=== PATIENT | male | born 1935 | race Caucasian/White ===

== ENCOUNTER 2016-05-14 20:39 | Emergency (ER) | payer MEDICARE, OTHER ==
[~2016-05-14] VITALS: Ht 165.1 cm; Wt 90.0 kg
[~2016-05-14 20:39] MED LIST: ACET325T33 PO; ALBU18HF INH; ASPI-664 PO; BUDE6HFA INHALATION; BUSP10TA2 PO; CLOP75TA27 PO; DILT-8 PO; DULO30CA47 PO; EZET10TA3 PO; ISOS30TA5 PO; METO50TA16 PO; NIT4 SL; PRED20 PO; ROSU40TA PO
[2016-05-14 20:43] VITALS: Ht 165.1 cm; Wt 90.0 kg
== END 2016-05-14 23:00 | disposition left against medical advice (07) ==
LOC: E/R 20:39
DX: Z53.21 Procedure and treatment not carried out due to patient leaving prior to being seen by health care provider (principal)

== ENCOUNTER 2016-05-21 10:50 | Inpatient (IN) | payer MEDICARE, OTHER ==
[2016-05-21] VITALS (8 sets, daily range): BP systolic 131–157; BP diastolic 67–75; PULSE 68–77; RESP 19–20; TEMP 97.8; Ht 165.1 cm; Wt 84.9 kg
[~2016-05-21] VITALS: Ht 165.1 cm; Wt 84.9 kg
[2016-05-21] MEDS ORDERED: ASPIRIN 325 MG TAB PO STA (10:54)
[2016-05-21] MEDS ORDERED: NITROGLYCERIN (SL) 0.4 MG TAB SL PRN ×3 (11:00→14:30)
[2016-05-21] MEDS ORDERED: IPRATROPIUM (NEB) 0.5 MG/2.5 ML AMP INH STA (11:09)
[2016-05-21] MEDS ORDERED: ALBUTEROL 0.5% (NEB) 2.5 MG/0.5 ML AMP INH STA (11:09)
[2016-05-21] MEDS ORDERED: SEVE800T7 PO (11:15)
[2016-05-21] MEDS ORDERED: ATOR80TA75 PO (11:15)
[2016-05-21] MEDS ORDERED: CALC667C PO (11:16)
[2016-05-21 11:23] LABS: BASOPHILS % 0.2 % (0.0-2.0); HEMATOCRIT 34.2 % (42.0-52.0); HEMOGLOBIN 11.6 g/dl (14.0-18.0); LYMPHOCYTES # 0.8 10^3/ul (0.8-2.9); LYMPHOCYTES % 8.1 % (15.0-51.0); MEAN CORPUSCULAR HEMOGLOBIN 30.8 pg (29.0-33.0); MEAN CORPUSCULAR HGB CONC 33.9 g/dl (32.0-37.0); MEAN CORPUSCULAR VOLUME 90.8 fl (82.0-101.0); MEAN PLATELET VOLUME 9.6 fl (7.4-10.4); MONOCYTE # 0.4 10^3/ul (0.3-0.9); MONOCYTES % 4.5 % (0.0-11.0); NEUTROPHIL # 8.6 10^3/ul (1.6-7.5); NEUTROPHILS % 87.2 % (39.0-77.0); PLATELET COUNT 124 10^3/UL (140-440); RED BLOOD COUNT 3.77 10^6/ul (4.70-6.10); RED CELL DISTRIBUTION WIDTH 13.9 % (11.5-14.5); UNCORRECTED WBC 9.8 10^3/ul (4.8-10.8); WHITE BLOOD COUNT 9.8 10^3/ul (4.8-10.8)
[2016-05-21 11:28] LABS: ALBUMIN 4.1 g/dl (3.3-4.9); POTASSIUM 4.4 mmol/L (3.5-5.1)
--- NOTE | 2016-05-21 11:28 | RADRPT ---
PROCEDURE: XR Chest. CLINICAL INDICATION: Chest pain TECHNIQUE: Single frontal chest x-ray. COMPARISON: 10/26/2015 FINDINGS: The lungs are remarkable for mild patchy atelectasis within the lung bases bilaterally. No focal pn eumonia is seen. The cardiomediastinal silhouette is unremarkable. The osseous structures are unre markable. Right-sided central line is seen with the tip in the cavoatrial junction, in good locatio n. IMPRESSION: 1. Mild bibasilar subsegmental atelectasis. 2. Right central line in good position without pneumothorax. 3. Otherwise, stable and unremarkable chest x-ray. RPTAT: HMJB .Uriel Wetzel MD, MD Date Time Electronically viewed and signed by .Uriel Wetzel MD, on 05/21/2016 11:27 .B/
[2016-05-21 11:30] LABS: BILIRUBIN,INDIRECT 0.1 mg/dl (0-1.1); BILIRUBIN,TOTAL 0.1 mg/dl (0.2-1.3); CREATININE 7.22 mg/dl (0.61-1.24)
[2016-05-21] MEDS ORDERED: FUROSEMIDE 40 MG INJ IV ONE (11:30)
[2016-05-21 11:31] LABS: ALBUMIN/GLOBULIN RATIO 1.17; CALCIUM 8.4 mg/dl (8.4-10.2); TOTAL PROTEIN 7.6 g/dl (6.1-8.1)
[2016-05-21 11:41] LABS: CONDITION 1
[2016-05-21 11:56] LABS: CK-MB 3.36 ng/ml (0.0-2.4)
[2016-05-21 11:58] LABS: TROPONIN-I 0.235 ng/ml (0.00-0.12)
[2016-05-21 12:18] LABS: INR 1.11; PROTIME 14.3 Sec (12.2-14.2); PT RATIO 1.1
[2016-05-21 12:19] LABS: PARTIAL THROMBOPLASTIN TIME 28.1 Sec (25.0-35.0)
--- NOTE | 2016-05-21 13:18 | ERA ---
ER Documentation Chief Complaint Date/Time DATE: 05/21/16 TIME: 13:05 Chief Complaint BIB RA FOR EVAL OF CP THIS AM. PT ON HD. HPI This is a 80-year-old male with a known history of end-stage renal disease on hemodialysis every Saturday and Saturday. The patient over the past 12 hours has been experiencing intermittent chest pressure which does not radiate to the neck or back or jaw. The pain will last for 20 minutes and then spontaneously resolved. Just prior to arrival the patient stated the pain worsened and his chest was 10 out of 10 in intensity. EMS was called and they administered 160 mg of aspirin and nitroglycerin which completely resolved the patient's chest pain. He denied any associated symptoms of nausea vomiting or diaphoresis. The patient has a known history of a chronic occlusion in his LAD and is scheduled for an outpatient catheterization to be performed tomorrow by Dr. Fung. The patient denies any abdominal pain. He also denies any hemoptysis hematemesis or melanotic stools. His radio engineer is Dr. Ramirez. ROS All systems reviewed and are negative except as per history of present illness. Medications Home Meds Active Scripts Isosorbide Mononitrate* (Isosorbide Mononitrate*) 30 Mg Tab.er.24h, 30 MG PO DAILY for 30 Days, #100 Prov:MARLON RAMIREZ MD 04/28/16 Diltiazem Hcl (Cardozem Cd) 240 Mg Capsr, 240 MG PO DAILY, #30 CAP Prov:FRANCISCO CONWAY MD 10/30/15 Nitroglycerin* (Nitrostat*) 0.4 Mg Tab.subl, 1 TAB SL Q5M Y for CHEST PAIN, #30 Prov:FRANCISCO CONWAY MD 10/30/15 Reported Medications Calcium Acetate* (Calcium Acetate*) 667 Mg Capsule, 667 MG PO WITH MEALS, #30 CAP 05/21/16 Sevelamer Carbonate* (Renvela*) 800 Mg Tablet, 0.8 GM PO WITH MEALS, TAB 05/21/16 Atorvastatin* (Atorvastatin*) 80 Mg Tablet, 80 MG PO QHS, #30 TAB 05/21/16 Clopidogrel Bisulfate (Clopidogrel) 75 Mg Tablet, 75 MG PO DAILY, #30 TAB 04/28/16 Aspirin (Low Dose Aspirin) 81 Mg Tablet., 81 MG PO DAILY, #30 TAB 10/24/15 Budesonide-Formoterol Fumarate* (Symbicort*) 160-4.5 Hfa.aer.ad, 2 PUFF INHALATION BID, #1 EACH 10/24/15 Metoprolol Succinate* (Toprol XL*) 50 Mg Tab.er.24h, 50 MG PO DAILY, #30 TAB 10/24/15 Discontinued Reported Medications Duloxetine Hcl* (Duloxetine Hcl*) 30 Mg Capsule.dr, 30 MG PO DAILY, #30 CAP 10/24/15 Buspirone Hcl* (Buspirone Hcl*) 10 Mg Tab, 10 MG PO DAILY, TAB 10/24/15 Ezetimibe* (Zetia*) 10 Mg Tablet, 10 MG PO HS, TAB 10/24/15 Rosuvastatin Calcium* (Crestor*) 40 Mg Tablet, 40 MG PO HS 12/09/13 Discontinued Scripts Acetaminophen* (Tylenol*) 325 Mg Tablet, 650 MG PO Q4H Y for NON-CARDIAC PAIN LEVEL 1-3 for 60 Days, #100 TAB Prov:MARLON RAMIREZ MD 04/28/16 Albuterol Sulfate* (Ventolin HFA*) 18 Gm Hfa.aer.ad, 2 PUFF INH Q6H Y for WHEEZING AND SOB, #1 AER Prov:MARLON RAMIREZ MD 04/28/16 Aspirin* (Aspirin* EC) 81 Mg Tablet., 81 MG PO DAILY for 90 Days, #100 Prov:MARLON RAMIREZ MD 04/28/16 Prednisone (Prednisone) 20 Mg Tab, 20 MG PO BID, #10 TAB Prov:FRANCISCO CONWAY MD 10/30/15 Allergies Allergies: Coded Allergies: No Known Allergy (Unverified , 05/21/16) PMhx/Soc History of Surgery: Yes (PCI with stents x 3) Anesthesia Reaction: No Hx Neurological Disorder: No Hx Respiratory Disorders: No Hx Cardiac Disorders: Yes (HTN, Hyperlipidemia, CAD) Hx Psychiatric Problems: No Hx Miscellaneous Medical Probl: No Hx Alcohol Use: No Hx Substance Use: No Hx Tobacco Use: No (quit 6 months ago) Smoking Status: Former smoker Physical Exam Vitals Vital Signs Date Time Temp Pulse Resp B/P Pulse Ox O2 Delivery O2 Flow Rate FiO2 05/21/16 12:28 73 20 98 21 05/21/16 11:05 Nasal Cannula 2 05/21/16 10:58 98.1 82 18 201/84 96 Physical Exam Constitutional:Well-developed. Well-nourished. HEENT:Normocephalic. Atraumatic.Pupils were equal round reactive to light. Moist mucous membranes.No tonsillar exudates. Neck: No nuchal rigidity. No lymphadenopathy. No posterior cervical spine tenderness or step-offs. Respiratory: Not using accessory muscles of respiration.Lungs were clear to auscultation bilaterally. Rhonchi bilaterally. No rales. No wheezing. Cardiovascular: Regular rate regular rhythm.No murmurs. No rubs were appreciated.S1, S2 normal. Distal pulses are palpable 2+ bilaterally. GI: Abdomen was soft. Nontender. Non Distended. No pulsatile abdominal masses or bruits. No rebound. No guarding. Bowel sounds were present and normal. Muscle skeletal: Full range of motion of both the upper and lower extremities bilaterally.Normal muscle tone.No assymetrical calf tenderness or swelling. Skin: No petechia, no purpura. No lesions on the palms or the soles of the feet. No maculopapular rash. Right subclavian tunneled catheter in place which was clean dry and intact NEURO: Patient was alert, awake, orientated x3.No facial droop. Gait observed and normal with no ataxia.Speech had regular rate and rhythm. No focal neurological deficits. Result Diagram: 05/21/16 1105 05/21/16 1105 Results 24 hrs Laboratory Tests Test 05/21/16 11:05 05/21/16 11:50 Alanine Aminotransferase (ALT/SGPT) 40IU/L Albumin 4.1g/dl Albumin/Globulin Ratio 1.17 Alkaline Phosphatase 127IU/L Anion Gap 25 Aspartate Amino Transf (AST/SGOT) 22IU/L B-Type Natriuretic Peptide 1590PG/ML Basophils # 0.010^3/ul Basophils % 0.2% Blood Urea Nitrogen 65mg/dl Calcium Level 8.4mg/dl Carbon Dioxide Level 21mmol/L Chloride Level 96mmol/L Creatine Kinase 42IU/L Creatine Kinase Index 8.0 Creatinine 7.22mg/dl Creatinine Kinase MB (Mass) 3.36ng/ml Direct Bilirubin 0.00mg/dl Eosinophils # 0.010^3/ul Eosinophils % 0.0% Globulin 3.50g/dl Glucose Level 322mg/dl Hematocrit 34.2% Hemoglobin 11.6g/dl Indirect Bilirubin 0.1mg/dl Lymphocytes # 0.810^3/ul Lymphocytes % 8.1% Mean Corpuscular Hemoglobin 30.8pg Mean Corpuscular Hemoglobin Concent 33.9g/dl Mean Corpuscular Volume 90.8fl Mean Platelet Volume 9.6fl Monocytes # 0.410^3/ul Monocytes % 4.5% Neutrophils # 8.610^3/ul Neutrophils % 87.2% Nucleated Red Blood Cells # 0.010^3/ul Nucleated Red Blood Cells % 0.0/100WBC Platelet Count 50817^3/UL Potassium Level 4.4mmol/L Red Blood Count 3.7710^6/ul Red Cell Distribution Width 13.9% Sodium Level 138mmol/L Total Bilirubin 0.1mg/dl Total Protein 7.6g/dl Troponin I 0.235ng/ml White Blood Count 9.810^3/ul Activated Partial Thromboplast Time 28.1Sec INR International Normalized Ratio 1.11 Prothrombin Time 14.3Sec Prothrombin Time Ratio 1.1 Current Medications Medications (Trade) Dose Ordered Sig/Sierra Route PRN Reason Start Time Stop Time Status Last Admin Dose Admin Aspirin (Aspirin) 325 mg ONCE STAT PO 05/21/16 10:54 05/21/16 10:56 DC 05/21/16 11:57 Nitroglycerin (Nitroglycerin (Sl Tab) 0.4 Mg) 1 tab Q5M UP TO 3 DOSES PRN SL CHEST PAIN 05/21/16 11:00 Albuterol (Proventil 0.5% (Neb)) 5 mg ONCE STAT INH 05/21/16 11:09 05/21/16 11:11 DC 05/21/16 12:27 Ipratropium [place] (Atrovent 0.02% (Neb)) 0.5 mg ONCE STAT INH 05/21/16 11:09 05/21/16 11:11 DC 05/21/16 12:27 Furosemide (Lasix) 40 mg ONCE ONCE IV 05/21/16 11:30 05/21/16 11:31 DC 05/21/16 11:59 Procedures/MDM The patient presented to the emergency department with chest pain. My clinical evaluation and workup was to distinguish minor causes of chest pain from acute life threatening conditions such as myocardial infarction, pulmonary embolism, aortic dissection, esophageal rupture, cardiac tamponade. The patient was placed on a outside rigger and continuous pulse oximetry. IV access established by nursing staff. The patient was given 162 mg of aspirin and further nitroglycerin and was chest pain-free at this time. I spoke with his security operations specialist Dr. mcnally.who indicated the patient did not require heparin at this time given that he was chest pain-free. He also requested that the patient undergo hemodialysis prior to his cardiac catheterization. I spoke with Dr. Sauer who will follow up on arranging the patient's dialysis. The patient's bicarb and potassium were within normal limits. 12 Lead EKG tracing ordered and reviewed by myself showed: Normal sinus rhythm of 86 bpm and no arrhythmia. WV interval normal. QRS duration normal. No ST segment elevation No ST segment depression. No changes consistent with acute ischemia. The patient's troponin was elevated and he was treated for a non-STEMI. The patient will be admitted to the hospitalist as requested by Dr. Sauer in serious condition with anticipated stay of greater than 2 midnights. This patient also presented to the emergency department with severely elevated blood pressure. My differential diagnosis included but was not limited to conditions that could end-organ damage such as acute coronary syndrome, acute pulmonary edema, aortic dissection, subarachnoid hemorrhage, intracerebral hemorrhage, cerebral infarction, withdrawal syndromes from beta blockers, or states of catecholamine excess such as pheochromocytoma or drug intoxication. The patient had uncontrolled hypertensive with end-organ damage to suggest hypertensive emergency. The treatment goal was immediate reduction of the mean arterial blood pressure. This was done in a controlled, graded manor, using improvement of the patient's condition as a guide. The patient's blood pressure reduction did not exceed more then a 20-25 percent reduction within the first 30 to 60 minutes. The patient was put on a outside rigger, continuous pulse oximetry, and IV access was established by nursing staff. The antihypertensive agent used was labetalol and nitroglycerin. The patient also received nebulizer treatments of albuterol and Atrovent had significant improvement of his dyspnea. Chest radiograph showed no evidence of pulmonary vascular congestion and the patient's tunneled catheter was in good position with no pneumothorax. Critical Care: Time: 40 minutes Treatments/Evaluations: Close monitoring and treatment of unstable vital signs, cardiorespiratory, and neurologic status, while maintaining tight balance of fluid, respiratory, and cardiac interventions. Departure Diagnosis: Primary Impression: Non-STEMI (non-ST elevated myocardial infarction) Additional Impressions: Acute on chronic kidney failure Hypertensive emergency Condition: Serious EVON ORTIZ May 21, 2016 13:17
[2016-05-21] MEDS ORDERED: ONDANSETRON 4 MG INJ IV PRN ×2 (13:30→14:30)
[2016-05-21] MEDS ORDERED: ACETAMINOPHEN 325 MG TAB PO PRN ×2 (13:30→14:30)
[2016-05-21] MEDS ORDERED: NACL 0.9% 3 ML SYG IV SCH (14:30)
[2016-05-21] MEDS ORDERED: morphine 2 MG INJ IV PRN (14:30)
[2016-05-21] MEDS ORDERED: LORAZEPAM 0.5 MG TAB PO PRN (14:30)
[2016-05-21] MEDS ORDERED: DOCUSATE SODIUM 100 MG CAP PO PRN (14:30)
[2016-05-21] MEDS ORDERED: ALBUTEROL/IPRATROPIUM (NEB) 3 ML AMP HHN PRN (15:30)
[2016-05-21 15:48] LABS: CK-MB 7.21 ng/ml (0.0-2.4); TROPONIN-I 1.69 ng/ml (0.00-0.12)
--- NOTE | 2016-05-21 16:42 | CONS ---
DATE OF ADMISSION: 05/21/2016 DATE OF CONSULTATION: 05/21/2016 TYPE OF CONSULTATION: Cardiology. REFERRING PHYSICIAN: Dr. Burt. REASON FOR CONSULTATION: Chest pain. CHIEF COMPLAINT: Chest pain. HISTORY OF PRESENT ILLNESS: Thank you for this referral. History obtained from the patient, loli rankin with his son and discussion with Dr. Bernard. This is a pleasant 80-year-old [place] gentleman with multiple complicated medical history with known coronary artery disease [facility] [place] [facility] [place]. The patient apparently has had URI symptoms with some fever over the past week. He was in fact scheduled to undergo elective PCI of his LAD including CT of his LAD last week . However, he called and canceled the procedure because of his fever and was not breathing well. Zulma hernandez was scheduled to have the procedure tomorrow; however, came in this morning because of worsen ing chest pain. The patient apparently has had some chest pain yesterday, which has resolved, but t his morning he is complaining of severe anterior chest/epigastric chest pain and discomfort. He cou ld not explain the exacerbating factor. It was severe, lasted about a half an hour and resolved whi le in the emergency room. Currently, the patient is completely chest pain-free. The patient also h as been wheezing, coughing and had shortness of breath. No recent fever. His cough and shortness o f actually improved now. PAST MEDICAL HISTORY: History of coronary artery disease, status post myocardial infarction. Histo ry of multiple PCIs, history of renal failure on dialysis now, history of hypertension, diabetes, dy slipidemia, congestive heart failure and COPD. SOCIAL HISTORY: Has recently quit smoking. FAMILY HISTORY: No reported early coronary artery disease. ALLERGIES: NO REPORTED ALLERGIES. MEDICATIONS: He does not remember, but per review of the old chart that I could obtain from my office, he is sup posed to be takin. Aspirin. 2. Lipitor. 3. Plavix. 4. Cardizem. 5. Pepcid. 6. Isordil. 7. Metoprolol. REVIEW OF SYSTEMS: As above mentioned, denied all except for above-mentioned. PHYSICAL EXAMINATION: VITAL SIGNS: Temperature 97.8, heart rate of 93, blood pressure 127/80, respiration rate of 18, sat urating 100%. HEENT: Normocephalic, atraumatic. Pupils are equal. Appears in mild respiratory distress. CARDIOVASCULAR: Regular rate and rhythm, systolic murmur. PULMONARY: With mild diffuse wheezes. GASTROINTESTINAL: Soft, nontender. EXTREMITIES: Trivial edema. NEUROLOGIC: Awake and alert. PSYCHIATRIC: Appears to be calm and pleasant. LABORATORY DATA: WBC of cough 9.8, hemoglobin 11.6, platelet 124. Sodium 138, potassium 4.4, BUN o f 65, creatinine of 7.2, glucose of 322. Troponin of 0.23 with total CK of 42, MB fraction of 3.3. ProBNP of 1590. DIAGNOSTIC DATA: Chest x-ray shows mild basilar subsegmental atelectasis, right central line in goo d position without pneumothorax. EKG showed normal sinus rhythm, nonspecific ST abnormalities. Rev iew of the old chart showed that patient had Lexiscan stress test done on 02/20/2016, which showed e jection fraction of 56% and 67% with minimal reversible ischemia in the LAD area. PAST SURGICAL HISTORY: Patient has had a cardiac catheterization done in 10/25/2015 and had a PCI o f the left circumflex artery using a 2.5 x 26 mm Resolute drug-eluting stent. He had a PCI of the r ight coronary artery using a 3 x 38 mm Resolute drug-eluting stent and a PCI of the distal right cor onary artery using a 2.5 x 12 mm drug-eluting stent in 10/28/2015. On 04/27/2016, he had an angiogr aphy done which showed the left circumflex artery had 80% new lesions prior to the previous stent. This stent area was successfully stented using a 2.75 x 14 mm Resolute drug-eluting stent. LAD had a dual ostial with proximal LAD 80% stenosis, mid LAD 100% occlusion with left collaterals. Postero lateral artery also had 70% ostial lesion. ASSESSMENT AND PLAN: 1. Mnk-TB-fykweiisb myocardial infarction. 2. Chronic obstructive pulmonary disease exacerbation. 3. Coronary artery disease, history of myocardial infarction. 4. History of multiple percutaneous coronary interventions. 5. Diabetes, poorly controlled. 6. Hypertension. 7. Renal failure on dialysis. 8. History of congestive heart failure, chronic, secondary to diastolic dysfunction, stable. 9. Abnormal troponin secondary to above. 10. Ex-smoker. 11. Dyslipidemia on statin. RECOMMENDATIONS: I will decrease the patient's beta mirna because of his actual wheezing. Discus sed with Dr. Bernard who will evaluate the patient and optimize his pulmonary status. Hemodialysis to be done today. The patient will be scheduled for diagnostic angiography, possible PCI tomorrow o nce he is dialyzed and his pulmonary status has improved. Aspirin and Plavix will be continued. We will continue to monitor along with you. Thank you for this referral. Dictated By: ADENIKE SANTIAGO/FIORELLA Conf#: [id number] DID#: [id number]
--- NOTE | 2016-05-21 16:56 | CONS ---
Date/Time of Note Date/Time of Note DATE: 05/21/16 TIME: 16:44 Assessment/Plan Assessment/Plan Additional Assessment/Plan 80 yo Male with 1) Chest Pain, NSTEMI, Hx of CAD, Chronic Occlusion of LAD, Hx of PCI and stent 2) ESRD on HD TTS, Last HD Saturday 3) Hx of HTN, Controlled 4) Anemia, Chronic, ESRD 5) Mineral Bone Disease, CKD 6) Dyslipidemia Pt will be evaluated by Cardiology for Chest pain, Possible plan for angiogram tomorrow Will order HD today, UF as tolerated Also plan for HD after contrast study tomorrow BP is well controlled, Chest Pain has resolved Cont outpt Med rx, Cont Phos binder with Meals MAYELA with HD TTS Schedule. Thank you for the opportunity to participate in the care of Mr Keita Please do not hesitate to contact me if you have any questions or concerns. Consultation Date/Type/Reason Admit Date/Time Date of Consultation: May 21, 2016 Type of Consultation: Nephrology Consultatoin Reason for Consultation ESRD Referring Provider: FRANCISCO CONWAY MD Hx of Present Illness 80-year-old male with a known history of end-stage renal disease on hemodialysis every Saturday and Saturday, last HD was on Saturday without any complications. Pt presented with intermittent chest pressure which does not radiate to the neck or back or jaw and has resolved at this time. Pt has prior hx of CAD and PCI currentl on antiplatelet agents. His Cardiology is Dr Fung.The patient has a known history of a chronic occlusion in his LAD and is scheduled for an outpatient catheterization. He denied any associated symptoms of nausea vomiting or diaphoresis. Nephrology consulted for management of ESRD. Constitutional: No requiring O2 Past Medical History Medical History: coronary artery disease, high cholesterol, hypertension, renal disease Past Surgical History Past Surgical Hx: other (S/p PCI) Family History Significant Family History: no pertinent family hx Social History Alcohol Use: none Smoking Status: Former smoker Drug Use: none Exam/Review of Systems Vital Signs Vitals Vital Signs Date Time Temp Pulse Resp B/P Pulse Ox O2 Delivery O2 Flow Rate FiO2 05/21/16 15:02 97.8 93 18 127/88 100 Room Air 05/21/16 12:28 21 05/21/16 11:05 2 Exam Constitutional: alert, No distress Eyes: EOMI, PERRL, nl conjunctiva ENMT: mucosa pink and moist Neck: No jvd Respiratory: crackles/rales, No diminished breath sounds, No labored breathing Cardiovascular: regular rate and rhythm, No edema Gastrointestinal: non-tender, soft, No rebound or guarding Musculoskeletal: nl extremities to inspection Extremities: No edema Neurological: PARIMUTUEL TICKET CASHIER II-XII intact, nl mental status, nl speech, nl strength Skin: No diaphoresis, No rash or lesions Results Result Diagram: 05/21/16 1105 05/21/16 1105 Results 24 hrs Laboratory Tests Test 05/21/16 11:05 05/21/16 11:50 05/21/16 14:59 Alanine Aminotransferase (ALT/SGPT) 40 Albumin 4.1 Albumin/Globulin Ratio 1.17 Alkaline Phosphatase 127 H Anion Gap 25 H Aspartate Amino Transf (AST/SGOT) 22 B-Type Natriuretic Peptide 1590 H Basophils # 0.0 Basophils % 0.2 Blood Urea Nitrogen 65 H Calcium Level 8.4 Carbon Dioxide Level 21 Chloride Level 96 L Creatine Kinase 42 73 Creatine Kinase Index 8.0 9.9 Creatinine 7.22 H Creatinine Kinase MB (Mass) 3.36 H 7.21 H Direct Bilirubin 0.00 Eosinophils # 0.0 Eosinophils % 0.0 Globulin 3.50 H Glucose Level 322 H Hematocrit 34.2 L Hemoglobin 11.6 L Indirect Bilirubin 0.1 Lymphocytes # 0.8 Lymphocytes % 8.1 L Mean Corpuscular Hemoglobin 30.8 Mean Corpuscular Hemoglobin Concent 33.9 Mean Corpuscular Volume 90.8 Mean Platelet Volume 9.6 Monocytes # 0.4 Monocytes % 4.5 Neutrophils # 8.6 H Neutrophils % 87.2 H Nucleated Red Blood Cells # 0.0 Nucleated Red Blood Cells % 0.0 Platelet Count 124 #L Potassium Level 4.4 Red Blood Count 3.77 L Red Cell Distribution Width 13.9 Sodium Level 138 Total Bilirubin 0.1 L Total Protein 7.6 Troponin I 0.235 *H 1.690 *H White Blood Count 9.8 # Activated Partial Thromboplast Time 28.1 INR International Normalized Ratio 1.11 Prothrombin Time 14.3 H Prothrombin Time Ratio 1.1 Medications Medications Current Medications Aspirin (Halfprin) 81 mg DAILY PO ; Start 05/22/16 at 09:00 Atorvastatin Calcium (Lipitor) 80 mg QHS PO ; Start 05/21/16 at 21:00 Clopidogrel Bisulfate (plaVIX) 75 mg DAILY PO ; Start 05/22/16 at 09:00 Isosorbide Mononitrate (Imdur) 30 mg DAILY PO ; Start 05/22/16 at 09:00 Salmeterol Xinafoate/ Fluticasone (Advair 250/50 Diskus) 1 inh BID INH ; Start 05/21/16 at 21:00 Diltiazem HCl (Cardizem Cd) 240 mg DAILY PO ; Start 05/22/16 at 09:00 Lorazepam (Ativan) 0.5 mg Q8H PRN PO ANXIETY; Start 05/21/16 at 14:30 Ondansetron HCl (Zofran Inj) 4 mg Q6H PRN IV NAUSEA AND/OR VOMITING; Start at 14:30 Acetaminophen (Tylenol Tab) 650 mg Q6H PRN PO PAIN LEVEL 1-3 OR FEVER; Start at 14:30 Morphine Sulfate (morphine) 1 mg Q4H PRN IV PAIN LEVEL 7-10; Start 05/21/16 at 14:30 Docusate Sodium (Colace) 100 mg Q12H PRN PO CONSTIPATION; Start 05/21/16 at 14: 30 Pantoprazole (Protonix Tab) 40 mg DAILY@06 PO ; Start 05/22/16 at 06:00 Heparin Sodium (Porcine) (Heparin (5000 Units/0.5 ml)) 5,000 unit Q12 SC ; Start 05/21/16 at 21:00 Methylprednisolone Sodium Succinate (Solu-Medrol) 40 mg Q8 IV ; Start 05/21/16 at 22:00 Insulin Human NPH (Humulin N) 5 unit Q8H SC ; Start 05/21/16 at 16:00 Metoprolol Succinate (Toprol Xl) 25 mg DAILY PO ; Start 05/22/16 at 09:00 Procedures Procedures PROCEDURE: XR Chest. CLINICAL INDICATION: Chest pain TECHNIQUE: Single frontal chest x-ray. COMPARISON: 10/26/2015 FINDINGS: The lungs are remarkable for mild patchy atelectasis within the lung bases bilaterally. No focal pneumonia is seen. The cardiomediastinal silhouette is unremarkable. The osseous structures are unremarkable. Right-sided central line is seen with the tip in the cavoatrial junction, in good location. IMPRESSION: 1. Mild bibasilar subsegmental atelectasis. 2. Right central line in good position without pneumothorax. 3. Otherwise, stable and unremarkable chest x-ray. RPTAT: HMJB .Uriel Wetzel MD, Date Time Electronically viewed and signed by .Uriel Wetzel MD, MD on 05/21/2016 11:27 ZEHRA MILLARD MD May 21, 2016 16:55
[2016-05-21] MEDS: NPH, HUMAN INSULIN ISOPHANE 3ML VIAL SC SCH (19:00)
[2016-05-21] MEDS: SEVELAMER CARBONATE 0.8 GM PKT PO SCH (19:30)
[2016-05-21] MEDS: CALCIUM ACETATE 667 MG CAP PO SCH (19:30)
--- NOTE | 2016-05-21 20:34 | HP ---
DATE OF ADMISSION: 05/21/2016 CONSULTANTS: 1. Dr. Mitch Hazel 2. Dr. Emmanuel Pizano CHIEF COMPLAINT: Chest pain. HISTORY OF PRESENT ILLNESS: This is a pleasant 80-year-old gentleman known to me from a prior hospi talization with past medical history of myocardial infarction, end-stage renal disease on hemodialys is Saturday, , and Saturdays; diabetes mellitus type 2, diabetic nephropathy, hypertension, d yslipidemia, coronary artery disease, COPD, history of smoking in remission, who presents to [facility] saying having 1 day of chest discomfort. The chest discomfort is explained as left-sided chest pain radiating to his the patient shoulder, not accompanied with diaphoresis, shor tness of breath. The patient states that he has been compliant with his medication and was schedule d for left heart catheterization this upcoming week, although this chest discomfort started this mor allison; therefore, he presented to [facility] emergency room. Upon evaluation, the patient's EKG demonstrated normal sinus rhythm with ventricular rate of 86 with no arrhythmia, NV interval no rmal, QRS duration normal, no ST segment elevation or depression, no sign of ischemia. The patient' s troponin was found to be mildly elevated at 0.235. Creatinine 7.22, BUN of 65. He was treated aspirin, DuoNeb, Lasix, nitroglycerin. At this time, the patient denies having any discomfort. He is accompanied by his son and his [id number] at the bedside. He denies any fever, chills, w eight gain, weight loss, anorexia. No shortness of breath, no nausea, vomiting, diarrhea, no abdomi nal pain. No dysuria, hematuria, urgency, and incontinence. No neck pain, no restricted range of m otion. No recent travel history. No sick contact. No lower extremity edema. No difficulty with a mbulation. He does complain of having right shoulder pain, which has been chronic, and this has com e on since lack of movement since he has gotten his dialysis catheter. PAST MEDICAL AND SURGICAL HISTORY: As above per HPI. MEDICATIONS: 1. Aspirin 81 mg. 2. Lipitor 80 mg. 3. Symbicort b.i.d. 4. Calcium acetate 667 mg. 5. Plavix 75 mg. 6. Cardizem 240 mg. 7. Isosorbide [id number] mg. 8. Toprol-XL 50 mg. 9. Nitroglycerin 0.4 mg. 10. Renvela 800 mg. ALLERGIES: NO KNOWN DRUG ALLERGIES. FAMILY HISTORY: Positive for hypertension and coronary artery disease, dyslipidemia. SOCIAL HISTORY: Chronic smoker for 40 years, although he quit about 2 months ago. History of occas ional alcohol use, but in remission. No illicit drugs. Lives at home with his family. REVIEW OF SYSTEMS: As above per HPI, otherwise 12 review of systems has been found to be negative. PHYSICAL EXAMINATION: VITAL SIGNS: Temperature 97.8, pulse 93, respiration 18, blood pressure 127/88, oxygen 100% in room air. GENERAL APPEARANCE: The patient is lying in bed comfortably without any distress. He is awake, alexia rt, oriented. He is able to answer my questions properly. EYES AND EARS, NOSE, THROAT: Conjunctivae and lids are normal. Pupils are normal. Extraocular mov ements normal. Hearing grossly normal. Lips, teeth, and gums are normal. Oral mucosa is moist. NECK: Supple. Trachea is midline. No lymphadenopathy. RESPIRATORY: Effort is normal. Clear to auscultation bilaterally. CARDIOVASCULAR: Normal S1, S2. Regular rhythm and rate. No murmur, no bruits, no edema. Peripher al pulses, radial pulses palpable. Cap refill is normal. CHEST: Normal expansion of thorax during inspiration. GASTROINTESTINAL: Abdomen is soft, nontender, not distended. Bowel sounds present. No guarding, r ebound. GENITOURINARY: Deferred. MUSCULOSKELETAL: Upper and lower extremities within normal limits. Full range of motion. Strength 5/5 in both upper and lower extremities. NEUROLOGIC: Cranial nerves II through XII are grossly intact. PSYCHIATRIC: Normal judgment and insight. He is awake, alert, oriented. LABORATORY WORK AND IMAGING: Sodium 138, potassium ____, chloride 96, bicarbonate 21, BUN 65, creat inine 7.22, glucose of 322, calcium 8.4, total bilirubin 1. Troponin 0.235. BNP 1590. WBC 9.8, he moglobin 11.3, hematocrit 34.2, platelets 124. PT 14.3, INR 1.11. ASSESSMENT AND PLAN: 1. Non-ST myocardial infarction. Cardiology has been consulted. The patient has been scheduled fo r left heart catheterization tomorrow status post dialysis. Continue aspirin, statin, Plavix, beta- mirna. 2. End-stage renal disease on hemodialysis. Nephrology has been consulted. 3. Dyslipidemia. Continue statin. Place the patient on low fat diet. 4. Essential hypertension, well controlled on metoprolol, isosorbide nitrate, and diltiazem. 5. 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 Continue archie athing treatment and bronchodilator. Place the patient on oxygen p.r.n. 6. For deep venous thrombosis prophylaxis, on heparin. 7. For gastrointestinal prophylaxis, on proton pump inhibitor. 8. We will continue to monitor patient closely. Further recommendations, management, and treatment as per clinical course. Total amount of time that was spent for evaluation of patient and admission workup 55 minutes. Dictated By: FRANCISCO SYED/FIORELLA Conf#: [id number] DID#: [id number]
[2016-05-21] MEDS: SALMETEROL/FLUTICASONE 250/50 INHA INH SCH (21:00)
[2016-05-21] MEDS: HEPARIN 5,000 UNIT/0.5 ML SYG SC SCH (21:00)
[2016-05-21] MEDS: ATORVASTATIN 80 MG TAB PO SCH (21:00)
[2016-05-21 21:26] LABS: CK-MB 8.79 ng/ml (0.0-2.4); TROPONIN-I 4.7 ng/ml (0.00-0.12)
[2016-05-21] MEDS: METHYLPREDNISOLONE 40 MG INJ IV SCH (22:00)
--- NOTE | 2016-05-21 22:32 | CONS ---
DATE OF ADMISSION: 05/21/2016 DATE OF CONSULTATION: REASON FOR CONSULTATION: Shortness of breath. Thank you, Dr. Conway, for this consultation. HISTORY OF PRESENT ILLNESS: This is a pleasant 80-year-old gentleman who presents with a several-da y history of increasing shortness of breath, wheezing, cough, congestion who has history of end-stag e renal failure on hemodialysis, and was scheduled for cardiac catheterization tomorrow for workup o f coronary ischemia, experiencing intermittent chest tightness for the past 12 hours, but no radiati on to the neck or jaw. No nausea, no vomiting, no cough or sputum production, no hemoptysis or onesimo temesis. As stated, the patient has a history of coronary artery disease with left anterior descend ing occlusion, scheduled for cardiac catheterization for tomorrow by Dr. Pizano. PAST MEDICAL HISTORY: As above. MEDICATIONS: Per chart. ALLERGIES: NONE. SOCIAL HISTORY: Ex-smoker. No alcohol, no history of drug use. FAMILY HISTORY: Noncontributory. SYSTEMS REVIEW: A 12-point review of systems was negative other than that mentioned above. PHYSICAL EXAMINATION: GENERAL: Elderly gentleman who appears comfortable at rest, no acute distress. VITAL SIGNS: Currently afebrile, pulse is 93, blood pressure 127/88, O2 saturation 98% on room air. NECK: Supple. No JVD or lymphadenopathy. CARDIAC: S1, S2. No added sounds or murmurs. CHEST: Diminished air entry bilaterally. ABDOMEN: Soft, nontender. No guarding or rebound. EXTREMITIES: No cyanosis, clubbing, edema. NEUROLOGIC: Grossly intact. No focal deficits. LABORATORY DATA: White count 9.8, hemoglobin 11.6, platelets of 124. BUN 65, creatinine 7.22. EKG shows no acute ischemic changes. Troponin was elevated at 1.69. Chest x-ray was reviewed, shows n o significant infiltrates or effusions. IMPRESSION AND PLAN: 1. Tracheobronchitis with bronchospasm. 2. Underlying coronary artery disease. Now with evidence of possible non-ST elevation myocardial i nfarction. 3. History of end-stage renal failure on hemodialysis. Clinically, no evidence of volume overload. 4. History of hypertension. The patient will require: 1. Chest pain protocol including nitroglycerin, beta-mirna, aspirin. 2. Bronchodilators. 3. Steroid taper for bronchospasm. 4. Hemodialysis, as tolerated. Dictated By: BAILEY ALEXANDER MD SV/FIORELLA Conf#: [id number] DID#: [id number] CC: FRANCISCO CONWAY MD;*EndCC*
[2016-05-22] VITALS (31 sets, daily range): BP systolic 121–176; BP diastolic 65–90; PULSE 70–89; RESP 16–24
[2016-05-22 03:08] LABS: CK-MB 8.02 ng/ml (0.0-2.4); TROPONIN-I 4.45 ng/ml (0.00-0.12)
[2016-05-22] MEDS: PANTOPRAZOLE (EC) 40 MG TAB PO SCH (05:59)
[2016-05-22] MEDS: METHYLPREDNISOLONE 40 MG INJ IV SCH ×3 (06:00→20:51)
[2016-05-22] MEDS: NPH, HUMAN INSULIN ISOPHANE 3ML VIAL SC SCH ×3 (06:03→16:28)
[2016-05-22] MEDS: ISOSORBIDE MONONITRATE(SR)30 MG TAB PO SCH (08:21)
[2016-05-22] MEDS: DILTIAZEM (CD) 240 MG CAP PO SCH (08:21)
[2016-05-22] MEDS: SALMETEROL/FLUTICASONE 250/50 INHA INH SCH ×2 (08:22→21:00)
[2016-05-22] MEDS: SEVELAMER CARBONATE 0.8 GM PKT PO SCH ×3 (08:22→17:42)
[2016-05-22] MEDS: ASPIRIN (EC) 81 MG TAB PO SCH (08:22)
[2016-05-22] MEDS: CLOPIDOGREL 75 MG TAB PO SCH (08:22)
[2016-05-22] MEDS: CALCIUM ACETATE 667 MG CAP PO SCH ×3 (08:22→17:42)
[2016-05-22] MEDS: HEPARIN 5,000 UNIT/0.5 ML SYG SC SCH (08:26)
[2016-05-22] MEDS ORDERED: METOPROLOL (XL) 25 MG TAB PO SCH (09:00)
[2016-05-22] MEDS ORDERED: METOPROLOL (XL) 50 MG TAB PO SCH (09:00)
[2016-05-22 10:05] LABS: ALBUMIN 4.4 g/dl (3.3-4.9); POTASSIUM 4.8 mmol/L (3.5-5.1)
[2016-05-22 10:07] LABS: INR 1.11; PROTIME 14.3 Sec (12.2-14.2); PT RATIO 1.1
[2016-05-22 10:08] LABS: ALBUMIN/GLOBULIN RATIO 1.1; BILIRUBIN,INDIRECT 0.4 mg/dl (0-1.1); BILIRUBIN,TOTAL 0.4 mg/dl (0.2-1.3); CREATININE 6.19 mg/dl (0.61-1.24); TOTAL PROTEIN 8.4 g/dl (6.1-8.1)
[2016-05-22 10:09] LABS: CALCIUM 8.8 mg/dl (8.4-10.2)
[2016-05-22] MEDS ORDERED: MIDAZOLAM 1 MG/ML 2 ML INJ ONE (10:13)
[2016-05-22] MEDS ORDERED: FENTAnyl 50 MCG/ML VIAL ONE ×2 (10:13→11:54)
[2016-05-22] MEDS ORDERED: IODIXANOL LOCM 100 ML BTL ONE ×3 (10:13→12:28)
[2016-05-22] MEDS ORDERED: LIDOCAINE 1% (MDV) 20 ML INJ ONE (10:13)
[2016-05-22 10:19] LABS: CK-MB 5.94 ng/ml (0.0-2.4)
[2016-05-22] MEDS ORDERED: VERAPAMIL 5 MG INJ ONE (10:20)
[2016-05-22] MEDS ORDERED: NITROGLYCERIN (IC) 100 MCG/ML INJ ONE (10:20)
[2016-05-22 10:24] LABS: CONDITION 1; EOSINOPHILS # 0.1 10^3/ul (0.0-0.5); EOSINOPHILS % 0.6 % (0.0-7.0); HEMATOCRIT 36.2 % (42.0-52.0); HEMOGLOBIN 12.4 g/dl (14.0-18.0); LYMPHOCYTES # 1.2 10^3/ul (0.8-2.9); LYMPHOCYTES % 10.6 % (15.0-51.0); MEAN CORPUSCULAR HEMOGLOBIN 31.1 pg (29.0-33.0); MEAN CORPUSCULAR HGB CONC 34.1 g/dl (32.0-37.0); MEAN CORPUSCULAR VOLUME 91.1 fl (82.0-101.0); MEAN PLATELET VOLUME 9.5 fl (7.4-10.4); MONOCYTE # 0.2 10^3/ul (0.3-0.9); NEUTROPHIL # 9.8 10^3/ul (1.6-7.5); NEUTROPHILS % 86.8 % (39.0-77.0); PLATELET COUNT 140 10^3/UL (140-440); RED BLOOD COUNT 3.98 10^6/ul (4.70-6.10); RED CELL DISTRIBUTION WIDTH 13.5 % (11.5-14.5); UNCORRECTED WBC 11.3 10^3/ul (4.8-10.8); WHITE BLOOD COUNT 11.3 10^3/ul (4.8-10.8)
[2016-05-22 10:26] LABS: TROPONIN-I 2.9 ng/ml (0.00-0.12)
[2016-05-22 10:29] LABS: MAGNESIUM 1.8 mg/dl (1.7-2.5)
[2016-05-22 10:30] LABS: CHOL/HDL RATIO 4.5 RATIO
[2016-05-22] MEDS ORDERED: BIVALIRUDIN 250MG /NS 50 ML 50 ML IVPB ONE (11:14)
--- NOTE | 2016-05-22 12:20 | CONS ---
Date/Time of Note Date/Time of Note DATE: 05/22/16 TIME: 12:18 Assessment/Plan Assessment/Plan Additional Assessment/Plan 80 yo Male with 1) Chest Pain, NSTEMI, Hx of CAD, Chronic Occlusion of LAD, Hx of PCI and stent 2) ESRD on HD TTS, Last HD Saturday 3) Hx of HTN, Controlled 4) Anemia, Chronic, ESRD 5) Mineral Bone Disease, CKD 6) Dyslipidemia BP is well controlled, Chest Pain has resolved Cont outpt Med rx, Cont Phos binder with Meals MAYELA with HD TTS Schedule. HD ordered for today also post Cath. Thank you for the opportunity to participate in the care of Mr Keita Please do not hesitate to contact me if you have any questions or concerns. Consultation Date/Type/Reason Admit Date/Time May 21, 2016 at 13:05 Initial Consult Date 05/21/16 Type of Consultation: Nephrology Reason for Consultation ESRD Referring Provider: FRANCISCO CONWAY MD Exam/Review of Systems Vital Signs Vitals Vital Signs Date Time Temp Pulse Resp B/P Pulse Ox O2 Delivery O2 Flow Rate FiO2 05/22/16 08:02 73 05/22/16 07:10 98.2 20 137/66 95 05/21/16 20:36 Room Air 05/21/16 12:28 21 05/21/16 11:05 2 Intake and Output 05/21/16 05/21/16 05/22/16 15:00 23:00 07:00 Intake Total 1000 ml Output Total 2500 ml Balance -1500 ml Exam Constitutional: No distress ENMT: mucosa pink and moist Respiratory: crackles/rales Cardiovascular: edema Gastrointestinal: soft Neurological: No lethargic Skin: No diaphoresis Results Result Diagram: 05/22/16 0920 05/22/16 0920 Results 24 hrs Laboratory Tests Test 05/21/16 14:59 05/21/16 18:59 05/21/16 20:18 05/22/16 02:05 Creatine Kinase 73 77 63 Creatine Kinase Index 9.9 11.4 12.7 Creatinine Kinase MB (Mass) 7.21 H 8.79 H 8.02 H Troponin I 1.690 *H 4.700 *H 4.450 *H Bedside Glucose 157 Test 05/22/16 06:05 05/22/16 09:20 Bedside Glucose 115 Alanine Aminotransferase (ALT/SGPT) 44 Albumin 4.4 Albumin/Globulin Ratio 1.10 Alkaline Phosphatase 145 H Anion Gap 24 H Aspartate Amino Transf (AST/SGOT) 32 Basophils # 0.0 Basophils % 0.0 Blood Urea Nitrogen 53 H Calcium Level 8.8 Carbon Dioxide Level 27 Chloride Level 94 L Cholesterol Level 168 Cholesterol/HDL Ratio 4.5 Creatine Kinase 65 Creatine Kinase Index 9.1 Creatinine 6.19 H Creatinine Kinase MB (Mass) 5.94 H Direct Bilirubin 0.00 Eosinophils # 0.1 Eosinophils % 0.6 Globulin 4.00 H Glucose Level 185 # HDL Cholesterol 37 Hematocrit 36.2 L Hemoglobin 12.4 L Hemoglobin A1c 5.3 INR International Normalized Ratio 1.11 Indirect Bilirubin 0.4 LDL Cholesterol, Calculated 103 Lymphocytes # 1.2 Lymphocytes % 10.6 L Magnesium Level 1.8 Mean Corpuscular Hemoglobin 31.1 Mean Corpuscular Hemoglobin Concent 34.1 Mean Corpuscular Volume 91.1 Mean Platelet Volume 9.5 Monocytes # 0.2 L Monocytes % 2.0 Neutrophils # 9.8 H Neutrophils % 86.8 H Nucleated Red Blood Cells # 0.0 Nucleated Red Blood Cells % 0.0 Platelet Count 140 Potassium Level 4.8 Prothrombin Time 14.3 H Prothrombin Time Ratio 1.1 Red Blood Count 3.98 L Red Cell Distribution Width 13.5 Sodium Level 140 Total Bilirubin 0.4 Total Protein 8.4 H Triglycerides Level 142 Troponin I 2.900 *H White Blood Count 11.3 H Medications Medications Current Medications Aspirin (Halfprin) 81 mg DAILY PO Last administered on 05/22/16 08:22; Admin Dose 81 MG; Start 05/22/16 at 09:00 Atorvastatin Calcium (Lipitor) 80 mg QHS PO ; Start 05/21/16 at 21:00 Clopidogrel Bisulfate (plaVIX) 75 mg DAILY PO Last administered on 05/22/16 08 :22; Admin Dose 75 MG; Start 05/22/16 at 09:00 Isosorbide Mononitrate (Imdur) 30 mg DAILY PO Last administered on 05/22/16 08 :21; Admin Dose 30 MG; Start 05/22/16 at 09:00 Salmeterol Xinafoate/ Fluticasone (Advair 250/50 Diskus) 1 inh BID INH Last administered on 05/22/16 08:22; Admin Dose 1 INH; Start 05/21/16 at 21:00 Diltiazem HCl (Cardizem Cd) 240 mg DAILY PO Last administered on 05/22/16 08: 21; Admin Dose 240 MG; Start 05/22/16 at 09:00 Lorazepam (Ativan) 0.5 mg Q8H PRN PO ANXIETY; Start 05/21/16 at 14:30 Ondansetron HCl (Zofran Inj) 4 mg Q6H PRN IV NAUSEA AND/OR VOMITING; Start at 14:30 Acetaminophen (Tylenol Tab) 650 mg Q6H PRN PO PAIN LEVEL 1-3 OR FEVER; Start at 14:30 Morphine Sulfate (morphine) 1 mg Q4H PRN IV PAIN LEVEL 7-10; Start 05/21/16 at 14:30 Docusate Sodium (Colace) 100 mg Q12H PRN PO CONSTIPATION; Start 05/21/16 at 14: 30 Pantoprazole (Protonix Tab) 40 mg DAILY@06 PO Last administered on 05/22/16 05 :59; Admin Dose 40 MG; Start 05/22/16 at 06:00 Heparin Sodium (Porcine) (Heparin (5000 Units/0.5 ml)) 5,000 unit Q12 SC Last administered on 05/22/16 08:26; Admin Dose 5,000 UNIT; Start 05/21/16 at 21:00 Methylprednisolone Sodium Succinate (Solu-Medrol) 40 mg Q8 IV Last administered on 05/22/16 06:00; Admin Dose 40 MG; Start 05/21/16 at 22:00 Insulin Human NPH (Humulin N) 5 unit Q8H SC ; Start 05/21/16 at 16:00 Metoprolol Succinate (Toprol Xl) 25 mg DAILY PO Last administered on 05/22/16 08:21; Admin Dose 25 MG; Start 05/22/16 at 09:00 ZEHRA MILLARD MD May 22, 2016 12:19
[2016-05-22] MEDS ORDERED: IOHEXOL 350MG/ML 50 ML BTL ONE (12:28)
[2016-05-22] MEDS ORDERED: SOD CHLORIDE 0.9% 1,000 ML IV SCH (12:57)
--- NOTE | 2016-05-22 13:36 | PN ---
Date/Time of Note Date/Time of Note DATE: 05/22/16 TIME: 13:30 Assessment/Plan VTE Prophylaxis VTE Prophylaxis Intervention: heparin Assessment/Plan Chief Complaint/Hosp Course ASSESSMENT AND PLAN: 1. Non-ST myocardial infarction. Cardiology has been consulted. Status post left heart catheterization and stent of LAD. Continue aspirin, statin, Plavix, beta-mirna. 2. End-stage renal disease on hemodialysis. Nephrology has been consulted. Continue hemodialysis as per nephrology recommendations 3. Dyslipidemia. Continue statin. Continue low fat diet. 4. Essential hypertension, well controlled on metoprolol, isosorbide nitrate, and diltiazem. 5. 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 Continue breathing treatment and bronchodilator. Place the patient on oxygen p.r.n. 6. For deep venous thrombosis prophylaxis, on heparin. 7. For gastrointestinal prophylaxis, on proton pump inhibitor. We will continue to monitor patient closely. Further recommendations, management, and treatment as per clinical course. Problems: Subjective 24 Hr Interval Summary Free Text/Dictation Status post left heart cath and PCI of LAD Denies of any chest pain although does complain of having mild shortness of breath Exam/Review of Systems Vital Signs Vitals Vital Signs Date Time Temp Pulse Resp B/P Pulse Ox O2 Delivery O2 Flow Rate FiO2 05/22/16 08:02 73 05/22/16 07:10 98.2 20 137/66 95 05/21/16 20:36 Room Air 05/21/16 12:28 21 05/21/16 11:05 2 Intake and Output 05/21/16 05/21/16 05/22/16 15:00 23:00 07:00 Intake Total 1000 ml Output Total 2500 ml Balance -1500 ml Exam General: The patient is well-developed, Not in acute distress. HEENT: Atraumatic, normocephalic. The pupils are equal and round . Neck: Supple with full range of motion. Chest: Normal expansion of the thorax during inspiration Lungs: Clear to auscultation bilaterally Heart: Normal S1-S2, Regular rhythm and rate. Abdomen: Soft , nontender, nondistended , bowel sounds are present. Right inguinal area at the site of left heart cath is dry and clean no evidence of hematoma Extremities: Normal to inspection, no edema no cyanosis Neurologic: Normal mental status,The patient is awake, alert and oriented . Results Result Diagram: 05/22/1620 05/22/16 0920 Results 24 hrs Laboratory Tests Test 05/21/16 14:59 05/21/16 18:59 05/21/16 20:18 05/22/16 02:05 Creatine Kinase 73 77 63 Creatine Kinase Index 9.9 11.4 12.7 Creatinine Kinase MB (Mass) 7.21 H 8.79 H 8.02 H Troponin I 1.690 *H 4.700 *H 4.450 *H Bedside Glucose 157 Test 05/22/16 06:05 05/22/16 09:20 Bedside Glucose 115 Alanine Aminotransferase (ALT/SGPT) 44 Albumin 4.4 Albumin/Globulin Ratio 1.10 Alkaline Phosphatase 145 H Anion Gap 24 H Aspartate Amino Transf (AST/SGOT) 32 Basophils # 0.0 Basophils % 0.0 Blood Urea Nitrogen 53 H Calcium Level 8.8 Carbon Dioxide Level 27 Chloride Level 94 L Cholesterol Level 168 Cholesterol/HDL Ratio 4.5 Creatine Kinase 65 Creatine Kinase Index 9.1 Creatinine 6.19 H Creatinine Kinase MB (Mass) 5.94 H Direct Bilirubin 0.00 Eosinophils # 0.1 Eosinophils % 0.6 Globulin 4.00 H Glucose Level 185 # HDL Cholesterol 37 Hematocrit 36.2 L Hemoglobin 12.4 L Hemoglobin A1c 5.3 INR International Normalized Ratio 1.11 Indirect Bilirubin 0.4 LDL Cholesterol, Calculated 103 Lymphocytes # 1.2 Lymphocytes % 10.6 L Magnesium Level 1.8 Mean Corpuscular Hemoglobin 31.1 Mean Corpuscular Hemoglobin Concent 34.1 Mean Corpuscular Volume 91.1 Mean Platelet Volume 9.5 Monocytes # 0.2 L Monocytes % 2.0 Neutrophils # 9.8 H Neutrophils % 86.8 H Nucleated Red Blood Cells # 0.0 Nucleated Red Blood Cells % 0.0 Platelet Count 140 Potassium Level 4.8 Prothrombin Time 14.3 H Prothrombin Time Ratio 1.1 Red Blood Count 3.98 L Red Cell Distribution Width 13.5 Sodium Level 140 Total Bilirubin 0.4 Total Protein 8.4 H Triglycerides Level 142 Troponin I 2.900 *H White Blood Count 11.3 H Medications Medications Current Medications Aspirin (Halfprin) 81 mg DAILY PO Last administered on 05/22/16t 08:22; Admin Dose 81 MG; Start 05/22/16 at 09:00 Atorvastatin Calcium (Lipitor) 80 mg QHS PO ; Start 05/21/16 at 21:00 Clopidogrel Bisulfate (plaVIX) 75 mg DAILY PO Last administered on 05/22/16 08 :22; Admin Dose 75 MG; Start 05/22/16 at 09:00 Isosorbide Mononitrate (Imdur) 30 mg DAILY PO Last administered on 05/22/16 08 :21; Admin Dose 30 MG; Start 05/22/16 at 09:00 Salmeterol Xinafoate/ Fluticasone (Advair 250/50 Diskus) 1 inh BID INH Last administered on 05/22/16 08:22; Admin Dose 1 INH; Start 05/21/16 at 21:00 Diltiazem HCl (Cardizem Cd) 240 mg DAILY PO Last administered on 05/22/16 08: 21; Admin Dose 240 MG; Start 05/22/16 at 09:00 Lorazepam (Ativan) 0.5 mg Q8H PRN PO ANXIETY; Start 05/21/16 at 14:30 Ondansetron HCl (Zofran Inj) 4 mg Q6H PRN IV NAUSEA AND/OR VOMITING; Start at 14:30 Acetaminophen (Tylenol Tab) 650 mg Q6H PRN PO PAIN LEVEL 1-3 OR FEVER; Start at 14:30 Morphine Sulfate (morphine) 1 mg Q4H PRN IV PAIN LEVEL 7-10; Start 05/21/16 at 14:30 Docusate Sodium (Colace) 100 mg Q12H PRN PO CONSTIPATION; Start 05/21/16 at 14: 30 Pantoprazole (Protonix Tab) 40 mg DAILY@06 PO Last administered on 05/22/16 05 :59; Admin Dose 40 MG; Start 05/22/16 at 06:00 Methylprednisolone Sodium Succinate (Solu-Medrol) 40 mg Q8 IV Last administered on 05/22/16 06:00; Admin Dose 40 MG; Start 05/21/16 at 22:00 Insulin Human NPH (Humulin N) 5 unit Q8H SC ; Start 05/21/16 at 16:00 Metoprolol Succinate 25 mg 25 mg DAILY PO Last administered on 05/22/16 08:21 ; Admin Dose 25 MG; Start 05/22/16 at 09:00 Sodium Chloride (NS) 1,000 ml @ 50 mls/hr Q20H IV ; Start 05/22/16 at 12:57; Stop 05/22/16 at 18:56 FRANCISCO CONWAY MD May 22, 2016 13:36
--- NOTE | 2016-05-22 14:06 | SP ---
DATE OF PROCEDURE: 05/22/2016 PROCEDURE PERFORMED: 1. Selective left coronary angiography. 2. Complicated, but successful PCI of the left anterior descending artery and the first diagonal. 3. Angioplasty of the mid LAD. 4. Unsuccessful GALLERY OR MUSEUM CURATOR of the POLYSOM TECH of the mid LAD. 5. Right femoral angiogram. 5. Closure using a Perclose device. DISABILITY EXAMINER: Adenike Pizano MD INDICATIONS: A 80-year-old gentleman with history of known LAD POLYSOM TECH presented with non-ST elevation myocardial infarction. FINDINGS: 1. Left main is very short in dual ostium with no significant stenosis. 2. Left anterior descending LAD proximally is large at about 95% to 99% stenosis. Then at the mid LAD, he has this chronic total occlusion with vzpr-of-vysb collaterals. It gives it a very large di agonal. Diagonal itself also had up to 90% stenosis. After successful PTCA and stenting of this le chucho, there was no significant residual stenosis proximally and diagonal. LAD after the stent was a lso angioplastied and no significant residual stenosis left. Mid LAD after dilated POLYSOM TECH could not be crossed. 3. Left circumflex artery shows the previous stents are widely patent. 4. Right coronary angiography was not performed. See my previous procedure done a few weeks ago wh ich showed patent stent. DESCRIPTION OF PROCEDURE: Written informed consent was obtained. The risks and benefits were discu ssed with the patient and multiple family members in detail. This included infection, vascular comp lication, bleeding complication, WI, stroke, arrhythmia, , renal failure, etc., discussed with the patient. The patient was brought to the r and d lab technician and placed in supine position. Right and left groin were prepped and draped in sterile fashion. Right groin area was anesthetized with 1% lidoca ine. Modified Seldinger technique, a 5-Chilean sheath placed in the right femoral artery. Right fem oral angiogram was performed. JL4 catheter 5-Chilean was advanced and engaged the left main coronary artery. Angiogram of ____ was obtained which showed patent previous stent. Then, I changed the sh eath and preclosed the groin with a Perclose device. I put in a long 8-Chilean sheath was placed and engaged into the aorta. Then, an XB3 8-Frenchwas advanced in left main coronary artery and angiogr am was obtained. We decided to perform PCI of LAD and see if we can cross the POLYSOM TECH as well. I used multiple wires wit h and without ____ support to try to cross the mid LAD lesion. Different wires including a Fielder XT, Geology Faculty Member 200, BMW wire all tried. However, due to heavy calcification and severe angulation, multi ple attempts at multiple angulations, it could not cross. We decided to perform PCI of the proximal LAD and diagonal. Changed over the ____ to a long BMW wire, placed back across the mid LAD into th e second diagonal. Another BMW wire used across the ____ of the large proximal diagonal. A 2.5 bal loon was used in both wires individually and LAD into the diagonal and LAD proximal and mid area was predilated. Then, I used a long 3 x 30 mm Resolute drug-eluting stent which was placed across the LAD lesion proximally into the first diagonal and deployed it at 14 atmospheres. Angiogram was obta ined. The mid LAD appeared to be jailed by the stent. Another wire was used to cross into the lesi on in the mid LAD and the septum. A 2.5 x 12 balloon was placed across the jailed area, dilated. F inally, a kissing balloon was done at the LAD diagonal area using a 2.5 in the LAD and a larger 3.0 in the large diagonal. Simultaneous kissing balloon was performed. Final angiogram was obtained wh ich showed ROXANNE 3 flow, no evidence of dissection, no significant residual stenosis. Catheter and G lidewire were removed. Right femoral angiogram had already been obtained. Sheath was removed and a Perclose was successfully deployed. The patient tolerated the procedure without complication. The patient to recovery in stable condition. IMMEDIATE COMPLICATIONS: None. CONCLUSION: Successful PTCA and stenting of the LAD and diagonal from 95% to 99% stenosis, no signi ficant residual stenosis. TOTAL CONTRAST USED: 220 mL. Of note, right coronary artery cholangiogram was previously performed and was not repeated this time . CONCLUSION: Successful PTCA stenting of the proximal LAD and diagonal. RECOMMENDATIONS: Aggressive medical therapy. Dictated By: ADENIKE SANTIAGO/FIORELLA Conf#: [id number] DID#: [id number]
--- NOTE | 2016-05-22 14:27 | RADRPT ---
Vent Rate: 76 bpm RR Interval: 0 msec [place] Interval: 132 msec QRS Duration: 94 msec QT Interval: 390 msec QTC Interval: 438 msec P-R-T [place]: 74 - 64 - 74 degrees Normal sinus rhythm Normal ECG Electronically Signed By: Neil Yates [id number]
--- NOTE | 2016-05-22 14:34 | PN ---
DATE: 05/22/2016 CARDIOLOGY FOLLOWUP PROGRESS NOTE SUBJECTIVE: Discussed with the staff and the patient's son. Discussed with Dr. Conway. The pat ient underwent successful PCI of the proximal LAD and into the diagonal. No chest pain or pressure now. Denies any groin pain at this point. No palpitations. Shortness of breath has improved. MEDICATIONS: Reviewed as per medication reconciliation, was personally reviewed. PHYSICAL EXAMINATION: VITAL SIGNS: Temperature 98.2, heart rate of 73, blood pressure of 137/66, respiratory rate of 20, saturating 95%. HEENT: Normocephalic, atraumatic. Pupils are equal. Obese gentleman. No acute distress. CARDIOVASCULAR: Regular rate and rhythm, systolic murmur. PULMONARY: With mild rhonchi, diffuse. GASTROINTESTINAL: Obese, soft, nontender. VASCULAR: Right femoral status post Perclose closure of the right femoral artery sheath. No bleedi ng, no . EXTREMITIES: Trivial edema. NEUROLOGIC: Awake, responds appropriately. PSYCHIATRIC: Appears to be calm and pleasant. LABORATORY: Sodium 140, potassium 4.8, BUN of 53, creatinine 6.19, glucose 185. Troponin peaked at 4.45 and down to 2.9 this morning. CK peak was 77. ASSESSMENT AND PLAN: 1. [id number] myocardial infarction. 2. Coronary artery disease, status post multiple percutaneous coronary interventions including the left anterior descending and diagonal today. 3. Chronic obstructive pulmonary disease, history of exacerbation. 4. History of myocardial infarction in the past. 5. Diabetes. 6. Hypertension. 7. Renal failure, on dialysis. 8. History of congestive heart failure, chronic, diastolic dysfunction. 9. Ex-smoker. 10. Dyslipidemia. RECOMMENDATIONS: We will continue with the current cardiac care. Dialysis as per renal. Aspirin a nd Plavix will be continued as well. Beta mirna was decreased. Pulmonary care as per Dr. Bernard . Pulmonary input is appreciated. Dictated By: ADENIKE MAYERS MD AV/NTS Conf#: [id number] DID#: [id number] CC: FRANCISCO CONWAY MD;*End*
--- NOTE | 2016-05-22 14:48 | PN ---
DATE: 05/22/2016 REASON FOR FOLLOWUP: Shortness of breath. SUBJECTIVE: The patient remains stable this morning, less shortness of breath compared to yesterday . PHYSICAL EXAMINATION: VITAL SIGNS: Temperature 98, pulse 74, blood pressure 148/73, O2 saturation 98% on 2 L nasal cannul a. NECK: Supple. No JVD or lymphadenopathy. CARDIAC: S1, S2, no added sounds or murmurs. CHEST: Diminished air entry bilaterally. ABDOMEN: Soft, nontender. No guarding or rebound. EXTREMITIES: No cyanosis, clubbing, edema. NEUROLOGIC: Grossly intact. No focal deficits. LABORATORY DATA: White count 11.3, hemoglobin 12.4, platelets within normal limits. BUN 53, creati nine 6.19. Troponin elevated at 2.9. IMPRESSION AND PLAN: 1. Acute tracheobronchitis. 2. Pulmonary edema with probable volume overload. 3. Coronary ischemia with underlying coronary artery disease. PLAN: 1. Cardiac catheterization per Dr. Pizano. 2. Continue bronchodilators. 3. Steroid taper. 4. Supplemental O2. 5. DVT and GI prophylaxis. Dictated By: BAILEY JAVED/FIORELLA Conf#: [id number] DID#: [id number]
[2016-05-22] MEDS: ATORVASTATIN 80 MG TAB PO SCH (20:51)
[2016-05-23] VITALS (37 sets, daily range): BP systolic 92–176; BP diastolic 48–89; PULSE 67–96; RESP 15–22
[2016-05-23] MEDS ORDERED: GLUCAGON 1 MG INJ IM PRN (03:00)
[2016-05-23] MEDS ORDERED: GLUCOSE GEL 15 GRAM TUBE PO PRN ×2 (03:00)
[2016-05-23] MEDS ORDERED: hydrALAzine 20 MG INJ IV PRN (03:00)
[2016-05-23] MEDS ORDERED: DEXTROSE 50% 50 ML SYRINGE IV PRN ×2 (03:00)
[2016-05-23] MEDS ORDERED: GLUCOSE GEL 15 GRAM TUBE BUCCAL PRN (03:00)
[2016-05-23] MEDS: INSULIN ASPART [NOVOLOG] 3 ML PEN SC SCH ×6 (03:59→21:10)
[2016-05-23] MEDS: METHYLPREDNISOLONE 40 MG INJ IV SCH ×2 (05:51→21:10)
[2016-05-23] MEDS: PANTOPRAZOLE (EC) 40 MG TAB PO SCH (05:51)
[2016-05-23 06:39] LABS: BASOPHILS % 0.1 % (0.0-2.0); HEMATOCRIT 34.9 % (42.0-52.0); HEMOGLOBIN 12.1 g/dl (14.0-18.0); LYMPHOCYTES # 0.8 10^3/ul (0.8-2.9); MEAN CORPUSCULAR HEMOGLOBIN 31.5 pg (29.0-33.0); MEAN CORPUSCULAR HGB CONC 34.6 g/dl (32.0-37.0); MEAN CORPUSCULAR VOLUME 91.1 fl (82.0-101.0); MEAN PLATELET VOLUME 9.5 fl (7.4-10.4); MONOCYTE # 0.2 10^3/ul (0.3-0.9); MONOCYTES % 1.6 % (0.0-11.0); NEUTROPHILS % 93.3 % (39.0-77.0); PLATELET COUNT 144 10^3/UL (140-440); RED BLOOD COUNT 3.83 10^6/ul (4.70-6.10); RED CELL DISTRIBUTION WIDTH 13.8 % (11.5-14.5)
[2016-05-23 06:48] LABS: CONDITION 1; LH ANALYZER COMMENTS 1
[2016-05-23 07:00] LABS: ALBUMIN 4.3 g/dl (3.3-4.9)
[2016-05-23 07:02] LABS: BILIRUBIN,INDIRECT 0.4 mg/dl (0-1.1); BILIRUBIN,TOTAL 0.4 mg/dl (0.2-1.3); CREATININE 5.58 mg/dl (0.61-1.24)
[2016-05-23 07:03] LABS: ALBUMIN/GLOBULIN RATIO 1.13; TOTAL PROTEIN 8.1 g/dl (6.1-8.1)
[2016-05-23 07:29] LABS: CK-MB 6.12 ng/ml (0.0-2.4)
[2016-05-23 07:46] LABS: TROPONIN-I 2.67 ng/ml (0.00-0.12)
[2016-05-23] MEDS: NPH, HUMAN INSULIN ISOPHANE 3ML VIAL SC SCH ×3 (08:29→21:08)
[2016-05-23] MEDS: SEVELAMER CARBONATE 0.8 GM PKT PO SCH ×3 (08:30→17:17)
[2016-05-23] MEDS: SALMETEROL/FLUTICASONE 250/50 INHA INH SCH ×2 (08:30→21:11)
[2016-05-23] MEDS: CALCIUM ACETATE 667 MG CAP PO SCH ×3 (08:30→17:13)
[2016-05-23] MEDS: ASPIRIN (EC) 81 MG TAB PO SCH (08:35)
[2016-05-23] MEDS: METOPROLOL (XL) 50 MG TAB PO SCH (08:36)
[2016-05-23] MEDS: DILTIAZEM (CD) 240 MG CAP PO SCH (08:37)
[2016-05-23] MEDS: CLOPIDOGREL 75 MG TAB PO SCH (08:37)
[2016-05-23] MEDS: ISOSORBIDE MONONITRATE(SR)30 MG TAB PO SCH (08:38)
--- NOTE | 2016-05-23 10:07 | PN ---
Date/Time of Note Date/Time of Note DATE: 05/23/16 TIME: 10:05 Assessment/Plan VTE Prophylaxis VTE Prophylaxis Intervention: heparin Lines/Catheters IV [facility]atheter Type [facility]from [facility]): Permacath Urinary Cath still in place: No Assessment/Plan Chief Complaint/Hosp Course ASSESSMENT AND PLAN: 1. Non-ST myocardial infarction. Cardiology has been consulted. Status post left heart catheterization and stent of LAD. Continue aspirin, statin, Plavix, beta-mirna. 2. End-stage renal disease on hemodialysis. Nephrology has been consulted. Continue hemodialysis as per nephrology recommendations 3. Dyslipidemia. Continue statin. Continue low fat diet. 4. Essential hypertension, well controlled on metoprolol, isosorbide nitrate, and diltiazem. 5. 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 Continue breathing treatment and bronchodilator. Place the patient on oxygen p.r.n. 6. For deep venous thrombosis prophylaxis, on heparin. 7. For gastrointestinal prophylaxis, on proton pump inhibitor. We will continue to monitor patient closely. Further recommendations, management, and treatment as per clinical course. Transfer to telemetry floor today plan to discharge home tomorrow status post hemodialysis Problems: Subjective 24 Hr Interval Summary Free Text/Dictation Patient denies any chest pain or shortness of breath No nausea vomiting diarrhea Tolerating oral intake Ambulating without any difficulty Exam/Review of Systems Vital Signs Vitals Vital Signs Date Time Temp Pulse Resp B/P Pulse Ox O2 Delivery O2 Flow Rate FiO2 05/23/16 08:30 74 18 165/75 93 Room Air 05/23/16 08:00 98.0 05/23/16 02:30 2.0 05/21/16 12:28 21 Intake and Output 05/22/16 05/22/16 05/23/16 15:00 23:00 07:00 Intake Total 150 ml 290 ml 500 ml Output Total 150 ml 4500 ml Balance 150 ml 140 ml -4000 ml Exam General: The patient is well-developed, Not in acute distress. HEENT: Atraumatic, normocephalic. The pupils are equal and round . Neck: Supple with full range of motion. Chest: Normal expansion of the thorax during inspiration Lungs: Clear to auscultation bilaterally Heart: Normal S1-S2, Regular rhythm and rate. Abdomen: Soft , nontender, nondistended , bowel sounds are present. Extremities: Normal to inspection, no edema no cyanosis, no evidence of hematoma at left heart cath/ right inguinal site Neurologic: Normal mental status,The patient is awake, alert and oriented . Results Result Diagram: 05/23/16 0600 05/23/16 0600 Results 24 hrs Laboratory Tests Test 05/22/16 15:57 05/23/16 02:37 05/23/16 03:57 05/23/16 06:00 Bedside Glucose 198 225 H 250 H Alanine Aminotransferase (ALT/SGPT) 39 Albumin 4.3 Albumin/Globulin Ratio 1.13 Alkaline Phosphatase 135 H Anion Gap 26 H Aspartate Amino Transf (AST/SGOT) 35 Basophils # 0.0 Basophils % 0.1 Blood Urea Nitrogen 51 H Calcium Level 9.0 Carbon Dioxide Level 23 Chloride Level 93 L Creatine Kinase 49 Creatine Kinase Index 12.5 Creatinine 5.58 H Creatinine Kinase MB (Mass) 6.12 H Direct Bilirubin 0.00 Eosinophils # 0.0 Eosinophils % 0.0 Globulin 3.80 H Glucose Level 218 Hematocrit 34.9 L Hemoglobin 12.1 L Indirect Bilirubin 0.4 Lymphocytes # 0.8 Lymphocytes % 5.0 L Magnesium Level 1.9 Mean Corpuscular Hemoglobin 31.5 Mean Corpuscular Hemoglobin Concent 34.6 Mean Corpuscular Volume 91.1 Mean Platelet Volume 9.5 Monocytes # 0.2 L Monocytes % 1.6 Neutrophils # 14.0 H Neutrophils % 93.3 H Nucleated Red Blood Cells # 0.0 Nucleated Red Blood Cells % 0.0 Platelet Count 144 Potassium Level 5.0 Red Blood Count 3.83 L Red Cell Distribution Width 13.8 Sodium Level 137 Total Bilirubin 0.4 Total Protein 8.1 Troponin I 2.670 *H White Blood Count 15.0 #H Test 05/23/16 08:19 Bedside Glucose 266 H Medications Medications Current Medications Aspirin (Halfprin) 81 mg DAILY PO Last administered on 05/23/16 08:35; Admin Dose 81 MG; Start 05/22/16 at 09:00 Atorvastatin Calcium (Lipitor) 80 mg QHS PO Last administered on 05/22/16 20: 51; Admin Dose 80 MG; Start 05/21/16 at 21:00 Clopidogrel Bisulfate (plaVIX) 75 mg DAILY PO Last administered on 05/23/16 08 :37; Admin Dose 75 MG; Start 05/22/16 at 09:00 Isosorbide Mononitrate (Imdur) 30 mg DAILY PO Last administered on 05/23/16 08 :38; Admin Dose 30 MG; Start 05/22/16 at 09:00 Salmeterol Xinafoate/ Fluticasone (Advair 250/50 Diskus) 1 inh BID INH Last administered on 05/23/16 08:30; Admin Dose 1 INH; Start 05/21/16 at 21:00 Diltiazem HCl (Cardizem Cd) 240 mg DAILY PO Last administered on 05/23/16 08: 37; Admin Dose 240 MG; Start 05/22/16 at 09:00 Lorazepam (Ativan) 0.5 mg Q8H PRN PO ANXIETY; Start 05/21/16 at 14:30 Ondansetron HCl (Zofran Inj) 4 mg Q6H PRN IV NAUSEA AND/OR VOMITING; Start at 14:30 Acetaminophen (Tylenol Tab) 650 mg Q6H PRN PO PAIN LEVEL 1-3 OR FEVER; Start at 14:30 Morphine Sulfate (morphine) 1 mg Q4H PRN IV PAIN LEVEL 7-10; Start 05/21/16 at 14:30 Docusate Sodium (Colace) 100 mg Q12H PRN PO CONSTIPATION; Start 05/21/16 at 14: 30 Pantoprazole (Protonix Tab) 40 mg DAILY@06 PO Last administered on 05/23/16 05 :51; Admin Dose 40 MG; Start 05/22/16 at 06:00 Methylprednisolone Sodium Succinate (Solu-Medrol) 40 mg Q8 IV Last administered on 05/23/16 05:51; Admin Dose 40 MG; Start 05/21/16 at 22:00 Diagnostic Test (Pha) (Accucheck) 1 ea 02 XX ; Start 05/24/16 at 02:00 Hydralazine HCl (Apresoline) 10 mg Q4H PRN IV SBP Greater 160; Start 05/23/16 at 03:00 Miscellaneous Information 1 ea NOTE XX ; Start 05/23/16 at 03:00 Glucose (Glutose) 15 gm Q15M PRN PO DECREASED GLUCOSE; Start 05/23/16 at 03:00 Glucose (Glutose) 22.5 gm Q15M PRN PO DECREASED GLUCOSE; Start 05/23/16 at 03: 00 Dextrose (D50w Syringe) 25 ml Q15M PRN IV DECREASED GLUCOSE; Start 05/23/16 at 03:00 Dextrose (D50w Syringe) 50 ml Q15M PRN IV DECREASED GLUCOSE; Start 05/23/16 at 03:00 Glucagon (Glucagen) 1 mg Q15M PRN IM DECREASED GLUCOSE; Start 05/23/16 at 03:00 Glucose (Glutose) 15 gm Q15M PRN BUCCAL DECREASED GLUCOSE; Start 05/23/16 at 03 :00 Metoprolol Succinate (Toprol Xl) 50 mg DAILY PO Last administered on 05/23/16t 08:36; Admin Dose 50 MG; Start 05/23/16 at 09:00 Insulin Human NPH (Humulin N) 5 unit Q8 SC ; Start 05/23/16 at 14:00 FRANCISCO CONWAY MD May 23, 2016 10:07
--- NOTE | 2016-05-23 10:12 | CONS ---
Date/Time of Note Date/Time of Note DATE: 05/23/16 TIME: 10:11 Consult Date/Type/Reason Admit Date/Time May 21, 2016 at 13:05 Initial Consult Date 05/21/16 Type of Consultation: pulmonary Ordering Provider: FRANCISCO CONWAY MD Subjective Patient status post cardiac catheterization Remains hemodynamically stable Objective Vital Signs Date Time Temp Pulse Resp B/P Pulse Ox O2 Delivery O2 Flow Rate FiO2 05/23/16 08:30 74 18 165/75 93 Room Air 05/23/16 08:00 98.0 05/23/16 02:30 2.0 05/21/16 12:28 21 Intake and Output 05/22/16 05/22/16 05/23/16 15:00 23:00 07:00 Intake Total 150 ml 290 ml 500 ml Output Total 150 ml 4500 ml Balance 150 ml 140 ml -4000 ml PHYSICAL EXAMINATION: GENERAL: Elderly gentleman who appears comfortable at rest, no acute distress. VITAL SIGNS: As above NECK: Supple. No JVD or lymphadenopathy. CARDIAC: S1, S2. No added sounds or murmurs. CHEST: Diminished air entry bilaterally. ABDOMEN: Soft, nontender. No guarding or rebound. EXTREMITIES: No cyanosis, clubbing, edema. NEUROLOGIC: Grossly intact. No focal deficits. Results/Medications Result Diagram: 05/23/16 0600 05/23/16 0600 Results 24 hrs Laboratory Tests Test 05/22/16 15:57 05/23/16 02:37 05/23/16 03:57 05/23/16 06:00 Bedside Glucose 198 225 H 250 H Alanine Aminotransferase (ALT/SGPT) 39 Albumin 4.3 Albumin/Globulin Ratio 1.13 Alkaline Phosphatase 135 H Anion Gap 26 H Aspartate Amino Transf (AST/SGOT) 35 Basophils # 0.0 Basophils % 0.1 Blood Urea Nitrogen 51 H Calcium Level 9.0 Carbon Dioxide Level 23 Chloride Level 93 L Creatine Kinase 49 Creatine Kinase Index 12.5 Creatinine 5.58 H Creatinine Kinase MB (Mass) 6.12 H Direct Bilirubin 0.00 Eosinophils # 0.0 Eosinophils % 0.0 Globulin 3.80 H Glucose Level 218 Hematocrit 34.9 L Hemoglobin 12.1 L Indirect Bilirubin 0.4 Lymphocytes # 0.8 Lymphocytes % 5.0 L Magnesium Level 1.9 Mean Corpuscular Hemoglobin 31.5 Mean Corpuscular Hemoglobin Concent 34.6 Mean Corpuscular Volume 91.1 Mean Platelet Volume 9.5 Monocytes # 0.2 L Monocytes % 1.6 Neutrophils # 14.0 H Neutrophils % 93.3 H Nucleated Red Blood Cells # 0.0 Nucleated Red Blood Cells % 0.0 Platelet Count 144 Potassium Level 5.0 Red Blood Count 3.83 L Red Cell Distribution Width 13.8 Sodium Level 137 Total Bilirubin 0.4 Total Protein 8.1 Troponin I 2.670 *H White Blood Count 15.0 #H Test 05/23/16 08:19 Bedside Glucose 266 H Medications Current Medications Aspirin (Halfprin) 81 mg DAILY PO Last administered on 05/23/16 08:35; Admin Dose 81 MG; Start 05/22/16 at 09:00 Atorvastatin Calcium (Lipitor) 80 mg QHS PO Last administered on 05/22/16 20: 51; Admin Dose 80 MG; Start 05/21/16 at 21:00 Clopidogrel Bisulfate (plaVIX) 75 mg DAILY PO Last administered on 05/23/16 08 :37; Admin Dose 75 MG; Start 05/22/16 at 09:00 Isosorbide Mononitrate (Imdur) 30 mg DAILY PO Last administered on 05/23/16 08 :38; Admin Dose 30 MG; Start 05/22/16 at 09:00 Salmeterol Xinafoate/ Fluticasone (Advair 250/50 Diskus) 1 inh BID INH Last administered on 05/23/16 08:30; Admin Dose 1 INH; Start 05/21/16 at 21:00 Diltiazem HCl (Cardizem Cd) 240 mg DAILY PO Last administered on 05/23/16 08: 37; Admin Dose 240 MG; Start 05/22/16 at 09:00 Lorazepam (Ativan) 0.5 mg Q8H PRN PO ANXIETY; Start 05/21/16 at 14:30 Ondansetron HCl (Zofran Inj) 4 mg Q6H PRN IV NAUSEA AND/OR VOMITING; Start at 14:30 Acetaminophen (Tylenol Tab) 650 mg Q6H PRN PO PAIN LEVEL 1-3 OR FEVER; Start at 14:30 Morphine Sulfate (morphine) 1 mg Q4H PRN IV PAIN LEVEL 7-10; Start 05/21/16 at 14:30 Docusate Sodium (Colace) 100 mg Q12H PRN PO CONSTIPATION; Start 05/21/16 at 14: 30 Pantoprazole (Protonix Tab) 40 mg DAILY@06 PO Last administered on 05/23/16 05 :51; Admin Dose 40 MG; Start 05/22/16 at 06:00 Methylprednisolone Sodium Succinate (Solu-Medrol) 40 mg Q8 IV Last administered on 05/23/16 05:51; Admin Dose 40 MG; Start 05/21/16 at 22:00 Diagnostic Test (Pha) (Accucheck) 1 ea 02 XX ; Start 05/24/16 at 02:00 Hydralazine HCl (Apresoline) 10 mg Q4H PRN IV SBP Greater 160; Start 05/23/16 at 03:00 Miscellaneous Information 1 ea NOTE XX ; Start 05/23/16 at 03:00 Glucose (Glutose) 15 gm Q15M PRN PO DECREASED GLUCOSE; Start 05/23/16 at 03:00 Glucose (Glutose) 22.5 gm Q15M PRN PO DECREASED GLUCOSE; Start 05/23/16 at 03: 00 Dextrose (D50w Syringe) 25 ml Q15M PRN IV DECREASED GLUCOSE; Start 05/23/16 at 03:00 Dextrose (D50w Syringe) 50 ml Q15M PRN IV DECREASED GLUCOSE; Start 05/23/16 at 03:00 Glucagon (Glucagen) 1 mg Q15M PRN IM DECREASED GLUCOSE; Start 05/23/16 at 03:00 Glucose (Glutose) 15 gm Q15M PRN BUCCAL DECREASED GLUCOSE; Start 05/23/16 at 03 :00 Metoprolol Succinate (Toprol Xl) 50 mg DAILY PO Last administered on 05/23/16 08:36; Admin Dose 50 MG; Start 05/23/16 at 09:00 Insulin Human NPH (Humulin N) 5 unit Q8 SC ; Start 05/23/16 at 14:00 Assessment/Plan Chief Complaint/Hosp Course IMPRESSION AND PLAN: 1. Tracheobronchitis with bronchospasm. 2. Underlying coronary artery disease. Now with evidence of possible non-ST elevation myocardial infarction. 3. History of end-stage renal failure on hemodialysis. Clinically, no evidence of volume overload. 4. History of hypertension. 5. Leukocytosis likely secondary to steroids The patient will require: 1. Chest pain protocol including nitroglycerin, beta-mirna, aspirin. Status post cardiac catheterization, PCI of LAD 2. Bronchodilators. 3. Steroid taper for bronchospasm. 4. Hemodialysis, as tolerated. Discharge planning okay from pulmonary standpoint Problems: BAILEY ALEXANDER MD, [facility] May 23, 2016 10:12
--- NOTE | 2016-05-23 13:42 | CONS ---
Date/Time of Note Date/Time of Note DATE: 05/23/16 TIME: 13:40 Assessment/Plan Assessment/Plan Additional Assessment/Plan 80 yo Male with 1) Chest Pain, NSTEMI, Hx of CAD, Chronic Occlusion of LAD, Hx of PCI and stent LAD S/p Cardiac Cath 2) ESRD on HD TTS 3) Hx of HTN, Controlled 4) Anemia, Chronic, ESRD 5) Mineral Bone Disease, CKD 6) Dyslipidemia S/p HD yesterday, No acute indication for HD today Resume TTS schedule, Next HD Renal Diet Thank you for the opportunity to participate in the care of Mr Keita Please do not hesitate to contact me if you have any questions or concerns. Consultation Date/Type/Reason Admit Date/Time May 21, 2016 at 13:05 Initial Consult Date 05/21/16 Type of Consultation: Nephrology Referring Provider: FRANCISCO CONWAY MD 24 HR Interval Summary Free Text/Dictation S/p Cath, S/p HD yesterday. NO active chest pain. Subjective hx not possible: pt critical status Constitutional: No requiring O2 Exam/Review of Systems Vital Signs Vitals Vital Signs Date Time Temp Pulse Resp B/P Pulse Ox O2 Delivery O2 Flow Rate FiO2 05/23/16 12:00 74 05/23/16 08:30 18 165/75 93 Room Air 05/23/16 08:00 98.0 05/23/16 02:30 2.0 05/21/16 12:28 21 Intake and Output 05/22/16 05/22/16 05/23/16 15:00 23:00 07:00 Intake Total 150 ml 290 ml 500 ml Output Total 150 ml 4500 ml Balance 150 ml 140 ml -4000 ml Exam Constitutional: alert, oriented, No distress ENMT: mucosa pink and moist Neck: No jvd Respiratory: clear to auscultation Cardiovascular: regular rate and rhythm, No edema Gastrointestinal: non-tender, soft Extremities: other (RT Chest PC, LUE AVF), No edema Neurological: CARE REP II-XII intact, nl mental status, nl speech, nl strength, No lethargic Skin: nl turgor, No diaphoresis Results Result Diagram: 05/23/16 0600 05/23/16 0600 Results 24 hrs Laboratory Tests Test 05/22/16 15:57 05/23/16 02:37 05/23/16 03:57 05/23/16 06:00 Bedside Glucose 198 225 H 250 H Alanine Aminotransferase (ALT/SGPT) 39 Albumin 4.3 Albumin/Globulin Ratio 1.13 Alkaline Phosphatase 135 H Anion Gap 26 H Aspartate Amino Transf (AST/SGOT) 35 Basophils # 0.0 Basophils % 0.1 Blood Urea Nitrogen 51 H Calcium Level 9.0 Carbon Dioxide Level 23 Chloride Level 93 L Creatine Kinase 49 Creatine Kinase Index 12.5 Creatinine 5.58 H Creatinine Kinase MB (Mass) 6.12 H Direct Bilirubin 0.00 Eosinophils # 0.0 Eosinophils % 0.0 Globulin 3.80 H Glucose Level 218 Hematocrit 34.9 L Hemoglobin 12.1 L Indirect Bilirubin 0.4 Lymphocytes # 0.8 Lymphocytes % 5.0 L Magnesium Level 1.9 Mean Corpuscular Hemoglobin 31.5 Mean Corpuscular Hemoglobin Concent 34.6 Mean Corpuscular Volume 91.1 Mean Platelet Volume 9.5 Monocytes # 0.2 L Monocytes % 1.6 Neutrophils # 14.0 H Neutrophils % 93.3 H Nucleated Red Blood Cells # 0.0 Nucleated Red Blood Cells % 0.0 Platelet Count 144 Potassium Level 5.0 Red Blood Count 3.83 L Red Cell Distribution Width 13.8 Sodium Level 137 Total Bilirubin 0.4 Total Protein 8.1 Troponin I 2.670 *H White Blood Count 15.0 #H Test 05/23/16 08:19 05/23/16 11:38 Bedside Glucose 266 H 277 H Medications Medications Current Medications Aspirin (Halfprin) 81 mg DAILY PO Last administered on 05/23/16 08:35; Admin Dose 81 MG; Start 05/22/16 at 09:00 Atorvastatin Calcium (Lipitor) 80 mg QHS PO Last administered on 05/22/16 20: 51; Admin Dose 80 MG; Start 05/21/16 at 21:00 Clopidogrel Bisulfate (plaVIX) 75 mg DAILY PO Last administered on 05/23/16 08 :37; Admin Dose 75 MG; Start 05/22/16 at 09:00 Isosorbide Mononitrate (Imdur) 30 mg DAILY PO Last administered on 05/23/16 08 :38; Admin Dose 30 MG; Start 05/22/16 at 09:00 Salmeterol Xinafoate/ Fluticasone (Advair 250/50 Diskus) 1 inh BID INH Last administered on 05/23/16 08:30; Admin Dose 1 INH; Start 05/21/16 at 21:00 Diltiazem HCl (Cardizem Cd) 240 mg DAILY PO Last administered on 05/23/16 08: 37; Admin Dose 240 MG; Start 05/22/16 at 09:00 Lorazepam (Ativan) 0.5 mg Q8H PRN PO ANXIETY; Start 05/21/16 at 14:30 Ondansetron HCl (Zofran Inj) 4 mg Q6H PRN IV NAUSEA AND/OR VOMITING; Start at 14:30 Acetaminophen (Tylenol Tab) 650 mg Q6H PRN PO PAIN LEVEL 1-3 OR FEVER; Start at 14:30 Morphine Sulfate (morphine) 1 mg Q4H PRN IV PAIN LEVEL 7-10; Start 05/21/16 at 14:30 Docusate Sodium (Colace) 100 mg Q12H PRN PO CONSTIPATION; Start 05/21/16 at 14: 30 Pantoprazole (Protonix Tab) 40 mg DAILY@06 PO Last administered on 05/23/16 05 :51; Admin Dose 40 MG; Start 05/22/16 at 06:00 Diagnostic Test (Pha) (Accucheck) 1 ea 02 XX ; Start 05/24/16 at 02:00 Hydralazine HCl (Apresoline) 10 mg Q4H PRN IV SBP Greater 160; Start 05/23/16 at 03:00 Miscellaneous Information 1 ea NOTE XX ; Start 05/23/16 at 03:00 Glucose (Glutose) 15 gm Q15M PRN PO DECREASED GLUCOSE; Start 05/23/16 at 03:00 Glucose (Glutose) 22.5 gm Q15M PRN PO DECREASED GLUCOSE; Start 05/23/16 at 03: 00 Dextrose (D50w Syringe) 25 ml Q15M PRN IV DECREASED GLUCOSE; Start 05/23/16 at 03:00 Dextrose (D50w Syringe) 50 ml Q15M PRN IV DECREASED GLUCOSE; Start 05/23/16 at 03:00 Glucagon (Glucagen) 1 mg Q15M PRN IM DECREASED GLUCOSE; Start 05/23/16 at 03:00 Glucose (Glutose) 15 gm Q15M PRN BUCCAL DECREASED GLUCOSE; Start 05/23/16 at 03 :00 Metoprolol Succinate (Toprol Xl) 50 mg DAILY PO Last administered on 05/23/16t 08:36; Admin Dose 50 MG; Start 05/23/16 at 09:00 Methylprednisolone Sodium Succinate (Solu-Medrol) 40 mg Q12 IV ; Start 05/23/16 at 21:00 Insulin Human NPH (Humulin N) 10 unit Q12 SC ; Start 05/23/16 at 21:00 ZEHRA MILLARD MD May 23, 2016 13:42
[2016-05-23] MEDS ORDERED: NPH, HUMAN INSULIN ISOPHANE 3ML VIAL SC SCH (14:00)
--- NOTE | 2016-05-23 14:02 | PN ---
DATE: 05/23/2016 CARDIOLOGY FOLLOWUP PROGRESS NOTE SUBJECTIVE: Discussed with the staff in the ICU. which remains in sinus rhythm. Had dialysi s last night. Denies any chest pain or pressure to me. Breathing has improved. Denies any groin p ain to me. Discussed with the staff. MEDICATIONS: Reviewed as per medication reconciliation, personally reviewed. PHYSICAL EXAMINATION: VITAL SIGNS: Temperature 98.3, heart rate 67, blood pressure 120/50, respiration rate of 16, satura ting 95%. HEENT: Normocephalic, atraumatic. Pupils are equal. CARDIOVASCULAR: Regular rate and rhythm, systolic murmur. PULMONARY: With no wheezes now, no rhonchi. GASTROINTESTINAL: Obese, soft, nontender. EXTREMITIES: With trivial lower extremity edema. VASCULAR: Right femoral with no bleeding, no hematoma, nontender to palpation. PSYCHIATRIC: Calm, pleasant. NEUROLOGIC: Awake, alert x3, nonfocal. HEMATOLOGIC: No acute bleeding sign. LABORATORY: WBC of 15, hemoglobin of 12.1, platelets of 144. Sodium 137, potassium 5, BUN of 51, c reatinine 1.58, glucose of 218. ASSESSMENT AND PLAN: 1. [id number] myocardial infarction. 2. Coronary artery disease, status post multiple percutaneous coronary interventions. 3. Renal failure on dialysis. 4. Chronic obstructive pulmonary disease exacerbation. 5. Hypertension. 6. Diabetes. 7. Dyslipidemia. RECOMMENDATIONS: Breathing has significantly improved. Successful PCI done. Will increase the met oprolol back to his regular dose of 50. He is no longer wheezing. The patient can be transferred t o telemetry. Discharge planning once okay from the pulmonary standpoint. Dictated By: ADENIKE SANTIAGO/FIORELLA Conf#: [id number] DID#: [id number]
[2016-05-23] MEDS: ATORVASTATIN 80 MG TAB PO SCH (21:10)
[2016-05-24] VITALS (13 sets, daily range): BP systolic 122–188; BP diastolic 64–82; PULSE 69–82; RESP 16–18
[2016-05-24] MEDS ORDERED: ACCUCHECK XX SCH ×2 (02:00)
[2016-05-24] MEDS: PANTOPRAZOLE (EC) 40 MG TAB PO SCH (06:25)
[2016-05-24] MEDS: INSULIN ASPART [NOVOLOG] 3 ML PEN SC SCH (08:00)
--- NOTE | 2016-05-24 08:07 | PN ---
DATE: 05/24/2016 CARDIOLOGY FOLLOWUP SUBJECTIVE: Discussed with the staff. Rhythm strip was reviewed. The patient with no chest pain o r pressure. Denies shortness of breath to me. He is breathing better. No groin pain. No palpitat ion. Rhythm strip was reviewed. Remains in sinus rhythm. MEDICATIONS: Reviewed as per medication reconciliation, personally reviewed. PHYSICAL EXAMINATION: VITAL SIGNS: Temperature 97.8, heart rate of 70, blood pressure 139/64, respiration rate of 18, sat urating 93%. HEENT: Normocephalic, atraumatic. Obese gentleman. Pupils are equal. CARDIOVASCULAR: Regular rate and rhythm, systolic murmur. PULMONARY: With mild wheezes. GASTROINTESTINAL: Soft, nontender. Obese. EXTREMITIES: With trivial edema. NEUROLOGIC: Awake and alert. PSYCHIATRIC: Calm, pleasant. LABORATORY: Glucose 180-200. ASSESSMENT AND PLAN: 1. Non-ST elevation myocardial infarction. Status post percutaneous coronary intervention. 2. Chronic obstructive pulmonary disease exacerbation. 3. Hypertension. 4. Renal failure on dialysis. 5. Dyslipidemia. 6. Diabetes. RECOMMENDATIONS: We will continue with the current cardiac care. Antibiotic and IV Solu-Medrol as per pulmonary. Aspirin and Plavix will be continued. Dialysis as per renal. Dictated By: ADENIKE MAYERS MD AV/NTS Conf#: [id number] DID#: [id number] CC: FRANCISCO CONWAY MD;*EndCC*
[2016-05-24] MEDS: METHYLPREDNISOLONE 40 MG INJ IV SCH (08:51)
[2016-05-24] MEDS: CALCIUM ACETATE 667 MG CAP PO SCH (08:51)
[2016-05-24] MEDS: SALMETEROL/FLUTICASONE 250/50 INHA INH SCH (08:51)
[2016-05-24] MEDS: SEVELAMER CARBONATE 0.8 GM PKT PO SCH (08:51)
[2016-05-24] MEDS: CLOPIDOGREL 75 MG TAB PO SCH (08:51)
[2016-05-24] MEDS: ASPIRIN (EC) 81 MG TAB PO SCH (08:51)
[2016-05-24] MEDS: NPH, HUMAN INSULIN ISOPHANE 3ML VIAL SC SCH (09:00)
[2016-05-24] MEDS: ISOSORBIDE MONONITRATE(SR)30 MG TAB PO SCH (09:00)
[2016-05-24] MEDS: METOPROLOL (XL) 50 MG TAB PO SCH (09:00)
[2016-05-24] MEDS: DILTIAZEM (CD) 240 MG CAP PO SCH (09:00)
[2016-05-24 10:07] LABS: HEMATOCRIT 38.3 % (42.0-52.0); MEAN CORPUSCULAR HEMOGLOBIN 31.1 pg (29.0-33.0); MEAN CORPUSCULAR VOLUME 91.3 fl (82.0-101.0); MEAN PLATELET VOLUME 9.5 fl (7.4-10.4); PLATELET COUNT 172 10^3/UL (140-440); RED BLOOD COUNT 4.19 10^6/ul (4.70-6.10); RED CELL DISTRIBUTION WIDTH 13.6 % (11.5-14.5); UNCORRECTED WBC 23.5 10^3/ul (4.8-10.8); WHITE BLOOD COUNT 23.5 10^3/ul (4.8-10.8)
[2016-05-24 10:10] LABS: POTASSIUM 4.3 mmol/L (3.5-5.1)
[2016-05-24 10:12] LABS: CREATININE 5.68 mg/dl (0.61-1.24)
[2016-05-24 10:12] LABS: CONDITION 1; LH ANALYZER COMMENTS 1; SUSPECT 1
[2016-05-24 10:13] LABS: CALCIUM 9.4 mg/dl (8.4-10.2)
[2016-05-24 10:44] LABS: LYMPHOCYTES # 0.9 10^3/ul (0.8-2.9); MONOCYTE # 0.7 10^3/ul (0.3-0.9); NEUTROPHIL # 21.6 10^3/ul (1.6-7.5)
--- NOTE | 2016-05-24 11:28 | PDOCDIS ---
Discharge Instructions CONDITION Patient Condition: Good HOME CARE INSTRUCTIONS: Special Diet: Cardiac ACTIVITY: Activity Restrictions: No Restrictions FOLLOW UP/APPOINTMENTS Appointments Follow-up with cardiology as outpatient Follow up with nephrology as outpatient FRANCISCO CONWAY MD May 24, 2016 11:28
[2016-05-24] MEDS ORDERED: PANT40TA4 PO (11:31)
[2016-05-24] MEDS ORDERED: IPRA4AER INHALATION (11:31)
[2016-05-24] MEDS ORDERED: PRED5 PO (11:31)
[2016-05-24] MEDS ORDERED: CEPH500C PO (11:31)
--- NOTE | 2016-05-25 06:12 | DS ---
DATE OF ADMISSION: 05/21/2016 DATE OF DISCHARGE: 05/24/2016 CONSULTANTS: 1. Dr. Mo Bernard 2. Dr. Mitch Hazel 3. Dr. Emmanuel Pizano PROCEDURES: On 05/22/2016, selective left coronary angiography complicated by successful PCI of the left anterior descending artery and first diagonal, angioplasty of the mid LAD, unsuccessful PCI of the CONSOLIDATOR of the mid LAD, right femoral angiogram. The finding of left heart catheterization showed 1. Left main is very short, dual ostium, with no significant stenosis. 2. Left anterior descending LAD proximally is large and about 95% to 99% stenosis. 3. Left circumflex artery showed previous stents are widely patent. 4. Right coronary angiography was not performed. DISCHARGE DIAGNOSES: 1. Non-ST elevation myocardial infarction status post selective left coronary angiography and succe ssful PCI of the left anterior descending artery and the first diagonal. Continue aspirin, statin, Plavix, beta mirna. 2. End-stage renal disease on hemodialysis. 3. Chronic obstructive pulmonary disease with history of smoking. Continue breathing treatment. 4. Dyslipidemia. Continue statin. 5. Essential hypertension, well controlled on metoprolol, isosorbide dinitrate, and diltiazem. 6. Gastroesophageal reflux disease. Continue PPI. 7. History of nicotine dependency in remission. MEDICATIONS: 1. Combivent. 2. Aspirin. 3. Lipitor. 4. Symbicort. 5. Calcium acetate. 6. Keflex x5 days. 7. Plavix 75 mg 8. Diltiazem 240 mg. 9. Isosorbide mononitrate. 10. Metoprolol XL 50 mg. 11. Nitroglycerin 0.4 mg. 12. Protonix 40 mg. 13. Prednisone 5 mg x5 days. 14. Bandon 800 mg. ALLERGIES: NO KNOWN DRUG ALLERGIES. DISPOSITION: Home. FOLLOWUP: 1. Follow up with primary care physician in 1 week. 2. Follow with cardiology as outpatient. 3. Follow up with nephrology for scheduled hemodialysis. DIET: Cardiac diet. ACTIVITY: As tolerated. HOSPITAL COURSE: Mr. Narinder Keita is a very pleasant 80-year-old gentleman who was known to me f rom prior hospitalization with past medical history of myocardial infarction, end-stage renal diseas e on hemodialysis Saturday, , Saturday, prediabetes, hypertension, dyslipidemia, coronary art jonas disease, COPD, and history of smoking in remission who presents to [facility] Emergency Room secondary to having 1 day of chest discomfort. The patient was scheduled for left heart alena terization this week, although the chest discomfort started on 05/21/2016, substernal, radiating to his left shoulder, not accompanied with diaphoresis, shortness of breath. The patient's EKG showed normal sinus rhythm with ventricular rate of 86, no arrhythmia, IL interval normal, QRS duration nor mal, no ST segment elevation or depression, no sign of ischemia, although the patient's troponin was found to be elevated at 0.235. Creatinine 7.22, BUN 65. Cardiology and nephrology were consulted. The patient, during the examination, was found to be in mild respiratory distress. Pulmonology bang s been consulted. The patient was started on breathing treatment, Solu-Medrol. WBC is starting to increase. This is likely secondary to steroid-induced leukocytosis. The patient's blood glucose wa s found to be elevated at time of admission. He was started on NPH with each Solu-Medrol, and his b lood glucose has been improving significantly. The patient on previous hospitalization, blood gluco se has been elevated when the patient is only on Solu-Medrol, so at this time, the patient will not require any diabetic medication, although I have spoken to him regarding low carbohydrate diet. Reg arding his end-stage renal disease, nephrology was consulted. The patient has obtained his hemodial ysis prior to left heart catheterization and status post left heart catheterization. Regarding his blood pressure, his blood pressure is well controlled on medical management. The patient was contin ued on statins for his history of dyslipidemia. This morning, the patient has obtained his hemodial ysis, and at this time, the patient is medically stable to be discharged home with a close followup with his primary care physician, cardiology, and nephrology as outpatient. Vital signs: Temperature 98.0, pulse 69, respiration 18, blood pressure 148/70, oxygen saturation 96%. Sodium 139, potassiu m 4.3, chloride 93, bicarbonate 26, BUN 67, creatinine 5.68, glucose 164, calcium 9.4. Hemoglobin A 1c was found to be 5.3. WBC of 23.5. As stated above, this is likely steroid-induced leukocytosis. Hemoglobin 13, hematocrit 38.3, platelets 172. CONDITION AT TIME OF DISCHARGE: Stable. Total amount of time spent for evaluation of patient and discharge workup: 40 minutes. Dictated By: FRANCISCO CONWAY MD PN/NTS Conf#: [id number] DID#: [id number]
== END 2016-05-24 12:02 | disposition home or self-care (01) | DRG 246 ==
LOC: E/R 10:50 → TEL 13:05 → ICU 05-22 10:30 → MS4 05-23 16:20
PROVIDERS: ADMIT Family Medicine; ATTEND Family Medicine
PROC: 027134Z Dilation of Coronary Artery, Two Arteries with Drug-eluting Intraluminal Device, Percutaneous Approach (ICD-10-PCS; principal; 2016-05-22)
PROC: B215YZZ Fluoroscopy of Left Heart using Other Contrast (ICD-10-PCS; 2016-05-22)
PROC: 3E033PZ Introduction of Platelet Inhibitor into Peripheral Vein, Percutaneous Approach (ICD-10-PCS; 2016-05-22)
PROC: 5A1D60Z (ICD-10-PCS; 2016-05-22)
DX: I21.4 Non-ST elevation (NSTEMI) myocardial infarction (principal); N18.6 End stage renal disease; I13.2 Hypertensive heart and chronic kidney disease with heart failure and with stage 5 chronic kidney disease, or end stage renal disease; E11.21 Type 2 diabetes mellitus with diabetic nephropathy; I50.32 Chronic diastolic (congestive) heart failure; E11.65 Type 2 diabetes mellitus with hyperglycemia; Z99.2 Dependence on renal dialysis; J44.9 Chronic obstructive pulmonary disease, unspecified; J40 Bronchitis, not specified as acute or chronic; I25.2 Old myocardial infarction; E78.5 Hyperlipidemia, unspecified; D63.1 Anemia in chronic kidney disease; I25.10 Atherosclerotic heart disease of native coronary artery without angina pectoris; K21.9 Gastro-esophageal reflux disease without esophagitis; E66.9 Obesity, unspecified; Z95.5 Presence of coronary angioplasty implant and graft; Z68.31 Body mass index [BMI] 31.0-31.9, adult; Z87.891 Personal history of nicotine dependence; Z79.82 Long term (current) use of aspirin; Z79.02 Long term (current) use of antithrombotics/antiplatelets; Z79.84 Long term (current) use of oral hypoglycemic drugs
CPT/HCPCS: 36415; 71010; 80048; 80053; 80061; 82550; 82553; 82962; 83036; 83735; 83880; 84484; 85025; 85610; 85730; 87081; 90935; 93005; 93454; 94664; 96374; C1725; C1760; C1769; C1874; C1887; C1894; C9607; J0583; J1644; J1815; J1940; J2250; J2405; J2920; J3010; J7030; Q9967

== ENCOUNTER 2016-11-13 07:07 | Inpatient (IN) | payer MEDICARE, OTHER ==
[2016-11-13] VITALS (16 sets, daily range): BP systolic 141–178; BP diastolic 74–90; PULSE 47–82; RESP 14–19; Ht 165.1 cm; Wt 84.5 kg
[~2016-11-13] VITALS: Ht 165.1 cm; Wt 84.5 kg
[~2016-11-13 07:07] MED LIST changes: -ACET325T33 PO; -ALBU18HF INH; +ATOR80TA75 PO; -BUSP10TA2 PO; +CALC667C PO; +CEPH500C PO; -DULO30CA47 PO; -EZET10TA3 PO; +IPRA4AER INHALATION; +PANT40TA4 PO; -PRED20 PO; +PRED5 PO; -ROSU40TA PO; +SEVE800T7 PO; +SOD CHLORIDE 0.9% 1,000 ML IV SCH
[2016-11-13] MEDS ORDERED: LIDOCAINE 1% (MDV) 20 ML INJ ONE (07:39)
[2016-11-13] MEDS ORDERED: IODIXANOL LOCM 100 ML BTL ONE (07:39)
[2016-11-13] MEDS ORDERED: ICOS1CAP PO (08:12)
[2016-11-13] MEDS ORDERED: ASPI-664 PO (08:13)
[2016-11-13 08:42] LABS: ADD SCAN DIFF NO
[2016-11-13 08:48] LABS: BASOPHILS % 0.5 % (0.0-2.0); EOSINOPHILS # 0.1 10^3/ul (0.0-0.5); EOSINOPHILS % 2.2 % (0.0-7.0); HEMATOCRIT 34.6 % (42.0-52.0); HEMOGLOBIN 11.7 g/dl (14.0-18.0); LYMPHOCYTES # 1.3 10^3/ul (0.8-2.9); LYMPHOCYTES % 21.1 % (15.0-51.0); MEAN CORPUSCULAR HEMOGLOBIN 29.8 pg (29.0-33.0); MEAN CORPUSCULAR HGB CONC 33.8 g/dl (32.0-37.0); MEAN CORPUSCULAR VOLUME 88.3 fl (82.0-101.0); MEAN PLATELET VOLUME 11.2 fl (7.4-10.4); MONOCYTE # 0.6 10^3/ul (0.3-0.9); MONOCYTES % 9.3 % (0.0-11.0); NEUTROPHILS % 66.2 % (39.0-77.0); PLATELET COUNT 101 10^3/UL (140-415); RED BLOOD COUNT 3.92 10^6/ul (4.70-6.10); RED CELL DISTRIBUTION WIDTH 12.9 % (11.5-14.5)
[2016-11-13] MEDS ORDERED: FENTAnyl 50 MCG/ML VIAL ONE (08:53)
[2016-11-13] MEDS ORDERED: MIDAZOLAM 1 MG/ML 2 ML INJ ONE (08:53)
[2016-11-13 08:59] LABS: INR 1.08; PT RATIO 1.1
[2016-11-13 09:00] LABS: PARTIAL THROMBOPLASTIN TIME 34.7 Sec (25.0-35.0)
[2016-11-13 09:11] LABS: ALBUMIN 4.6 g/dl (3.3-4.9); ALBUMIN/GLOBULIN RATIO 1.64; BILIRUBIN,INDIRECT 0.2 mg/dl (0-1.1); BILIRUBIN,TOTAL 0.2 mg/dl (0.2-1.3); CALCIUM 9.1 mg/dl (8.4-10.2); CHOL/HDL RATIO 5.2 RATIO; CREATININE 5.87 mg/dl (0.61-1.24); POTASSIUM 3.9 mmol/L (3.5-5.1); TOTAL PROTEIN 7.4 g/dl (6.1-8.1)
[2016-11-13 09:22] LABS: CK-MB 2.47 ng/ml (0.0-2.4); TROPONIN-I 0.052 ng/ml (0.00-0.12)
[2016-11-13] MEDS ORDERED: VERAPAMIL 5 MG INJ ONE (10:33)
[2016-11-13] MEDS ORDERED: SOD CHLORIDE 0.9% 1,000 ML IV SCH (11:24)
--- NOTE | 2016-11-13 12:20 | CONS ---
Date/Time of Note Date/Time of Note DATE: 11/13/16 TIME: 12:12 Assessment/Plan Assessment/Plan Chief Complaint/Hosp Course Coronary artery disease Problems: Additional Assessment/Plan Coronary artery disease Diabetes COPD Renal failure Angina Status post myocardial infarction Patient is a candidate to undergo coronary artery bypass grafting He is secondary to multiple medical problems Discussed with Dr. Pizano We will ask pulmonary medicine to evaluate the patient for optimization prior to CABG Consultation Date/Type/Reason Admit Date/Time Date of Consultation: Nov 13, 2016 Reason for Consultation Coronary artery disease Evaluation for coronary artery bypass grafting Hx of Present Illness HISTORY OF PRESENT ILLNESS: This is a pleasant 80-year-old gentleman known to me from a prior hospitalization with past medical history of myocardial infarction, end-stage renal disease on hemodialysis ; diabetes mellitus type 2, diabetic nephropathy, hypertension, dyslipidemia, coronary artery disease, COPD , history of smoking in remission, t since he has gotten his dialysis catheter. Patient was admitted as an outpatient today underwent a coronary angiogram which was positive for three-vessel coronary artery disease with in-stent stenosis of previously placed stents patient was experiencing angina at home Respiratory: no complaints Cardiovascular: no complaints Gastrointestinal: no complaints Genitourinary: no complaints Musculoskeletal: no complaints Skin: no complaints Past Medical History Medical History: angina, coronary artery disease, diabetes, high cholesterol, hypertension, renal disease, other Past Surgical History Previous coronary artery stents Past Surgical Hx: other Family History Significant Family History: heart disease, COPD Social History Smoking Status: Former smoker Drug Use: none Exam/Review of Systems Vital Signs Vitals Vital Signs Date Time Temp Pulse Resp B/P Pulse Ox O2 Delivery O2 Flow Rate FiO2 11/13/16 12:05 64 16 141/81 95 Room Air 11/13/16 11:33 98.0 Exam Eyes: EOMI, PERRL, nl conjunctiva, nl lids, nl sclera ENMT: nl external ears & nose, nl lips & teeth, nl nasal mucosa & septum Neck: non-tender, supple Respiratory: clear to auscultation, normal air movement Cardiovascular: nl pulses, regular rate and rhythm Gastrointestinal: nl liver, spleen, non-tender, soft Musculoskeletal: nl extremities to inspection, nl gait and stance Results Result Diagram: 11/13/16 0825 11/13/16 0825 Results 24 hrs Laboratory Tests Test 11/13/16 08:19 11/13/16 08:25 Bedside Glucose 104 White Blood Count 6.0 # Red Blood Count 3.92 L Hemoglobin 11.7 L Hematocrit 34.6 L Mean Corpuscular Volume 88.3 Mean Corpuscular Hemoglobin 29.8 Mean Corpuscular Hemoglobin Concent 33.8 Red Cell Distribution Width 12.9 Platelet Count 101 L Mean Platelet Volume 11.2 H Neutrophils % 66.2 Lymphocytes % 21.1 Monocytes % 9.3 Eosinophils % 2.2 Basophils % 0.5 Nucleated Red Blood Cells % 0.0 Neutrophils # 4.0 Lymphocytes # 1.3 Monocytes # 0.6 Eosinophils # 0.1 Basophils # 0.0 Nucleated Red Blood Cells # 0.0 Prothrombin Time 14.0 Prothrombin Time Ratio 1.1 INR International Normalized Ratio 1.08 Activated Partial Thromboplast Time 34.7 Sodium Level 135 Potassium Level 3.9 Chloride Level 96 L Carbon Dioxide Level 29 Anion Gap 14 Blood Urea Nitrogen 34 H Creatinine 5.87 H Glucose Level 114 Calcium Level 9.1 Total Bilirubin 0.2 Direct Bilirubin 0.00 Indirect Bilirubin 0.2 Aspartate Amino Transf (AST/SGOT) 21 Alanine Aminotransferase (ALT/SGPT) 33 Alkaline Phosphatase 107 Creatine Kinase 68 Creatine Kinase Index 3.6 Creatinine Kinase MB (Mass) 2.47 H Troponin I 0.052 Total Protein 7.4 Albumin 4.6 Globulin 2.80 Albumin/Globulin Ratio 1.64 Triglycerides Level 389 H Cholesterol Level 164 LDL Cholesterol, Calculated 55 HDL Cholesterol 31 Cholesterol/HDL Ratio 5.2 Medications Medications Current Medications Sodium Chloride (NS) 1,000 ml @ 70 mls/hr [id number] IV ; Start 11/13/16 at 06:00 ; Stop 11/13/16 at 20:17 Aspirin (Halfprin) 81 mg DAILY PO ; Start 11/14/16 at 09:00 Pantoprazole (Protonix Tab) 40 mg DAILY@06 PO ; Start 11/14/16 at 06:00 Diltiazem HCl (Cardizem Cd) 240 mg DAILY PO ; Start 11/14/16 at 09:00 Miscellaneous Information 2 gm BID PO ; Start 11/13/16 at 21:00; Status UNV Isosorbide Mononitrate (Imdur) 30 mg DAILY PO ; Start 11/13/16 at 11:30 Metoprolol Succinate (Toprol Xl) 50 mg DAILY PO ; Start 11/13/16 at 11:30 Atorvastatin Calcium 80 mg 80 mg HS PO ; Start 11/13/16 at 21:00 Sodium Chloride (NS) 1,000 ml @ 40 mls/hr Q24H IV Last administered on t 11:56; Admin Dose 40 MLS/HR; Start 11/13/16 at 11:24; Stop 11/13/16 at 16: 23 JN ROMAN MD Nov 13, 2016 12:20
[2016-11-13] MEDS: CALCIUM ACETATE 667 MG CAP PO SCH ×2 (12:26→18:29)
[2016-11-13] MEDS: ISOSORBIDE MONONITRATE(SR)30 MG TAB PO SCH (12:26)
[2016-11-13] MEDS: METOPROLOL (XL) 50 MG TAB PO SCH (12:26)
[2016-11-13] MEDS: SEVELAMER CARBONATE 0.8 GM PKT PO SCH ×2 (12:27→18:05)
--- NOTE | 2016-11-13 12:44 | OPR ---
Date/Time of Note Date/Time of Note DATE: 11/13/16 TIME: 12:39 Operative Report Procedure Date: Nov 13, 2016 Operative\Procedure Findings Specification Writer: Adenike Pizano MD Procedure performed: 1. Left heart catheterization, selective right and left coronary angiogram 2. right femoral angiogram and closure of the right femoral artery using a perclose device 3. moderate sedation for more than 60 minutes. Specification Writer: Adenike Pizano MD Indication:: Angina, abnormal stress test Findin. Left main coronary artery: Is normal. 2. Left anterior descending artery: Its a moderate size vessel. It has 50% in- stenosis proximally into the diagonal, and 100 % stenosis of the mid LAD. There is a left to left collaterals to the LAD. 3. Left circumflex artery: Is nondominant. It has 99% in- stent stenosis at proximal left circumflex artery. 4. Right coronary artery: Is a dominant vessel. It has 60-70% stenosis at proximal RCA, just proximal to the previous stent. 5. LV pressure: 157/17; Aortic pressure by pull back is 164/70. Ejection fraction is 65-70% Written informed consent with obtained after risks benefits and alternatives discussed with the patient in detail. risks including but not limited to risk of infection vascular complications, bleeding complications, MA stroke arrhythmia renal failure at even were discussed with the patient in detail. Patient was brought into the cardiac laborer cutting tool and placed in supine position. Right and left groin area was prepped and draped in regular sterile fashion and then he was in anesthetized using 1% lidocaine. Right femoral artery was cannulated and using modified seldinger technique a 6 Amharic sheath was placed in the right femoral artery. Right femoral angiogram was performed. JL4 catheter was advanced and engaged into the left main coronary artery and angiographic view was obtained. The JR4 catheter was advanced and engaged right coronary artery angiographic view was obtained. Pigtail was advanced to engage the left ventricle and LV gram was done. hemodynamics was recorded and by pullback aortic pressure was measured Patient tolerated procedure well with no complication. Patient is to be transferred to recovery room in stable condition. contrast used: 45 cc Conclusions: Multivessel coronary artery disease including in-stent restenosis Recommendations: CT surgery evaluation for coronary artery bypass graft ADENIKE PIZANO MD Nov 13, 2016 12:44
[2016-11-13] MEDS ORDERED: [UNRECOGNIZED DRUG - OTHER] XX SCH (15:00)
[2016-11-13] MEDS ORDERED: ACETAMINOPHEN 325 MG TAB PO PRN (15:00)
[2016-11-13] MEDS ORDERED: ONDANSETRON 4 MG INJ IV PRN (15:00)
[2016-11-13] MEDS ORDERED: ICOSAPENT ETHYL XX SCH (15:00)
[2016-11-13] MEDS: VASCEPA 1 GM PO SCH (18:29)
--- NOTE | 2016-11-13 20:13 | CONS ---
Date/Time of Note Date/Time of Note DATE: 11/13/16 TIME: 20:13 Consultation Date/Type/Reason Admit Date/Time Date of Consultation: Nov 13, 2016 Type of Consultation: Renal Reason for Consultation ESRD Respiratory: no complaints Cardiovascular: no complaints Gastrointestinal: no complaints Genitourinary: no complaints Musculoskeletal: no complaints Skin: no complaints Past Medical History Medical History: angina, coronary artery disease, diabetes, high cholesterol, hypertension, renal disease, other Past Surgical History Past Surgical Hx: other Social History Smoking Status: Former smoker Drug Use: none Exam/Review of Systems Vital Signs Vitals Vital Signs Date Time Temp Pulse Resp B/P Pulse Ox O2 Delivery O2 Flow Rate FiO2 11/13/16 20:04 66 11/13/16 15:30 98.0 19 153/79 96 11/13/16 12:44 Room Air Results Result Diagram: 11/13/16 0825 11/13/16 0825 Results 24 hrs Laboratory Tests Test 11/13/16 08:19 11/13/16 08:25 Bedside Glucose 104 White Blood Count 6.0 # Red Blood Count 3.92 L Hemoglobin 11.7 L Hematocrit 34.6 L Mean Corpuscular Volume 88.3 Mean Corpuscular Hemoglobin 29.8 Mean Corpuscular Hemoglobin Concent 33.8 Red Cell Distribution Width 12.9 Platelet Count 101 L Mean Platelet Volume 11.2 H Neutrophils % 66.2 Lymphocytes % 21.1 Monocytes % 9.3 Eosinophils % 2.2 Basophils % 0.5 Nucleated Red Blood Cells % 0.0 Neutrophils # 4.0 Lymphocytes # 1.3 Monocytes # 0.6 Eosinophils # 0.1 Basophils # 0.0 Nucleated Red Blood Cells # 0.0 Prothrombin Time 14.0 Prothrombin Time Ratio 1.1 INR International Normalized Ratio 1.08 Activated Partial Thromboplast Time 34.7 Sodium Level 135 Potassium Level 3.9 Chloride Level 96 L Carbon Dioxide Level 29 Anion Gap 14 Blood Urea Nitrogen 34 H Creatinine 5.87 H Glucose Level 114 Calcium Level 9.1 Total Bilirubin 0.2 Direct Bilirubin 0.00 Indirect Bilirubin 0.2 Aspartate Amino Transf (AST/SGOT) 21 Alanine Aminotransferase (ALT/SGPT) 33 Alkaline Phosphatase 107 Creatine Kinase 68 Creatine Kinase Index 3.6 Creatinine Kinase MB (Mass) 2.47 H Troponin I 0.052 Total Protein 7.4 Albumin 4.6 Globulin 2.80 Albumin/Globulin Ratio 1.64 Triglycerides Level 389 H Cholesterol Level 164 LDL Cholesterol, Calculated 55 HDL Cholesterol 31 Cholesterol/HDL Ratio 5.2 Medications Medications Current Medications Aspirin (Halfprin) 81 mg DAILY PO ; Start 11/14/16 at 09:00 Pantoprazole (Protonix Tab) 40 mg DAILY@06 PO ; Start 11/14/16 at 06:00 Diltiazem HCl (Cardizem Cd) 240 mg DAILY PO ; Start 11/14/16 at 09:00 Isosorbide Mononitrate (Imdur) 30 mg DAILY PO Last administered on 11/13/16 12 :26; Admin Dose 30 MG; Start 11/13/16 at 11:30 Metoprolol Succinate (Toprol Xl) 50 mg DAILY PO Last administered on 11/13/16 12:26; Admin Dose 50 MG; Start 11/13/16 at 11:30 Atorvastatin Calcium (Lipitor) 80 mg HS PO ; Start 11/13/16 at 21:00 Ondansetron HCl (Zofran Inj) 4 mg Q4H PRN IV NAUSEA AND/OR VOMITING; Start 03/22 at 15:00 Acetaminophen (Tylenol Tab) 650 mg Q4H PRN PO PAIN AND OR ELEVATED TEMP; Start 11/13/16 at 15:00 ZEHRA MILLARD MD Nov 13, 2016 20:13
[2016-11-13] MEDS: ATORVASTATIN 80 MG TAB PO SCH (20:39)
[2016-11-14] VITALS (19 sets, daily range): BP systolic 139–177; BP diastolic 61–89; PULSE 59–86; RESP 16–20
--- NOTE | 2016-11-14 00:16 | RADRPT ---
PROCEDURE: XR Chest. CLINICAL INDICATION: Preop TECHNIQUE: Single AP portable chest. COMPARISON: 05/21/2016 Chest x-ray FINDINGS: The cardiomediastinal silhouette is within normal limits of size. The lungs are clear without pleur al effusion or focal consolidation. No pneumothorax. The osseous structures and soft tissues are unr emarkable. IMPRESSION: 1. No evidence for active cardiopulmonary disease. RPTAT:AAJJ Ubaldo Cadet Physician Date Time Electronically viewed and signed by Ubaldo Cadet Physician on 11/14/2016 00:16 HUNG/
[2016-11-14] MEDS: PANTOPRAZOLE (EC) 40 MG TAB PO SCH (05:56)
[2016-11-14 07:11] LABS: ADD SCAN DIFF NO
[2016-11-14 07:14] LABS: BASOPHIL # 0.1 10^3/ul (0.0-0.1); BASOPHILS % 0.6 % (0.0-2.0); EOSINOPHILS # 0.2 10^3/ul (0.0-0.5); EOSINOPHILS % 2.6 % (0.0-7.0); HEMOGLOBIN 12.6 g/dl (14.0-18.0); LYMPHOCYTES # 1.2 10^3/ul (0.8-2.9); LYMPHOCYTES % 13.9 % (15.0-51.0); MEAN CORPUSCULAR HEMOGLOBIN 30.8 pg (29.0-33.0); MEAN CORPUSCULAR HGB CONC 34.1 g/dl (32.0-37.0); MEAN CORPUSCULAR VOLUME 90.5 fl (82.0-101.0); MEAN PLATELET VOLUME 11.4 fl (7.4-10.4); MONOCYTE # 0.7 10^3/ul (0.3-0.9); MONOCYTES % 8.6 % (0.0-11.0); NEUTROPHIL # 6.2 10^3/ul (1.6-7.5); NEUTROPHILS % 73.8 % (39.0-77.0); PLATELET COUNT 113 10^3/UL (140-415); RED BLOOD COUNT 4.09 10^6/ul (4.70-6.10); RED CELL DISTRIBUTION WIDTH 13.2 % (11.5-14.5); WHITE BLOOD COUNT 8.4 10^3/ul (4.8-10.8)
[2016-11-14 07:56] LABS: ALBUMIN 4.8 g/dl (3.3-4.9); ALBUMIN/GLOBULIN RATIO 1.6; BILIRUBIN,INDIRECT 0.3 mg/dl (0-1.1); BILIRUBIN,TOTAL 0.3 mg/dl (0.2-1.3); CALCIUM 9.4 mg/dl (8.4-10.2); CREATININE 7.32 mg/dl (0.61-1.24); POTASSIUM 4.5 mmol/L (3.5-5.1); TOTAL PROTEIN 7.8 g/dl (6.1-8.1)
[2016-11-14] MEDS: VASCEPA 1 GM PO SCH ×2 (08:00→17:41)
--- NOTE | 2016-11-14 08:16 | PN ---
Date/Time of Note Date/Time of Note DATE: 11/14/16 TIME: 08:10 Assessment/Plan VTE Prophylaxis VTE Prophylaxis Intervention: heparin Lines/Catheters IV Catheter Type (from [facility]): Peripheral IV Urinary Cath still in place: No Assessment/Plan Chief Complaint/Hosp Course 1. Multivessel CAD: awaiting CABG CT surgery evaluation is appreciated. I have ordered carotid u./s as well 2. S/P MD, S/P multiple PCI Cont ASA TOPROL XL off of plavix since awaiting CABG, will start hep SQ for now NTG 3. ESRD on HD Dr De Los Santos input is appreciated. 4. DM: under control with diet only at this time. 5. HTN cont toprol HD 6. dyslipidemia: on crestor at home ( on lipitor here since crestor is not on formulary) 7. COPD: pulm consulted. 8. smoker: has stopped now Thank you. Problems: Subjective 24 Hr Interval Summary Free Text/Dictation CARDIOLOGY follow-up progress Subjective: D/W staff and rhythm was reviewed. pt remains in NSR. no chest pain or pressure. no groin pain or bleeding. no palpitations. MEDS were reviewed. OBJECTIVE: General: Obese. no acute distress HEENT: NC/AT. pupils are equal. round. NECK: NO JVD. no stridor. CV: RRR. systolic murmur; no gallop or rubs. PULM: no wheezing or rhonchi. GI: SOFT, NT, obese ND, no rebound or guarding Extremity: trace B/L LE edema. no clubbing. neuro: awake and alert, OX3. Psych: calm and pleasant rectal: deferred : normal male vascular: R femoral no bleeding or hematoma noted. no bruit. Exam/Review of Systems Vital Signs Vitals Vital Signs Date Time Temp Pulse Resp B/P Pulse Ox O2 Delivery O2 Flow Rate FiO2 11/14/16 07:51 97.9 65 18 169/81 97 11/13/16 12:44 Room Air Intake and Output 11/13/16 11/13/16 11/14/16 15:00 23:00 07:00 Intake Total 275 ml 350 ml 400 ml Balance 275 ml 350 ml 400 ml Results Result Diagram: 11/14/16 0654 11/14/16 0654 Results 24 hrs Laboratory Tests Test 11/13/16 08:19 11/13/16 08:25 11/14/16 06:54 Bedside Glucose 104 White Blood Count 6.0 # 8.4 # Red Blood Count 3.92 L 4.09 L Hemoglobin 11.7 L 12.6 L Hematocrit 34.6 L 37.0 L Mean Corpuscular Volume 88.3 90.5 Mean Corpuscular Hemoglobin 29.8 30.8 Mean Corpuscular Hemoglobin Concent 33.8 34.1 Red Cell Distribution Width 12.9 13.2 Platelet Count 101 L 113 L Mean Platelet Volume 11.2 H 11.4 H Neutrophils % 66.2 73.8 Lymphocytes % 21.1 13.9 L Monocytes % 9.3 8.6 Eosinophils % 2.2 2.6 Basophils % 0.5 0.6 Nucleated Red Blood Cells % 0.0 0.0 Neutrophils # 4.0 6.2 Lymphocytes # 1.3 1.2 Monocytes # 0.6 0.7 Eosinophils # 0.1 0.2 Basophils # 0.0 0.1 Nucleated Red Blood Cells # 0.0 0.0 Prothrombin Time 14.0 Prothrombin Time Ratio 1.1 INR International Normalized Ratio 1.08 Activated Partial Thromboplast Time 34.7 Sodium Level 135 136 Potassium Level 3.9 4.5 Chloride Level 96 L 96 L Carbon Dioxide Level 29 29 Anion Gap 14 16 Blood Urea Nitrogen 34 H 44 H Creatinine 5.87 H 7.32 H Glucose Level 114 112 Calcium Level 9.1 9.4 Total Bilirubin 0.2 0.3 Direct Bilirubin 0.00 0.00 Indirect Bilirubin 0.2 0.3 Aspartate Amino Transf (AST/SGOT) 21 23 Alanine Aminotransferase (ALT/SGPT) 33 32 Alkaline Phosphatase 107 114 Creatine Kinase 68 Creatine Kinase Index 3.6 Creatinine Kinase MB (Mass) 2.47 H Troponin I 0.052 Total Protein 7.4 7.8 Albumin 4.6 4.8 Globulin 2.80 3.00 Albumin/Globulin Ratio 1.64 1.60 Triglycerides Level 389 H Cholesterol Level 164 LDL Cholesterol, Calculated 55 HDL Cholesterol 31 Cholesterol/HDL Ratio 5.2 Hemoglobin A1c 5.5 Magnesium Level 2.0 Thyroid Stimulating Hormone (TSH) Pending Free Thyroxine 1.07 Medications Medications Current Medications Aspirin (Halfprin) 81 mg DAILY PO ; Start 11/14/16 at 09:00 Pantoprazole (Protonix Tab) 40 mg DAILY@06 PO Last administered on 11/14/16 05 :56; Admin Dose 40 MG; Start 11/14/16 at 06:00 Diltiazem HCl (Cardizem Cd) 240 mg DAILY PO ; Start 11/14/16 at 09:00 Isosorbide Mononitrate (Imdur) 30 mg DAILY PO Last administered on 11/13/16 12 :26; Admin Dose 30 MG; Start 11/13/16 at 11:30 Metoprolol Succinate (Toprol Xl) 50 mg DAILY PO Last administered on 11/13/16 12:26; Admin Dose 50 MG; Start 11/13/16 at 11:30 Atorvastatin Calcium (Lipitor) 80 mg HS PO Last administered on 11/13/16 20:39 ; Admin Dose 80 MG; Start 11/13/16 at 21:00 Ondansetron HCl (Zofran Inj) 4 mg Q4H PRN IV NAUSEA AND/OR VOMITING; Start 03/22 at 15:00 Acetaminophen (Tylenol Tab) 650 mg Q4H PRN PO PAIN AND OR ELEVATED TEMP; Start 11/13/16 at 15:00 ADENIKE MAYERS MD Nov 14, 2016 08:16
[2016-11-14 08:24] LABS: THYROID STIMULATING HORMONE 1.99 MIU/L (0.465-4.680)
[2016-11-14] MEDS: CALCIUM ACETATE 667 MG CAP PO SCH ×3 (09:01→17:41)
[2016-11-14] MEDS: SEVELAMER CARBONATE 0.8 GM PKT PO SCH ×3 (09:01→17:41)
[2016-11-14] MEDS: ASPIRIN (EC) 81 MG TAB PO SCH (09:01)
[2016-11-14] MEDS: HEPARIN 5,000 UNIT/0.5 ML VIAL SC SCH ×3 (09:08→22:13)
--- NOTE | 2016-11-14 13:51 | PN ---
Date/Time of Note Date/Time of Note DATE: 11/14/16 TIME: 13:50 Assessment/Plan Lines/Catheters IV Catheter Type (from Nrsg): Peripheral IV Flanagan in Place (from Nrsg): No Assessment/Plan Chief Complaint/Hosp Course Coronary artery disease Patient is a candidate to undergo coronary artery bypass grafting Plan to proceed if the family is agreeable and the patient has been off of Plavix for 5 days We will check carotid studies prior to surgery Problems: Subjective 24 Hr Interval Summary Constitutional: improved Pain Control: mild Exam/Review of Systems Vital Signs Vitals Vital Signs Date Time Temp Pulse Resp B/P Pulse Ox O2 Delivery O2 Flow Rate FiO2 11/14/16 12:19 70 11/14/16 11:52 165/80 11/14/16 11:17 98.0 16 94 11/13/16 12:44 Room Air Intake and Output 11/13/16 11/13/16 11/14/16 15:00 23:00 07:00 Intake Total 275 ml 350 ml 400 ml Balance 275 ml 350 ml 400 ml Exam Eyes: EOMI, nl conjunctiva, nl lids, nl sclera ENMT: mucosa pink and moist, nl external ears & nose, nl lips & teeth, nl nasal mucosa & septum Neck: non-tender, supple Respiratory: clear to auscultation, normal air movement Cardiovascular: nl pulses, regular rate and rhythm Results Result Diagram: 11/14/16 0654 11/14/16 0654 JN ROMAN MD Nov 14, 2016 13:51
[2016-11-14] MEDS: ISOSORBIDE MONONITRATE(SR)30 MG TAB PO SCH (15:35)
[2016-11-14] MEDS: DILTIAZEM (CD) 240 MG CAP PO SCH (15:35)
[2016-11-14] MEDS: METOPROLOL (XL) 50 MG TAB PO SCH (15:36)
--- NOTE | 2016-11-14 15:54 | RADRPT ---
PROCEDURE: US Carotids. CLINICAL INDICATION: bruit , preop for CABG//see note TECHNIQUE: Multiple sonographic of the carotid bifurcation region and vertebral arteries were obta ined utilizing hwang scale, duplex and color-flow imaging. The images were reviewed on a PACS worksta tion. COMPARISON: No prior studies are available for comparison. FINDINGS: Evaluation of the right carotid bifurcation region reveals no significant calcific atherosclerotic d isease. Evaluation of the left carotid bifurcation region reveals no significant calcific atherosclerotic di sease. There is antegrade flow within the vertebral arteries bilaterally. RIGHT CAROTID MEASUREMENTS: Common Carotid Uhrnjz56.6 (cm/sec) Internal Carotid Artery - jsfhicbt31.1 (cm/sec) Internal Carotid Artery - mid46.1 (cm/sec) Internal Carotid Artery - dhmovy32.3 (cm/sec) Internal Carotid/Common Carotid0.88 LEFT CAROTID MEASUREMENTS: Common Carotid [id number] (cm/sec) Internal Carotid Artery - .9 (cm/sec) Internal Carotid Artery - mid57.3 (cm/sec) Internal Carotid Artery - vtpqko15.9 (cm/sec) Internal Carotid/Common Carotid0.75 RPTAT: AA IMPRESSION: No evidence for hemodynamically significant stenosis in the bilateral internal carotid arteries - va lidated velocity measurements with angiographic measurements, velocity criteria are extrapolated fro m diameter data as defined by the Society of Radiologists in Ultrasound Consensus Conference Radiolo gy 2003; 229;340-346. This study does indirectly reference the measurement of the distal ICA diamet er as the denominator for stenosis measurement. Normal antegrade flow in the vertebral arteries bilaterally. .Ari Reynoso MD, MD Date Time Electronically viewed and signed by .Ari Reynoso MD, MD on 11/14/2016 15:54 .S/
--- NOTE | 2016-11-14 17:15 | CONS ---
Date/Time of Note Date/Time of Note DATE: 11/14/16 TIME: 17:14 Assessment/Plan Assessment/Plan Additional Assessment/Plan 1. Multivessel CAD: awaiting CABG 2. S/P AR, S/P multiple PCI 3. ESRD on HD 4. DM: 5. HTN 6. dyslipidemia: 7. COPD S/p HD tolerated well cont maintenance HD 3 x week MWF schedule Consultation Date/Type/Reason Admit Date/Time Nov 13, 2016 at 11:24 Initial Consult Date 11/13/16 Type of Consultation: Renal 24 HR Interval Summary Free Text/Dictation S/p HD Exam/Review of Systems Vital Signs Vitals Vital Signs Date Time Temp Pulse Resp B/P Pulse Ox O2 Delivery O2 Flow Rate FiO2 11/14/16 16:30 73 155/70 11/14/16 15:23 98.1 16 97 11/13/16 12:44 Room Air Intake and Output 11/13/16 11/13/16 11/14/16 15:00 23:00 07:00 Intake Total 275 ml 350 ml 400 ml Balance 275 ml 350 ml 400 ml Results Result Diagram: 11/14/16 0654 11/14/16 0654 Results 24 hrs Laboratory Tests Test 11/14/16 06:54 White Blood Count 8.4 # Red Blood Count 4.09 L Hemoglobin 12.6 L Hematocrit 37.0 L Mean Corpuscular Volume 90.5 Mean Corpuscular Hemoglobin 30.8 Mean Corpuscular Hemoglobin Concent 34.1 Red Cell Distribution Width 13.2 Platelet Count 113 L Mean Platelet Volume 11.4 H Neutrophils % 73.8 Lymphocytes % 13.9 L Monocytes % 8.6 Eosinophils % 2.6 Basophils % 0.6 Nucleated Red Blood Cells % 0.0 Neutrophils # 6.2 Lymphocytes # 1.2 Monocytes # 0.7 Eosinophils # 0.2 Basophils # 0.1 Nucleated Red Blood Cells # 0.0 Sodium Level 136 Potassium Level 4.5 Chloride Level 96 L Carbon Dioxide Level 29 Anion Gap 16 Blood Urea Nitrogen 44 H Creatinine 7.32 H Glucose Level 112 Hemoglobin A1c 5.5 Calcium Level 9.4 Magnesium Level 2.0 Total Bilirubin 0.3 Direct Bilirubin 0.00 Indirect Bilirubin 0.3 Aspartate Amino Transf (AST/SGOT) 23 Alanine Aminotransferase (ALT/SGPT) 32 Alkaline Phosphatase 114 Total Protein 7.8 Albumin 4.8 Globulin 3.00 Albumin/Globulin Ratio 1.60 Thyroid Stimulating Hormone (TSH) 1.990 Free Thyroxine 1.07 Medications Medications Current Medications Aspirin (Halfprin) 81 mg DAILY PO Last administered on 11/14/16 09:01; Admin Dose 81 MG; Start 11/14/16 at 09:00 Pantoprazole (Protonix Tab) 40 mg DAILY@06 PO Last administered on 11/14/16 05 :56; Admin Dose 40 MG; Start 11/14/16 at 06:00 Diltiazem HCl (Cardizem Cd) 240 mg DAILY PO Last administered on 11/14/16 15: 35; Admin Dose 240 MG; Start 11/14/16 at 09:00 Isosorbide Mononitrate (Imdur) 30 mg DAILY PO Last administered on 11/14/16 15 :35; Admin Dose 30 MG; Start 11/13/16 at 11:30 Metoprolol Succinate (Toprol Xl) 50 mg DAILY PO Last administered on 11/14/16 15:36; Admin Dose 50 MG; Start 11/13/16 at 11:30 Atorvastatin Calcium (Lipitor) 80 mg HS PO Last administered on 11/13/16 20:39 ; Admin Dose 80 MG; Start 11/13/16 at 21:00 Ondansetron HCl (Zofran Inj) 4 mg Q4H PRN IV NAUSEA AND/OR VOMITING; Start 03/22 at 15:00 Acetaminophen (Tylenol Tab) 650 mg Q4H PRN PO PAIN AND OR ELEVATED TEMP; Start 11/13/16 at 15:00 Heparin Sodium (Porcine) (Heparin (5000 Units/0.5 ml)) 5,000 unit Q8 SC Last administered on 11/14/16 09:08; Admin Dose 5,000 UNIT; Start 11/14/16 at 08:30 ZEHRA MILLARD MD Nov 14, 2016 17:14
[2016-11-14] MEDS: ATORVASTATIN 80 MG TAB PO SCH (20:50)
[2016-11-15] VITALS (10 sets, daily range): BP systolic 122–153; BP diastolic 63–79; PULSE 57–63; RESP 16–20
[2016-11-15] MEDS: PANTOPRAZOLE (EC) 40 MG TAB PO SCH (05:48)
[2016-11-15] MEDS: HEPARIN 5,000 UNIT/0.5 ML VIAL SC SCH ×2 (05:50→14:14)
[2016-11-15 08:08] LABS: ADD SCAN DIFF NO
[2016-11-15] MEDS: CALCIUM ACETATE 667 MG CAP PO SCH ×3 (08:11→17:39)
[2016-11-15] MEDS: VASCEPA 1 GM PO SCH ×2 (08:11→17:40)
[2016-11-15] MEDS: SEVELAMER CARBONATE 0.8 GM PKT PO SCH ×3 (08:11→17:37)
[2016-11-15] MEDS: ASPIRIN (EC) 81 MG TAB PO SCH (08:12)
[2016-11-15] MEDS: DILTIAZEM (CD) 240 MG CAP PO SCH (08:12)
[2016-11-15] MEDS: ISOSORBIDE MONONITRATE(SR)30 MG TAB PO SCH (08:13)
[2016-11-15] MEDS: METOPROLOL (XL) 50 MG TAB PO SCH (08:13)
[2016-11-15 08:17] LABS: ABNORMAL IP MESSAGE 1; BASOPHILS % 0.5 % (0.0-2.0); EOSINOPHILS # 0.2 10^3/ul (0.0-0.5); EOSINOPHILS % 2.7 % (0.0-7.0); HEMATOCRIT 36.9 % (42.0-52.0); HEMOGLOBIN 12.6 g/dl (14.0-18.0); LYMPHOCYTES # 1.3 10^3/ul (0.8-2.9); MEAN CORPUSCULAR HEMOGLOBIN 30.6 pg (29.0-33.0); MEAN CORPUSCULAR HGB CONC 34.1 g/dl (32.0-37.0); MEAN CORPUSCULAR VOLUME 89.6 fl (82.0-101.0); MEAN PLATELET VOLUME 12.1 fl (7.4-10.4); MONOCYTE # 0.7 10^3/ul (0.3-0.9); MONOCYTES % 8.7 % (0.0-11.0); NEUTROPHIL # 5.4 10^3/ul (1.6-7.5); NEUTROPHILS % 70.7 % (39.0-77.0); PLATELET COUNT 98 10^3/UL (140-415); RED BLOOD COUNT 4.12 10^6/ul (4.70-6.10); RED CELL DISTRIBUTION WIDTH 12.9 % (11.5-14.5); WHITE BLOOD COUNT 7.7 10^3/ul (4.8-10.8)
[2016-11-15 08:45] LABS: ALBUMIN 4.9 g/dl (3.3-4.9); ALBUMIN/GLOBULIN RATIO 1.81; BILIRUBIN,INDIRECT 0.3 mg/dl (0-1.1); BILIRUBIN,TOTAL 0.3 mg/dl (0.2-1.3); CREATININE 6.94 mg/dl (0.61-1.24); POTASSIUM 4.7 mmol/L (3.5-5.1); TOTAL PROTEIN 7.6 g/dl (6.1-8.1)
--- NOTE | 2016-11-15 09:48 | PN ---
Date/Time of Note Date/Time of Note DATE: 11/15/16 TIME: 09:43 Assessment/Plan VTE Prophylaxis VTE Prophylaxis Intervention: ambulation, heparin Lines/Catheters IV [facility] Peripheral IV Urinary Cath still in place: No Assessment/Plan Chief Complaint/Hosp Course 1. Multivessel CAD: awaiting CABG CT surgery evaluation is appreciated. carotid u./s done as well 2. S/P AR, S/P multiple PCI Cont ASA TOPROL XL off of plavix since awaiting CABG, will cont hep SQ for now NTG 3. ESRD on HD Dr De Los Santos input is appreciated. cont HD 4. DM: under control with diet only at this time. 5. HTN cont toprol HD 6. dyslipidemia: on crestor at home ( on lipitor here since crestor is not on formulary) 7. COPD: pulm consulted. 8. smoker: has stopped now Thank you. Problems: Subjective 24 Hr Interval Summary Free Text/Dictation CARDIOLOGY follow-up progress Subjective: D/W staff and rhythm was reviewed. pt remains in NSR. no chest pain or pressure now. no groin pain or bleeding. no palpitations. MEDS were reviewed. OBJECTIVE: General: Obese. no acute distress HEENT: NC/AT. pupils are equal. round. NECK: NO JVD. no stridor. CV: RRR. systolic murmur; no gallop or rubs. PULM: no wheezing or rhonchi. GI: SOFT, NT, obese ND, no rebound or guarding Extremity: trace B/L LE edema. no clubbing. neuro: awake and alert, OX3. Psych: calm and pleasant rectal: deferred : normal male vascular: R femoral no bleeding or hematoma noted. no bruit. Exam/Review of Systems Vital Signs Vitals Vital Signs Date Time Temp Pulse Resp B/P Pulse Ox O2 Delivery O2 Flow Rate FiO2 11/15/16 08:25 57 11/15/16 07:21 97.8 16 135/63 96 11/13/16 12:44 Room Air Intake and Output 11/14/16 11/14/16 11/15/16 15:00 23:00 07:00 Intake Total 400 ml 870 ml 200 ml Output Total 2400 ml Balance -2000 ml 870 ml 200 ml Results Result Diagram: 7/13/17 0712 7/13/17 0712 Results 24 hrs Laboratory Tests Test 11/15/16 07:12 11/15/16 07:15 White Blood Count 7.7 Red Blood Count 4.12 L Hemoglobin 12.6 L Hematocrit 36.9 L Mean Corpuscular Volume 89.6 Mean Corpuscular Hemoglobin 30.6 Mean Corpuscular Hemoglobin Concent 34.1 Red Cell Distribution Width 12.9 Platelet Count 98 L Mean Platelet Volume 12.1 H Neutrophils % 70.7 Lymphocytes % 17.0 Monocytes % 8.7 Eosinophils % 2.7 Basophils % 0.5 Nucleated Red Blood Cells % 0.0 Neutrophils # 5.4 Lymphocytes # 1.3 Monocytes # 0.7 Eosinophils # 0.2 Basophils # 0.0 Nucleated Red Blood Cells # 0.0 Sodium Level 134 L Potassium Level 4.7 Chloride Level 95 L Carbon Dioxide Level 26 Anion Gap 18 H Blood Urea Nitrogen 44 H Creatinine 6.94 H Glucose Level 122 Calcium Level 9.0 Total Bilirubin 0.3 Direct Bilirubin 0.00 Indirect Bilirubin 0.3 Aspartate Amino Transf (AST/SGOT) 22 Alanine Aminotransferase (ALT/SGPT) 31 Alkaline Phosphatase 109 Total Protein 7.6 Albumin 4.9 Globulin 2.70 Albumin/Globulin Ratio 1.81 Activated Partial Thromboplast Time 38.5 H Medications Medications Current Medications Aspirin (Halfprin) 81 mg DAILY PO Last administered on 11/15/16 08:12; Admin Dose 81 MG; Start 11/14/16 at 09:00 Pantoprazole (Protonix Tab) 40 mg DAILY@06 PO Last administered on 11/15/16 05 :48; Admin Dose 40 MG; Start 11/14/16 at 06:00 Diltiazem HCl (Cardizem Cd) 240 mg DAILY PO Last administered on 11/15/16 08: 12; Admin Dose 240 MG; Start 11/14/16 at 09:00 Isosorbide Mononitrate (Imdur) 30 mg DAILY PO Last administered on 11/15/16 08 :13; Admin Dose 30 MG; Start 11/13/16 at 11:30 Metoprolol Succinate (Toprol Xl) 50 mg DAILY PO Last administered on 11/15/16 08:13; Admin Dose 50 MG; Start 11/13/16 at 11:30 Atorvastatin Calcium (Lipitor) 80 mg HS PO Last administered on 11/14/16 20:50 ; Admin Dose 80 MG; Start 11/13/16 at 21:00 Ondansetron HCl (Zofran Inj) 4 mg Q4H PRN IV NAUSEA AND/OR VOMITING; Start 03/22 at 15:00 Acetaminophen (Tylenol Tab) 650 mg Q4H PRN PO PAIN AND OR ELEVATED TEMP; Start 11/13/16 at 15:00 Heparin Sodium (Porcine) (Heparin (5000 Units/0.5 ml)) 5,000 unit Q8 SC Last administered on 11/15/16t 05:50; Admin Dose 5,000 UNIT; Start 11/14/16 at 08:30 ADENIKE MAYERS MD Nov 15, 2016 09:48
--- NOTE | 2016-11-15 12:09 | PN ---
Date/Time of Note Date/Time of Note DATE: 11/15/16 TIME: 12:03 Assessment/Plan Lines/Catheters IV Catheter Type (from Nrs): Saline Lock Flanagan in Place (from Nrsg): No Assessment/Plan Chief Complaint/Hosp Course Coronary artery disease Patient is a candidate to undergo coronary artery bypass grafting No evidence for hemodynamically significant stenosis in the bilateral internal carotid arteries spoke with the family Plan to proceed if the family is agreeable and the patient has been off of Plavix for 5 days We will check carotid studies prior to surgery Problems: Subjective 24 Hr Interval Summary Constitutional: improved Pain Control: mild Exam/Review of Systems Vital Signs Vitals Vital Signs Date Time Temp Pulse Resp B/P Pulse Ox O2 Delivery O2 Flow Rate FiO2 11/15/16 11:20 98.1 66 18 122/73 98 11/13/16 12:44 Room Air Intake and Output 11/14/16 11/14/16 11/15/16 15:00 23:00 07:00 Intake Total 400 ml 870 ml 200 ml Output Total 2400 ml Balance -2000 ml 870 ml 200 ml Exam ENMT: mucosa pink and moist, nl external ears & nose, nl lips & teeth, nl nasal mucosa & septum Neck: non-tender, supple Respiratory: clear to auscultation, normal air movement Cardiovascular: nl pulses, regular rate and rhythm Gastrointestinal: nl liver, spleen, non-tender, soft Results Result Diagram: 11/15/16 0711/15/16711 JN ROMAN MD Nov 15, 2016 12:09
[2016-11-15 14:42] LABS: INR 1.02; PROTIME 13.4 Sec (12.2-14.2)
--- NOTE | 2016-11-15 17:07 | CONS ---
Date/Time of Note Date/Time of Note DATE: 11/15/16 TIME: 17:06 Assessment/Plan Assessment/Plan Additional Assessment/Plan 1. Multivessel CAD: awaiting CABG 2. S/P [place], S/P multiple PCI 3. ESRD on HD 4. DM: 5. HTN 6. dyslipidemia: 7. COPD Next HD tomorrow cont maintenance HD 3 x week MWF schedule Consultation Date/Type/Reason Admit Date/Time Nov 13, 2016 at 11:24 Initial Consult Date 11/13/16 Type of Consultation: Renal 24 HR Interval Summary Free Text/Dictation No new complaints Exam/Review of Systems Vital Signs Vitals Vital Signs Date Time Temp Pulse Resp B/P Pulse Ox O2 Delivery O2 Flow Rate FiO2 11/15/16 16:32 58 11/15/16 15:24 98.1 18 141/73 98 11/13/16 12:44 Room Air Intake and Output 11/14/16 11/14/16 11/15/16 15:00 23:00 07:00 Intake Total 400 ml 870 ml 200 ml Output Total 2400 ml Balance -2000 ml 870 ml 200 ml Exam Constitutional: No distress ENMT: mucosa pink and moist Respiratory: No crackles/rales Cardiovascular: regular rate and rhythm, No edema Gastrointestinal: non-tender, soft Extremities: No edema Neurological: CONTROL OPERATOR II-XII intact, No lethargic Skin: No diaphoresis Results Result Diagram: 11/15/1612 11/15/1612 Results 24 hrs Laboratory Tests Test 11/15/16 07:12 11/15/16 07:14 11/15/16 07:15 White Blood Count 7.7 Red Blood Count 4.12 L Hemoglobin 12.6 L Hematocrit 36.9 L Mean Corpuscular Volume 89.6 Mean Corpuscular Hemoglobin 30.6 Mean Corpuscular Hemoglobin Concent 34.1 Red Cell Distribution Width 12.9 Platelet Count 98 L Mean Platelet Volume 12.1 H Neutrophils % 70.7 Lymphocytes % 17.0 Monocytes % 8.7 Eosinophils % 2.7 Basophils % 0.5 Nucleated Red Blood Cells % 0.0 Neutrophils # 5.4 Lymphocytes # 1.3 Monocytes # 0.7 Eosinophils # 0.2 Basophils # 0.0 Nucleated Red Blood Cells # 0.0 Sodium Level 134 L Potassium Level 4.7 Chloride Level 95 L Carbon Dioxide Level 26 Anion Gap 18 H Blood Urea Nitrogen 44 H Creatinine 6.94 H Glucose Level 122 Calcium Level 9.0 Total Bilirubin 0.3 Direct Bilirubin 0.00 Indirect Bilirubin 0.3 Aspartate Amino Transf (AST/SGOT) 22 Alanine Aminotransferase (ALT/SGPT) 31 Alkaline Phosphatase 109 Total Protein 7.6 Albumin 4.9 Globulin 2.70 Albumin/Globulin Ratio 1.81 Prothrombin Time 13.4 Prothrombin Time Ratio 1.0 INR International Normalized Ratio 1.02 Activated Partial Thromboplast Time 38.5 H Medications Medications Current Medications Aspirin (Halfprin) 81 mg DAILY PO Last administered on 11/15/16 08:12; Admin Dose 81 MG; Start 11/14/16 at 09:00 Pantoprazole (Protonix Tab) 40 mg DAILY@06 PO Last administered on 11/15/16 05 :48; Admin Dose 40 MG; Start 11/14/16 at 06:00 Diltiazem HCl (Cardizem Cd) 240 mg DAILY PO Last administered on 11/15/16 08: 12; Admin Dose 240 MG; Start 11/14/16 at 09:00 Isosorbide Mononitrate (Imdur) 30 mg DAILY PO Last administered on 11/15/16 08 :13; Admin Dose 30 MG; Start 11/13/16 at 11:30 Metoprolol Succinate (Toprol Xl) 50 mg DAILY PO Last administered on 11/15/16 08:13; Admin Dose 50 MG; Start 11/13/16 at 11:30 Atorvastatin Calcium (Lipitor) 80 mg HS PO Last administered on 11/14/16 20:50 ; Admin Dose 80 MG; Start 11/13/16 at 21:00 Ondansetron HCl (Zofran Inj) 4 mg Q4H PRN IV NAUSEA AND/OR VOMITING; Start 03/22 at 15:00 Acetaminophen (Tylenol Tab) 650 mg Q4H PRN PO PAIN AND OR ELEVATED TEMP; Start 11/13/16 at 15:00 Heparin Sodium (Porcine) (Heparin (5000 Units/0.5 ml)) 5,000 unit Q8 SC Last administered on 11/15/16 14:14; Admin Dose 5,000 UNIT; Start 11/14/16 at 08:30 ZEHRA MILLARD MD Nov 15, 2016 17:07
--- NOTE | 2016-11-15 18:58 | PDOCDIS ---
Discharge Instructions CONDITION Patient Condition: Stable HOME CARE INSTRUCTIONS: Special Diet: 1800cal. no added salt ACTIVITY: Activity Restrictions: Avoid Heavy Housework FOLLOW UP/APPOINTMENTS Follow-up Plan CABG to be done on Saturday, on saturday Dr. Reyna to arrange admission. Not to take Plavix. next dialysis tomorrow morning at his dialysis center/Dr. Mitch Blakely will arrange.. Continue home meds. SUSANNA BURT MD Nov 15, 2016 18:58
[2016-11-15] MEDS ORDERED: ISOS30TA5 PO (19:02)
[2016-11-15] MEDS ORDERED: METO50TA16 PO (19:02)
[2016-11-15] MEDS ORDERED: ATOR80TA75 PO (19:02)
== END 2016-11-15 20:30 | disposition home or self-care (01) | DRG 286 ==
LOC: SDS 07:07 → MS4 11:24
PROVIDERS: ADMIT Internal Medicine Interventional Cardiology; ATTEND Internal Medicine
PROC: B2111ZZ Fluoroscopy of Multiple Coronary Arteries using Low Osmolar Contrast (ICD-10-PCS; 2016-11-13)
PROC: B2151ZZ Fluoroscopy of Left Heart using Low Osmolar Contrast (ICD-10-PCS; 2016-11-13)
PROC: 4A023N7 Measurement of Cardiac Sampling and Pressure, Left Heart, Percutaneous Approach (ICD-10-PCS; principal; 2016-11-13 10:00)
PROC: 5A1D00Z (ICD-10-PCS; 2016-11-14)
DX: I25.119 Atherosclerotic heart disease of native coronary artery with unspecified angina pectoris (principal); N18.6 End stage renal disease; I12.0 Hypertensive chronic kidney disease with stage 5 chronic kidney disease or end stage renal disease; E11.21 Type 2 diabetes mellitus with diabetic nephropathy; I25.82 Chronic total occlusion of coronary artery; T82.855A Stenosis of coronary artery stent, initial encounter; E11.22 Type 2 diabetes mellitus with diabetic chronic kidney disease; I25.2 Old myocardial infarction; J44.9 Chronic obstructive pulmonary disease, unspecified; Z99.2 Dependence on renal dialysis; E78.5 Hyperlipidemia, unspecified; Z87.891 Personal history of nicotine dependence; Y84.0 Cardiac catheterization as the cause of abnormal reaction of the patient, or of later complication, without mention of misadventure at the time of the procedure
CPT/HCPCS: 71010; 80053; 80061; 82550; 82553; 82962; 83036; 83735; 84439; 84443; 84484; 85025; 85610; 85730; 90935; 93458; 93880; J1644; J2250; J3010; Q9967

== ENCOUNTER 2016-11-20 05:43 | Inpatient (IN) | payer MEDICARE, OTHER ==
[2016-11-19 10:08] LABS: ADD SCAN DIFF NO
[2016-11-19 10:16] LABS: ADD UMIC YES; UR ASCORBIC ACID NEGATIVE (NEGATIVE); UR BILIRUBIN (Dip) NEGATIVE (NEGATIVE); UR BLOOD (Dip) 1+ mg/dL (NEGATIVE); UR CLARITY CLEAR (CLEAR); UR COLOR YELLOW (YELLOW); UR GLUCOSE (Dip) 2+ mg/dL (NEGATIVE); UR KETONES (Dip) NEGATIVE (NEGATIVE); UR LEUKOCYTE ESTERASE (Dip) NEGATIVE Leu/ul (NEGATIVE); UR NITRITE (Dip) NEGATIVE (NEGATIVE); UR RBC 5 /HPF (0-5); UR SPECIFIC GRAVITY (Dip) 1.014 (1.003-1.030); UR TOTAL PROTEIN (Dip) 3+ mg/dl (NEGATIVE); UR UROBILINOGEN (Dip) NEGATIVE (NEGATIVE)
[2016-11-19 10:34] LABS: ABNORMAL IP MESSAGE 1; BASOPHIL # 0.1 10^3/ul (0.0-0.1); BASOPHILS % 0.7 % (0.0-2.0); EOSINOPHILS # 0.2 10^3/ul (0.0-0.5); EOSINOPHILS % 2.3 % (0.0-7.0); HEMATOCRIT 35.3 % (42.0-52.0); HEMOGLOBIN 11.7 g/dl (14.0-18.0); LYMPHOCYTES # 1.2 10^3/ul (0.8-2.9); MEAN CORPUSCULAR HEMOGLOBIN 29.6 pg (29.0-33.0); MEAN CORPUSCULAR HGB CONC 33.1 g/dl (32.0-37.0); MEAN CORPUSCULAR VOLUME 89.4 fl (82.0-101.0); MEAN PLATELET VOLUME 12.9 fl (7.4-10.4); MONOCYTE # 0.5 10^3/ul (0.3-0.9); NEUTROPHIL # 5.5 10^3/ul (1.6-7.5); NEUTROPHILS % 73.5 % (39.0-77.0); PLATELET COUNT 86 10^3/UL (140-415); RED BLOOD COUNT 3.95 10^6/ul (4.70-6.10); RED CELL DISTRIBUTION WIDTH 13.1 % (11.5-14.5); WHITE BLOOD COUNT 7.5 10^3/ul (4.8-10.8)
[2016-11-19 10:35] LABS: INR 1.12; PROTIME 14.4 Sec (12.2-14.2); PT RATIO 1.1
[2016-11-19 10:36] LABS: ALBUMIN 4.8 g/dl (3.3-4.9); ALBUMIN/GLOBULIN RATIO 1.6; BILIRUBIN,INDIRECT 0.3 mg/dl (0-1.1); BILIRUBIN,TOTAL 0.3 mg/dl (0.2-1.3); CALCIUM 9.3 mg/dl (8.4-10.2); CREATININE 8.96 mg/dl (0.61-1.24); PARTIAL THROMBOPLASTIN TIME 35.5 Sec (25.0-35.0); POTASSIUM 4.9 mmol/L (3.5-5.1); TOTAL PROTEIN 7.8 g/dl (6.1-8.1)
[~2016-11-20] VITALS: Ht 165.1 cm; Wt 83.1 kg
[2016-11-20] VITALS (44 sets, daily range): BP systolic 110–179; BP diastolic 35–85; PULSE 70–114; RESP 14–27; TEMP 97–98.8; Ht 165.1 cm; Wt 83.1 kg
[~2016-11-20 05:43] MED LIST changes: -BUDE6HFA INHALATION; -CEPH500C PO; -CLOP75TA27 PO; +ICOS1CAP PO; -IPRA4AER INHALATION; -NIT4 SL; -PRED5 PO; -SOD CHLORIDE 0.9% 1,000 ML IV SCH
[2016-11-20] MEDS ORDERED: EPINEPHrine 4 MG in DEXTROSE 5% 246 ML IV SCH (06:00)
[2016-11-20] MEDS ORDERED: PHENYLephrine 20MG IN 250 ML 250 ML IV SCH (06:00)
[2016-11-20] MEDS ORDERED: INSULIN HUMAN REGULAR 100 UNIT in SOD CHLORIDE 0.9% 99 ML IV SCH ×2 (06:00→16:00)
[2016-11-20] MEDS ORDERED: PAPAVERINE 60 MG INJ ONE (06:44)
[2016-11-20] MEDS ORDERED: THROMBIN 5000 UNIT VIAL ONE (06:44)
[2016-11-20] MEDS ORDERED: VANCOMYCIN 1 GM INJ ONE (06:44)
[2016-11-20] MEDS ORDERED: GELATIN SIZE 100 SPONGE ONE (06:44)
[2016-11-20] MEDS ORDERED: HEPARIN 1000 UNITS/ML 10 ML INJ ONE ×3 (06:44→09:29)
[2016-11-20 06:59] LABS: ALBUMIN 4.3 g/dl (3.3-4.9); ALBUMIN/GLOBULIN RATIO 1.26; BILIRUBIN,INDIRECT 0.6 mg/dl (0-1.1); BILIRUBIN,TOTAL 0.6 mg/dl (0.2-1.3); TOTAL PROTEIN 7.7 g/dl (6.1-8.1)
[2016-11-20] MEDS ORDERED: SUCCINYLCHOLINE CHLORIDE 100 MG/5 ML SYG IV ONE (07:00)
[2016-11-20] MEDS ORDERED: METHYLPREDNISOLONE 1000 MG INJ ONE (07:00)
[2016-11-20] MEDS ORDERED: ROCURONIUM 50 MG INJ ONE (07:00)
[2016-11-20] MEDS ORDERED: NITROGLYCERIN 50 MG/D5W 250 ML BTL ONE (07:00)
[2016-11-20 07:04] LABS: CALCIUM 8.8 mg/dl (8.4-10.2); CREATININE 6.45 mg/dl (0.61-1.24); POTASSIUM 4.2 mmol/L (3.5-5.1)
[2016-11-20] MEDS ORDERED: MIDAZOLAM 1 MG/ML 2 ML INJ ONE (07:11)
[2016-11-20] MEDS ORDERED: KETAMINE 500 MG INJ ONE (07:12)
[2016-11-20] MEDS ORDERED: PROPOFOL 20 ML ONE (07:14)
--- NOTE | 2016-11-20 07:16 | HPN ---
Date/Time of Note Date/Time of Note DATE: 11/20/16 TIME: 07:15 Interval H&P Admission Note Pt. seen H&P reviewed: No system changes JN ROMAN MD Nov 20, 2016 07:15
[2016-11-20] MEDS ORDERED: ALBUMIN HUMAN 25% 300 ML ONE (07:25)
[2016-11-20] MEDS ORDERED: AMINOCAPROIC ACID 5 GM INJ ONE (07:26)
[2016-11-20] MEDS ORDERED: CA CHLORIDE 10% 10 ML SYRINGE ONE ×2 (07:27→13:33)
[2016-11-20] MEDS ORDERED: POTASSIUM CHLORIDE 40 MEQ INJ ONE (07:29)
[2016-11-20] MEDS ORDERED: CLOP300T15 PO (07:29)
[2016-11-20] MEDS ORDERED: ALBU2.5V3 NEB (07:29)
[2016-11-20] MEDS ORDERED: LIDOCAINE 100 MG SYRINGE ONE (07:30)
[2016-11-20] MEDS ORDERED: MANNITOL 25% 100 ML ONE (07:30)
[2016-11-20] MEDS ORDERED: MAGNESIUM SULFATE (MG) 50% 10 ML INJ ONE (07:31)
[2016-11-20] MEDS ORDERED: VASOPRESSIN 20 UNITS INJ ONE (07:32)
[2016-11-20] MEDS ORDERED: PHENYLephrine 10 MG INJ ONE (07:33)
[2016-11-20] MEDS ORDERED: PHENYLephrine (100 MCG/ML) 5ML SYG ONE (07:34)
[2016-11-20] MEDS ORDERED: NORepinephrine 4 MG INJ ONE (07:44)
[2016-11-20] MEDS ORDERED: DOBUTamine/D5W 1 MG/ML DRIP 250 ML ONE (07:51)
[2016-11-20] MEDS ORDERED: DOPamine-D5W 1.6 MG/ML 250 ML ONE (07:51)
[2016-11-20] MEDS ORDERED: CEFAZOLIN 1 GM INJ ONE (08:58)
[2016-11-20] MEDS ORDERED: morphine 10 MG INJ ONE (09:51)
[2016-11-20] MEDS ORDERED: NEOSTIGMINE 3 MG/3 ML SYRINGE ONE (12:20)
[2016-11-20] MEDS ORDERED: PROTAMINE 250 MG INJ ONE (12:55)
[2016-11-20] MEDS ORDERED: niCARdipine 25 MG INJ ONE (14:11)
[2016-11-20] MEDS ORDERED: nitroGLYCerin 50 MG INJ ONE (14:11)
--- NOTE | 2016-11-20 14:26 | OPR ---
Date/Time of Note Date/Time of Note DATE: 11/20/16 TIME: 14:18 Operative Report Procedure Date: Nov 20, 2016 Preoperative Diagnosis Coronary artery disease Postoperative Diagnosis The same Operation Performed Coronary artery bypass grafting LAKE to LAD Saphenous vein graft to the diagonal branch of the LAD Saphenous vein graft to right coronary artery Saphenous vein graft to the obtuse marginal branch of the circumflex Right coronary endarterectomy Endoscopic Ceftin saphenous vein harvest from the left lower extremity Surgeon: JN ROMAN MD Fashion Intern: LOCO DESAI M.D. Anesthesia: general Complications: None Pt Condition Post Procedure: critical Disposition: PACU Indications Coronary artery disease Operative\Procedure Findings The patient was taken to the operating room after induction of general anesthesia was prepped and draped in usual sterile fashion timeout was called antibiotics was given and I started Simultaneously saphenous vein was harvested from the left lower extremity using endoscopic technique and sternotomy incision was made from the sternal notch down to the xiphoid process left internal mammary artery was harvested using electrocautery and titanium clips. Pericardium was opened patient fully heparinized and cannulation sutures of 3-0 Prolene with pledgets were applied to the dista aescending aorta mid aescending aorta the body of the right atrium and right atrial appendage . Patient was fully heparinized after adequate ACT was obtained the heart was cannulated starting with aortic cannula followed by its two-stage venous cannula antegrade and retrograde cardioplegia cannula Cross clamp was applied to the soft part of the aorta the heart was arrested using antegrade and retrograde cardioplegia given the blood base cold cardioplegia with high potassium this was repeated every 15-20 minutes and supplemented through the vein grafts as they were being constructed We proceeded with the distal anastomoses of this anastomosis were done to 8 mm longitudinal arteriotomy end-to-side fashion with 7-0 Prolene continuous suture technique Saphenous vein graft was anastomosed to the right coronary artery, diagonal branch of the LAD and obtuse marginal branch of the circumflex LAKE was anastomosed to the LAD right coronary endarterectomy was also done The 2 proximal anastomoses were done on the same cross-clamp to 4.5 mm punches 6 -0 Prolene continuous suture technique end-to-side fashion The right coronary vein was anastomosed to the obtuse marginal branch vein in end-to-side fashion 7-0 Prolene continuous suture technique The heart was placed in steep Trendelenburg position cross-clamp removed heart and the graft de-aired patient was rested on cardiopulmonary bypass and came off bypass with minimal support Protamine given cannulas removed sutures tied 2 mediastinal tubes and left Cuauhtemoc tube was placed up brought out through lower stab was secured to skin using silk sutures No evidence of any major bleeding was noted to the sternum was closed using a cable system [id number] times 4 .linea alba and the deep tissues were irrigated using antibiotic solution and closed in 2 layers of #1 Vicryl suture for the deep 2-0 Vicryl suture for subcu and 4-0 Monocryl suture for running subcuticular skin closure The leg was closed in a similar fashion and patient was transferred to the intensive care unit in stable but critical condition JN ROMAN MD Nov 20, 2016 14:26
[2016-11-20] MEDS ORDERED: HYDROmorphONE 1 MG/ML SYG ONE (14:35)
[2016-11-20] MEDS ORDERED: HYDROmorphONE 1 MG/ML SYG IV STA (14:35)
[2016-11-20 14:45] LABS: Arterial Base Excess -2.2 mmol/L (-3.0-3); Arterial COHb 0.2 % (0.0-3.0); Arterial HCO3 23.8 mmol/L (22.0-26.0); Arterial MetHb 0.8 % (0.0-1.5); Arterial Total Hemglobin 9.6 g/dl (12.0-18.0); MODE VENT - AC
[2016-11-20] MEDS ORDERED: niCARdipine-D5W 0.1MG/ML DRIP 200 ML IV SCH (15:00)
[2016-11-20] MEDS ORDERED: DOBUTamine/D5W 1 MG/ML DRIP 250 ML IV SCH (15:00)
[2016-11-20] MEDS ORDERED: DEXTROSE 50% 50 ML SYRINGE IV PRN ×2 (15:00)
[2016-11-20 15:03] LABS: ADD SCAN DIFF NO
--- NOTE | 2016-11-20 15:06 | HP ---
Date/Time of Note Date/Time of Note DATE: 11/20/16 TIME: 14:42 Assessment/Plan VTE Prophylaxis VTE Prophylaxis Intervention: SCD's Lines/Catheters IV [facility]from [facility] Peripheral IV Assessment/Plan Chief Complaint/Hosp Course This is a 80-year-old [place] male with history of coronary artery disease, prediabetes, chronic obstructive pulmonary disease, former smoker ad history of myocardial who presents for elective PCI. Patient was found to have multiple vessel disease with previous restenosis. Now s/p CABG, 4 vessel disease. 1. Respiratory- hx of COPD, heavy former smoker. Pulmonary to be consulted. Attempt to wean off the vent soon. Follow up CXR. 2. CV- S/P CABG- 4 vessel disease- see surgical report. Pressors as needed. Gentle IVF hydration. Monitor H/H, monitor for fluid overload state. HD likely tomorrow. 3. ESRD- Nephrology to follow, HD tomorrow, monitor electrolytes, K. 4.GI- PPI for GI prophylaxis, follow up post op H/H 5.ID- antibiotics prophylaxis per surgical team 6. Neuro- s/p surgery, currently sedated, monitor neuro status once off sedation. 7. thrombocytopenia- plt tranfusion if bleeding to keep plt >100, otherwise monitor 8. informed son briefly of patient condition. 9. goldman to gravity 10.pre DM- accu check q1' on insulin drip. Problems: HPI/ROS Admit Date/Time Admit Date/Time Nov 20, 2016 at 05:43 Hx of Present Illness The patient is a 80 year old [place] male with a history of [place], coronary artery disease, end- stage renal disease, who gets dialysis 3 times a week every , last dialysis yesterday. He has prediabetes, hypertension, dyslipidemia, COPD, and history of heavy smoking most of his life, but he stopped smoking approximately 2 months ago. The patient is status post-PCI back in 05/2016, of the left anterior descending artery and first diagonal. Angioplasty of the mid LAD, see exact report. The patient presented last week to [facility] for elective cardiac catheterization. Unfortunately he was found to have multi-vessel coronary artery disease, including in-stent restenosis. Dr. Pizano, recommended CT surgery evaluation for coronary artery bypass graft. The patient had significant disease, including 100 percent stenosis of the mid LAD, 99 percent in-stent stenosis of the proximal left circumflex artery, 60 to 70 percent stenosis of the proximal RCA, just proximal to the previous stent. His ejection fraction was preserved. The patient's engineering psychologist is Dr. Dinh Ramirez, and Dr. Mitch Hazel. His primary medical doctor does not come to this hospital, as discussed with the patient and the patient's son. Patient is now in the ICU s/p CABG 4 v disease. Case discussed with Dr. Reyna. The patient is sedated on Propoful, was spontaneosly moving his extremities. Vitals remained stable throughout his surgery. Son is outside, case briefly discussed. ROS Subjective hx not possible: pt critical (intubated, sedated.) Respiratory: other (hx of COPD) Cardiovascular: other (CAD- multivessel) Genitourinary: other (ESRD) Endocrine: other (pre DM) PMH/Family/Social Past Medical History PAST MEDICAL HISTORY: Includes prediabetes, [place], coronary artery disease, end-stage renal disease, COPD, former smoker. PAST SURGICAL HISTORY: Left upper extremity AV fistula and multiple PCIs. Last dialysis was yesterday, per patient. SOCIAL HISTORY: Tobacco he quit 2 months ago but he smoked one pack a day most of his life. Alcohol and IV drug abuse he denies. He lives at home with his family. ALLERGIES: NO KNOWN DRUG ALLERGIES. FAMILY HISTORY: Unknown. Medical History: coronary artery disease, diabetes (pre), high cholesterol, hypertension, renal disease (ESRD), other (COPD) Past Surgical History Past Surgical Hx: coronary bypass surgery (today), other (AV fistulas, coronary PCI's) Family History Significant Family History: COPD Social History Alcohol Use: rarely Smoking Status: Former smoker (heavy in past) Drug Use: none Exam/Review of Systems Vital Signs Vitals Vital Signs Date Time Temp Pulse Resp B/P Pulse Ox O2 Delivery O2 Flow Rate FiO2 11/20/16 14:37 97.6 11/20/16 14:30 84 11/20/16 07:02 18 160/85 98 Room Air Intake and Output 11/19/16 11/19/16 11/20/16 15:00 23:00 07:00 Intake Total 0 ml Balance 0 ml Exam Exam sedated. comfortable Constitutional: non-verbal (sedated, intubated) Head: No lacerations Eyes: PERRL ENMT: intubated Neck: No jvd Respiratory: diminished breath sounds Cardiovascular: other (3 chest tube coming from chest) Gastrointestinal: distended Labs Result Diagram: 11/19/16 1005 11/20/16 0610 Medications Medications Current Medications Epinephrine 4 mg/ Dextrose 250 ml @ 0 mls/hr INTRA-OP IV ; Start 11/20/16 at 06: 00 Phenylephrine HCl 250 ml @ 0 mls/hr INTRA-OP IV ; Start 11/20/16 at 06:00 Insulin Human Regular 100 unit/ Sodium Chloride 100 ml @ 0 mls/hr INTRA-OP IV ; Start 11/20/16 at 06:00 Potassium Chloride/Calcium Chloride/Dextrose/ Sodium Chloride (KCl/Ca Chloride/ D5-1/4ns) 1,030 ml @ 60 mls/hr [id number] IV ; Start 11/20/16 at 16:00 SUSANNA BURT MD Nov 20, 2016 15:04
--- NOTE | 2016-11-20 15:10 | RADRPT ---
PROCEDURE: Chest 1 views. CLINICAL INDICATION: Status post CABG, chest pain. TECHNIQUE: AP views of the chest was obtained. COMPARISON: November 13, 2016 FINDINGS: The heart is large. Median sternotomy wires overlie the heart. Endotracheal tube has its tip approx imate 5 0.3 cm above the melchor. Nasogastric tube is not well visualized below the distal thoracic esophagus. Mediastinal drain overlies the heart. [place]i catheter has its tip in the expected lo cation of the right main pulmonary artery. Left chest tube has its tip over the left mid lung. No p neumothorax as visualized. Scattered atelectasis is noted in both lungs. No consolidations are iden tified. No pneumothorax is seen. No retained surgical instrumentation or sponges are observed. IMPRESSION: Cardiomegaly . Interval median sternotomy. Endotracheal tube with its tip approximately 5.3 cm above the meclhor. Nasogastric tube not well visualized below the distal thoracic esophagus. If there is concern for a nasogastric tube placement repeat exam or characterization with an abdominal film is recommended. [place]urali catheter with its tip in the expected location of the right main pulmonary artery. Mediastinal drain overlying the heart. Left chest tube with its tip over the left mid lung. No visualized pneumothorax. Scattered atelectasis in both lungs. RPTAT: AA .Cuate Christie MD, Date Time Electronically viewed and signed by .Cuate Christie MD, MD on 11/20/2016 15:10 .P/
[2016-11-20] MEDS: PROPOFOL 100 ML IV SCH ×2 (15:20→18:43)
[2016-11-20] MEDS: NITROGLYCERIN 50 MG/D5W (PMX) 250 ML IV SCH ×3 (15:28→22:44)
[2016-11-20 15:29] LABS: HAAIG REFLEX REFLEX FILED
[2016-11-20 15:31] LABS: INR 1.3; PROTIME 16.3 Sec (12.2-14.2); PT RATIO 1.3
[2016-11-20 15:32] LABS: CALCIUM 8.9 mg/dl (8.4-10.2); CREATININE 5.9 mg/dl (0.61-1.24); MAGNESIUM 2.4 mg/dl (1.7-2.5); PARTIAL THROMBOPLASTIN TIME 37.1 Sec (25.0-35.0); POTASSIUM 4.8 mmol/L (3.5-5.1)
[2016-11-20 15:46] LABS: ABNORMAL IP MESSAGE 1; BASOPHILS % 0.2 % (0.0-2.0); EOSINOPHILS % 0.3 % (0.0-7.0); HEMATOCRIT 24.8 % (42.0-52.0); HEMOGLOBIN 8.5 g/dl (14.0-18.0); LYMPHOCYTES # 0.7 10^3/ul (0.8-2.9); LYMPHOCYTES % 10.1 % (15.0-51.0); MEAN CORPUSCULAR HEMOGLOBIN 30.6 pg (29.0-33.0); MEAN CORPUSCULAR HGB CONC 34.3 g/dl (32.0-37.0); MEAN CORPUSCULAR VOLUME 89.2 fl (82.0-101.0); MEAN PLATELET VOLUME 11.9 fl (7.4-10.4); MONOCYTE # 0.7 10^3/ul (0.3-0.9); MONOCYTES % 10.9 % (0.0-11.0); NEUTROPHILS % 77.4 % (39.0-77.0); PLATELET COUNT 70 10^3/UL (140-415); RED BLOOD COUNT 2.78 10^6/ul (4.70-6.10); WHITE BLOOD COUNT 6.5 10^3/ul (4.8-10.8)
[2016-11-20] MEDS: ACCU-CHEK XX SCH ×8 (16:00→22:58)
[2016-11-20] MEDS ORDERED: POTASSIUM CHLORIDE 40 MEQ, CALCIUM CHLORIDE 10% 1 GM in DEXTROSE 5%-0.225% NACL 1,000 ML IV SCH (16:00)
[2016-11-20] MEDS ORDERED: CALCIUM CHLORIDE 10% 1 GM in DEXTROSE 5%-0.225% NACL 1,000 ML IV SCH (16:25)
--- NOTE | 2016-11-20 16:37 | CONS ---
Date/Time of Note Date/Time of Note DATE: 11/20/16 TIME: 16:27 Assessment/Plan Assessment/Plan Chief Complaint/Hosp Course Assessment 1. Status post coronary artery bypass graft surgery 2. History of COPD 3. Hypoxemic respiratory failure currently on mechanical ventilation 4. Postop hypotension on inotropic support 5. End-stage renal failure on hemodialysis Plan 1. Continue mechanical ventilation 2. Decrease inotropic support 3. Hemodialysis as tolerated 4. Monitor platelet count and CBC. Discussed with staff. Problems: Consultation Date/Type/Reason Admit Date/Time Nov 20, 2016 at 05:43 Date of Consultation: Nov 20, 2016 Reason for Consultation Ventilator management Hx of Present Illness Assessment/Plan Chief Complaint/Hosp Course This is a 80-year-old [place] male with history of coronary artery disease, prediabetes, chronic obstructive pulmonary disease, former smoker ad history of myocardial who presents for elective PCI. Patient was found to have multiple vessel disease with previous restenosis. Now s/p CABG, 4 vessel disease. 1. Respiratory- hx of COPD, heavy former smoker. Pulmonary to be consulted. Attempt to wean off the vent soon. Follow up CXR. 2. CV- S/P CABG- 4 vessel disease- see surgical report. Pressors as needed. Gentle IVF hydration. Monitor H/H, monitor for fluid overload state. HD likely tomorrow. 3. ESRD- Nephrology to follow, HD tomorrow, monitor electrolytes, K. 4.GI- PPI for GI prophylaxis, follow up post op H/H 5.ID- antibiotics prophylaxis per surgical team 6. Neuro- s/p surgery, currently sedated, monitor neuro status once off sedation. 7. thrombocytopenia- plt tranfusion if bleeding to keep plt >100, otherwise monitor 8. informed son briefly of patient condition. 9. goldman to gravity 10.pre DM- accu check q1' on insulin drip. Problems: HPI/ROS Admit Date/Time Admit Date/Time Nov 20, 2016 at 05:43 80-year-old gentleman with multiple medical problems including coronary artery disease hypertension hyperlipidemia end-stage renal failure and who is on hemodialysis found to have multivessel coronary artery disease on recent coronary angiography. He underwent multivessel coronary artery bypass graft surgery today and comfortable intensive care unit on mechanical ventilation vasopressor support with an FiO2 of 70%. Patient has a history of end-stage renal failure on hemodialysis, recent history of tobacco use likely underlying COPD. Normally he is on hemodialysis Saturday last dialysis was yesterday preoperatively. Currently unable to perform Respiratory: other (hx of COPD) Cardiovascular: other (CAD- multivessel) Genitourinary: other (ESRD) Past Medical History Coronary artery disease End-stage renal failure on hemodialysis COPD Essential hypertension Medical History: coronary artery disease, diabetes (pre), high cholesterol, hypertension, renal disease (ESRD), other (COPD) Past Surgical History Past Surgical Hx: coronary bypass surgery (today), other (AV fistulas, coronary PCI's) Social History Alcohol Use: rarely Smoking Status: Former smoker (heavy in past) Drug Use: none Exam/Review of Systems Vital Signs Vitals Vital Signs Date Time Temp Pulse Resp B/P Pulse Ox O2 Delivery O2 Flow Rate FiO2 11/20/16 16:00 97.1 84 14 122/53 100 11/20/16 07:02 Room Air Exam PHYSICAL EXAMINATION GENERAL: Elderly gentleman, intubated on mechanical ventilation, opens eyes and appears somewhat agitated. Orally intubated. VITAL SIGNS: see below. HEENT: Pupils equal, round, and reactive to light. CARDIAC: S1, S2, 1/6 systolic ejection murmur CHEST: Diminished air entry bilaterally. ABDOMEN: Mildly distended. Bowel sounds present no guarding or rebound EXTREMITIES: No cyanosis, clubbing edema +1 NEUROLOGIC: Generalized weakness Results Result Diagram: 11/20/16 1445 11/20/16 1445 Results 24 hrs Laboratory Tests Test 11/20/16 06:10 11/20/16 06:15 11/20/16 14:18 11/20/16 14:42 Sodium Level 140 Potassium Level 4.2 Chloride Level 89 L Carbon Dioxide Level 31 Anion Gap 24 H Blood Urea Nitrogen 39 #H Creatinine 6.45 #H Glucose Level 121 Calcium Level 8.8 Total Bilirubin 0.6 Direct Bilirubin 0.00 Indirect Bilirubin 0.6 Aspartate Amino Transf (AST/SGOT) 20 Alanine Aminotransferase (ALT/SGPT) 35 Alkaline Phosphatase 109 Total Protein 7.7 Albumin 4.3 Globulin 3.40 H Albumin/Globulin Ratio 1.26 Bedside Glucose 126 145 Blood Gas Specimen Source Blood arterial Arterial Blood Date Drawn 11/20/2016 2:30:33 PM Arterial Blood pH (Temp corrected) 7.326 L Arterial Blood pCO2 (Temp correct) 46.6 H Arterial Blood pO2 (Temp corrected) 182.4 H Arterial Blood HCO3 23.8 Arterial Blood Base Excess -2.2 Arterial Blood Oxygen Saturation 98.0 Car Test N/A Arterial Blood Gas Puncture Site A-Line Arterial Blood Carboxyhemoglobin 0.2 Arterial Blood Methemoglobin 0.8 Blood Gas A-a O2 Differential 484.0 H Oxyhemoglobin Percent 97.0 Total Hemoglobin 9.6 L Blood Gas Temperature 37.0 Blood Gas Respiration Rate 14.0 Blood Gas Actual Respiration Rate 14 Blood Gas Modality VENT - AC FiO2 100.0 Blood Gas Tidal Volume 600.0 Blood Gas Low PEEP Setting 5.0 Blood Gas Notified Whom JLD Blood Gas Notified Time 11/20/2016 2:45:15 PM Test 11/20/16 14:45 11/20/16 15:25 11/20/16 15:48 White Blood Count 6.5 Red Blood Count 2.78 #L Hemoglobin 8.5 #L Hematocrit 24.8 #L Mean Corpuscular Volume 89.2 Mean Corpuscular Hemoglobin 30.6 Mean Corpuscular Hemoglobin Concent 34.3 Red Cell Distribution Width 13.0 Platelet Count 70 L Mean Platelet Volume 11.9 H Neutrophils % 77.4 H Lymphocytes % 10.1 L Monocytes % 10.9 Eosinophils % 0.3 Basophils % 0.2 Nucleated Red Blood Cells % 0.0 Neutrophils # 5.0 Lymphocytes # 0.7 L Monocytes # 0.7 Eosinophils # 0.0 Basophils # 0.0 Nucleated Red Blood Cells # 0.0 Prothrombin Time 16.3 H Prothrombin Time Ratio 1.3 INR International Normalized Ratio 1.30 Activated Partial Thromboplast Time 37.1 H Sodium Level 143 Potassium Level 4.8 Chloride Level 95 L Carbon Dioxide Level 27 Anion Gap 26 H Blood Urea Nitrogen 38 H Creatinine 5.90 H Glucose Level 121 Calcium Level 8.9 Magnesium Level 2.4 Hepatitis B Surface Antigen Pending Hepatitis B Core Total Antibody Pending Hepatitis C Antibody Pending HIV (1&2) Antibody Pending Bedside Glucose 118 Medications Medications Current Medications Potassium Chloride 40 meq/ Calcium Chloride 1 gm/Dextrose/ Sodium Chloride 1, 030 ml @ 60 mls/hr [id number] IV ; Start 11/20/16 at 16:00 Nitroglycerin/ Dextrose 250 ml @ 1.5 mls/hr TITRATE IV Last administered on t 15:28; Admin Dose 1.5 MLS/HR; Start 11/20/16 at 15:00 Nicardipine HCl 200 ml @ 50 mls/hr TITRATE IV Last administered on 11/20/16 15:29; Admin Dose 20 MLS/HR; Start 11/20/16 at 15:00 Propofol 100 ml @ 2.493 mls/ hr Q12H IV Last administered on 11/20/16 15:20; Admin Dose 24.93 MLS/HR; Start 11/20/16 at 15:00 Dobutamine HCl/ Dextrose 250 ml @ 12.465 mls/ hr TITRATE IV Last administered on 11/20/16 15:31; Admin Dose 9.972 MLS/HR; Start 11/20/16 at 15:00 Diagnostic Test (Pha) (Accu-Chek) 1 ea Q1H XX ; Start 11/20/16 at 16:00 Dextrose (D50w Syringe) 25 ml Q15M PRN IV Till BS 80 mg/dL or above x2; Start 11/20/16 at 15:00 Dextrose (D50w Syringe) 50 ml Q15M PRN IV Till BS 80 mg/dL or above x2; Start 11/20/16 at 15:00 BAILEY ALEXANDER [facility], [facility] Nov 20, 2016 16:37
--- NOTE | 2016-11-20 17:36 | RADRPT ---
Vent Rate: 64 bpm RR Interval: 0 msec MD Interval: 152 msec QRS Duration: 94 msec QT Interval: 432 msec QTC Interval: 445 msec P-R-T [place]: 56 - 56 - 58 degrees Normal sinus rhythm Normal ECG Electronically Signed By: Ricky Mckenna [id number]
[2016-11-20 18:03] LABS: HEPATITIS B CORE ANTIBODY REACTIVE (NEGATIVE)
[2016-11-20 21:15] LABS: MODE VENT - AC; MetHgb Mixed Venous 0.8 %; Mixed Venous Base Excess -5.8 mmol/L; Mixed Venous COHb 0.3 %; Mixed Venous Fraction OxyHgb 67.5 %; Mixed Venous Oxygen Sat 68.3 mmHG (65.0-75.0); Sample Type Blood venous
[2016-11-20] MEDS ORDERED: SOD CHLORIDE 0.9% 250 ML IV* ONE (21:17)
[2016-11-20] MEDS ORDERED: ACETAMINOPHEN 650 MG SUPP PR PRN (21:30)
[2016-11-20] MEDS ORDERED: HYDROmorphONE 1 MG/ML SYG IV PRN (21:30)
[2016-11-20] MEDS: HYDROmorphONE 1 MG/ML SYG IV PRN ×2 (21:46→22:16)
[2016-11-21] VITALS (98 sets, daily range): BP systolic 75–168; BP diastolic 40–73; PULSE 89–124; RESP 14–33; TEMP 98.8–101.3
[2016-11-21] MEDS: ACCU-CHEK XX SCH ×24 (00:02→23:00)
[2016-11-21] MEDS: PROPOFOL 100 ML IV SCH ×2 (01:14→06:24)
[2016-11-21] MEDS: HYDROmorphONE 1 MG/ML SYG IV PRN ×5 (04:07→22:07)
[2016-11-21] MEDS: ONDANSETRON 4 MG INJ IV PRN ×2 (04:07→15:53)
[2016-11-21] MEDS: NITROGLYCERIN 50 MG/D5W (PMX) 250 ML IV SCH ×5 (04:17→21:11)
[2016-11-21 05:25] LABS: ADD SCAN DIFF NO
[2016-11-21 05:33] LABS: ABNORMAL IP MESSAGE 1; BASOPHILS % 0.3 % (0.0-2.0); EOSINOPHILS % 0.1 % (0.0-7.0); HEMATOCRIT 28.4 % (42.0-52.0); HEMOGLOBIN 9.5 g/dl (14.0-18.0); LYMPHOCYTES % 9.3 % (15.0-51.0); MEAN CORPUSCULAR HEMOGLOBIN 30.5 pg (29.0-33.0); MEAN CORPUSCULAR HGB CONC 33.5 g/dl (32.0-37.0); MEAN CORPUSCULAR VOLUME 91.3 fl (82.0-101.0); MEAN PLATELET VOLUME 12.6 fl (7.4-10.4); MONOCYTE # 1.2 10^3/ul (0.3-0.9); MONOCYTES % 10.8 % (0.0-11.0); NEUTROPHIL # 8.5 10^3/ul (1.6-7.5); PLATELET COUNT 87 10^3/UL (140-415); RED BLOOD COUNT 3.11 10^6/ul (4.70-6.10); RED CELL DISTRIBUTION WIDTH 13.9 % (11.5-14.5); WHITE BLOOD COUNT 10.8 10^3/ul (4.8-10.8)
[2016-11-21 05:54] LABS: PARTIAL THROMBOPLASTIN TIME 33.2 Sec (25.0-35.0)
[2016-11-21 06:08] LABS: INR 1.28; PROTIME 16.1 Sec (12.2-14.2); PT RATIO 1.3
[2016-11-21 07:29] LABS: CALCIUM 7.7 mg/dl (8.4-10.2); CREATININE 7.91 mg/dl (0.61-1.24); MAGNESIUM 2.2 mg/dl (1.7-2.5)
[2016-11-21 07:34] LABS: POTASSIUM 6.9 mmol/L (3.5-5.1)
--- NOTE | 2016-11-21 07:49 | CONS ---
Date/Time of Note Date/Time of Note DATE: 11/21/16 TIME: 07:38 Assessment/Plan Assessment/Plan Chief Complaint/Hosp Course 1. CAD: S/P CABG 2. S/P multiple PCI in the past 3. DM 4. ESRD on HD 5. COPD 6. resp failure: intubated in ICU 7. DYSLIPIDEMIA 8. anemia REC: will start ASA wean off vent if stable. Dr Bernard will follow will start betablocker statin cont ICU care NTG drip prn for now cont close hemodynamic monitoring with PA pressure measurement for now in ICU more than 45 minutes of critical care time was spent in management and treatment of this critically ill pt,excluding any procedures., Thank you for this referral. I will continue to follow along with you Problems: Consultation Date/Type/Reason Admit Date/Time Nov 20, 2016 at 05:43 Date of Consultation: Nov 21, 2016 Reason for Consultation CAD, S/P CABG Hx of Present Illness Thank you with his referral next this is a 80-year-old gentleman with multiple complex medical history undergone a coronary bypass graft yesterday patient currently in the ICU intubated on the vent patient is still on the nitroglycerin drip with blood pressure control. He has been agitated and unable to be extubated so far. Blood pressure has remained stable. His old chart was extensively reviewed and discussed with multiple physicians including Dr. Machado and Dr. Correia. Discussed with the staff extensively. At this point onward from a hysterectomy. Allergies no known drug allergy. Medication as per medical reconciliation which was personally reviewed. Patient Plavix has been discontinued over the past week in anticipation for bypass surgery. Social history patient has been a long-standing smoker. Has quit recently. Family saline early coronary artery disease to me at this point. Past medical history: #1 history of coronary artery disease status post DC 2. status post multiple PCI's in the past. 3. Hypertension 3.diabetes 4. dyslipidemia 5. end-stage renal disease on hemodialysis. 6. COPD Review of system as above mentioned the best I could obtain. Respiratory: other (hx of COPD) Cardiovascular: other (CAD- multivessel) Genitourinary: other (ESRD) Past Medical History Medical History: coronary artery disease, diabetes (pre), high cholesterol, hypertension, renal disease (ESRD), other (COPD) Past Surgical History Past Surgical Hx: coronary bypass surgery (today), other (AV fistulas, coronary PCI's) Social History Alcohol Use: rarely Smoking Status: Former smoker (heavy in past) Drug Use: none Exam/Review of Systems Vital Signs Vitals Vital Signs Date Time Temp Pulse Resp B/P Pulse Ox O2 Delivery O2 Flow Rate FiO2 11/21/16 06:00 99.3 101 15 112/52 98 11/21/16 05:34 40 11/20/16 07:02 Room Air Intake and Output 11/20/16 11/20/16 11/21/16 15:00 23:00 07:00 Intake Total 3166 ml 464.33 ml 378.0 ml Output Total 688 ml 793 ml 537 ml Balance 2478 ml -328.67 ml -159.0 ml Exam General: Intubated on vent in ICU. HEENT: NC/AT. pupils are equal. round. NECK: NO JVD. no stridor. CV: RRR. systolic murmur; no gallop or rubs. PULM: no wheezing but mild rhonchi. GI: SOFT, NT, ND, no rebound or guarding Extremity: trace B/L LE edema. no clubbing. neuro: opens his eyes. confused. . Psych: agitated rectal: deferred : normal male chest: s/p sternotomy. with chest tube labs reviewed. Results Result Diagram: 11/21/16 0330 11/21/16 0655 Results 24 hrs Laboratory Tests Test 11/20/16 14:18 11/20/16 14:42 11/20/16 14:45 11/20/16 15:25 Blood Gas Specimen Source Blood arterial Arterial Blood Date Drawn 11/20/2016 2:30:33 PM Arterial Blood pH (Temp corrected) 7.326 L Arterial Blood pCO2 (Temp correct) 46.6 H Arterial Blood pO2 (Temp corrected) 182.4 H Arterial Blood HCO3 23.8 Arterial Blood Base Excess -2.2 Arterial Blood Oxygen Saturation 98.0 Car Test N/A Arterial Blood Gas Puncture Site A-Line Arterial Blood Carboxyhemoglobin 0.2 Arterial Blood Methemoglobin 0.8 Blood Gas A-a O2 Differential 484.0 H Oxyhemoglobin Percent 97.0 Total Hemoglobin 9.6 L Blood Gas Temperature 37.0 Blood Gas Respiration Rate 14.0 Blood Gas Actual Respiration Rate 14 Blood Gas Modality VENT - AC FiO2 100.0 Blood Gas Tidal Volume 600.0 Blood Gas Low PEEP Setting 5.0 Blood Gas Notified Whom JLD Blood Gas Notified Time 11/20/2016 2:45:15 PM Bedside Glucose 145 White Blood Count 6.5 Red Blood Count 2.78 #L Hemoglobin 8.5 #L Hematocrit 24.8 #L Mean Corpuscular Volume 89.2 Mean Corpuscular Hemoglobin 30.6 Mean Corpuscular Hemoglobin Concent 34.3 Red Cell Distribution Width 13.0 Platelet Count 70 L Mean Platelet Volume 11.9 H Neutrophils % 77.4 H Lymphocytes % 10.1 L Monocytes % 10.9 Eosinophils % 0.3 Basophils % 0.2 Nucleated Red Blood Cells % 0.0 Neutrophils # 5.0 Lymphocytes # 0.7 L Monocytes # 0.7 Eosinophils # 0.0 Basophils # 0.0 Nucleated Red Blood Cells # 0.0 Prothrombin Time 16.3 H Prothrombin Time Ratio 1.3 INR International Normalized Ratio 1.30 Activated Partial Thromboplast Time 37.1 H Sodium Level 143 Potassium Level 4.8 Chloride Level 95 L Carbon Dioxide Level 27 Anion Gap 26 H Blood Urea Nitrogen 38 H Creatinine 5.90 H Glucose Level 121 Calcium Level 8.9 Magnesium Level 2.4 Hepatitis B Surface Antigen NEGATIVE Hepatitis B Core Total Antibody REACTIVE H Hepatitis C Antibody NEGATIVE HIV (1&2) Antibody NEGATIVE Test 11/20/16 15:48 11/20/16 16:49 11/20/16 18:06 11/20/16 19:18 Bedside Glucose 118 101 104 117 Test 11/20/16 20:05 11/20/16 20:56 11/20/16 21:04 11/20/16 22:55 Bedside Glucose 130 133 144 Blood Gas Specimen Source Blood venous Arterial Blood Date Drawn 11/20/2016 8:55:34 PM Arterial Blood Gas Puncture Site VENOUS LINE Car Test N/A Mixed Venous Blood pH 7.295 L Mixed Venous Blood PCO2 42.8 Mixed Venous Blood PO2 36.7 Mixed Venous Blood HCO3 20.4 L Mixed Venous Blood Base Excess -5.8 Mixed Venous Blood O2 Saturation 68.3 Mixed Venous Blood Total Hemoglobin 9.0 Mixed Venous Blood Oxyhemoglobin 67.5 Mixed Venous Bld Carboxyhemoglobin 0.3 Mixed Venous Blood Methemoglobin 0.8 Blood Gas Temperature 37.0 Blood Gas Respiration Rate 14.0 Blood Gas Actual Respiration Rate 15 Blood Gas Modality VENT - AC FiO2 50.0 Blood Gas Tidal Volume 600.0 Blood Gas Low PEEP Setting 5.0 Blood Gas Inspiratory Pressure 24.0 Blood Gas Notified Whom RTR Blood Gas Notified Time 11/20/2016 9:15:32 PM Test 11/21/16 00:01 11/21/16 02:08 11/21/16 03:30 11/21/16 04:12 Bedside Glucose 146 132 120 White Blood Count 10.8 # Red Blood Count 3.11 L Hemoglobin 9.5 L Hematocrit 28.4 L Mean Corpuscular Volume 91.3 Mean Corpuscular Hemoglobin 30.5 Mean Corpuscular Hemoglobin Concent 33.5 Red Cell Distribution Width 13.9 Platelet Count 87 #L Mean Platelet Volume 12.6 H Neutrophils % 79.0 H Lymphocytes % 9.3 L Monocytes % 10.8 Eosinophils % 0.1 Basophils % 0.3 Nucleated Red Blood Cells % 0.0 Neutrophils # 8.5 H Lymphocytes # 1.0 Monocytes # 1.2 H Eosinophils # 0.0 Basophils # 0.0 Nucleated Red Blood Cells # 0.0 Prothrombin Time 16.1 H Prothrombin Time Ratio 1.3 INR International Normalized Ratio 1.28 Activated Partial Thromboplast Time 33.2 Test 11/21/16 05:02 11/21/16 05:17 11/21/16 06:03 11/21/16 06:55 Bedside Glucose 114 116 Lab Scanned Report BLOOD TRANSFUSION Sodium Level 140 Potassium Level 6.9 #*H Chloride Level 97 Carbon Dioxide Level 24 Anion Gap 26 H Blood Urea Nitrogen 48 H Creatinine 7.91 #H Glucose Level 118 Calcium Level 7.7 L Magnesium Level 2.2 Medications Medications Current Medications Nitroglycerin/ Dextrose 250 ml @ 1.5 mls/hr TITRATE IV Last administered on 04:17; Admin Dose 1.5 MLS/HR; Start 11/20/16 at 15:00 Nicardipine HCl 200 ml @ 50 mls/hr TITRATE IV Last administered on 11/20/16 15:29; Admin Dose 20 MLS/HR; Start 11/20/16 at 15:00 Propofol 100 ml @ 2.493 mls/ hr Q12H IV Last administered on 11/21/16 06:24; Admin Dose 14.958 MLS/HR; Start 11/20/16 at 15:00 Dobutamine HCl/ Dextrose 250 ml @ 12.465 mls/ hr TITRATE IV Last administered on 11/20/16 15:31; Admin Dose 9.972 MLS/HR; Start 11/20/16 at 15:00 Diagnostic Test (Pha) (Accu-Chek) 1 ea Q1H XX Last administered on 11/21/16 07 :24; Admin Dose 1 EA; Start 11/20/16 at 16:00 Dextrose (D50w Syringe) 25 ml Q15M PRN IV Till BS 80 mg/dL or above x2; Start 11/20/16 at 15:00 Dextrose (D50w Syringe) 50 ml Q15M PRN IV Till BS 80 mg/dL or above x2; Start 11/20/16 at 15:00 Hydromorphone HCl (Dilaudid) 0.2 mg Q15M PRN IV PAIN LEVEL 1-5; Start 11/20/16 at 21:30 Hydromorphone HCl (Dilaudid) 0.4 mg Q15M PRN IV PAIN LEVEL 6-10 Last administered on 11/21/16 04:07; Admin Dose 0.4 MG; Start 11/20/16 at 21:30 Hydromorphone HCl (Dilaudid) 0.2 mg Q1H PRN IV PAIN LEVEL 1-5; Start 11/20/16 at 21:30 Hydromorphone HCl (Dilaudid) 0.4 mg Q1H PRN IV PAIN LEVEL 6-10; Start 11/20/16 at 21:30 Ondansetron HCl (Zofran Inj) 4 mg Q6H PRN IV NAUSEA AND/OR VOMITING Last administered on 11/21/16 04:07; Admin Dose 4 MG; Start 11/20/16 at 21:30 Acetaminophen (Tylenol Tab) 650 mg Q3H PRN PO ELEVATED TEMPERATURE; Start 11/20 at 21:30 Acetaminophen (Tylenol Supp) 650 mg Q3H PRN NV ELEVATED TEMPERATURE; Start at 21:30 ADENIKE MAYERS MD Nov 21, 2016 07:48
[2016-11-21] MEDS ORDERED: INSULIN REGULAR 10 ML INJ IV STA (08:06)
[2016-11-21] MEDS ORDERED: NA BICARBONATE 8.4% 50 ML SYG IV STA (08:06)
[2016-11-21] MEDS: ASPIRIN 81 MG TAB PO SCH (08:21)
[2016-11-21] MEDS ORDERED: DEXTROSE 50% 50 ML SYRINGE IV ONE (08:30)
--- NOTE | 2016-11-21 09:26 | RADRPT ---
PROCEDURE: Chest 1 views. CLINICAL INDICATION: Shortness of breath TECHNIQUE: AP views of the chest was obtained. COMPARISON: Yesterday FINDINGS: The heart is large. Endotracheal and nasogastric tubes are stable. Median sternotomy wires are seen overlying the heart. Mediastinal drain is stable. [place]-Murali catheter is unchanged. Left-sided ch est tube is stable. No pneumothorax as visualized. The lungs are hypoinflated. Atelectasis is not ed at the lung bases. No consolidations are identified. No pneumothorax is seen. Osseous structur es are unchanged. IMPRESSION: Cardiomegaly . Hypoinflated lungs with atelectasis at the lung bases. Stable left chest tube. No visualized pneumothorax. Stable support lines and tubes. RPTAT: AA .Cuate Christie MD, Date Time Electronically viewed and signed by .Cuate Christie MD, on 11/21/2016 09:26 .P/
[2016-11-21] MEDS ORDERED: CALCIUM GLUCONATE 10% 1 GM in SOD CHLORIDE 0.9% 100 ML IVPB ONE (09:30)
--- NOTE | 2016-11-21 11:26 | CONS ---
Date/Time of Note Date/Time of Note DATE: 11/21/16 TIME: 11:23 Consult Date/Type/Reason Admit Date/Time Nov 20, 2016 at 05:43 Initial Consult Date 11/21/16 Type of Consultation: Pulmonary ICU Subjective Patient awake alert follows commands off sedation. Currently on low-dose dobutamine. Orally intubated receiving hemodialysis. Objective Vital Signs Date Time Temp Pulse Resp B/P Pulse Ox O2 Delivery O2 Flow Rate FiO2 11/21/16 11:00 110 16 100 30 11/21/16 09:00 99.1 127/49 11/20/16 07:02 Room Air Intake and Output 11/20/16 11/20/16 11/21/16 15:00 23:00 07:00 Intake Total 3166 ml 464.33 ml 416.95 ml Output Total 688 ml 793 ml 537 ml Balance 2478 ml -328.67 ml -120.05 ml Exam PHYSICAL EXAMINATION GENERAL: Elderly gentleman, intubated on mechanical ventilation, opens eyes and appears somewhat agitated. Orally intubated. VITAL SIGNS: see below. HEENT: Pupils equal, round, and reactive to light. CARDIAC: S1, S2, 1/6 systolic ejection murmur CHEST: Diminished air entry bilaterally. ABDOMEN: Mildly distended. Bowel sounds present no guarding or rebound EXTREMITIES: No cyanosis, clubbing edema +1 NEUROLOGIC: Generalized weakness Results/Medications Result Diagram: 11/21/16 0330 11/21/16 0655 Results 24 hrs Laboratory Tests Test 11/20/16 14:18 11/20/16 14:42 11/20/16 14:45 11/20/16 15:25 Blood Gas Specimen Source Blood arterial Arterial Blood Date Drawn 11/20/2016 2:30:33 PM Arterial Blood pH (Temp corrected) 7.326 L Arterial Blood pCO2 (Temp correct) 46.6 H Arterial Blood pO2 (Temp corrected) 182.4 H Arterial Blood HCO3 23.8 Arterial Blood Base Excess -2.2 Arterial Blood Oxygen Saturation 98.0 Car Test N/A Arterial Blood Gas Puncture Site A-Line Arterial Blood Carboxyhemoglobin 0.2 Arterial Blood Methemoglobin 0.8 Blood Gas A-a O2 Differential 484.0 H Oxyhemoglobin Percent 97.0 Total Hemoglobin 9.6 L Blood Gas Temperature 37.0 Blood Gas Respiration Rate 14.0 Blood Gas Actual Respiration Rate 14 Blood Gas Modality VENT - AC FiO2 100.0 Blood Gas Tidal Volume 600.0 Blood Gas Low PEEP Setting 5.0 Blood Gas Notified Whom JLD Blood Gas Notified Time 11/20/2016 2:45:15 PM Bedside Glucose 145 White Blood Count 6.5 Red Blood Count 2.78 #L Hemoglobin 8.5 #L Hematocrit 24.8 #L Mean Corpuscular Volume 89.2 Mean Corpuscular Hemoglobin 30.6 Mean Corpuscular Hemoglobin Concent 34.3 Red Cell Distribution Width 13.0 Platelet Count 70 L Mean Platelet Volume 11.9 H Neutrophils % 77.4 H Lymphocytes % 10.1 L Monocytes % 10.9 Eosinophils % 0.3 Basophils % 0.2 Nucleated Red Blood Cells % 0.0 Neutrophils # 5.0 Lymphocytes # 0.7 L Monocytes # 0.7 Eosinophils # 0.0 Basophils # 0.0 Nucleated Red Blood Cells # 0.0 Prothrombin Time 16.3 H Prothrombin Time Ratio 1.3 INR International Normalized Ratio 1.30 Activated Partial Thromboplast Time 37.1 H Sodium Level 143 Potassium Level 4.8 Chloride Level 95 L Carbon Dioxide Level 27 Anion Gap 26 H Blood Urea Nitrogen 38 H Creatinine 5.90 H Glucose Level 121 Calcium Level 8.9 Magnesium Level 2.4 Hepatitis B Surface Antigen NEGATIVE Hepatitis B Core Total Antibody REACTIVE H Hepatitis C Antibody NEGATIVE HIV (1&2) Antibody NEGATIVE Test 11/20/16 15:48 11/20/16 16:49 11/20/16 18:06 11/20/16 19:18 Bedside Glucose 118 101 104 117 Test 11/20/16 20:05 11/20/16 20:56 11/20/16 21:04 11/20/16 22:55 Bedside Glucose 130 133 144 Blood Gas Specimen Source Blood venous Arterial Blood Date Drawn 11/20/2016 8:55:34 PM Arterial Blood Gas Puncture Site VENOUS LINE Car Test N/A Mixed Venous Blood pH 7.295 L Mixed Venous Blood PCO2 42.8 Mixed Venous Blood PO2 36.7 Mixed Venous Blood HCO3 20.4 L Mixed Venous Blood Base Excess -5.8 Mixed Venous Blood O2 Saturation 68.3 Mixed Venous Blood Total Hemoglobin 9.0 Mixed Venous Blood Oxyhemoglobin 67.5 Mixed Venous Bld Carboxyhemoglobin 0.3 Mixed Venous Blood Methemoglobin 0.8 Blood Gas Temperature 37.0 Blood Gas Respiration Rate 14.0 Blood Gas Actual Respiration Rate 15 Blood Gas Modality VENT - AC FiO2 50.0 Blood Gas Tidal Volume 600.0 Blood Gas Low PEEP Setting 5.0 Blood Gas Inspiratory Pressure 24.0 Blood Gas Notified Whom RTR Blood Gas Notified Time 11/20/2016 9:15:32 PM Test 11/21/16 00:01 11/21/16 02:08 11/21/16 03:30 11/21/16 04:12 Bedside Glucose 146 132 120 White Blood Count 10.8 # Red Blood Count 3.11 L Hemoglobin 9.5 L Hematocrit 28.4 L Mean Corpuscular Volume 91.3 Mean Corpuscular Hemoglobin 30.5 Mean Corpuscular Hemoglobin Concent 33.5 Red Cell Distribution Width 13.9 Platelet Count 87 #L Mean Platelet Volume 12.6 H Neutrophils % 79.0 H Lymphocytes % 9.3 L Monocytes % 10.8 Eosinophils % 0.1 Basophils % 0.3 Nucleated Red Blood Cells % 0.0 Neutrophils # 8.5 H Lymphocytes # 1.0 Monocytes # 1.2 H Eosinophils # 0.0 Basophils # 0.0 Nucleated Red Blood Cells # 0.0 Prothrombin Time 16.1 H Prothrombin Time Ratio 1.3 INR International Normalized Ratio 1.28 Activated Partial Thromboplast Time 33.2 Test 11/21/16 05:02 11/21/16 05:17 11/21/16 06:03 11/21/16 06:55 Bedside Glucose 114 116 Lab Scanned Report BLOOD TRANSFUSION Sodium Level 140 Potassium Level 6.9 #*H Chloride Level 97 Carbon Dioxide Level 24 Anion Gap 26 H Blood Urea Nitrogen 48 H Creatinine 7.91 #H Glucose Level 118 Calcium Level 7.7 L Magnesium Level 2.2 Test 11/21/16 07:23 11/21/16 08:12 11/21/16 09:02 11/21/16 10:01 Bedside Glucose 127 121 201 158 Test 11/21/16 11:00 Bedside Glucose 129 Medications Current Medications Nitroglycerin/ Dextrose 250 ml @ 1.5 mls/hr TITRATE IV Last administered on 09:17; Admin Dose 1.5 MLS/HR; Start 11/20/16 at 15:00 Nicardipine HCl 200 ml @ 50 mls/hr TITRATE IV Last administered on 11/20/16 15:29; Admin Dose 20 MLS/HR; Start 11/20/16 at 15:00 Propofol 100 ml @ 2.493 mls/ hr Q12H IV Last administered on 11/21/16 06:24; Admin Dose 14.958 MLS/HR; Start 11/20/16 at 15:00 Dobutamine HCl/ Dextrose 250 ml @ 12.465 mls/ hr TITRATE IV Last administered on 11/20/16 15:31; Admin Dose 9.972 MLS/HR; Start 11/20/16 at 15:00 Diagnostic Test (Pha) (Accu-Chek) 1 ea Q1H XX Last administered on 11/21/16 09 :17; Admin Dose 1 EA; Start 11/20/16 at 16:00 Dextrose (D50w Syringe) 25 ml Q15M PRN IV Till BS 80 mg/dL or above x2; Start 11/20/16 at 15:00 Dextrose (D50w Syringe) 50 ml Q15M PRN IV Till BS 80 mg/dL or above x2; Start 11/20/16 at 15:00 Hydromorphone HCl (Dilaudid) 0.2 mg Q15M PRN IV PAIN LEVEL 1-5; Start 11/20/16 at 21:30 Hydromorphone HCl (Dilaudid) 0.4 mg Q15M PRN IV PAIN LEVEL 6-10 Last administered on 11/21/16 08:20; Admin Dose 0.4 MG; Start 11/20/16 at 21:30 Hydromorphone HCl (Dilaudid) 0.2 mg Q1H PRN IV PAIN LEVEL 1-5; Start 11/20/16 at 21:30 Hydromorphone HCl (Dilaudid) 0.4 mg Q1H PRN IV PAIN LEVEL 6-10; Start 11/20/16 at 21:30 Ondansetron HCl (Zofran Inj) 4 mg Q6H PRN IV NAUSEA AND/OR VOMITING Last administered on 11/21/16 04:07; Admin Dose 4 MG; Start 11/20/16 at 21:30 Acetaminophen (Tylenol Tab) 650 mg Q3H PRN PO ELEVATED TEMPERATURE; Start 11/20 at 21:30 Acetaminophen (Tylenol Supp) 650 mg Q3H PRN [place] ELEVATED TEMPERATURE; Start at 21:30 Aspirin (Aspirin) 162 mg DAILY PO Last administered on 11/21/16t 08:21; Admin Dose 162 MG; Start 11/21/16 at 09:00 Atorvastatin Calcium (Lipitor) 80 mg HS PO ; Start 11/21/16 at 21:00 Metoprolol Tartrate (Lopressor) 25 mg BID NGT ; Start 11/21/16 at 09:00 Assessment/Plan Chief Complaint/Hosp Course Assessment 1. Coronary artery disease status post coronary artery bypass graft surgery 2. History of COPD 3. Hypoxemic respiratory failure currently on mechanical ventilation 4. Postop hypotension on inotropic support 5. End-stage renal failure on hemodialysis Plan 1. CPAP weaning trial this morning 2. Decrease inotropic support 3. Hemodialysis as tolerated, correction of electrolytes 4. Monitor platelet count and CBC. 5. Continue chest tube to suction Discussed with staff. Discussed with patient's son at bedside. Critical care time 40 minutes. Problems: BAILEY ALEXANDER MD, [facility] Nov 21, 2016 11:26
[2016-11-21] MEDS: METOPROLOL 25 MG TAB NGT SCH ×2 (11:33→21:10)
--- NOTE | 2016-11-21 11:52 | CONS ---
Date/Time of Note Date/Time of Note DATE: 11/21/16 TIME: 11:37 Assessment/Plan Assessment/Plan Additional Assessment/Plan 80 yo Male with 1. Coronary artery disease status post coronary artery bypass graft surgery 2. History of COPD 3. Hypoxemic respiratory failure currently on mechanical ventilation 4. Postop hypotension on inotropic support 5. End-stage renal failure on hemodialysis 6. Hyperkalemia 7. Anemia, Chronic Disease, ESRD S/p HD this am Repeat K level Cont supportive care Planned for extubation No heparin with HD treatment Will cont to monitor Electrolytes and volume status closely HD as needed, re-assess need for HD in 24hrs. Consultation Date/Type/Reason Admit Date/Time Nov 20, 2016 at 05:43 Date of Consultation: Nov 21, 2016 Type of Consultation: Renal Reason for Consultation ESRD on HD Referring Provider: SUSANNA BURT MD Hx of Present Illness 10 year old [place]ian male with a history of IA, coronary artery disease, end- stage renal disease, who gets dialysis 3 times a week every , , Saturday, last dialysis was on Saturday in preparation for CABG yesterday. Patient is S/p CABG Surgery and is currently in ICU, Remains intubated. Patient has also history of diabetes, hypertension, dyslipidemia, COPD, and was a heavy smoker in the past, He has quit tobacco use. Pt has CAD and history of PCI with Stent at [facility] in the past. [employer] is Dr Pizano. Dr Correia had performed CABG yesterday. Nephrology was consulted for management of ESRD, Pt was found to have hyperkalemia this am and is S/p HD this am. Respiratory: other (hx of COPD) Cardiovascular: other (CAD- multivessel) Genitourinary: other (ESRD) Past Medical History Medical History: coronary artery disease, diabetes (pre), high cholesterol, hypertension, renal disease (ESRD), other (COPD) Past Surgical History Past Surgical Hx: coronary bypass surgery (today), other (AV fistulas, coronary PCI's) Family History Significant Family History: no pertinent family hx Social History Alcohol Use: rarely Smoking Status: Former smoker (heavy in past) Drug Use: none Exam/Review of Systems Vital Signs Vitals Vital Signs Date Time Temp Pulse Resp B/P Pulse Ox O2 Delivery O2 Flow Rate FiO2 11/21/16 11:15 117 22 149/53 98 11/21/16 11:00 30 11/21/16 11:00 99.3 11/20/16 07:02 Room Air Intake and Output 11/20/16 11/20/16 11/21/16 15:00 23:00 07:00 Intake Total 3166 ml 464.33 ml 416.95 ml Output Total 688 ml 793 ml 537 ml Balance 2478 ml -328.67 ml -120.05 ml Exam Constitutional: alert ENMT: intubated, mucosa pink and moist Respiratory: crackles/rales, other (Vent), No diminished breath sounds, No labored breathing Cardiovascular: other (Tachycardia), No edema Gastrointestinal: non-tender, soft, No distended, No rebound or guarding Neurological: No lethargic Skin: No diaphoresis Results Result Diagram: 11/21/16 0330 11/21/16 0655 Results 24 hrs Laboratory Tests Test 11/20/16 14:18 11/20/16 14:42 11/20/16 14:45 11/20/16 15:25 Blood Gas Specimen Source Blood arterial Arterial Blood Date Drawn 11/20/2016 2:30:33 PM Arterial Blood pH (Temp corrected) 7.326 L Arterial Blood pCO2 (Temp correct) 46.6 H Arterial Blood pO2 (Temp corrected) 182.4 H Arterial Blood HCO3 23.8 Arterial Blood Base Excess -2.2 Arterial Blood Oxygen Saturation 98.0 Car Test N/A Arterial Blood Gas Puncture Site A-Line Arterial Blood Carboxyhemoglobin 0.2 Arterial Blood Methemoglobin 0.8 Blood Gas A-a O2 Differential 484.0 H Oxyhemoglobin Percent 97.0 Total Hemoglobin 9.6 L Blood Gas Temperature 37.0 Blood Gas Respiration Rate 14.0 Blood Gas Actual Respiration Rate 14 Blood Gas Modality VENT - AC FiO2 100.0 Blood Gas Tidal Volume 600.0 Blood Gas Low PEEP Setting 5.0 Blood Gas Notified Whom JLD Blood Gas Notified Time 11/20/2016 2:45:15 PM Bedside Glucose 145 White Blood Count 6.5 Red Blood Count 2.78 #L Hemoglobin 8.5 #L Hematocrit 24.8 #L Mean Corpuscular Volume 89.2 Mean Corpuscular Hemoglobin 30.6 Mean Corpuscular Hemoglobin Concent 34.3 Red Cell Distribution Width 13.0 Platelet Count 70 L Mean Platelet Volume 11.9 H Neutrophils % 77.4 H Lymphocytes % 10.1 L Monocytes % 10.9 Eosinophils % 0.3 Basophils % 0.2 Nucleated Red Blood Cells % 0.0 Neutrophils # 5.0 Lymphocytes # 0.7 L Monocytes # 0.7 Eosinophils # 0.0 Basophils # 0.0 Nucleated Red Blood Cells # 0.0 Prothrombin Time 16.3 H Prothrombin Time Ratio 1.3 INR International Normalized Ratio 1.30 Activated Partial Thromboplast Time 37.1 H Sodium Level 143 Potassium Level 4.8 Chloride Level 95 L Carbon Dioxide Level 27 Anion Gap 26 H Blood Urea Nitrogen 38 H Creatinine 5.90 H Glucose Level 121 Calcium Level 8.9 Magnesium Level 2.4 Hepatitis B Surface Antigen NEGATIVE Hepatitis B Core Total Antibody REACTIVE H Hepatitis C Antibody NEGATIVE HIV (1&2) Antibody NEGATIVE Test 11/20/16 15:48 11/20/16 16:49 11/20/16 18:06 11/20/16 19:18 Bedside Glucose 118 101 104 117 Test 11/20/16 20:05 11/20/16 20:56 11/20/16 21:04 11/20/16 22:55 Bedside Glucose 130 133 144 Blood Gas Specimen Source Blood venous Arterial Blood Date Drawn 11/20/2016 8:55:34 PM Arterial Blood Gas Puncture Site VENOUS LINE Car Test N/A Mixed Venous Blood pH 7.295 L Mixed Venous Blood PCO2 42.8 Mixed Venous Blood PO2 36.7 Mixed Venous Blood HCO3 20.4 L Mixed Venous Blood Base Excess -5.8 Mixed Venous Blood O2 Saturation 68.3 Mixed Venous Blood Total Hemoglobin 9.0 Mixed Venous Blood Oxyhemoglobin 67.5 Mixed Venous Bld Carboxyhemoglobin 0.3 Mixed Venous Blood Methemoglobin 0.8 Blood Gas Temperature 37.0 Blood Gas Respiration Rate 14.0 Blood Gas Actual Respiration Rate 15 Blood Gas Modality VENT - AC FiO2 50.0 Blood Gas Tidal Volume 600.0 Blood Gas Low PEEP Setting 5.0 Blood Gas Inspiratory Pressure 24.0 Blood Gas Notified Whom RTR Blood Gas Notified Time 11/20/2016 9:15:32 PM Test 11/21/16 00:01 11/21/16 02:08 11/21/16 03:30 11/21/16 04:12 Bedside Glucose 146 132 120 White Blood Count 10.8 # Red Blood Count 3.11 L Hemoglobin 9.5 L Hematocrit 28.4 L Mean Corpuscular Volume 91.3 Mean Corpuscular Hemoglobin 30.5 Mean Corpuscular Hemoglobin Concent 33.5 Red Cell Distribution Width 13.9 Platelet Count 87 #L Mean Platelet Volume 12.6 H Neutrophils % 79.0 H Lymphocytes % 9.3 L Monocytes % 10.8 Eosinophils % 0.1 Basophils % 0.3 Nucleated Red Blood Cells % 0.0 Neutrophils # 8.5 H Lymphocytes # 1.0 Monocytes # 1.2 H Eosinophils # 0.0 Basophils # 0.0 Nucleated Red Blood Cells # 0.0 Prothrombin Time 16.1 H Prothrombin Time Ratio 1.3 INR International Normalized Ratio 1.28 Activated Partial Thromboplast Time 33.2 Test 11/21/16 05:02 11/21/16 05:17 11/21/16 06:03 11/21/16 06:55 Bedside Glucose 114 116 Lab Scanned Report BLOOD TRANSFUSION Sodium Level 140 Potassium Level 6.9 #*H Chloride Level 97 Carbon Dioxide Level 24 Anion Gap 26 H Blood Urea Nitrogen 48 H Creatinine 7.91 #H Glucose Level 118 Calcium Level 7.7 L Magnesium Level 2.2 Test 11/21/16 07:23 11/21/16 08:12 11/21/16 09:02 11/21/16 10:01 Bedside Glucose 127 121 201 158 Test 11/21/16 11:00 Bedside Glucose 129 Medications Medications Current Medications Nitroglycerin/ Dextrose 250 ml @ 1.5 mls/hr TITRATE IV Last administered on 09:17; Admin Dose 1.5 MLS/HR; Start 11/20/16 at 15:00 Nicardipine HCl 200 ml @ 50 mls/hr TITRATE IV Last administered on 11/20/16 15:29; Admin Dose 20 MLS/HR; Start 11/20/16 at 15:00 Propofol 100 ml @ 2.493 mls/ hr Q12H IV Last administered on 11/21/16 06:24; Admin Dose 14.958 MLS/HR; Start 11/20/16 at 15:00 Dobutamine HCl/ Dextrose 250 ml @ 12.465 mls/ hr TITRATE IV Last administered on 11/20/16 15:31; Admin Dose 9.972 MLS/HR; Start 11/20/16 at 15:00 Diagnostic Test (Pha) (Accu-Chek) 1 ea Q1H XX Last administered on 11/21/16 10 :00; Admin Dose 1 EA; Start 11/20/16 at 16:00 Dextrose (D50w Syringe) 25 ml Q15M PRN IV Till BS 80 mg/dL or above x2; Start 11/20/16 at 15:00 Dextrose (D50w Syringe) 50 ml Q15M PRN IV Till BS 80 mg/dL or above x2; Start 11/20/16 at 15:00 Hydromorphone HCl (Dilaudid) 0.2 mg Q15M PRN IV PAIN LEVEL 1-5; Start 11/20/16 at 21:30 Hydromorphone HCl (Dilaudid) 0.4 mg Q15M PRN IV PAIN LEVEL 6-10 Last administered on 11/21/16 08:20; Admin Dose 0.4 MG; Start 11/20/16 at 21:30 Hydromorphone HCl (Dilaudid) 0.2 mg Q1H PRN IV PAIN LEVEL 1-5; Start 11/20/16 at 21:30 Hydromorphone HCl (Dilaudid) 0.4 mg Q1H PRN IV PAIN LEVEL 6-10; Start 11/20/16 at 21:30 Ondansetron HCl (Zofran Inj) 4 mg Q6H PRN IV NAUSEA AND/OR VOMITING Last administered on 11/21/16 04:07; Admin Dose 4 MG; Start 11/20/16 at 21:30 Acetaminophen (Tylenol Tab) 650 mg Q3H PRN PO ELEVATED TEMPERATURE; Start 11/20 at 21:30 Acetaminophen (Tylenol Supp) 650 mg Q3H PRN [place] ELEVATED TEMPERATURE; Start at 21:30 Aspirin (Aspirin) 162 mg DAILY PO Last administered on 11/21/16 08:21; Admin Dose 162 MG; Start 11/21/16 at 09:00 Atorvastatin Calcium (Lipitor) 80 mg HS PO ; Start 11/21/16 at 21:00 Metoprolol Tartrate (Lopressor) 25 mg BID NGT ; Start 11/21/16 at 09:00 Procedures Procedures PROCEDURE: Chest 1 views. CLINICAL INDICATION: Shortness of breath TECHNIQUE: AP views of the chest was obtained. COMPARISON: Yesterday FINDINGS: The heart is large. Endotracheal and nasogastric tubes are stable. Median sternotomy wires are seen overlying the heart. Mediastinal drain is stable. Hershey-Murali catheter is unchanged. Left-sided chest tube is stable. No pneumothorax as visualized. The lungs are hypoinflated. Atelectasis is noted at the lung bases. No consolidations are identified. No pneumothorax is seen. Osseous structures are unchanged. IMPRESSION: Cardiomegaly . Hypoinflated lungs with atelectasis at the lung bases. Stable left chest tube. No visualized pneumothorax. Stable support lines and tubes. RPTAT: AA .Cuate Christie MD, MD Date Time Electronically viewed and signed by .Cuate Christie MD, MD on 11/21/2016 09:26 ZEHRA MILLARD MD Nov 21, 2016 11:51
[2016-11-21] MEDS: ACETAMINOPHEN 325 MG TAB PO PRN ×2 (12:15→21:10)
[2016-11-21 12:31] LABS: Arterial Base Excess 5.1 mmol/L (-3.0-3); Arterial COHb 0.3 % (0.0-3.0); Arterial Fraction of Oxyhgb 91.6 % (93.0-99.0); Arterial HCO3 29.9 mmol/L (22.0-26.0); Arterial MetHb 0.4 % (0.0-1.5); Arterial Total Hemglobin 10.1 g/dl (12.0-18.0); Blood Gas PS 10; MODE VENT - CPAP
[2016-11-21 12:34] LABS: AADO2 Arterial 148.1 mmHg (7.0-24.0); Arterial Base Excess -3.6 mmol/L (-3.0-3); Arterial COHb 0.3 % (0.0-3.0); Arterial Fraction of Oxyhgb 95.1 % (93.0-99.0); Arterial HCO3 21.5 mmol/L (22.0-26.0); Arterial MetHb 0.5 % (0.0-1.5); Arterial Total Hemglobin 10.2 g/dl (12.0-18.0); MODE VENT - AC
--- NOTE | 2016-11-21 13:48 | PN ---
Date/Time of Note Date/Time of Note DATE: 11/21/16 TIME: 13:46 Assessment/Plan Lines/Catheters IV Catheter Type (from Nrsg): Cordis Flanagan in Place (from Nrsg): No Assessment/Plan Chief Complaint/Hosp Course Status post coronary artery bypass grafting Patient is extubated Still tachycardic and hypotensive Stable hemoglobin Underwent hemodialysis with stable condition today Awake and alert We will remove invasive lines Will monitor tachycardia Discussed with the patient and the family Discussed with the referring physicians Problems: Subjective 24 Hr Interval Summary Constitutional: improved Pain Control: mild Exam/Review of Systems Vital Signs Vitals Vital Signs Date Time Temp Pulse Resp B/P Pulse Ox O2 Delivery O2 Flow Rate FiO2 11/21/16 12:00 120 11/21/16 11:15 22 149/53 98 11/21/16 11:00 30 11/21/16 11:00 99.3 11/20/16 07:02 Room Air Intake and Output 11/20/16 11/20/16 11/21/16 15:00 23:00 07:00 Intake Total 3166 ml 464.33 ml 416.95 ml Output Total 688 ml 793 ml 537 ml Balance 2478 ml -328.67 ml -120.05 ml Exam ENMT: mucosa pink and moist, nl external ears & nose, nl lips & teeth, nl nasal mucosa & septum Neck: non-tender, supple Respiratory: clear to auscultation, normal air movement Cardiovascular: nl pulses, regular rate and rhythm Results Result Diagram: 11/21/16 0330 11/21/16 0655 JN ROMAN MD Nov 21, 2016 13:48
[2016-11-21 13:55] LABS: CALCIUM 8.8 mg/dl (8.4-10.2); CREATININE 4.67 mg/dl (0.61-1.24); POTASSIUM 3.9 mmol/L (3.5-5.1)
--- NOTE | 2016-11-21 16:10 | PN ---
Date/Time of Note Date/Time of Note DATE: 11/21/16 TIME: 15:59 Assessment/Plan VTE Prophylaxis VTE Prophylaxis Intervention: SCD's Lines/Catheters IV [facility]from [facility]): Cordis Urinary Cath still in place: No Assessment/Plan Chief Complaint/Hosp Course This is a 80-year-old American male with history of coronary artery disease, prediabetes, chronic obstructive pulmonary disease, former smoker aand history of myocardial infarction who presents for elective PCI last week. Patient was found to have multiple vessel disease with previous restenosis. Now s/p CABG day #1. 1. Respiratory- extubated, hx of COPD, heavy former smoker. breathing treatments as needed, .CXR is stabe, no acute pathology. 2. CV- S/P CABG- 4 vessel disease- Pressors as needed. Chest tube to be removed in 1-2 days, monitor output. Gentle IVF hydration. Monitor H/H, monitor for fluid overload state. HD done today for fluid removal. 3. ESRD- Nephrology to follow, HD today, 3x week and PRN, monitor electrolytes , K. 4.GI- PPI for GI prophylaxis, follow up post op H/H, transfuse PRBC or/and platelets as needed. 5.ID-febrile, follow up for any evidence of infection. 6. Neuro- s/p surgery, no neuro deficits. 7. thrombocytopenia- plt tranfusion if bleeding to keep plt >100, otherwise monitor 8.son aware of patients condition as patient is stable. 9. goldman to gravity 10.pre DM- accu check q1' on insulin drip. On 2 units/hr. 11. diet- ice chips for now. Problems: Subjective 24 Hr Interval Summary Free Text/Dictation Patient seen, post op day # 1 CABG 4v. Patient extubated. Noted with Hyperkalemia, s/p treatment and dialysis. Doing better. Patient alert, no e/o neuro deficits. Discussed in detail with nursing staff. Had a fever, blood and urine cultures obtained. Constitutional: other (nauseated) ENT: No congestion Respiratory: cough Cardiovascular: No chest pain, No edema Gastrointestinal: nausea Genitourinary: other (goldman to gravity), No bleeding Musculoskeletal: No back pain Skin: No bruising Neurologic: No focal-weakness, No headache, No syncope Exam/Review of Systems Vital Signs Vitals Vital Signs Date Time Temp Pulse Resp B/P Pulse Ox O2 Delivery O2 Flow Rate FiO2 11/21/16 14:15 119 27 132/54 97 11/21/16 14:00 100.9 11/21/16 11:00 30 11/20/16 07:02 Room Air Intake and Output 11/20/16 11/20/16 11/21/16 15:00 23:00 07:00 Intake Total 3166 ml 464.33 ml 416.95 ml Output Total 688 ml 793 ml 537 ml Balance 2478 ml -328.67 ml -120.05 ml Exam Psych: No confusion Eyes: PERRL, other (pale) Neck: No masses Respiratory: diminished breath sounds, No crackles/rales, No wheezing Cardiovascular: No irregular rhythm, No systolic murmur Gastrointestinal: other (chest tubes in place draining slight light blood) Extremities: No clubbing, No cyanosis, No edema Neurological: No focal weakness, No lethargic Skin: No diaphoresis Results Result Diagram: 11/21/16 1355 11/21/16 1245 Results 24 hrs Laboratory Tests Test 11/20/16 16:49 11/20/16 18:06 11/20/16 19:18 11/20/16 20:05 Bedside Glucose 101 104 117 130 Test 11/20/16 20:56 11/20/16 21:04 11/20/16 22:55 11/21/16 00:01 Blood Gas Specimen Source Blood venous Arterial Blood Date Drawn 11/20/2016 8:55:34 PM Arterial Blood Gas Puncture Site VENOUS LINE Car Test N/A Mixed Venous Blood pH 7.295 L Mixed Venous Blood PCO2 42.8 Mixed Venous Blood PO2 36.7 Mixed Venous Blood HCO3 20.4 L Mixed Venous Blood Base Excess -5.8 Mixed Venous Blood O2 Saturation 68.3 Mixed Venous Blood Total Hemoglobin 9.0 Mixed Venous Blood Oxyhemoglobin 67.5 Mixed Venous Bld Carboxyhemoglobin 0.3 Mixed Venous Blood Methemoglobin 0.8 Blood Gas Temperature 37.0 Blood Gas Respiration Rate 14.0 Blood Gas Actual Respiration Rate 15 Blood Gas Modality VENT - AC FiO2 50.0 Blood Gas Tidal Volume 600.0 Blood Gas Low PEEP Setting 5.0 Blood Gas Inspiratory Pressure 24.0 Blood Gas Notified Whom RTR Blood Gas Notified Time 11/20/2016 9:15:32 PM Bedside Glucose 133 144 146 Test 11/21/16 02:08 11/21/16 03:30 11/21/16 04:12 11/21/16 05:02 Bedside Glucose 132 120 114 White Blood Count 10.8 # Red Blood Count 3.11 L Hemoglobin 9.5 L Hematocrit 28.4 L Mean Corpuscular Volume 91.3 Mean Corpuscular Hemoglobin 30.5 Mean Corpuscular Hemoglobin Concent 33.5 Red Cell Distribution Width 13.9 Platelet Count 87 #L Mean Platelet Volume 12.6 H Neutrophils % 79.0 H Lymphocytes % 9.3 L Monocytes % 10.8 Eosinophils % 0.1 Basophils % 0.3 Nucleated Red Blood Cells % 0.0 Neutrophils # 8.5 H Lymphocytes # 1.0 Monocytes # 1.2 H Eosinophils # 0.0 Basophils # 0.0 Nucleated Red Blood Cells # 0.0 Prothrombin Time 16.1 H Prothrombin Time Ratio 1.3 INR International Normalized Ratio 1.28 Activated Partial Thromboplast Time 33.2 Test 11/21/16 05:17 11/21/16 06:03 11/21/16 06:55 11/21/16 07:00 Lab Scanned Report BLOOD TRANSFUSION Bedside Glucose 116 Sodium Level 140 Potassium Level 6.9 #*H Chloride Level 97 Carbon Dioxide Level 24 Anion Gap 26 H Blood Urea Nitrogen 48 H Creatinine 7.91 #H Glucose Level 118 Calcium Level 7.7 L Magnesium Level 2.2 Blood Gas Specimen Source Blood arterial Arterial Blood Date Drawn 11/21/2016 7:50:00 AM Arterial Blood pH (Temp corrected) 7.360 Arterial Blood pCO2 (Temp correct) 39.0 Arterial Blood pO2 (Temp corrected) 92.3 H Arterial Blood HCO3 21.5 L Arterial Blood Base Excess -3.6 L Arterial Blood Oxygen Saturation 95.9 Car Test N/A Arterial Blood Gas Puncture Site A-Line Arterial Blood Carboxyhemoglobin 0.3 Arterial Blood Methemoglobin 0.5 Blood Gas A-a O2 Differential 148.1 H Oxyhemoglobin Percent 95.1 Total Hemoglobin 10.2 L Blood Gas Temperature 37.0 Blood Gas Respiration Rate 14.0 Blood Gas Actual Respiration Rate 15 Blood Gas Modality VENT - AC FiO2 40.0 Blood Gas Tidal Volume 600.0 Blood Gas Low PEEP Setting 5.0 Blood Gas Notified Whom JLD Blood Gas Notified Time 11/21/2016 8:18:00 AM Test 11/21/16 07:23 11/21/16 08:12 11/21/16 09:02 11/21/16 10:01 Bedside Glucose 127 121 201 158 Test 11/21/16 11:00 11/21/16 11:56 11/21/16 12:00 11/21/16 12:45 Bedside Glucose 129 118 Blood Gas Specimen Source Blood arterial Arterial Blood Date Drawn 11/21/2016 12:10:32 PM Arterial Blood pH (Temp corrected) 7.440 Arterial Blood pCO2 (Temp correct) 45.0 Arterial Blood pO2 (Temp corrected) 63.0 L Arterial Blood HCO3 29.9 H Arterial Blood Base Excess 5.1 H Arterial Blood Oxygen Saturation 92.2 L Car Test N/A Arterial Blood Gas Puncture Site A-Line Arterial Blood Carboxyhemoglobin 0.3 Arterial Blood Methemoglobin 0.4 Blood Gas A-a O2 Differential 98.0 H Oxyhemoglobin Percent 91.6 L Total Hemoglobin 10.1 L Blood Gas Temperature 37.0 Blood Gas Actual Respiration Rate 28 Blood Gas Modality VENT - CPAP FiO2 30.0 Blood Gas Low PEEP Setting 5.0 Blood Gas Pressure Support 10 Blood Gas Notified Whom JLD Blood Gas Notified Time 11/21/2016 12:31:20 PM Sodium Level 142 Potassium Level 3.9 # Chloride Level 91 L Carbon Dioxide Level 32 H Anion Gap 23 H Blood Urea Nitrogen 26 #H Creatinine 4.67 #H Glucose Level 122 Calcium Level 8.8 Test 11/21/16 12:59 11/21/16 13:55 11/21/16 14:03 11/21/16 15:10 Bedside Glucose 137 132 119 Hematocrit 27.4 L Medications Medications Current Medications Nicardipine HCl 200 ml @ 50 mls/hr TITRATE IV Last administered on 11/20/16 15:29; Admin Dose 20 MLS/HR; Start 11/20/16 at 15:00 Propofol 100 ml @ 2.493 mls/ hr Q12H IV Last administered on 11/21/16 06:24; Admin Dose 14.958 MLS/HR; Start 11/20/16 at 15:00 Dobutamine HCl/ Dextrose 250 ml @ 12.465 mls/ hr TITRATE IV Last administered on 11/20/16 15:31; Admin Dose 9.972 MLS/HR; Start 11/20/16 at 15:00 Diagnostic Test (Pha) (Accu-Chek) 1 ea Q1H XX Last administered on 11/21/16 15 :11; Admin Dose 1 EA; Start 11/20/16 at 16:00 Dextrose (D50w Syringe) 25 ml Q15M PRN IV Till BS 80 mg/dL or above x2; Start 11/20/16 at 15:00 Dextrose (D50w Syringe) 50 ml Q15M PRN IV Till BS 80 mg/dL or above x2; Start 11/20/16 at 15:00 Hydromorphone HCl (Dilaudid) 0.2 mg Q15M PRN IV PAIN LEVEL 1-5; Start 11/20/16 at 21:30 Hydromorphone HCl (Dilaudid) 0.4 mg Q15M PRN IV PAIN LEVEL 6-10 Last administered on 11/21/16 08:20; Admin Dose 0.4 MG; Start 11/20/16 at 21:30 Hydromorphone HCl (Dilaudid) 0.2 mg Q1H PRN IV PAIN LEVEL 1-5 Last administered on 11/21/16 13:50; Admin Dose 0.2 MG; Start 11/20/16 at 21:30 Hydromorphone HCl (Dilaudid) 0.4 mg Q1H PRN IV PAIN LEVEL 6-10; Start 11/20/16 at 21:30 Ondansetron HCl (Zofran Inj) 4 mg Q6H PRN IV NAUSEA AND/OR VOMITING Last administered on 11/21/16 15:53; Admin Dose 4 MG; Start 11/20/16 at 21:30 Acetaminophen (Tylenol Tab) 650 mg Q3H PRN PO ELEVATED TEMPERATURE Last administered on 11/21/16 12:15; Admin Dose 650 MG; Start 11/20/16 at 21:30 Acetaminophen (Tylenol Supp) 650 mg Q3H PRN [place] ELEVATED TEMPERATURE; Start at 21:30 Aspirin (Aspirin) 162 mg DAILY PO Last administered on 11/21/16 08:21; Admin Dose 162 MG; Start 11/21/16 at 09:00 Atorvastatin Calcium (Lipitor) 80 mg HS PO ; Start 11/21/16 at 21:00 Metoprolol Tartrate 25 mg 25 mg BID NGT Last administered on 11/21/16 11:33; Admin Dose 25 MG; Start 11/21/16 at 09:00 Nitroglycerin/ Dextrose (Nitroglycerin 50 Mg/D5W (Pmx)) 250 ml @ 1.5 mls/hr TITRATE IV ; Start 11/21/16 at 14:45 SUSANNA BURT MD Nov 21, 2016 16:10
[2016-11-21] MEDS: ATORVASTATIN 80 MG TAB PO SCH (21:10)
[2016-11-22] VITALS (55 sets, daily range): BP systolic 108–150; BP diastolic 54–93; PULSE 94–117; RESP 17–37
[2016-11-22] MEDS: ACCU-CHEK XX SCH ×12 (00:18→11:22)
[2016-11-22] MEDS: NITROGLYCERIN 50 MG/D5W (PMX) 250 ML IV SCH (01:05)
[2016-11-22] MEDS: HYDROmorphONE 1 MG/ML SYG IV PRN ×2 (01:55→05:51)
[2016-11-22] MEDS: PROPOFOL 100 ML IV SCH ×2 (03:00→15:00)
[2016-11-22 05:31] LABS: ADD SCAN DIFF NO
[2016-11-22 05:58] LABS: ABNORMAL IP MESSAGE 1; BASOPHILS % 0.2 % (0.0-2.0); EOSINOPHILS % 0.3 % (0.0-7.0); HEMATOCRIT 26.1 % (42.0-52.0); HEMOGLOBIN 8.8 g/dl (14.0-18.0); LYMPHOCYTES # 0.9 10^3/ul (0.8-2.9); LYMPHOCYTES % 7.2 % (15.0-51.0); MEAN CORPUSCULAR HGB CONC 33.7 g/dl (32.0-37.0); MEAN CORPUSCULAR VOLUME 91.9 fl (82.0-101.0); MEAN PLATELET VOLUME 13.3 fl (7.4-10.4); MONOCYTE # 1.3 10^3/ul (0.3-0.9); MONOCYTES % 10.6 % (0.0-11.0); NEUTROPHIL # 9.9 10^3/ul (1.6-7.5); PLATELET COUNT 87 10^3/UL (140-415); RED BLOOD COUNT 2.84 10^6/ul (4.70-6.10); RED CELL DISTRIBUTION WIDTH 13.8 % (11.5-14.5); WHITE BLOOD COUNT 12.2 10^3/ul (4.8-10.8)
[2016-11-22 06:12] LABS: CALCIUM 8.4 mg/dl (8.4-10.2); CREATININE 7.05 mg/dl (0.61-1.24); MAGNESIUM 1.9 mg/dl (1.7-2.5); POTASSIUM 4.6 mmol/L (3.5-5.1)
--- NOTE | 2016-11-22 07:36 | PN ---
Date/Time of Note Date/Time of Note DATE: 11/22/16 TIME: 07:32 Assessment/Plan VTE Prophylaxis VTE Prophylaxis Intervention: other Lines/Catheters IV Catheter Type (from Nrs): Cordis Urinary Cath still in place: Yes Reason Cath still needed: other (indicate) Assessment/Plan Chief Complaint/Hosp Course 1. CAD: S/P CABG: still in ICU 2. S/P multiple PCI in the past 3. DM: on insulin drip now 4. ESRD on HD 5. COPD: follow up with pulm 6. resp failure: extubated in ICU 7. DYSLIPIDEMIA: back on lipitor 80 8. anemia REC: will cont ASA. resume plavix 75 mg po qd once ok with CT surgery . . Dr Bernard will follow for pulm statues will cont betablocker statin cont ICU care NTG drip prn for now and try to wean off cont close monitoring for now in ICU chest tube management as per CT surgery more than 37 minutes of critical care time was spent in management and treatment of this critically ill pt,excluding any procedures., Thank you for this referral. I will continue to follow along with you Problems: Subjective 24 Hr Interval Summary Free Text/Dictation D/W STAFF and rhythm was reviewed. pt remains in ICU but extubated. his pain is under control. no Afib noted. no palpitations s/p HD yesterday. he still has the chest tubes in place but PA catheter was removed. OBJECTIVE: General: diaphoretic HEENT: NC/AT. pupils are equal. round. NECK: NO JVD. no stridor. CV: RRR. systolic murmur; no gallop or rubs. PULM: no wheezing but mild rhonchi. GI: SOFT, NT, ND, no rebound or guarding Extremity: trace B/L LE edema. no clubbing. neuro: awake and alert. responds appropriately . Psych: calm and pleasant rectal: deferred : normal male chest: s/p sternotomy. with chest tube Exam/Review of Systems Vital Signs Vitals Vital Signs Date Time Temp Pulse Resp B/P Pulse Ox O2 Delivery O2 Flow Rate FiO2 11/22/16 06:00 109 20 123/55 95 Nasal Cannula 11/22/16 04:26 2.0 27 11/22/16 04:00 100.9 Intake and Output 11/21/16 11/21/1617 14:59 22:59 06:59 Intake Total 960.80 ml 528.0 ml 373 ml Output Total 2567 ml 112 ml 100 ml Balance -1606.20 ml 416.0 ml 273 ml Results Result Diagram: 11/22/16 0400 11/22/16 0400 Results 24 hrs Laboratory Tests Test 11/21/16 08:12 11/21/16 09:02 11/21/16 10:01 11/21/16 11:00 Bedside Glucose 121 201 158 129 Test 11/21/16 11:56 11/21/16 12:00 11/21/16 12:45 11/21/16 12:59 Bedside Glucose 118 137 Blood Gas Specimen Source Blood arterial Arterial Blood Date Drawn 11/21/2016 12:10:32 PM Arterial Blood pH (Temp corrected) 7.440 Arterial Blood pCO2 (Temp correct) 45.0 Arterial Blood pO2 (Temp corrected) 63.0 L Arterial Blood HCO3 29.9 H Arterial Blood Base Excess 5.1 H Arterial Blood Oxygen Saturation 92.2 L Car Test N/A Arterial Blood Gas Puncture Site A-Line Arterial Blood Carboxyhemoglobin 0.3 Arterial Blood Methemoglobin 0.4 Blood Gas A-a O2 Differential 98.0 H Oxyhemoglobin Percent 91.6 L Total Hemoglobin 10.1 L Blood Gas Temperature 37.0 Blood Gas Actual Respiration Rate 28 Blood Gas Modality VENT - CPAP FiO2 30.0 Blood Gas Low PEEP Setting 5.0 Blood Gas Pressure Support 10 Blood Gas Notified Whom JLD Blood Gas Notified Time 11/21/2016 12:31:20 PM Sodium Level 142 Potassium Level 3.9 # Chloride Level 91 L Carbon Dioxide Level 32 H Anion Gap 23 H Blood Urea Nitrogen 26 #H Creatinine 4.67 #H Glucose Level 122 Calcium Level 8.8 Test 11/21/16 13:55 11/21/16 14:03 11/21/16 15:10 11/21/16 15:55 Hematocrit 27.4 L Bedside Glucose 132 119 129 Test 11/21/16 17:22 11/21/16 18:02 11/21/16 20:25 11/21/16 22:06 Bedside Glucose 126 132 136 136 Test 11/22/16 00:17 11/22/16 02:42 11/22/16 03:58 11/22/16 04:00 Bedside Glucose 119 130 126 White Blood Count 12.2 H Red Blood Count 2.84 L Hemoglobin 8.8 L Hematocrit 26.1 L Mean Corpuscular Volume 91.9 Mean Corpuscular Hemoglobin 31.0 Mean Corpuscular Hemoglobin Concent 33.7 Red Cell Distribution Width 13.8 Platelet Count 87 L Mean Platelet Volume 13.3 H Neutrophils % 81.0 H Lymphocytes % 7.2 L Monocytes % 10.6 Eosinophils % 0.3 Basophils % 0.2 Nucleated Red Blood Cells % 0.0 Neutrophils # 9.9 H Lymphocytes # 0.9 Monocytes # 1.3 H Eosinophils # 0.0 Basophils # 0.0 Nucleated Red Blood Cells # 0.0 Sodium Level 140 Potassium Level 4.6 Chloride Level 91 L Carbon Dioxide Level 30 Anion Gap 24 H Blood Urea Nitrogen 39 #H Creatinine 7.05 #H Glucose Level 126 Calcium Level 8.4 Phosphorus Level 6.0 H Magnesium Level 1.9 Test 11/22/16 05:30 11/22/16 05:50 Lab Scanned Report BLOOD TRANSFUSION Bedside Glucose 135 Medications Medications Current Medications Nicardipine HCl 200 ml @ 50 mls/hr TITRATE IV Last administered on 11/20/16 15:29; Admin Dose 20 MLS/HR; Start 11/20/16 at 15:00 Propofol 100 ml @ 2.493 mls/ hr Q12H IV Last administered on 11/21/16 06:24; Admin Dose 14.958 MLS/HR; Start 11/20/16 at 15:00 Dobutamine HCl/ Dextrose 250 ml @ 12.465 mls/ hr TITRATE IV Last administered on 11/20/16 15:31; Admin Dose 9.972 MLS/HR; Start 11/20/16 at 15:00 Diagnostic Test (Pha) (Accu-Chek) 1 ea Q1H XX Last administered on 11/22/16 05 :57; Admin Dose 1 EA; Start 11/20/16 at 16:00 Dextrose (D50w Syringe) 25 ml Q15M PRN IV Till BS 80 mg/dL or above x2; Start 11/20/16 at 15:00 Dextrose (D50w Syringe) 50 ml Q15M PRN IV Till BS 80 mg/dL or above x2; Start 11/20/16 at 15:00 Hydromorphone HCl (Dilaudid) 0.2 mg Q15M PRN IV PAIN LEVEL 1-5 Last administered on 11/21/16 18:18; Admin Dose 0.2 MG; Start 11/20/16 at 21:30 Hydromorphone HCl (Dilaudid) 0.4 mg Q15M PRN IV PAIN LEVEL 6-10 Last administered on 11/21/16 08:20; Admin Dose 0.4 MG; Start 11/20/16 at 21:30 Hydromorphone HCl (Dilaudid) 0.2 mg Q1H PRN IV PAIN LEVEL 1-5 Last administered on 11/21/16 21:50; Admin Dose 0.2 MG; Start 11/20/16 at 21:30 Hydromorphone HCl (Dilaudid) 0.4 mg Q1H PRN IV PAIN LEVEL 6-10 Last administered on 11/22/16 05:51; Admin Dose 0.4 MG; Start 11/20/16 at 21:30 Ondansetron HCl (Zofran Inj) 4 mg Q6H PRN IV NAUSEA AND/OR VOMITING Last administered on 11/21/16 15:53; Admin Dose 4 MG; Start 11/20/16 at 21:30 Acetaminophen (Tylenol Tab) 650 mg Q3H PRN PO ELEVATED TEMPERATURE Last administered on 11/21/16 21:10; Admin Dose 650 MG; Start 11/20/16 at 21:30 Acetaminophen (Tylenol Supp) 650 mg Q3H PRN [place] ELEVATED TEMPERATURE; Start at 21:30 Aspirin (Aspirin) 162 mg DAILY PO Last administered on 11/21/16 08:21; Admin Dose 162 MG; Start 11/21/16 at 09:00 Atorvastatin Calcium (Lipitor) 80 mg HS PO Last administered on 11/21/16 21:10 ; Admin Dose 80 MG; Start 11/21/16 at 21:00 Metoprolol Tartrate 25 mg 25 mg BID NGT Last administered on 11/21/16 21:10; Admin Dose 25 MG; Start 11/21/16 at 09:00 Nitroglycerin/ Dextrose (Nitroglycerin 50 Mg/D5W (Pmx)) 250 ml @ 1.5 mls/hr TITRATE IV Last administered on 11/22/16 01:05; Admin Dose 42 MLS/HR; Start at 14:45 ADENIKE MAYERS MD Nov 22, 2016 07:36
[2016-11-22] MEDS: METOPROLOL 25 MG TAB NGT SCH ×2 (08:09→21:17)
[2016-11-22] MEDS: ASPIRIN 81 MG TAB PO SCH (08:10)
[2016-11-22] MEDS ORDERED: IPRATROPIUM (NEB) 0.5 MG/2.5 ML AMP ONE (09:24)
[2016-11-22] MEDS ORDERED: LEVALBUTEROL (NEB) 1.25 MG/0.5 ML AMP ONE (09:24)
[2016-11-22] MEDS ORDERED: IPRATROPIUM (NEB) 0.5 MG/2.5 ML AMP HHN PRN (09:30)
[2016-11-22] MEDS ORDERED: LEVALBUTEROL (NEB) 0.63 MG/3 ML AMP HHN SCH (09:30)
[2016-11-22] MEDS ORDERED: LEVALBUTEROL (NEB) 0.63 MG/3 ML AMP HHN PRN (09:30)
[2016-11-22] MEDS: IPRATROPIUM (NEB) 0.5 MG/2.5 ML AMP HHN SCH ×3 (09:32→20:58)
[2016-11-22] MEDS ORDERED: LEVALBUTEROL (NEB) 1.25 MG/0.5 ML AMP INH PRN (10:00)
[2016-11-22] MEDS: LEVALBUTEROL (NEB) 1.25 MG/0.5 ML AMP INH SCH ×3 (10:02→20:57)
--- NOTE | 2016-11-22 10:31 | RADRPT ---
PROCEDURE: XR Chest. CLINICAL INDICATION: Status post open heart surgery. TECHNIQUE: A single AP view of the chest was obtained. COMPARISON: Chest x-ray dated 11/21/2016 FINDINGS: There are postoperative changes with sternotomy wires. The endotracheal tube, enteric tube and [place] -Murali catheter have been removed. There is a right internal jugular Cordis catheter in place. Medi astinal drain and left-sided chest tube also remain in place. No focal airspace opacity or pneumothorax is seen. The cardiomediastinal silhouette is moderately e nlarged Calcifications are seen within the aortic arch. The osseous structures are unremarkable. IMPRESSION: 1. Improved aeration of the lungs when compared to the prior examination. 2. Expected post cardiac surgery changes. 3. Moderate cardiomegaly and aortic atherosclerosis. 4. Tubes and lines, as described above. RPTAT: HH .Nanci Martins MD, MD Date Time Electronically viewed and signed by .Nanci Martins MD, on 11/22/2016 10:30 .G/
--- NOTE | 2016-11-22 11:09 | CONS ---
Date/Time of Note Date/Time of Note DATE: 11/22/16 TIME: 11:07 Consult Date/Type/Reason Admit Date/Time Nov 20, 2016 at 05:43 Initial Consult Date 11/21/16 Type of Consultation: Pulmonary Ordering Provider: SUSANNA BURT MD Subjective Patient remains stable post extubation continues incentive spirometry. Chest tubes in place. Objective Vital Signs Date Time Temp Pulse Resp B/P Pulse Ox O2 Delivery O2 Flow Rate FiO2 11/22/16 08:30 100.6 103 20 131/63 98 Nasal Cannula 4.0 11/22/16 04:26 27 Intake and Output 11/21/16 11/21/16 11/22/16 15:00 23:00 07:00 Intake Total 990.35 ml 536.5 ml 295 ml Output Total 2572 ml 107 ml 100 ml Balance -1581.65 ml 429.5 ml 195 ml Exam PHYSICAL EXAMINATION GENERAL: Elderly gentleman, nasal cannula O2. VITAL SIGNS: see below. HEENT: Pupils equal, round, and reactive to light. CARDIAC: S1, S2, 1/6 systolic ejection murmur CHEST: Diminished air entry bilaterally. Chest tubes left lung base. ABDOMEN: Mildly distended. Bowel sounds present no guarding or rebound EXTREMITIES: No cyanosis, clubbing edema +1 NEUROLOGIC: Generalized weakness Results/Medications Result Diagram: 11/22/16 0400 11/22/16 0400 Results 24 hrs Chest x-ray Left lower lobe atelectasis possible small effusion Laboratory Tests Test 11/21/16 11:56 11/21/16 12:00 11/21/16 12:45 11/21/16 12:59 Bedside Glucose 118 137 Blood Gas Specimen Source Blood arterial Arterial Blood Date Drawn 11/21/2016 12:10:32 PM Arterial Blood pH (Temp corrected) 7.440 Arterial Blood pCO2 (Temp correct) 45.0 Arterial Blood pO2 (Temp corrected) 63.0 L Arterial Blood HCO3 29.9 H Arterial Blood Base Excess 5.1 H Arterial Blood Oxygen Saturation 92.2 L Car Test N/A Arterial Blood Gas Puncture Site A-Line Arterial Blood Carboxyhemoglobin 0.3 Arterial Blood Methemoglobin 0.4 Blood Gas A-a O2 Differential 98.0 H Oxyhemoglobin Percent 91.6 L Total Hemoglobin 10.1 L Blood Gas Temperature 37.0 Blood Gas Actual Respiration Rate 28 Blood Gas Modality VENT - CPAP FiO2 30.0 Blood Gas Low PEEP Setting 5.0 Blood Gas Pressure Support 10 Blood Gas Notified Whom JLD Blood Gas Notified Time 11/21/2016 12:31:20 PM Sodium Level 142 Potassium Level 3.9 # Chloride Level 91 L Carbon Dioxide Level 32 H Anion Gap 23 H Blood Urea Nitrogen 26 #H Creatinine 4.67 #H Glucose Level 122 Calcium Level 8.8 Test 11/21/16 13:55 11/21/16 14:03 11/21/16 15:10 11/21/16 15:55 Hematocrit 27.4 L Bedside Glucose 132 119 129 Test 11/21/16 17:22 11/21/16 18:02 11/21/16 20:25 11/21/16 22:06 Bedside Glucose 126 132 136 136 Test 11/22/16 00:17 11/22/16 02:42 11/22/16 03:58 11/22/16 04:00 Bedside Glucose 119 130 126 White Blood Count 12.2 H Red Blood Count 2.84 L Hemoglobin 8.8 L Hematocrit 26.1 L Mean Corpuscular Volume 91.9 Mean Corpuscular Hemoglobin 31.0 Mean Corpuscular Hemoglobin Concent 33.7 Red Cell Distribution Width 13.8 Platelet Count 87 L Mean Platelet Volume 13.3 H Neutrophils % 81.0 H Lymphocytes % 7.2 L Monocytes % 10.6 Eosinophils % 0.3 Basophils % 0.2 Nucleated Red Blood Cells % 0.0 Neutrophils # 9.9 H Lymphocytes # 0.9 Monocytes # 1.3 H Eosinophils # 0.0 Basophils # 0.0 Nucleated Red Blood Cells # 0.0 Sodium Level 140 Potassium Level 4.6 Chloride Level 91 L Carbon Dioxide Level 30 Anion Gap 24 H Blood Urea Nitrogen 39 #H Creatinine 7.05 #H Glucose Level 126 Calcium Level 8.4 Phosphorus Level 6.0 H Magnesium Level 1.9 Test 11/22/16 05:30 11/22/16 05:50 11/22/16 08:03 11/22/16 10:48 Lab Scanned Report BLOOD TRANSFUSION Bedside Glucose 135 130 156 Medications Current Medications Nicardipine HCl 200 ml @ 50 mls/hr TITRATE IV Last administered on 11/20/16t 15:29; Admin Dose 20 MLS/HR; Start 11/20/16 at 15:00 Propofol 100 ml @ 2.493 mls/ hr Q12H IV Last administered on 11/21/16 06:24; Admin Dose 14.958 MLS/HR; Start 11/20/16 at 15:00 Dobutamine HCl/ Dextrose 250 ml @ 12.465 mls/ hr TITRATE IV Last administered on 11/20/16 15:31; Admin Dose 9.972 MLS/HR; Start 11/20/16 at 15:00 Diagnostic Test (Pha) (Accu-Chek) 1 ea Q1H XX Last administered on 11/22/16 08 :05; Admin Dose 1 EA; Start 11/20/16 at 16:00 Dextrose (D50w Syringe) 25 ml Q15M PRN IV Till BS 80 mg/dL or above x2; Start 11/20/16 at 15:00 Dextrose (D50w Syringe) 50 ml Q15M PRN IV Till BS 80 mg/dL or above x2; Start 11/20/16 at 15:00 Hydromorphone HCl (Dilaudid) 0.2 mg Q15M PRN IV PAIN LEVEL 1-5 Last administered on 11/21/16 18:18; Admin Dose 0.2 MG; Start 11/20/16 at 21:30 Hydromorphone HCl (Dilaudid) 0.4 mg Q15M PRN IV PAIN LEVEL 6-10 Last administered on 11/21/16 08:20; Admin Dose 0.4 MG; Start 11/20/16 at 21:30 Hydromorphone HCl (Dilaudid) 0.2 mg Q1H PRN IV PAIN LEVEL 1-5 Last administered on 11/21/16 21:50; Admin Dose 0.2 MG; Start 11/20/16 at 21:30 Hydromorphone HCl (Dilaudid) 0.4 mg Q1H PRN IV PAIN LEVEL 6-10 Last administered on 11/22/16 05:51; Admin Dose 0.4 MG; Start 11/20/16 at 21:30 Ondansetron HCl (Zofran Inj) 4 mg Q6H PRN IV NAUSEA AND/OR VOMITING Last administered on 11/21/16 15:53; Admin Dose 4 MG; Start 11/20/16 at 21:30 Acetaminophen (Tylenol Tab) 650 mg Q3H PRN PO ELEVATED TEMPERATURE Last administered on 11/21/16 21:10; Admin Dose 650 MG; Start 11/20/16 at 21:30 Acetaminophen (Tylenol Supp) 650 mg Q3H PRN [place] ELEVATED TEMPERATURE; Start at 21:30 Aspirin (Aspirin) 162 mg DAILY PO Last administered on 11/22/16 08:10; Admin Dose 162 MG; Start 11/21/16 at 09:00 Atorvastatin Calcium (Lipitor) 80 mg HS PO Last administered on 11/21/16 21:10 ; Admin Dose 80 MG; Start 11/21/16 at 21:00 Metoprolol Tartrate 25 mg 25 mg BID NGT Last administered on 11/22/16 08:09; Admin Dose 25 MG; Start 11/21/16 at 09:00 Nitroglycerin/ Dextrose (Nitroglycerin 50 Mg/D5W (Pmx)) 250 ml @ 1.5 mls/hr TITRATE IV Last administered on 11/22/16 01:05; Admin Dose 42 MLS/HR; Start at 14:45 Assessment/Plan Chief Complaint/Hosp Course Assessment 1. Coronary artery disease status post coronary artery bypass graft surgery 2. History of COPD 3. Hypoxemic respiratory failure now extubated from mechanical ventilation 4. Postop hypotension on inotropic support 5. End-stage renal failure on hemodialysis Plan 1. Incentive spirometry and bronchodilators 2. Encourage out of bed 3. Hemodialysis as tolerated, correction of electrolytes 4. Monitor platelet count and CBC. 5. Continue chest tube to suction Discussed with staff. Discussed with patient's son at bedside. Critical care time 40 minutes. Problems: BAILEY ALEXANDER MD, [facility] Nov 22, 2016 11:09
--- NOTE | 2016-11-22 12:08 | PN ---
Date/Time of Note Date/Time of Note DATE: 11/22/16 TIME: 12:01 Assessment/Plan VTE Prophylaxis VTE Prophylaxis Intervention: SCD's Lines/Catheters IV Catheter Type (from Nrsg): CORDIZ Urinary Cath still in place: Yes Reason Cath still needed: other (indicate) (s/p CABG) Assessment/Plan Chief Complaint/Hosp Course This is a 80-year-old [place] male with history of coronary artery disease, prediabetes, chronic obstructive pulmonary disease, former smoker aand history of myocardial infarction who is status post elective PCI last week. Patient was found to have multiple vessel disease with previous restenosis. Now s/p CABG day #2. 1. Respiratory- extubated, hx of COPD, heavy former smoker. breathing treatments as needed, .CXR is improved, no acute pathology. 2. CV- S/P CABG- 4 vessel disease- Pressors as needed. Chest tube to be removed in 1-2 days, monitor output. . Monitor H/H, monitor for fluid overload state. HD done yesterday for fluid removal. 3. ESRD- Nephrology to follow, HD tomorrow, 3x week and PRN, monitor electrolytes, K. 4.GI- PPI for GI prophylaxis, H/H stable, transfuse PRBC or/and platelets as needed. 5.ID-febrile, follow up for any evidence of infection. Currently off antibiotics , if fevers continues and with worsening leukocytosis will start empirc antibiotic therapy. 6. Neuro- s/p surgery, no neuro deficits. 7. thrombocytopenia- plt tranfusion if bleeding to keep plt >100, otherwise monitor, plt count today is 87. 8.family aware of patients condition as patient is stable. 9. goldman to gravity- minimal output as patient is ESRD 10.pre DM- glucose levels are good. accu check q1' on insulin drip. will switch to accu check qac and qhs, ISS. 11. diet- advance as tolerated. Problems: Subjective 24 Hr Interval Summary Free Text/Dictation Sitting in chair, overall comfortable, chest tubes in place draining minimal bloody fluids. Denies any discomfort. Has low grade temp around 100, WBC slightly higher. Diet to be advanced as tolerated today. Glucose levels are good in low 100. Constitutional: requiring O2 ENT: No congestion Respiratory: No pleuritic pain, No shortness of breath Cardiovascular: No lightheadedness Gastrointestinal: No pain Genitourinary: No hematuria Musculoskeletal: No neck pain Neurologic: No focal-weakness Exam/Review of Systems Vital Signs Vitals Vital Signs Date Time Temp Pulse Resp B/P Pulse Ox O2 Delivery O2 Flow Rate FiO2 11/22/16 11:30 100.4 99 22 123/70 97 Nasal Cannula 4.0 11/22/16 04:26 27 Intake and Output 11/21/16 11/21/16 11/22/16 15:00 23:00 07:00 Intake Total 990.35 ml 536.5 ml 295 ml Output Total 2572 ml 107 ml 100 ml Balance -1581.65 ml 429.5 ml 195 ml Exam Psych: No anxiety Eyes: PERRL Respiratory: diminished breath sounds, No congested cough, No crackles/rales Cardiovascular: No irregular rhythm Extremities: No cyanosis, No edema Neurological: No confused Lymph: nontender Results Result Diagram: 11/22/16 0400 11/22/16 0400 Results 24 hrs Laboratory Tests Test 11/21/16 12:45 11/21/16 12:59 11/21/16 13:55 11/21/16 14:03 Sodium Level 142 Potassium Level 3.9 # Chloride Level 91 L Carbon Dioxide Level 32 H Anion Gap 23 H Blood Urea Nitrogen 26 #H Creatinine 4.67 #H Glucose Level 122 Calcium Level 8.8 Bedside Glucose 137 132 Hematocrit 27.4 L Test 11/21/16 15:10 11/21/16 15:55 11/21/16 17:22 11/21/16 18:02 Bedside Glucose 119 129 126 132 Test 11/21/16 20:25 11/21/16 22:06 11/22/16 00:17 11/22/16 02:42 Bedside Glucose 136 136 119 130 Test 11/22/16 03:58 11/22/16 04:00 11/22/16 05:30 11/22/16 05:50 Bedside Glucose 126 135 White Blood Count 12.2 H Red Blood Count 2.84 L Hemoglobin 8.8 L Hematocrit 26.1 L Mean Corpuscular Volume 91.9 Mean Corpuscular Hemoglobin 31.0 Mean Corpuscular Hemoglobin Concent 33.7 Red Cell Distribution Width 13.8 Platelet Count 87 L Mean Platelet Volume 13.3 H Neutrophils % 81.0 H Lymphocytes % 7.2 L Monocytes % 10.6 Eosinophils % 0.3 Basophils % 0.2 Nucleated Red Blood Cells % 0.0 Neutrophils # 9.9 H Lymphocytes # 0.9 Monocytes # 1.3 H Eosinophils # 0.0 Basophils # 0.0 Nucleated Red Blood Cells # 0.0 Sodium Level 140 Potassium Level 4.6 Chloride Level 91 L Carbon Dioxide Level 30 Anion Gap 24 H Blood Urea Nitrogen 39 #H Creatinine 7.05 #H Glucose Level 126 Calcium Level 8.4 Phosphorus Level 6.0 H Magnesium Level 1.9 Lab Scanned Report BLOOD TRANSFUSION Test 11/22/16 08:03 11/22/16 10:48 Bedside Glucose 130 156 Medications Medications Current Medications Nicardipine HCl 200 ml @ 50 mls/hr TITRATE IV Last administered on 11/20/16 15:29; Admin Dose 20 MLS/HR; Start 11/20/16 at 15:00 Propofol 100 ml @ 2.493 mls/ hr Q12H IV Last administered on 11/21/16 06:24; Admin Dose 14.958 MLS/HR; Start 11/20/16 at 15:00 Dobutamine HCl/ Dextrose 250 ml @ 12.465 mls/ hr TITRATE IV Last administered on 11/20/16 15:31; Admin Dose 9.972 MLS/HR; Start 11/20/16 at 15:00 Diagnostic Test (Pha) (Accu-Chek) 1 ea Q1H XX Last administered on 11/22/16 11 :22; Admin Dose 1 EA; Start 11/20/16 at 16:00 Dextrose (D50w Syringe) 25 ml Q15M PRN IV Till BS 80 mg/dL or above x2; Start 11/20/16 at 15:00 Dextrose (D50w Syringe) 50 ml Q15M PRN IV Till BS 80 mg/dL or above x2; Start 11/20/16 at 15:00 Hydromorphone HCl (Dilaudid) 0.2 mg Q15M PRN IV PAIN LEVEL 1-5 Last administered on 11/21/16 18:18; Admin Dose 0.2 MG; Start 11/20/16 at 21:30 Hydromorphone HCl (Dilaudid) 0.4 mg Q15M PRN IV PAIN LEVEL 6-10 Last administered on 11/21/16 08:20; Admin Dose 0.4 MG; Start 11/20/16 at 21:30 Hydromorphone HCl (Dilaudid) 0.2 mg Q1H PRN IV PAIN LEVEL 1-5 Last administered on 11/21/16 21:50; Admin Dose 0.2 MG; Start 11/20/16 at 21:30 Hydromorphone HCl (Dilaudid) 0.4 mg Q1H PRN IV PAIN LEVEL 6-10 Last administered on 11/22/16 05:51; Admin Dose 0.4 MG; Start 11/20/16 at 21:30 Ondansetron HCl (Zofran Inj) 4 mg Q6H PRN IV NAUSEA AND/OR VOMITING Last administered on 11/21/16 15:53; Admin Dose 4 MG; Start 11/20/16 at 21:30 Acetaminophen (Tylenol Tab) 650 mg Q3H PRN PO ELEVATED TEMPERATURE Last administered on 11/21/16 21:10; Admin Dose 650 MG; Start 11/20/16 at 21:30 Acetaminophen (Tylenol Supp) 650 mg Q3H PRN [place] ELEVATED TEMPERATURE; Start at 21:30 Aspirin (Aspirin) 162 mg DAILY PO Last administered on 11/22/16 08:10; Admin Dose 162 MG; Start 11/21/16 at 09:00 Atorvastatin Calcium (Lipitor) 80 mg HS PO Last administered on 11/21/16 21:10 ; Admin Dose 80 MG; Start 11/21/16 at 21:00 Metoprolol Tartrate 25 mg 25 mg BID NGT Last administered on 11/22/16 08:09; Admin Dose 25 MG; Start 11/21/16 at 09:00 Nitroglycerin/ Dextrose (Nitroglycerin 50 Mg/D5W (Pmx)) 250 ml @ 1.5 mls/hr TITRATE IV Last administered on 11/22/16 01:05; Admin Dose 42 MLS/HR; Start at 14:45 SUSANNA BURT MD Nov 22, 2016 12:08
[2016-11-22] MEDS ORDERED: GLUCAGON 1 MG INJ IM PRN (12:30)
[2016-11-22] MEDS ORDERED: GLUCOSE GEL 15 GRAM TUBE BUCCAL PRN (12:30)
[2016-11-22] MEDS ORDERED: DEXTROSE 50% 50 ML SYRINGE IV PRN ×2 (12:30)
[2016-11-22] MEDS ORDERED: GLUCOSE GEL 15 GRAM TUBE PO PRN ×2 (12:30)
--- NOTE | 2016-11-22 13:14 | PN ---
Date/Time of Note Date/Time of Note DATE: 11/22/16 TIME: 13:11 Assessment/Plan VTE Prophylaxis VTE Prophylaxis Intervention: ambulation, contraindicated, other VTE Contraindication Reason: thrombocytopenia Lines/Catheters IV Catheter Type (from Nrsg): CORDIZ Central line still needed: No Urinary Cath still in place: No Assessment/Plan Chief Complaint/Hosp Course Status post coronary artery bypass grafting Patient is extubated Still tachycardic and hypotensive Stable hemoglobin Underwent hemodialysis with stable condition today Awake and alert We will remove a line goldman Will monitor tachycardia Discussed with the patient and the family Discussed with the referring physicians Problems: Subjective 24 Hr Interval Summary Cardiovascular: no complaints Gastrointestinal: no complaints Genitourinary: no complaints Musculoskeletal: no complaints Skin: no complaints Exam/Review of Systems Vital Signs Vitals Vital Signs Date Time Temp Pulse Resp B/P Pulse Ox O2 Delivery O2 Flow Rate FiO2 11/22/16 12:00 96 11/22/16 11:30 100.4 22 123/70 97 Nasal Cannula 4.0 11/22/16 04:26 27 Intake and Output 11/21/16 11/21/16 11/22/16 15:00 23:00 07:00 Intake Total 990.35 ml 536.5 ml 295 ml Output Total 2572 ml 107 ml 100 ml Balance -1581.65 ml 429.5 ml 195 ml Exam ENMT: nl external ears & nose, nl lips & teeth, nl nasal mucosa & septum Neck: non-tender, supple Respiratory: clear to auscultation, normal air movement Cardiovascular: nl pulses, regular rate and rhythm Results Result Diagram: 11/22/16 0400 11/22/16 0400 Results 24 hrs Laboratory Tests Test 11/21/16 13:55 11/21/16 14:03 11/21/16 15:10 11/21/16 15:55 Hematocrit 27.4 L Bedside Glucose 132 119 129 Test 11/21/16 17:22 11/21/16 18:02 11/21/16 20:25 11/21/16 22:06 Bedside Glucose 126 132 136 136 Test 11/22/16 00:17 11/22/16 02:42 11/22/16 03:58 11/22/16 04:00 Bedside Glucose 119 130 126 White Blood Count 12.2 H Red Blood Count 2.84 L Hemoglobin 8.8 L Hematocrit 26.1 L Mean Corpuscular Volume 91.9 Mean Corpuscular Hemoglobin 31.0 Mean Corpuscular Hemoglobin Concent 33.7 Red Cell Distribution Width 13.8 Platelet Count 87 L Mean Platelet Volume 13.3 H Neutrophils % 81.0 H Lymphocytes % 7.2 L Monocytes % 10.6 Eosinophils % 0.3 Basophils % 0.2 Nucleated Red Blood Cells % 0.0 Neutrophils # 9.9 H Lymphocytes # 0.9 Monocytes # 1.3 H Eosinophils # 0.0 Basophils # 0.0 Nucleated Red Blood Cells # 0.0 Sodium Level 140 Potassium Level 4.6 Chloride Level 91 L Carbon Dioxide Level 30 Anion Gap 24 H Blood Urea Nitrogen 39 #H Creatinine 7.05 #H Glucose Level 126 Calcium Level 8.4 Phosphorus Level 6.0 H Magnesium Level 1.9 Test 11/22/16 05:30 11/22/16 05:50 11/22/16 08:03 11/22/16 10:48 Lab Scanned Report BLOOD TRANSFUSION Bedside Glucose 135 130 156 Medications Medications Current Medications Nicardipine HCl 200 ml @ 50 mls/hr TITRATE IV Last administered on 11/20/16 15:29; Admin Dose 20 MLS/HR; Start 11/20/16 at 15:00 Propofol 100 ml @ 2.493 mls/ hr Q12H IV Last administered on 11/21/16 06:24; Admin Dose 14.958 MLS/HR; Start 11/20/16 at 15:00 Dobutamine HCl/ Dextrose 250 ml @ 12.465 mls/ hr TITRATE IV Last administered on 11/20/16 15:31; Admin Dose 9.972 MLS/HR; Start 11/20/16 at 15:00 Hydromorphone HCl (Dilaudid) 0.2 mg Q15M PRN IV PAIN LEVEL 1-5 Last administered on 11/21/16 18:18; Admin Dose 0.2 MG; Start 11/20/16 at 21:30 Hydromorphone HCl (Dilaudid) 0.4 mg Q15M PRN IV PAIN LEVEL 6-10 Last administered on 11/21/16 08:20; Admin Dose 0.4 MG; Start 11/20/16 at 21:30 Hydromorphone HCl (Dilaudid) 0.2 mg Q1H PRN IV PAIN LEVEL 1-5 Last administered on 11/21/16 21:50; Admin Dose 0.2 MG; Start 11/20/16 at 21:30 Hydromorphone HCl (Dilaudid) 0.4 mg Q1H PRN IV PAIN LEVEL 6-10 Last administered on 11/22/16 05:51; Admin Dose 0.4 MG; Start 11/20/16 at 21:30 Ondansetron HCl (Zofran Inj) 4 mg Q6H PRN IV NAUSEA AND/OR VOMITING Last administered on 11/21/16 15:53; Admin Dose 4 MG; Start 11/20/16 at 21:30 Acetaminophen (Tylenol Tab) 650 mg Q3H PRN PO ELEVATED TEMPERATURE Last administered on 11/21/16 21:10; Admin Dose 650 MG; Start 11/20/16 at 21:30 Acetaminophen (Tylenol Supp) 650 mg Q3H PRN [place] ELEVATED TEMPERATURE; Start at 21:30 Aspirin (Aspirin) 162 mg DAILY PO Last administered on 11/22/16 08:10; Admin Dose 162 MG; Start 11/21/16 at 09:00 Atorvastatin Calcium (Lipitor) 80 mg HS PO Last administered on 11/21/16 21:10 ; Admin Dose 80 MG; Start 11/21/16 at 21:00 Metoprolol Tartrate 25 mg 25 mg BID NGT Last administered on 11/22/16 08:09; Admin Dose 25 MG; Start 11/21/16 at 09:00 Nitroglycerin/ Dextrose (Nitroglycerin 50 Mg/D5W (Pmx)) 250 ml @ 1.5 mls/hr TITRATE IV Last administered on 11/22/16 01:05; Admin Dose 42 MLS/HR; Start at 14:45 Diagnostic Test (Pha) (Accu-Chek) 1 ea 02 XX ; Start 11/23/16 at 02:00 Miscellaneous Information 1 ea NOTE XX ; Start 11/22/16 at 12:30 Glucose (Glutose) 15 gm Q15M PRN PO DECREASED GLUCOSE; Start 11/22/16 at 12:30 Glucose (Glutose) 22.5 gm Q15M PRN PO DECREASED GLUCOSE; Start 11/22/16 at 12: 30 Dextrose (D50w Syringe) 25 ml Q15M PRN IV DECREASED GLUCOSE; Start 11/22/16 at 12:30 Dextrose (D50w Syringe) 50 ml Q15M PRN IV DECREASED GLUCOSE; Start 11/22/16 at 12:30 Glucagon (Glucagen) 1 mg Q15M PRN IM DECREASED GLUCOSE; Start 11/22/16 at 12:30 Glucose (Glutose) 15 gm Q15M PRN BUCCAL DECREASED GLUCOSE; Start 11/22/16 at 12 :30 JN ROMAN MD Nov 22, 2016 13:14
[2016-11-22] MEDS: INSULIN ASPART [NOVOLOG] 3 ML PEN SC SCH ×2 (17:35→21:00)
[2016-11-22] MEDS: ATORVASTATIN 80 MG TAB PO SCH (21:16)
[2016-11-22] MEDS: ZOLPIDEM 5 MG TAB PO PRN (21:17)
--- NOTE | 2016-11-22 21:26 | CONS ---
Date/Time of Note Date/Time of Note DATE: 11/22/16 TIME: 21:26 Assessment/Plan Assessment/Plan Additional Assessment/Plan Await [facility] plans Next HD Saturday, TTS Consultation Date/Type/Reason Admit Date/Time Nov 20, 2016 at 05:43 Initial Consult Date 11/21/16 Type of Consultation: renal Referring Provider: SUSANNA BURT MD 24 HR Interval Summary Free Text/Dictation Markedly improved, awake & alert Sitting up in chair Exam/Review of Systems Vital Signs Vitals Vital Signs Date Time Temp Pulse Resp B/P Pulse Ox O2 Delivery O2 Flow Rate FiO2 11/22/16 20:58 113 28 97 Nasal Cannula 4.0 11/22/16 17:00 126/64 11/22/16 16:00 98.7 11/22/16 04:26 27 Intake and Output 11/21/16 11/21/16 11/22/16 15:00 23:00 07:00 Intake Total 990.35 ml 536.5 ml 301 ml Output Total 2572 ml 107 ml 100 ml Balance -1581.65 ml 429.5 ml 201 ml Exam Constitutional: alert, oriented, well developed Psych: nl mood/affect, no complaints Head: atraumatic, normocephalic Eyes: EOMI, PERRL, nl conjunctiva, nl lids, nl sclera ENMT: nl external ears & nose, nl lips & teeth, nl nasal mucosa & septum Neck: non-tender, supple Respiratory: clear to auscultation, normal air movement Cardiovascular: other (chest wall sx wound healing) Gastrointestinal: nl liver, spleen, non-tender, other (midline sx wound is healing), soft Musculoskeletal: nl extremities to inspection, nl gait and stance Extremities: normal pulses Neurological: RADIO DESPATCHER II-XII intact, nl mental status, nl speech, nl strength Skin: nl turgor, No rash or lesions Lymph: nl lymph nodes Additional Comments Pt was dialyzed without problems Results Note drop in Hct, will begin Epo Result Diagram: 11/22/16 0400 11/22/16 0400 Results 24 hrs Laboratory Tests Test 11/21/16 22:06 11/22/16 00:17 11/22/16 02:42 11/22/16 03:58 Bedside Glucose 136 119 130 126 Test 11/22/16 04:00 11/22/16 05:30 11/22/16 05:50 11/22/16 08:03 White Blood Count 12.2 H Red Blood Count 2.84 L Hemoglobin 8.8 L Hematocrit 26.1 L Mean Corpuscular Volume 91.9 Mean Corpuscular Hemoglobin 31.0 Mean Corpuscular Hemoglobin Concent 33.7 Red Cell Distribution Width 13.8 Platelet Count 87 L Mean Platelet Volume 13.3 H Neutrophils % 81.0 H Lymphocytes % 7.2 L Monocytes % 10.6 Eosinophils % 0.3 Basophils % 0.2 Nucleated Red Blood Cells % 0.0 Neutrophils # 9.9 H Lymphocytes # 0.9 Monocytes # 1.3 H Eosinophils # 0.0 Basophils # 0.0 Nucleated Red Blood Cells # 0.0 Sodium Level 140 Potassium Level 4.6 Chloride Level 91 L Carbon Dioxide Level 30 Anion Gap 24 H Blood Urea Nitrogen 39 #H Creatinine 7.05 #H Glucose Level 126 Calcium Level 8.4 Phosphorus Level 6.0 H Magnesium Level 1.9 Lab Scanned Report BLOOD TRANSFUSION Bedside Glucose 135 130 Test 11/22/16 10:48 11/22/16 17:16 Bedside Glucose 156 124 Medications Medications Current Medications Nicardipine HCl 200 ml @ 50 mls/hr TITRATE IV Last administered on 11/20/16 15:29; Admin Dose 20 MLS/HR; Start 11/20/16 at 15:00 Propofol 100 ml @ 2.493 mls/ hr Q12H IV Last administered on 11/21/16 06:24; Admin Dose 14.958 MLS/HR; Start 11/20/16 at 15:00 Dobutamine HCl/ Dextrose 250 ml @ 12.465 mls/ hr TITRATE IV Last administered on 11/20/16 15:31; Admin Dose 9.972 MLS/HR; Start 11/20/16 at 15:00 Hydromorphone HCl (Dilaudid) 0.2 mg Q15M PRN IV PAIN LEVEL 1-5 Last administered on 11/21/16 18:18; Admin Dose 0.2 MG; Start 11/20/16 at 21:30 Hydromorphone HCl (Dilaudid) 0.4 mg Q15M PRN IV PAIN LEVEL 6-10 Last administered on 11/21/16 08:20; Admin Dose 0.4 MG; Start 11/20/16 at 21:30 Hydromorphone HCl (Dilaudid) 0.2 mg Q1H PRN IV PAIN LEVEL 1-5 Last administered on 11/21/16 21:50; Admin Dose 0.2 MG; Start 11/20/16 at 21:30 Hydromorphone HCl (Dilaudid) 0.4 mg Q1H PRN IV PAIN LEVEL 6-10 Last administered on 11/22/16 05:51; Admin Dose 0.4 MG; Start 11/20/16 at 21:30 Ondansetron HCl (Zofran Inj) 4 mg Q6H PRN IV NAUSEA AND/OR VOMITING Last administered on 11/21/16 15:53; Admin Dose 4 MG; Start 11/20/16 at 21:30 Acetaminophen (Tylenol Tab) 650 mg Q3H PRN PO ELEVATED TEMPERATURE Last administered on 11/21/16 21:10; Admin Dose 650 MG; Start 11/20/16 at 21:30 Acetaminophen (Tylenol Supp) 650 mg Q3H PRN [place] ELEVATED TEMPERATURE; Start at 21:30 Aspirin (Aspirin) 162 mg DAILY PO Last administered on 11/22/16 08:10; Admin Dose 162 MG; Start 11/21/16 at 09:00 Atorvastatin Calcium (Lipitor) 80 mg HS PO Last administered on 11/22/16 21:16 ; Admin Dose 80 MG; Start 11/21/16 at 21:00 Metoprolol Tartrate 25 mg 25 mg BID NGT Last administered on 11/22/16 21:17; Admin Dose 25 MG; Start 11/21/16 at 09:00 Nitroglycerin/ Dextrose (Nitroglycerin 50 Mg/D5W (Pmx)) 250 ml @ 1.5 mls/hr TITRATE IV Last administered on 11/22/16 01:05; Admin Dose 42 MLS/HR; Start at 14:45 Diagnostic Test (Pha) (Accu-Chek) 1 ea 02 XX ; Start 11/23/16 at 02:00 Miscellaneous Information 1 ea NOTE XX ; Start 11/22/16 at 12:30 Glucose (Glutose) 15 gm Q15M PRN PO DECREASED GLUCOSE; Start 11/22/16 at 12:30 Glucose (Glutose) 22.5 gm Q15M PRN PO DECREASED GLUCOSE; Start 11/22/16 at 12: 30 Dextrose (D50w Syringe) 25 ml Q15M PRN IV DECREASED GLUCOSE; Start 11/22/16 at 12:30 Dextrose (D50w Syringe) 50 ml Q15M PRN IV DECREASED GLUCOSE; Start 11/22/16 at 12:30 Glucagon (Glucagen) 1 mg Q15M PRN IM DECREASED GLUCOSE; Start 11/22/16 at 12:30 Glucose (Glutose) 15 gm Q15M PRN BUCCAL DECREASED GLUCOSE; Start 11/22/16 at 12 :30 Clopidogrel Bisulfate (plaVIX) 75 mg DAILY PO ; Start 11/23/16 at 09:00 Zolpidem Tartrate (Ambien) 5 mg HS PRN PO INSOMNIA Last administered on t 21:17; Admin Dose 5 MG; Start 11/22/16 at 21:00 MARLON JO MD Nov 22, 2016 21:26
[2016-11-23] VITALS (33 sets, daily range): BP systolic 91–155; BP diastolic 48–86; PULSE 95–178; RESP 17–25
[2016-11-23] MEDS ORDERED: ACCU-CHEK XX SCH (02:00)
[2016-11-23] MEDS: ACCU-CHEK XX SCH (02:32)
[2016-11-23] MEDS: PROPOFOL 100 ML IV SCH ×2 (03:00→15:00)
[2016-11-23] MEDS: IPRATROPIUM (NEB) 0.5 MG/2.5 ML AMP HHN SCH ×4 (03:05→19:35)
[2016-11-23] MEDS: LEVALBUTEROL (NEB) 1.25 MG/0.5 ML AMP INH SCH ×4 (03:06→19:35)
[2016-11-23 05:03] LABS: ADD SCAN DIFF NO
[2016-11-23 05:13] LABS: ABNORMAL IP MESSAGE 1; BASOPHILS % 0.2 % (0.0-2.0); EOSINOPHILS # 0.1 10^3/ul (0.0-0.5); HEMATOCRIT 25.2 % (42.0-52.0); HEMOGLOBIN 8.2 g/dl (14.0-18.0); LYMPHOCYTES # 0.9 10^3/ul (0.8-2.9); LYMPHOCYTES % 9.8 % (15.0-51.0); MEAN CORPUSCULAR HEMOGLOBIN 30.4 pg (29.0-33.0); MEAN CORPUSCULAR HGB CONC 32.5 g/dl (32.0-37.0); MEAN CORPUSCULAR VOLUME 93.3 fl (82.0-101.0); MEAN PLATELET VOLUME 13.1 fl (7.4-10.4); MONOCYTE # 0.8 10^3/ul (0.3-0.9); MONOCYTES % 8.8 % (0.0-11.0); NEUTROPHIL # 7.6 10^3/ul (1.6-7.5); NEUTROPHILS % 79.5 % (39.0-77.0); NUCLEATED RED BLOOD CELLS # 0.1 10^3/ul (0.0-0.0); PLATELET COUNT 77 10^3/UL (140-415); RED CELL DISTRIBUTION WIDTH 13.9 % (11.5-14.5); WHITE BLOOD COUNT 9.6 10^3/ul (4.8-10.8)
[2016-11-23 05:26] LABS: CALCIUM 8.2 mg/dl (8.4-10.2); CREATININE 9.13 mg/dl (0.61-1.24); MAGNESIUM 2.1 mg/dl (1.7-2.5); PHOSPHORUS 7.5 mg/dl (2.5-4.9); POTASSIUM 4.6 mmol/L (3.5-5.1)
[2016-11-23] MEDS: INSULIN ASPART [NOVOLOG] 3 ML PEN SC SCH ×4 (07:35→21:00)
[2016-11-23] MEDS: CLOPIDOGREL 75 MG TAB PO SCH (08:14)
[2016-11-23] MEDS: METOPROLOL 25 MG TAB NGT SCH (08:14)
[2016-11-23] MEDS: ASPIRIN 81 MG TAB PO SCH (08:14)
--- NOTE | 2016-11-23 08:47 | RADRPT ---
PROCEDURE: XR Chest. CLINICAL INDICATION: pna chf TECHNIQUE: Single frontal view of the chest was obtained COMPARISON: Chest x-ray 11/22/2016 FINDINGS: Mediasternotomy wires, mediastinal clips, right central venous catheter with tip projecting over the upper superior vena cava, and other support tubes are in stable positions. The cardiac silhouette remains moderately enlarged. There has been interval slight increase in left retrocardiac opacities which represent a left pleura l effusion, atelectasis, and / or consolidation. No serial right pleural effusion. No significant pulmonary vascular congestion. No pneumothorax is identified. There are degenerative changes of the visualized spine. No IMPRESSION: 1. There was slight increase in left retrocardiac opacity which may represent increased left pleural effusion, atelectasis, and / or consolidation. 2. Moderate cardiomegaly, unchanged. 3. Stable position support tubes and lines, allowing for slight differences in technique/projection . RPTAT: PP Physician El Date Time Electronically viewed and signed by Physician El on 11/23/2016 08:47 TAMARA/
--- NOTE | 2016-11-23 11:37 | CONS ---
Date/Time of Note Date/Time of Note DATE: 11/23/16 TIME: 11:36 Consult Date/Type/Reason Admit Date/Time Nov 20, 2016 at 05:43 Initial Consult Date 11/21/16 Type of Consultation: Pulmonary Ordering Provider: SUSANNA BURT MD Subjective Patient had transient desaturation after hemodialysis today Chest x-ray shows ongoing left effusion Objective Vital Signs Date Time Temp Pulse Resp B/P Pulse Ox O2 Delivery O2 Flow Rate FiO2 11/23/16 10:20 98 20 11/23/16 10:00 112/77 97 Nasal Cannula 4.0 11/23/16 07:00 97.9 11/22/16 04:26 27 Intake and Output 11/22/16 11/22/16 11/23/16 15:00 23:00 07:00 Intake Total 6 ml 665 ml 45 ml Output Total 140 ml 200 ml Balance 6 ml 525 ml -155 ml Exam PHYSICAL EXAMINATION GENERAL: Elderly gentleman, nasal cannula O2. VITAL SIGNS: see below. HEENT: Pupils equal, round, and reactive to light. CARDIAC: S1, S2, 1/6 systolic ejection murmur CHEST: Diminished air entry bilaterally. Chest tubes left lung base. ABDOMEN: Mildly distended. Bowel sounds present no guarding or rebound EXTREMITIES: No cyanosis, clubbing edema +1 NEUROLOGIC: Generalized weakness Results/Medications Result Diagram: 11/23/16 0440 11/23/16 0440 Results 24 hrs Laboratory Tests Test 11/22/16 17:16 11/22/16 21:15 11/23/16 01:39 11/23/16 04:40 Bedside Glucose 124 120 119 White Blood Count 9.6 # Red Blood Count 2.70 L Hemoglobin 8.2 L Hematocrit 25.2 L Mean Corpuscular Volume 93.3 Mean Corpuscular Hemoglobin 30.4 Mean Corpuscular Hemoglobin Concent 32.5 Red Cell Distribution Width 13.9 Platelet Count 77 L Mean Platelet Volume 13.1 H Neutrophils % 79.5 H Lymphocytes % 9.8 L Monocytes % 8.8 Eosinophils % 1.0 Basophils % 0.2 Neutrophils # 7.6 H Lymphocytes # 0.9 Monocytes # 0.8 Eosinophils # 0.1 Basophils # 0.0 Nucleated Red Blood Cells # 0.1 H Sodium Level 138 Potassium Level 4.6 Chloride Level 91 L Carbon Dioxide Level 27 Anion Gap 25 H Blood Urea Nitrogen 63 H Creatinine 9.13 #H Glucose Level 109 Calcium Level 8.2 L Phosphorus Level 7.5 H Magnesium Level 2.1 Test 11/23/16 07:53 11/23/16 10:14 Bedside Glucose 118 Lab Scanned Report REFERENCE LAB Medications Current Medications Nicardipine HCl 200 ml @ 50 mls/hr TITRATE IV Last administered on 11/20/16 15:29; Admin Dose 20 MLS/HR; Start 11/20/16 at 15:00 Propofol 100 ml @ 2.493 mls/ hr Q12H IV Last administered on 11/21/16 06:24; Admin Dose 14.958 MLS/HR; Start 11/20/16 at 15:00 Dobutamine HCl/ Dextrose 250 ml @ 12.465 mls/ hr TITRATE IV Last administered on 11/20/16 15:31; Admin Dose 9.972 MLS/HR; Start 11/20/16 at 15:00 Hydromorphone HCl (Dilaudid) 0.2 mg Q15M PRN IV PAIN LEVEL 1-5 Last administered on 11/21/16 18:18; Admin Dose 0.2 MG; Start 11/20/16 at 21:30 Hydromorphone HCl (Dilaudid) 0.4 mg Q15M PRN IV PAIN LEVEL 6-10 Last administered on 11/21/16 08:20; Admin Dose 0.4 MG; Start 11/20/16 at 21:30 Hydromorphone HCl (Dilaudid) 0.2 mg Q1H PRN IV PAIN LEVEL 1-5 Last administered on 11/21/16 21:50; Admin Dose 0.2 MG; Start 11/20/16 at 21:30 Hydromorphone HCl (Dilaudid) 0.4 mg Q1H PRN IV PAIN LEVEL 6-10 Last administered on 11/22/16 05:51; Admin Dose 0.4 MG; Start 11/20/16 at 21:30 Ondansetron HCl (Zofran Inj) 4 mg Q6H PRN IV NAUSEA AND/OR VOMITING Last administered on 11/21/16 15:53; Admin Dose 4 MG; Start 11/20/16 at 21:30 Acetaminophen (Tylenol Tab) 650 mg Q3H PRN PO ELEVATED TEMPERATURE Last administered on 11/21/16 21:10; Admin Dose 650 MG; Start 11/20/16 at 21:30 Acetaminophen (Tylenol Supp) 650 mg Q3H PRN [place] ELEVATED TEMPERATURE; Start at 21:30 Aspirin (Aspirin) 162 mg DAILY PO Last administered on 11/23/16 08:14; Admin Dose 162 MG; Start 11/21/16 at 09:00 Atorvastatin Calcium (Lipitor) 80 mg HS PO Last administered on 11/22/16 21:16 ; Admin Dose 80 MG; Start 11/21/16 at 21:00 Metoprolol Tartrate 25 mg 25 mg BID NGT Last administered on 11/23/16 08:14; Admin Dose 25 MG; Start 11/21/16 at 09:00 Nitroglycerin/ Dextrose (Nitroglycerin 50 Mg/D5W (Pmx)) 250 ml @ 1.5 mls/hr TITRATE IV Last administered on 11/22/16 01:05; Admin Dose 42 MLS/HR; Start at 14:45 Diagnostic Test (Pha) (Accu-Chek) 1 ea 02 XX Last administered on 11/23/16 02: 32; Admin Dose 1 EA; Start 11/23/16 at 02:00 Miscellaneous Information 1 ea NOTE XX ; Start 11/22/16 at 12:30 Glucose (Glutose) 15 gm Q15M PRN PO DECREASED GLUCOSE; Start 11/22/16 at 12:30 Glucose (Glutose) 22.5 gm Q15M PRN PO DECREASED GLUCOSE; Start 11/22/16 at 12: 30 Dextrose (D50w Syringe) 25 ml Q15M PRN IV DECREASED GLUCOSE; Start 11/22/16 at 12:30 Dextrose (D50w Syringe) 50 ml Q15M PRN IV DECREASED GLUCOSE; Start 11/22/16 at 12:30 Glucagon (Glucagen) 1 mg Q15M PRN IM DECREASED GLUCOSE; Start 11/22/16 at 12:30 Glucose (Glutose) 15 gm Q15M PRN BUCCAL DECREASED GLUCOSE; Start 11/22/16 at 12 :30 Clopidogrel Bisulfate (plaVIX) 75 mg DAILY PO Last administered on 11/23/16 08 :14; Admin Dose 75 MG; Start 11/23/16 at 09:00 Zolpidem Tartrate (Ambien) 5 mg HS PRN PO INSOMNIA Last administered on t 21:17; Admin Dose 5 MG; Start 11/22/16 at 21:00 Assessment/Plan Chief Complaint/Hosp Course Assessment 1. Coronary artery disease status post coronary artery bypass graft surgery postop left effusion 2. History of COPD 3. Hypoxemic respiratory failure now extubated from mechanical ventilation 4. Postop hypotension on inotropic support 5. End-stage renal failure on hemodialysis Plan 1. Incentive spirometry and bronchodilators 2. Encourage out of bed 3. Hemodialysis as tolerated, correction of electrolytes 4. Monitor platelet count and CBC. 5. Continue chest tube to suction may require adjustment of chest tube given persistent left effusion 6. Encourage ambulation Discussed with staff. Discussed with patient's son at bedside. Critical care time 40 minutes. Problems: BAILEY ALEXANDER MD, [facility] Nov 23, 2016 11:37
--- NOTE | 2016-11-23 13:44 | PN ---
Date/Time of Note Date/Time of Note DATE: 11/23/16 TIME: 13:14 Assessment/Plan VTE Prophylaxis VTE Prophylaxis Intervention: SCD's Lines/Catheters IV [facility]from [facility]): CORDIZ Urinary Cath still in place: No Assessment/Plan Chief Complaint/Hosp Course This is a 80-year-old [place] male with history of coronary artery disease, prediabetes, chronic obstructive pulmonary disease, former smoker aand history of myocardial infarction who is status post elective PCI last week. Patient was found to have multiple vessel disease with previous restenosis. Now s/p CABG day #3. 1. Respiratory- extubated, hx of COPD, heavy former smoker. breathing treatments as needed, .CXR with left effusion/atx, CT removal per surgical/pulmonary team. 2. CV- S/P CABG- 4 vessel disease- Chest tube to be removed soon, monitor output. . Monitor H/H, monitor for fluid overload state. HD done today. 3. ESRD- Nephrology following, HD today done, 3x week and PRN, monitor electrolytes, K. 4.GI- PPI for GI prophylaxis, H/H stable, transfuse PRBC or/and platelets as needed. 5.ID-febrile, follow up for any evidence of infection. Currently off antibiotics , WBC normal, afebrile. 6. Neuro- s/p surgery, no neuro deficits. 7. thrombocytopenia- plt tranfusion if bleeding to keep plt >100, otherwise monitor. 8.family aware of patients condition as patient is stable. 9. goldman removed. 10.pre DM- glucose levels are good. continue accu check qac and qhs, ISS. 11. diet- as tolerated. 12. OOB-doing well Problems: Subjective 24 Hr Interval Summary Free Text/Dictation Patient with no complaints, still has Chest tube in place. CXR showed worsening left pleural effusion. now afebrile with normal WBC. Goldman removed. Exam/Review of Systems Vital Signs Vitals Vital Signs Date Time Temp Pulse Resp B/P Pulse Ox O2 Delivery O2 Flow Rate FiO2 11/23/16 10:20 98 20 11/23/16 10:00 112/77 97 Nasal Cannula 4.0 11/23/16 07:00 97.9 11/22/16 04:26 27 Intake and Output 11/22/16 11/22/16 11/23/16 15:00 23:00 07:00 Intake Total 6 ml 665 ml 45 ml Output Total 140 ml 200 ml Balance 6 ml 525 ml -155 ml Exam Constitutional: No distress Psych: No confusion Eyes: PERRL Neck: No bruits Respiratory: diminished breath sounds, No wheezing Cardiovascular: No irregular rhythm Musculoskeletal: No muscle tone Extremities: No clubbing, No cyanosis, No edema Results Result Diagram: 11/23/16 0440 11/23/16 0440 Results 24 hrs Laboratory Tests Test 11/22/16 17:16 11/22/16 21:15 11/23/16 01:39 11/23/16 04:40 Bedside Glucose 124 120 119 White Blood Count 9.6 # Red Blood Count 2.70 L Hemoglobin 8.2 L Hematocrit 25.2 L Mean Corpuscular Volume 93.3 Mean Corpuscular Hemoglobin 30.4 Mean Corpuscular Hemoglobin Concent 32.5 Red Cell Distribution Width 13.9 Platelet Count 77 L Mean Platelet Volume 13.1 H Neutrophils % 79.5 H Lymphocytes % 9.8 L Monocytes % 8.8 Eosinophils % 1.0 Basophils % 0.2 Neutrophils # 7.6 H Lymphocytes # 0.9 Monocytes # 0.8 Eosinophils # 0.1 Basophils # 0.0 Nucleated Red Blood Cells # 0.1 H Sodium Level 138 Potassium Level 4.6 Chloride Level 91 L Carbon Dioxide Level 27 Anion Gap 25 H Blood Urea Nitrogen 63 H Creatinine 9.13 #H Glucose Level 109 Calcium Level 8.2 L Phosphorus Level 7.5 H Magnesium Level 2.1 Test 11/23/16 07:53 11/23/16 10:14 11/23/16 12:14 Bedside Glucose 118 156 Lab Scanned Report REFERENCE LAB Medications Medications Current Medications Nicardipine HCl 200 ml @ 50 mls/hr TITRATE IV Last administered on 11/20/16 15:29; Admin Dose 20 MLS/HR; Start 11/20/16 at 15:00 Propofol 100 ml @ 2.493 mls/ hr Q12H IV Last administered on 11/21/16 06:24; Admin Dose 14.958 MLS/HR; Start 11/20/16 at 15:00 Dobutamine HCl/ Dextrose 250 ml @ 12.465 mls/ hr TITRATE IV Last administered on 11/20/16 15:31; Admin Dose 9.972 MLS/HR; Start 11/20/16 at 15:00 Hydromorphone HCl (Dilaudid) 0.2 mg Q15M PRN IV PAIN LEVEL 1-5 Last administered on 11/21/16 18:18; Admin Dose 0.2 MG; Start 11/20/16 at 21:30 Hydromorphone HCl (Dilaudid) 0.4 mg Q15M PRN IV PAIN LEVEL 6-10 Last administered on 11/21/16 08:20; Admin Dose 0.4 MG; Start 11/20/16 at 21:30 Hydromorphone HCl (Dilaudid) 0.2 mg Q1H PRN IV PAIN LEVEL 1-5 Last administered on 11/21/16 21:50; Admin Dose 0.2 MG; Start 11/20/16 at 21:30 Hydromorphone HCl (Dilaudid) 0.4 mg Q1H PRN IV PAIN LEVEL 6-10 Last administered on 11/22/16 05:51; Admin Dose 0.4 MG; Start 11/20/16 at 21:30 Ondansetron HCl (Zofran Inj) 4 mg Q6H PRN IV NAUSEA AND/OR VOMITING Last administered on 11/21/16 15:53; Admin Dose 4 MG; Start 11/20/16 at 21:30 Acetaminophen (Tylenol Tab) 650 mg Q3H PRN PO ELEVATED TEMPERATURE Last administered on 11/21/16 21:10; Admin Dose 650 MG; Start 11/20/16 at 21:30 Acetaminophen (Tylenol Supp) 650 mg Q3H PRN [place] ELEVATED TEMPERATURE; Start at 21:30 Aspirin (Aspirin) 162 mg DAILY PO Last administered on 11/23/16 08:14; Admin Dose 162 MG; Start 11/21/16 at 09:00 Atorvastatin Calcium (Lipitor) 80 mg HS PO Last administered on 11/22/16 21:16 ; Admin Dose 80 MG; Start 11/21/16 at 21:00 Metoprolol Tartrate 25 mg 25 mg BID NGT Last administered on 11/23/16 08:14; Admin Dose 25 MG; Start 11/21/16 at 09:00 Nitroglycerin/ Dextrose (Nitroglycerin 50 Mg/D5W (Pmx)) 250 ml @ 1.5 mls/hr TITRATE IV Last administered on 11/22/16 01:05; Admin Dose 42 MLS/HR; Start at 14:45 Diagnostic Test (Pha) (Accu-Chek) 1 ea 02 XX Last administered on 11/23/16 02: 32; Admin Dose 1 EA; Start 11/23/16 at 02:00 Miscellaneous Information 1 ea NOTE XX ; Start 11/22/16 at 12:30 Glucose (Glutose) 15 gm Q15M PRN PO DECREASED GLUCOSE; Start 11/22/16 at 12:30 Glucose (Glutose) 22.5 gm Q15M PRN PO DECREASED GLUCOSE; Start 11/22/16 at 12: 30 Dextrose (D50w Syringe) 25 ml Q15M PRN IV DECREASED GLUCOSE; Start 11/22/16 at 12:30 Dextrose (D50w Syringe) 50 ml Q15M PRN IV DECREASED GLUCOSE; Start 11/22/16 at 12:30 Glucagon (Glucagen) 1 mg Q15M PRN IM DECREASED GLUCOSE; Start 11/22/16 at 12:30 Glucose (Glutose) 15 gm Q15M PRN BUCCAL DECREASED GLUCOSE; Start 11/22/16 at 12 :30 Clopidogrel Bisulfate (plaVIX) 75 mg DAILY PO Last administered on 11/23/16 08 :14; Admin Dose 75 MG; Start 11/23/16 at 09:00 Zolpidem Tartrate (Ambien) 5 mg HS PRN PO INSOMNIA Last administered on 21:17; Admin Dose 5 MG; Start 11/22/16 at 21:00 SUSANNA BURT MD Nov 23, 2016 13:40
--- NOTE | 2016-11-23 15:04 | PN ---
Date/Time of Note Date/Time of Note DATE: 11/23/16 TIME: 15:03 Assessment/Plan Lines/Catheters IV Catheter Type (from Nrsg): CORDIZ Flanagan in Place (from Nrsg): No Assessment/Plan Chief Complaint/Hosp Course Status post coronary artery bypass grafting Patient is extubated Still tachycardic and hypotensive Stable hemoglobin Underwent hemodialysis with stable condition today Awake and alert Dc CT to tele Discussed with the patient and the family Discussed with the referring physicians Problems: Subjective 24 Hr Interval Summary Constitutional: improved Pain Control: mild Exam/Review of Systems Vital Signs Vitals Vital Signs Date Time Temp Pulse Resp B/P Pulse Ox O2 Delivery O2 Flow Rate FiO2 11/23/16 13:27 94 6.0 11/23/16 13:23 116 22 Nasal Cannula 11/23/16 10:00 112/77 11/23/16 07:00 97.9 11/22/16 04:26 27 Intake and Output 11/22/16 11/22/16 11/23/16 15:00 23:00 07:00 Intake Total 6 ml 665 ml 45 ml Output Total 140 ml 200 ml Balance 6 ml 525 ml -155 ml Exam ENMT: mucosa pink and moist, nl external ears & nose, nl lips & teeth, nl nasal mucosa & septum Neck: non-tender, supple Respiratory: clear to auscultation, normal air movement Cardiovascular: nl pulses, regular rate and rhythm Results Result Diagram: 11/23/1643911/23/16439 JN ROMAN MD Nov 23, 2016 15:04
--- NOTE | 2016-11-23 15:08 | PN ---
Date/Time of Note Date/Time of Note DATE: 11/23/16 TIME: 15:06 Assessment/Plan VTE Prophylaxis VTE Prophylaxis Intervention: other Lines/Catheters IV Catheter Type (from Nrs): CORDIZ Urinary Cath still in place: No Assessment/Plan Chief Complaint/Hosp Course 1. CAD: S/P CABG: still in ICU 2. S/P multiple PCI in the past 3. DM: on insulin drip now 4. ESRD on HD 5. COPD: follow up with pulm 6. resp failure: extubated in ICU 7. DYSLIPIDEMIA: back on lipitor 80 8. anemia REC: will cont ASA. cont plavix 75 mg po qd now that ok with CT surgery . . Dr Bernard will follow for pulm statues will inc betablocker statin cont ICU care off of NTG drip prn chest tube management as per CT surgery Thank you for this referral. I will continue to follow along with you Problems: Subjective 24 Hr Interval Summary Free Text/Dictation Free Text/Dictation D/W STAFF and rhythm was reviewed. pt remains in ICU but extubated. d/w Dr Machado his pain is under control. no Afib noted but pt has been tachycardic with frequent PAC no palpitations s/p HD . he still has the chest tubes in place but PA catheter was removed. OBJECTIVE: General: diaphoretic HEENT: NC/AT. pupils are equal. round. NECK: NO JVD. no stridor. CV: TACHYCARDIC. systolic murmur; no gallop or rubs. PULM: no wheezing but mild rhonchi. GI: SOFT, NT, ND, no rebound or guarding Extremity: trace B/L LE edema. no clubbing. neuro: awake and alert. responds appropriately . Psych: calm and pleasant rectal: deferred : normal male chest: s/p sternotomy. with chest tube Exam/Review of Systems Vital Signs Vitals Vital Signs Date Time Temp Pulse Resp B/P Pulse Ox O2 Delivery O2 Flow Rate FiO2 11/23/16 13:27 94 6.0 11/23/16 13:23 116 22 Nasal Cannula 11/23/16 10:00 112/77 11/23/16 07:00 97.9 11/22/16 04:26 27 Intake and Output 11/22/16 11/22/16 11/23/16 15:00 23:00 07:00 Intake Total 6 ml 665 ml 45 ml Output Total 140 ml 200 ml Balance 6 ml 525 ml -155 ml Results Result Diagram: 11/23/16 0440 11/23/16 0440 Results 24 hrs Laboratory Tests Test 11/22/16 17:16 11/22/16 21:15 11/23/16 01:39 11/23/16 04:40 Bedside Glucose 124 120 119 White Blood Count 9.6 # Red Blood Count 2.70 L Hemoglobin 8.2 L Hematocrit 25.2 L Mean Corpuscular Volume 93.3 Mean Corpuscular Hemoglobin 30.4 Mean Corpuscular Hemoglobin Concent 32.5 Red Cell Distribution Width 13.9 Platelet Count 77 L Mean Platelet Volume 13.1 H Neutrophils % 79.5 H Lymphocytes % 9.8 L Monocytes % 8.8 Eosinophils % 1.0 Basophils % 0.2 Neutrophils # 7.6 H Lymphocytes # 0.9 Monocytes # 0.8 Eosinophils # 0.1 Basophils # 0.0 Nucleated Red Blood Cells # 0.1 H Sodium Level 138 Potassium Level 4.6 Chloride Level 91 L Carbon Dioxide Level 27 Anion Gap 25 H Blood Urea Nitrogen 63 H Creatinine 9.13 #H Glucose Level 109 Calcium Level 8.2 L Phosphorus Level 7.5 H Magnesium Level 2.1 Test 11/23/16 07:53 11/23/16 10:14 11/23/16 12:14 Bedside Glucose 118 156 Lab Scanned Report REFERENCE LAB Medications Medications Current Medications Nicardipine HCl 200 ml @ 50 mls/hr TITRATE IV Last administered on 11/20/16 15:29; Admin Dose 20 MLS/HR; Start 11/20/16 at 15:00 Propofol 100 ml @ 2.493 mls/ hr Q12H IV Last administered on 11/21/16 06:24; Admin Dose 14.958 MLS/HR; Start 11/20/16 at 15:00 Dobutamine HCl/ Dextrose 250 ml @ 12.465 mls/ hr TITRATE IV Last administered on 11/20/16 15:31; Admin Dose 9.972 MLS/HR; Start 11/20/16 at 15:00 Hydromorphone HCl (Dilaudid) 0.2 mg Q15M PRN IV PAIN LEVEL 1-5 Last administered on 11/21/16 18:18; Admin Dose 0.2 MG; Start 11/20/16 at 21:30 Hydromorphone HCl (Dilaudid) 0.4 mg Q15M PRN IV PAIN LEVEL 6-10 Last administered on 11/21/16 08:20; Admin Dose 0.4 MG; Start 11/20/16 at 21:30 Hydromorphone HCl (Dilaudid) 0.2 mg Q1H PRN IV PAIN LEVEL 1-5 Last administered on 11/21/16 21:50; Admin Dose 0.2 MG; Start 11/20/16 at 21:30 Hydromorphone HCl (Dilaudid) 0.4 mg Q1H PRN IV PAIN LEVEL 6-10 Last administered on 11/22/16 05:51; Admin Dose 0.4 MG; Start 11/20/16 at 21:30 Ondansetron HCl (Zofran Inj) 4 mg Q6H PRN IV NAUSEA AND/OR VOMITING Last administered on 11/21/16 15:53; Admin Dose 4 MG; Start 11/20/16 at 21:30 Acetaminophen (Tylenol Tab) 650 mg Q3H PRN PO ELEVATED TEMPERATURE Last administered on 11/21/16 21:10; Admin Dose 650 MG; Start 11/20/16 at 21:30 Acetaminophen (Tylenol Supp) 650 mg Q3H PRN [place] ELEVATED TEMPERATURE; Start at 21:30 Aspirin (Aspirin) 162 mg DAILY PO Last administered on 11/23/16 08:14; Admin Dose 162 MG; Start 11/21/16 at 09:00 Atorvastatin Calcium (Lipitor) 80 mg HS PO Last administered on 11/22/16 21:16 ; Admin Dose 80 MG; Start 11/21/16 at 21:00 Metoprolol Tartrate 25 mg 25 mg BID NGT Last administered on 11/23/16 08:14; Admin Dose 25 MG; Start 11/21/16 at 09:00 Nitroglycerin/ Dextrose (Nitroglycerin 50 Mg/D5W (Pmx)) 250 ml @ 1.5 mls/hr TITRATE IV Last administered on 11/22/16 01:05; Admin Dose 42 MLS/HR; Start at 14:45 Diagnostic Test (Pha) (Accu-Chek) 1 ea 02 XX Last administered on 11/23/16 02: 32; Admin Dose 1 EA; Start 11/23/16 at 02:00 Miscellaneous Information 1 ea NOTE XX ; Start 11/22/16 at 12:30 Glucose (Glutose) 15 gm Q15M PRN PO DECREASED GLUCOSE; Start 11/22/16 at 12:30 Glucose (Glutose) 22.5 gm Q15M PRN PO DECREASED GLUCOSE; Start 11/22/16 at 12: 30 Dextrose (D50w Syringe) 25 ml Q15M PRN IV DECREASED GLUCOSE; Start 11/22/16 at 12:30 Dextrose (D50w Syringe) 50 ml Q15M PRN IV DECREASED GLUCOSE; Start 11/22/16 at 12:30 Glucagon (Glucagen) 1 mg Q15M PRN IM DECREASED GLUCOSE; Start 11/22/16 at 12:30 Glucose (Glutose) 15 gm Q15M PRN BUCCAL DECREASED GLUCOSE; Start 11/22/16 at 12 :30 Clopidogrel Bisulfate (plaVIX) 75 mg DAILY PO Last administered on 11/23/16 08 :14; Admin Dose 75 MG; Start 11/23/16 at 09:00 Zolpidem Tartrate (Ambien) 5 mg HS PRN PO INSOMNIA Last administered on 21:17; Admin Dose 5 MG; Start 11/22/16 at 21:00 ADENIKE MAYERS MD Nov 23, 2016 15:08
--- NOTE | 2016-11-23 20:45 | CONS ---
Date/Time of Note Date/Time of Note DATE: 11/23/16 TIME: 20:41 Assessment/Plan Assessment/Plan Additional Assessment/Plan Pt to resume HDD TTS after Saturday's HD Begin Epo for anemia Consultation Date/Type/Reason Admit Date/Time Nov 20, 2016 at 05:43 Initial Consult Date 11/21/16 Type of Consultation: Renal Referring Provider: SUSANNA BURT MD 24 HR Interval Summary Free Text/Dictation Pt doing quite well after extubation Exam/Review of Systems Vital Signs Vitals Vital Signs Date Time Temp Pulse Resp B/P Pulse Ox O2 Delivery O2 Flow Rate FiO2 11/23/16 20:20 111 11/23/16 19:54 97.5 19 139/78 97 11/23/16 19:36 4.0 11/23/16 19:36 Nasal Cannula 11/22/16 04:26 27 Intake and Output 11/22/16 11/22/16 11/23/16 15:00 23:00 07:00 Intake Total 6 ml 665 ml 45 ml Output Total 140 ml 200 ml Balance 6 ml 525 ml -155 ml Exam Constitutional: alert, oriented, well developed Psych: nl mood/affect, no complaints Head: atraumatic, normocephalic Eyes: EOMI, PERRL, nl conjunctiva, nl lids, nl sclera ENMT: nl external ears & nose, nl lips & teeth, nl nasal mucosa & septum Neck: non-tender, supple Respiratory: clear to auscultation, normal air movement Cardiovascular: nl pulses, other (Midline surgical wound is healing), regular rate and rhythm Gastrointestinal: nl liver, spleen, non-tender, soft Musculoskeletal: nl extremities to inspection, nl gait and stance Extremities: normal pulses Neurological: JOB BOSS II-XII intact, nl mental status, nl speech, nl strength Skin: nl turgor, No rash or lesions Lymph: nl lymph nodes Results Result Diagram: 11/23/1643911/23/16439 Results 24 hrs Laboratory Tests Test 11/22/16 21:15 11/23/16 01:39 11/23/16 04:40 11/23/16 07:53 Bedside Glucose 120 119 118 White Blood Count 9.6 # Red Blood Count 2.70 L Hemoglobin 8.2 L Hematocrit 25.2 L Mean Corpuscular Volume 93.3 Mean Corpuscular Hemoglobin 30.4 Mean Corpuscular Hemoglobin Concent 32.5 Red Cell Distribution Width 13.9 Platelet Count 77 L Mean Platelet Volume 13.1 H Neutrophils % 79.5 H Lymphocytes % 9.8 L Monocytes % 8.8 Eosinophils % 1.0 Basophils % 0.2 Neutrophils # 7.6 H Lymphocytes # 0.9 Monocytes # 0.8 Eosinophils # 0.1 Basophils # 0.0 Nucleated Red Blood Cells # 0.1 H Sodium Level 138 Potassium Level 4.6 Chloride Level 91 L Carbon Dioxide Level 27 Anion Gap 25 H Blood Urea Nitrogen 63 H Creatinine 9.13 #H Glucose Level 109 Calcium Level 8.2 L Phosphorus Level 7.5 H Magnesium Level 2.1 Test 11/23/16 10:14 11/23/16 12:14 11/23/16 17:20 Lab Scanned Report REFERENCE LAB Bedside Glucose 156 112 Medications Medications Current Medications Hydromorphone HCl (Dilaudid) 0.2 mg Q1H PRN IV PAIN LEVEL 1-5 Last administered on 11/21/16 21:50; Admin Dose 0.2 MG; Start 11/20/16 at 21:30 Ondansetron HCl (Zofran Inj) 4 mg Q6H PRN IV NAUSEA AND/OR VOMITING Last administered on 11/21/16 15:53; Admin Dose 4 MG; Start 11/20/16 at 21:30 Acetaminophen (Tylenol Tab) 650 mg Q3H PRN PO ELEVATED TEMPERATURE Last administered on 11/21/16 21:10; Admin Dose 650 MG; Start 11/20/16 at 21:30 Aspirin (Aspirin) 162 mg DAILY PO Last administered on 11/23/16 08:14; Admin Dose 162 MG; Start 11/21/16 at 09:00 Atorvastatin Calcium (Lipitor) 80 mg HS PO Last administered on 11/22/16 21:16 ; Admin Dose 80 MG; Start 11/21/16 at 21:00 Diagnostic Test (Pha) (Accu-Chek) 1 ea 02 XX Last administered on 11/23/16 02: 32; Admin Dose 1 EA; Start 11/23/16 at 02:00 Miscellaneous Information 1 ea NOTE XX ; Start 11/22/16 at 12:30 Glucose (Glutose) 15 gm Q15M PRN PO DECREASED GLUCOSE; Start 11/22/16 at 12:30 Glucose (Glutose) 22.5 gm Q15M PRN PO DECREASED GLUCOSE; Start 11/22/16 at 12: 30 Dextrose (D50w Syringe) 25 ml Q15M PRN IV DECREASED GLUCOSE; Start 11/22/16 at 12:30 Dextrose (D50w Syringe) 50 ml Q15M PRN IV DECREASED GLUCOSE; Start 11/22/16 at 12:30 Glucagon (Glucagen) 1 mg Q15M PRN IM DECREASED GLUCOSE; Start 11/22/16 at 12:30 Glucose (Glutose) 15 gm Q15M PRN BUCCAL DECREASED GLUCOSE; Start 11/22/16 at 12 :30 Clopidogrel Bisulfate (plaVIX) 75 mg DAILY PO Last administered on 11/23/16 08 :14; Admin Dose 75 MG; Start 11/23/16 at 09:00 Zolpidem Tartrate (Ambien) 5 mg HS PRN PO INSOMNIA Last administered on 21:17; Admin Dose 5 MG; Start 11/22/16 at 21:00 Metoprolol Succinate (Toprol Xl) 25 mg BID PO ; Start 11/23/16 at 21:00 MARLON JO MD Nov 23, 2016 20:45
[2016-11-23] MEDS: ATORVASTATIN 80 MG TAB PO SCH (21:38)
[2016-11-23] MEDS: METOPROLOL (XL) 25 MG TAB PO SCH (21:38)
[2016-11-23] MEDS: ZOLPIDEM 5 MG TAB PO PRN (22:48)
[2016-11-24] VITALS (23 sets, daily range): BP systolic 131–163; BP diastolic 69–82; PULSE 86–180; RESP 16–24
[2016-11-24] MEDS ORDERED: DILTIAZEM 25 MG INJ ONE (01:48)
[2016-11-24] MEDS: IPRATROPIUM (NEB) 0.5 MG/2.5 ML AMP HHN SCH ×4 (01:51→19:21)
[2016-11-24] MEDS: LEVALBUTEROL (NEB) 1.25 MG/0.5 ML AMP INH SCH ×4 (01:51→19:21)
[2016-11-24] MEDS ORDERED: DILTIAZEM 25 MG INJ IV ONE (01:53)
[2016-11-24] MEDS: HYDROmorphONE 1 MG/ML SYG IV PRN (01:57)
[2016-11-24] MEDS: ACCU-CHEK XX SCH (02:00)
[2016-11-24] MEDS: AMIODARONE 900 MG in DEXTROSE 5% 482 ML IV SCH ×2 (02:27→08:25)
[2016-11-24 07:38] LABS: BASOPHILS % 0.5 % (0.0-2.0); EOSINOPHILS # 0.1 10^3/ul (0.0-0.5); EOSINOPHILS % 1.2 % (0.0-7.0); HEMATOCRIT 26.5 % (42.0-52.0); HEMOGLOBIN 8.5 g/dl (14.0-18.0); LYMPHOCYTES # 0.8 10^3/ul (0.8-2.9); LYMPHOCYTES % 10.6 % (15.0-51.0); MEAN CORPUSCULAR HEMOGLOBIN 30.5 pg (29.0-33.0); MEAN CORPUSCULAR HGB CONC 32.1 g/dl (32.0-37.0); MEAN PLATELET VOLUME 12.4 fl (7.4-10.4); MONOCYTE # 0.8 10^3/ul (0.3-0.9); MONOCYTES % 9.9 % (0.0-11.0); NEUTROPHIL # 5.8 10^3/ul (1.6-7.5); NEUTROPHILS % 77.3 % (39.0-77.0); PLATELET COUNT 132 10^3/UL (140-415); RED BLOOD COUNT 2.79 10^6/ul (4.70-6.10); RED CELL DISTRIBUTION WIDTH 13.7 % (11.5-14.5); WHITE BLOOD COUNT 7.5 10^3/ul (4.8-10.8)
[2016-11-24] MEDS: INSULIN ASPART [NOVOLOG] 3 ML PEN SC SCH ×4 (07:55→20:38)
[2016-11-24 07:56] LABS: CALCIUM 8.9 mg/dl (8.4-10.2); CREATININE 7.65 mg/dl (0.61-1.24); MAGNESIUM 2.3 mg/dl (1.7-2.5); PHOSPHORUS 7.9 mg/dl (2.5-4.9); POTASSIUM 4.7 mmol/L (3.5-5.1)
[2016-11-24] MEDS: CLOPIDOGREL 75 MG TAB PO SCH (09:15)
[2016-11-24] MEDS: ASPIRIN 81 MG TAB PO SCH (09:15)
[2016-11-24] MEDS: METOPROLOL (XL) 25 MG TAB PO SCH (09:16)
--- NOTE | 2016-11-24 10:34 | PN ---
Date/Time of Note Date/Time of Note DATE: 11/24/16 TIME: 10:33 Assessment/Plan Lines/Catheters IV Catheter Type (from Nrsg): Peripheral IV Flanagan in Place (from Nrsg): No Assessment/Plan Chief Complaint/Hosp Course Status post coronary artery bypass grafting Patient is extubated Still tachycardic and hypotensive Stable hemoglobin Underwent hemodialysis with stable condition today Awake and alert Chest tubes DC'd Pulmonary toilet ambulation DC planning Discussed with the patient and the family Discussed with the referring physicians Problems: Subjective 24 Hr Interval Summary Constitutional: improved Pain Control: mild Exam/Review of Systems Vital Signs Vitals Vital Signs Date Time Temp Pulse Resp B/P Pulse Ox O2 Delivery O2 Flow Rate FiO2 11/24/16 09:56 Nasal Cannula 8.0 11/24/16 08:52 93 22 94 11/24/16 07:13 98.4 140/79 11/22/16 04:26 27 Intake and Output 11/23/16 11/23/16 11/24/16 15:00 23:00 07:00 Intake Total 1100 ml 700 ml 300 ml Output Total 3540 ml 300 ml Balance -2440 ml 700 ml 0 ml Exam ENMT: mucosa pink and moist, nl external ears & nose, nl lips & teeth, nl nasal mucosa & septum Neck: non-tender, supple Respiratory: clear to auscultation, normal air movement Cardiovascular: nl pulses, regular rate and rhythm Gastrointestinal: nl liver, spleen, non-tender, soft Results Result Diagram: 11/24/16 0607 11/24/16 0607 JN ROMAN MD Nov 24, 2016 10:34
--- NOTE | 2016-11-24 11:27 | CONS ---
Date/Time of Note Date/Time of Note DATE: 11/24/16 TIME: 11:25 Assessment/Plan Assessment/Plan Additional Assessment/Plan Assessment recommendations; 1. Patient admitted wit coronary symptoms status post CABG surgery. 2. Underlying cardiomyopathy. 3. End-stage renal disease, on hemodialysis. 3. History of hypertension. Continue current treatment. Consultation Date/Type/Reason Admit Date/Time Nov 20, 2016 at 05:43 Initial Consult Date 11/21/16 Type of Consultation: Pulmonary Referring Provider: SUSANNA BURT MD 24 HR Interval Summary Free Text/Dictation Patient condition stable. Still requiring supplemental oxygen. Remains awake and alert. Denies any chest pain, fever, chills, nausea vomiting. General exam; elderly male, appears comfortable. Exam/Review of Systems Vital Signs Vitals Vital Signs Date Time Temp Pulse Resp B/P Pulse Ox O2 Delivery O2 Flow Rate FiO2 11/24/16 09:56 Nasal Cannula 8.0 11/24/16 08:52 93 22 94 11/24/16 07:13 98.4 140/79 11/22/16 04:26 27 Intake and Output 11/23/16 11/23/16 11/24/16 15:00 23:00 07:00 Intake Total 1100 ml 700 ml 300 ml Output Total 3540 ml 300 ml Balance -2440 ml 700 ml 0 ml Exam HEENT exam; supple neck, JVD difficult to see because of short neck. Pharynx is clear. Patient has fair dentition. Chest exam; diminished but clear breath sound. S1-S2 audible, no murmurs. Regular rhythm. There is a dressing applied over the sternum. Abdomen exam; soft, protuberant. No organomegaly. Nontender. Bowel sounds audible. Extremity exam; no peripheral edema. [employer] exam; no focal deficit. Results Result Diagram: 11/24/16 0607 11/24/16 0607 Results 24 hrs Laboratory Tests Test 11/23/16 12:14 11/23/16 17:20 11/23/16 21:36 11/24/16 01:37 Bedside Glucose 156 112 110 146 Test 11/24/16 06:07 11/24/16 08:24 11/24/16 11:17 White Blood Count 7.5 # Red Blood Count 2.79 L Hemoglobin 8.5 L Hematocrit 26.5 L Mean Corpuscular Volume 95.0 Mean Corpuscular Hemoglobin 30.5 Mean Corpuscular Hemoglobin Concent 32.1 Red Cell Distribution Width 13.7 Platelet Count 132 #L Mean Platelet Volume 12.4 H Neutrophils % 77.3 H Lymphocytes % 10.6 L Monocytes % 9.9 Eosinophils % 1.2 Basophils % 0.5 Nucleated Red Blood Cells % 0.0 Neutrophils # 5.8 Lymphocytes # 0.8 Monocytes # 0.8 Eosinophils # 0.1 Basophils # 0.0 Nucleated Red Blood Cells # 0.0 Sodium Level 139 Potassium Level 4.7 Chloride Level 90 L Carbon Dioxide Level 28 Anion Gap 26 H Blood Urea Nitrogen 52 H Creatinine 7.65 H Glucose Level 205 Calcium Level 8.9 Phosphorus Level 7.9 H Magnesium Level 2.3 Bedside Glucose 123 129 Medications Medications Current Medications Hydromorphone HCl (Dilaudid) 0.2 mg Q1H PRN IV PAIN LEVEL 1-5 Last administered on 11/24/16 01:57; Admin Dose 0.2 MG; Start 11/20/16 at 21:30 Ondansetron HCl (Zofran Inj) 4 mg Q6H PRN IV NAUSEA AND/OR VOMITING Last administered on 11/21/16 15:53; Admin Dose 4 MG; Start 11/20/16 at 21:30 Acetaminophen (Tylenol Tab) 650 mg Q3H PRN PO ELEVATED TEMPERATURE Last administered on 11/21/16 21:10; Admin Dose 650 MG; Start 11/20/16 at 21:30 Aspirin (Aspirin) 162 mg DAILY PO Last administered on 11/24/16 09:15; Admin Dose 162 MG; Start 11/21/16 at 09:00 Atorvastatin Calcium (Lipitor) 80 mg HS PO Last administered on 11/23/16 21:38 ; Admin Dose 80 MG; Start 11/21/16 at 21:00 Diagnostic Test (Pha) (Accu-Chek) 1 ea 02 XX Last administered on 11/23/16 02: 32; Admin Dose 1 EA; Start 11/23/16 at 02:00 Miscellaneous Information 1 ea NOTE XX ; Start 11/22/16 at 12:30 Glucose (Glutose) 15 gm Q15M PRN PO DECREASED GLUCOSE; Start 11/22/16 at 12:30 Glucose (Glutose) 22.5 gm Q15M PRN PO DECREASED GLUCOSE; Start 11/22/16 at 12: 30 Dextrose (D50w Syringe) 25 ml Q15M PRN IV DECREASED GLUCOSE; Start 11/22/16 at 12:30 Dextrose (D50w Syringe) 50 ml Q15M PRN IV DECREASED GLUCOSE; Start 11/22/16 at 12:30 Glucagon (Glucagen) 1 mg Q15M PRN IM DECREASED GLUCOSE; Start 11/22/16 at 12:30 Glucose (Glutose) 15 gm Q15M PRN BUCCAL DECREASED GLUCOSE; Start 11/22/16 at 12 :30 Clopidogrel Bisulfate (plaVIX) 75 mg DAILY PO Last administered on 11/24/16 09 :15; Admin Dose 75 MG; Start 11/23/16 at 09:00 Zolpidem Tartrate (Ambien) 5 mg HS PRN PO INSOMNIA Last administered on 22:48; Admin Dose 5 MG; Start 11/22/16 at 21:00 Metoprolol Succinate (Toprol Xl) 25 mg BID PO Last administered on 11/24/16 09 :16; Admin Dose 25 MG; Start 11/23/16 at 21:00 Epoetin Saeid 91656 units 10,000 units MoWeFr@17 SC ; Start 11/26/16 at 17:00 Amiodarone HCl/ Dextrose (Cordarone Iv/ D5W) 500 ml @ 0 mls/hr Q0M IV Last administered on 11/24/16 08:25; Admin Dose 16.7 MLS/HR; Start 11/24/16 at 02:00 ; Stop 11/25/16 at 01:59 SELMA QUIÑONES Nov 24, 2016 11:27
--- NOTE | 2016-11-24 12:47 | PN ---
Date/Time of Note Date/Time of Note DATE: 11/24/16 TIME: 12:31 Assessment/Plan VTE Prophylaxis VTE Prophylaxis Intervention: SCD's Lines/Catheters IV [facility] Type (from [facility]): Peripheral IV Urinary Cath still in place: No Assessment/Plan Chief Complaint/Hosp Course This is a 80-year-old Syrian male with history of coronary artery disease, prediabetes, chronic obstructive pulmonary disease, former smoker and history of myocardial infarction who is status post elective PCI.. Patient was found to have multiple vessel disease with previous restenosis. Now s/p CABG day #4. 1. Respiratory- extubated, hx of COPD, heavy former smoker. breathing treatments to be provided, routine and PRN. .CXR with left effusion/atx/? consolidation. continue incentive spirometer, may consider antibiotics, CT removed. 2. CV- S/P CABG- 4 vessel disease- Chest tube to be removed, Monitor H/H, monitor for fluid overload state. HD done yesterday. 3. ESRD- Nephrology following, HD done yesterday, 3x week and PRN, monitor electrolytes, K. 4.GI- PPI for GI prophylaxis, H/H stable, transfuse PRBC or/and platelets as needed. 5.ID-febrile, follow up for any evidence of infection. Currently off antibiotics , WBC normal, afebrile. 6. Neuro- s/p surgery, no neuro deficits. 7. thrombocytopenia- plt transfusion if bleeding to keep plt >100, otherwise monitor. 8.family aware of patients condition, mild set back with brief afib with rvr and hypoxia. 9. goldman removed. 10.pre DM- glucose levels are good. continue accu check qac and qhs, ISS. 11. diet- as tolerated. 12. OOB - when more stable. Problems: Subjective 24 Hr Interval Summary Free Text/Dictation Patient was transferred to [facility], overnight he went to into afib rvr, given cardizem, and placed on amiodarone drip. Also noted to be more hypxic, place on 10 liter NC, now on face mask. Family at bedside, patient with no specific complaints. All Chest tubes were removed. Constitutional: requiring O2, No chills, No diaphoresis Eyes: No discharge, No visual change ENT: No congestion Respiratory: other (left lung atelectasis, effusion) Cardiovascular: No chest pain, No edema Gastrointestinal: No nausea, No pain Musculoskeletal: No neck pain Neurologic: other (hyperverbal per family), No focal-weakness Lymphatic: No lymphadema Psychological: No confusion Exam/Review of Systems Vital Signs Vitals Vital Signs Date Time Temp Pulse Resp B/P Pulse Ox O2 Delivery O2 Flow Rate FiO2 11/24/16 11:28 98.2 87 16 140/72 96 11/24/16 09:56 Nasal Cannula 8.0 11/22/16 04:26 27 Intake and Output 11/23/16 11/23/16 11/24/16 15:00 23:00 07:00 Intake Total 1100 ml 700 ml 300 ml Output Total 3540 ml 300 ml Balance -2440 ml 700 ml 0 ml Exam Constitutional: No distress Psych: No anxiety, No confusion Eyes: PERRL Respiratory: diminished breath sounds (on left) Cardiovascular: No edema, No irregular rhythm Gastrointestinal: non-tender, other (obese), soft Extremities: other (leftl thigh surgical scar), No clubbing, No cyanosis, No edema Results Result Diagram: 11/24/1607 11/24/1607 Results 24 hrs Laboratory Tests Test 11/23/16 17:20 11/23/16 21:36 11/24/16 01:37 11/24/16 06:07 Bedside Glucose 112 110 146 White Blood Count 7.5 # Red Blood Count 2.79 L Hemoglobin 8.5 L Hematocrit 26.5 L Mean Corpuscular Volume 95.0 Mean Corpuscular Hemoglobin 30.5 Mean Corpuscular Hemoglobin Concent 32.1 Red Cell Distribution Width 13.7 Platelet Count 132 #L Mean Platelet Volume 12.4 H Neutrophils % 77.3 H Lymphocytes % 10.6 L Monocytes % 9.9 Eosinophils % 1.2 Basophils % 0.5 Nucleated Red Blood Cells % 0.0 Neutrophils # 5.8 Lymphocytes # 0.8 Monocytes # 0.8 Eosinophils # 0.1 Basophils # 0.0 Nucleated Red Blood Cells # 0.0 Sodium Level 139 Potassium Level 4.7 Chloride Level 90 L Carbon Dioxide Level 28 Anion Gap 26 H Blood Urea Nitrogen 52 H Creatinine 7.65 H Glucose Level 205 Calcium Level 8.9 Phosphorus Level 7.9 H Magnesium Level 2.3 Test 11/24/16 08:24 11/24/16 11:17 Bedside Glucose 123 129 Medications Medications Current Medications Hydromorphone HCl (Dilaudid) 0.2 mg Q1H PRN IV PAIN LEVEL 1-5 Last administered on 11/24/16 01:57; Admin Dose 0.2 MG; Start 11/20/16 at 21:30 Ondansetron HCl (Zofran Inj) 4 mg Q6H PRN IV NAUSEA AND/OR VOMITING Last administered on 11/21/16 15:53; Admin Dose 4 MG; Start 11/20/16 at 21:30 Acetaminophen (Tylenol Tab) 650 mg Q3H PRN PO ELEVATED TEMPERATURE Last administered on 11/21/16 21:10; Admin Dose 650 MG; Start 11/20/16 at 21:30 Aspirin (Aspirin) 162 mg DAILY PO Last administered on 11/24/16 09:15; Admin Dose 162 MG; Start 11/21/16 at 09:00 Atorvastatin Calcium (Lipitor) 80 mg HS PO Last administered on 11/23/16 21:38 ; Admin Dose 80 MG; Start 11/21/16 at 21:00 Diagnostic Test (Pha) (Accu-Chek) 1 ea 02 XX Last administered on 11/23/16 02: 32; Admin Dose 1 EA; Start 11/23/16 at 02:00 Miscellaneous Information 1 ea NOTE XX ; Start 11/22/16 at 12:30 Glucose (Glutose) 15 gm Q15M PRN PO DECREASED GLUCOSE; Start 11/22/16 at 12:30 Glucose (Glutose) 22.5 gm Q15M PRN PO DECREASED GLUCOSE; Start 11/22/16 at 12: 30 Dextrose (D50w Syringe) 25 ml Q15M PRN IV DECREASED GLUCOSE; Start 11/22/16 at 12:30 Dextrose (D50w Syringe) 50 ml Q15M PRN IV DECREASED GLUCOSE; Start 11/22/16 at 12:30 Glucagon (Glucagen) 1 mg Q15M PRN IM DECREASED GLUCOSE; Start 11/22/16 at 12:30 Glucose (Glutose) 15 gm Q15M PRN BUCCAL DECREASED GLUCOSE; Start 11/22/16 at 12 :30 Clopidogrel Bisulfate (plaVIX) 75 mg DAILY PO Last administered on 11/24/16 09 :15; Admin Dose 75 MG; Start 11/23/16 at 09:00 Zolpidem Tartrate (Ambien) 5 mg HS PRN PO INSOMNIA Last administered on 22:48; Admin Dose 5 MG; Start 11/22/16 at 21:00 Metoprolol Succinate (Toprol Xl) 25 mg BID PO Last administered on 11/24/16 09 :16; Admin Dose 25 MG; Start 11/23/16 at 21:00 Epoetin Saeid 14944 units 10,000 units MoWeFr@17 SC ; Start 11/26/16 at 17:00 Amiodarone HCl/ Dextrose (Cordarone Iv/ D5W) 500 ml @ 0 mls/hr Q0M IV Last administered on 11/24/16 08:25; Admin Dose 16.7 MLS/HR; Start 11/24/16 at 02:00 ; Stop 11/25/16 at 01:59 SUSANNA BURT MD Nov 24, 2016 12:41
[2016-11-24] MEDS: hydrALAzine 20 MG INJ IV PRN (16:11)
--- NOTE | 2016-11-24 16:45 | PN ---
Date/Time of Note Date/Time of Note DATE: 11/24/16 TIME: 16:43 Assessment/Plan VTE Prophylaxis VTE Prophylaxis Intervention: other Lines/Catheters IV [facility] ([facility] Peripheral IV Urinary Cath still in place: No Reason Cath still needed: other (indicate) Assessment/Plan Chief Complaint/Hosp Course 1. CAD: S/P CABG: still in ICU 2. S/P multiple PCI in the past 3. DM: on insulin drip now 4. ESRD on HD 5. COPD: follow up with pulm 6. resp failure: extubated in ICU 7. DYSLIPIDEMIA: back on lipitor 80 8. anemia 9. post op short PAFIB. REC: will cont ASA. cont plavix 75 mg po qd now that ok with CT surgery . Dr Bernard will follow for pulm statues will DEC betablocker QD only due to wheezing and add cardizem po I give a dose of steroid now and give xopenex now. statin tele monitoring correct lytes prn HD as per renal. Thank you for this referral. I will continue to follow along with you Problems: Subjective 24 Hr Interval Summary Free Text/Dictation D/W STAFF and rhythm was reviewed. pt converted into P afib last night, converted to NSR and was placed on amiodarone drip. he has been in NSR since then he c/o sob. no palpitations OBJECTIVE: General: diaphoretic HEENT: NC/AT. pupils are equal. round. NECK: NO JVD. no stridor. CV: TACHYCARDIC. systolic murmur; no gallop or rubs. PULM: +wheezing GI: SOFT, NT, ND, no rebound or guarding Extremity: trace B/L LE edema. no clubbing. neuro: awake and alert. responds appropriately . Psych: calm and pleasant rectal: deferred : normal male chest: s/p sternotomy. Exam/Review of Systems Vital Signs Vitals Vital Signs Date Time Temp Pulse Resp B/P Pulse Ox O2 Delivery O2 Flow Rate FiO2 11/24/16 16:40 91 11/24/16 15:31 98.5 16 163/77 96 11/24/16 14:59 8.0 11/24/16 14:59 Simple Mask 11/22/16 04:26 27 Intake and Output 11/23/16 11/23/16 11/24/16 15:00 23:00 07:00 Intake Total 1100 ml 700 ml 300 ml Output Total 3540 ml 300 ml Balance -2440 ml 700 ml 0 ml Results Result Diagram: 11/24/16 0607 11/24/16 0607 Results 24 hrs Laboratory Tests Test 11/23/16 17:20 11/23/16 21:36 11/24/16 01:37 11/24/16 06:07 Bedside Glucose 112 110 146 White Blood Count 7.5 # Red Blood Count 2.79 L Hemoglobin 8.5 L Hematocrit 26.5 L Mean Corpuscular Volume 95.0 Mean Corpuscular Hemoglobin 30.5 Mean Corpuscular Hemoglobin Concent 32.1 Red Cell Distribution Width 13.7 Platelet Count 132 #L Mean Platelet Volume 12.4 H Neutrophils % 77.3 H Lymphocytes % 10.6 L Monocytes % 9.9 Eosinophils % 1.2 Basophils % 0.5 Nucleated Red Blood Cells % 0.0 Neutrophils # 5.8 Lymphocytes # 0.8 Monocytes # 0.8 Eosinophils # 0.1 Basophils # 0.0 Nucleated Red Blood Cells # 0.0 Sodium Level 139 Potassium Level 4.7 Chloride Level 90 L Carbon Dioxide Level 28 Anion Gap 26 H Blood Urea Nitrogen 52 H Creatinine 7.65 H Glucose Level 205 Calcium Level 8.9 Phosphorus Level 7.9 H Magnesium Level 2.3 Test 11/24/16 08:24 11/24/16 11:17 Bedside Glucose 123 129 Medications Medications Current Medications Hydromorphone HCl (Dilaudid) 0.2 mg Q1H PRN IV PAIN LEVEL 1-5 Last administered on 11/24/16 01:57; Admin Dose 0.2 MG; Start 11/20/16 at 21:30 Ondansetron HCl (Zofran Inj) 4 mg Q6H PRN IV NAUSEA AND/OR VOMITING Last administered on 11/21/16 15:53; Admin Dose 4 MG; Start 11/20/16 at 21:30 Acetaminophen (Tylenol Tab) 650 mg Q3H PRN PO ELEVATED TEMPERATURE Last administered on 11/21/16 21:10; Admin Dose 650 MG; Start 11/20/16 at 21:30 Aspirin (Aspirin) 162 mg DAILY PO Last administered on 11/24/16 09:15; Admin Dose 162 MG; Start 11/21/16 at 09:00 Atorvastatin Calcium (Lipitor) 80 mg HS PO Last administered on 11/23/16 21:38 ; Admin Dose 80 MG; Start 11/21/16 at 21:00 Diagnostic Test (Pha) (Accu-Chek) 1 ea 02 XX Last administered on 11/23/16 02: 32; Admin Dose 1 EA; Start 11/23/16 at 02:00 Miscellaneous Information 1 ea NOTE XX ; Start 11/22/16 at 12:30 Glucose (Glutose) 15 gm Q15M PRN PO DECREASED GLUCOSE; Start 11/22/16 at 12:30 Glucose (Glutose) 22.5 gm Q15M PRN PO DECREASED GLUCOSE; Start 11/22/16 at 12: 30 Dextrose (D50w Syringe) 25 ml Q15M PRN IV DECREASED GLUCOSE; Start 11/22/16 at 12:30 Dextrose (D50w Syringe) 50 ml Q15M PRN IV DECREASED GLUCOSE; Start 11/22/16 at 12:30 Glucagon (Glucagen) 1 mg Q15M PRN IM DECREASED GLUCOSE; Start 11/22/16 at 12:30 Glucose (Glutose) 15 gm Q15M PRN BUCCAL DECREASED GLUCOSE; Start 11/22/16 at 12 :30 Clopidogrel Bisulfate (plaVIX) 75 mg DAILY PO Last administered on 11/24/16 09 :15; Admin Dose 75 MG; Start 11/23/16 at 09:00 Zolpidem Tartrate (Ambien) 5 mg HS PRN PO INSOMNIA Last administered on 22:48; Admin Dose 5 MG; Start 11/22/16 at 21:00 Metoprolol Succinate (Toprol Xl) 25 mg BID PO Last administered on 11/24/16 09 :16; Admin Dose 25 MG; Start 11/23/16 at 21:00 Epoetin Saeid 05040 units 10,000 units MoWeFr@17 SC ; Start 11/26/16 at 17:00 Amiodarone HCl/ Dextrose (Cordarone Iv/ D5W) 500 ml @ 0 mls/hr Q0M IV Last administered on 11/24/16 08:25; Admin Dose 16.7 MLS/HR; Start 11/24/16 at 02:00 ; Stop 11/25/16 at 01:59 Hydralazine HCl (Apresoline) 10 mg Q4H PRN IV SBP >160 Last administered on t 16:11; Admin Dose 10 MG; Start 11/24/16 at 16:00 ADENIKE MAYERS MD Nov 24, 2016 16:45
[2016-11-24] MEDS ORDERED: LEVALBUTEROL (NEB) 0.63 MG/3 ML AMP HHN ONE (17:00)
[2016-11-24] MEDS ORDERED: METHYLPREDNISOLONE 125 MG INJ IV ONE (17:00)
[2016-11-24] MEDS: ACETAMINOPHEN 325 MG TAB PO PRN (17:19)
[2016-11-24] MEDS: DILTIAZEM 30 MG TAB PO SCH (17:19)
--- NOTE | 2016-11-24 18:29 | RADRPT ---
PROCEDURE: XR Chest. CLINICAL INDICATION: Shortness of breath. TECHNIQUE: Single frontal view. COMPARISON: 11/23/2016. FINDINGS: The right internal jugular vein sheath catheter, left chest tube, and mediastinal drains have been r emoved. There is mild left basilar atelectasis and a moderate left pleural effusion, unchanged. Th e right lung is clear and there is no right pleural effusion. The heart is enlarged. There are sternal wires and mediastinal clips. There is no pneumothorax. IMPRESSION: 1. Right IJ sheath catheter, left chest tube, and mediastinal drains removed. 2. Left pleural effusion and left basilar atelectasis. 3. Cardiomegaly. 4. Previous median sternotomy. RPTAT: QQ .Bebo Barreto MD, MD Date Time Electronically viewed and signed by .Bebo Barreto MD, MD on 11/24/2016 18:28 .R/
--- NOTE | 2016-11-24 18:52 | CONS ---
Date/Time of Note Date/Time of Note DATE: 11/24/16 TIME: 18:45 Assessment/Plan Assessment/Plan Problems: (1) S/P CABG (coronary artery bypass graft) Comment: PT TOLERATING POST OP COURSE (2) ESRD (end stage renal disease) (3) NSTEMI (non-ST elevated myocardial infarction) Status: Acute (4) Shortness of breath Status: Chronic Comment: hd TOMORROW (5) DM2 (diabetes mellitus, type 2) Status: Chronic Comment: BS IS STABLE (6) Anemia Status: Chronic Comment: PT ON EPO MONITOR HCT Additional Assessment/Plan wILL [facility] HCT & tX IF NECESSARY RENAL [facility], HD SCHEDULED FOR AM THEN BACK TO TTS Consultation Date/Type/Reason Admit Date/Time Nov 20, 2016 at 05:43 Initial Consult Date 11/21/16 Type of Consultation: RENAL Referring Provider: SUSANNA BURT MD 24 HR Interval Summary Free Text/Dictation PT C/O SOB PER RN, HR RAPID ON CARDIZEM DRIP Exam/Review of Systems Vital Signs Vitals Vital Signs Date Time Temp Pulse Resp B/P Pulse Ox O2 Delivery O2 Flow Rate FiO2 11/24/16 17:09 99.0 142/80 11/24/16 16:40 91 11/24/16 15:31 16 96 11/24/16 14:59 8.0 11/24/16 14:59 Simple Mask 11/22/16 04:26 27 Intake and Output 11/23/16 11/23/16 11/24/16 15:00 23:00 07:00 Intake Total 1100 ml 700 ml 300 ml Output Total 3540 ml 300 ml Balance -2440 ml 700 ml 0 ml Exam Constitutional: alert, oriented, well developed Psych: nl mood/affect, no complaints Head: atraumatic, normocephalic Eyes: EOMI, PERRL, nl conjunctiva, nl lids, nl sclera ENMT: nl external ears & nose, nl lips & teeth, nl nasal mucosa & septum Neck: non-tender, supple Respiratory: clear to auscultation, normal air movement Cardiovascular: nl pulses, other (MIDLINE SX WOUND IS HEALING), regular rate and rhythm Gastrointestinal: nl liver, spleen, non-tender, soft Musculoskeletal: nl extremities to inspection, nl gait and stance Extremities: normal pulses Neurological: MAGAZINE FEEDER II-XII intact, nl mental status, nl speech, nl strength Skin: nl turgor, No rash or lesions Lymph: nl lymph nodes Results hCT STABLE AT 26% Result Diagram: 11/24/16 0607 11/24/16 0607 Results 24 hrs Laboratory Tests Test 11/23/16 21:36 11/24/16 01:37 11/24/16 06:07 11/24/16 08:24 Bedside Glucose 110 146 123 White Blood Count 7.5 # Red Blood Count 2.79 L Hemoglobin 8.5 L Hematocrit 26.5 L Mean Corpuscular Volume 95.0 Mean Corpuscular Hemoglobin 30.5 Mean Corpuscular Hemoglobin Concent 32.1 Red Cell Distribution Width 13.7 Platelet Count 132 #L Mean Platelet Volume 12.4 H Neutrophils % 77.3 H Lymphocytes % 10.6 L Monocytes % 9.9 Eosinophils % 1.2 Basophils % 0.5 Nucleated Red Blood Cells % 0.0 Neutrophils # 5.8 Lymphocytes # 0.8 Monocytes # 0.8 Eosinophils # 0.1 Basophils # 0.0 Nucleated Red Blood Cells # 0.0 Sodium Level 139 Potassium Level 4.7 Chloride Level 90 L Carbon Dioxide Level 28 Anion Gap 26 H Blood Urea Nitrogen 52 H Creatinine 7.65 H Glucose Level 205 Calcium Level 8.9 Phosphorus Level 7.9 H Magnesium Level 2.3 Test 11/24/16 11:17 11/24/16 17:18 Bedside Glucose 129 127 Medications Medications Current Medications Hydromorphone HCl (Dilaudid) 0.2 mg Q1H PRN IV PAIN LEVEL 1-5 Last administered on 11/24/16 01:57; Admin Dose 0.2 MG; Start 11/20/16 at 21:30 Ondansetron HCl (Zofran Inj) 4 mg Q6H PRN IV NAUSEA AND/OR VOMITING Last administered on 11/21/16 15:53; Admin Dose 4 MG; Start 11/20/16 at 21:30 Acetaminophen (Tylenol Tab) 650 mg Q3H PRN PO ELEVATED TEMPERATURE Last administered on 11/24/16 17:19; Admin Dose 650 MG; Start 11/20/16 at 21:30 Aspirin (Aspirin) 162 mg DAILY PO Last administered on 11/24/16 09:15; Admin Dose 162 MG; Start 11/21/16 at 09:00 Atorvastatin Calcium (Lipitor) 80 mg HS PO Last administered on 11/23/16 21:38 ; Admin Dose 80 MG; Start 11/21/16 at 21:00 Diagnostic Test (Pha) (Accu-Chek) 1 ea 02 XX Last administered on 11/23/16 02: 32; Admin Dose 1 EA; Start 11/23/16 at 02:00 Miscellaneous Information 1 ea NOTE XX ; Start 11/22/16 at 12:30 Glucose (Glutose) 15 gm Q15M PRN PO DECREASED GLUCOSE; Start 11/22/16 at 12:30 Glucose (Glutose) 22.5 gm Q15M PRN PO DECREASED GLUCOSE; Start 11/22/16 at 12: 30 Dextrose (D50w Syringe) 25 ml Q15M PRN IV DECREASED GLUCOSE; Start 11/22/16 at 12:30 Dextrose (D50w Syringe) 50 ml Q15M PRN IV DECREASED GLUCOSE; Start 11/22/16 at 12:30 Glucagon (Glucagen) 1 mg Q15M PRN IM DECREASED GLUCOSE; Start 11/22/16 at 12:30 Glucose (Glutose) 15 gm Q15M PRN BUCCAL DECREASED GLUCOSE; Start 11/22/16 at 12 :30 Clopidogrel Bisulfate (plaVIX) 75 mg DAILY PO Last administered on 11/24/16 09 :15; Admin Dose 75 MG; Start 11/23/16 at 09:00 Zolpidem Tartrate (Ambien) 5 mg HS PRN PO INSOMNIA Last administered on 22:48; Admin Dose 5 MG; Start 11/22/16 at 21:00 Epoetin Saeid (Epogen (Esrd)) 10,000 units MoWeFr@17 SC ; Start 11/26/16 at 17:00 Hydralazine HCl (Apresoline) 10 mg Q4H PRN IV SBP >160 Last administered on 16:11; Admin Dose 10 MG; Start 11/24/16 at 16:00 Metoprolol Succinate (Toprol Xl) 25 mg DAILY PO ; Start 11/25/16 at 09:00 Diltiazem HCl (Cardizem) 30 mg Q6 PO Last administered on 11/24/16 17:19; Admin Dose 30 MG; Start 11/24/16 at 18:00 MARLON JO MD Nov 24, 2016 18:52
[2016-11-24] MEDS: ATORVASTATIN 80 MG TAB PO SCH (20:35)
[2016-11-24] MEDS: LORAZEPAM 1 MG TAB PO PRN (20:42)
[2016-11-25] VITALS (22 sets, daily range): BP systolic 133–170; BP diastolic 62–82; PULSE 85–99; RESP 16–22
[2016-11-25] MEDS: DILTIAZEM 30 MG TAB PO SCH ×5 (00:05→23:52)
[2016-11-25] MEDS: ACCU-CHEK XX SCH (02:00)
[2016-11-25] MEDS: IPRATROPIUM (NEB) 0.5 MG/2.5 ML AMP HHN SCH ×5 (02:00→20:22)
[2016-11-25] MEDS: LEVALBUTEROL (NEB) 1.25 MG/0.5 ML AMP INH SCH ×5 (02:00→20:22)
[2016-11-25 07:05] LABS: ABNORMAL IP MESSAGE 1; EOSINOPHILS % 0.2 % (0.0-7.0); HEMATOCRIT 26.4 % (42.0-52.0); HEMOGLOBIN 8.6 g/dl (14.0-18.0); LYMPHOCYTES # 0.3 10^3/ul (0.8-2.9); LYMPHOCYTES % 5.1 % (15.0-51.0); MEAN CORPUSCULAR HEMOGLOBIN 29.9 pg (29.0-33.0); MEAN CORPUSCULAR HGB CONC 32.6 g/dl (32.0-37.0); MEAN CORPUSCULAR VOLUME 91.7 fl (82.0-101.0); MEAN PLATELET VOLUME 11.6 fl (7.4-10.4); MONOCYTE # 0.4 10^3/ul (0.3-0.9); MONOCYTES % 5.7 % (0.0-11.0); NEUTROPHIL # 5.8 10^3/ul (1.6-7.5); NEUTROPHILS % 88.1 % (39.0-77.0); PLATELET COUNT 144 10^3/UL (140-415); POSITIVE DIFF @See below; RED BLOOD COUNT 2.88 10^6/ul (4.70-6.10); RED CELL DISTRIBUTION WIDTH 13.2 % (11.5-14.5); WHITE BLOOD COUNT 6.6 10^3/ul (4.8-10.8)
[2016-11-25 07:31] LABS: ALBUMIN 4.2 g/dl (3.3-4.9); ALBUMIN/GLOBULIN RATIO 1.2; BILIRUBIN,INDIRECT 0.2 mg/dl (0-1.1); BILIRUBIN,TOTAL 0.2 mg/dl (0.2-1.3); CALCIUM 8.6 mg/dl (8.4-10.2); CREATININE 9.61 mg/dl (0.61-1.24); POTASSIUM 5.3 mmol/L (3.5-5.1); TOTAL PROTEIN 7.7 g/dl (6.1-8.1)
[2016-11-25 07:38] LABS: MAGNESIUM 2.5 mg/dl (1.7-2.5); PHOSPHORUS 9.2 mg/dl (2.5-4.9)
[2016-11-25] MEDS: INSULIN ASPART [NOVOLOG] 3 ML PEN SC SCH ×4 (08:49→20:51)
[2016-11-25] MEDS: ASPIRIN 81 MG TAB PO SCH (08:51)
[2016-11-25] MEDS: CLOPIDOGREL 75 MG TAB PO SCH (08:51)
[2016-11-25] MEDS: METOPROLOL (XL) 25 MG TAB PO SCH (08:52)
--- NOTE | 2016-11-25 13:19 | PN ---
Date/Time of Note Date/Time of Note DATE: 11/25/16 TIME: 13:15 Assessment/Plan VTE Prophylaxis VTE Prophylaxis Intervention: SCD's Lines/Catheters IV [facility] Saline Lock Urinary Cath still in place: No Assessment/Plan Chief Complaint/Hosp Course This is a 80-year-old Irish male with history of coronary artery disease, prediabetes, chronic obstructive pulmonary disease, former smoker and history of myocardial infarction who is status post elective PCI.. Patient was found to have multiple vessel disease with previous restenosis. Now s/p CABG day #5. 1. Respiratory- extubated, hx of COPD, heavy former smoker. breathing treatments to be provided, routine and PRN. .CXR with left effusion/atx/? consolidation. continue incentive spirometer, afebrile, off antibiotics, CT removed. 2. CV- S/P CABG- 4 vessel disease- chest tube removed. Monitor H/H, monitor for fluid overload state. HD done today. 3. ESRD- Nephrology following, HD done today, 3x week and PRN, monitor electrolytes, K. 4.GI- PPI for GI prophylaxis, H/H stable, transfuse PRBC or/and platelets as needed. 5.ID-febrile, follow up for any evidence of infection. Currently off antibiotics , WBC normal, afebrile. 6. Neuro- s/p surgery, no neuro deficits. 7. thrombocytopenia- plt transfusion if bleeding to keep plt >100, otherwise monitor. 8.family aware of patients condition, mild set back with brief afib with rvr and hypoxia. 9. goldman removed. 10.pre DM- glucose levels are good. continue accu check qac and qhs, ISS. add low dose lantus 4 units daily. 11. diet- as tolerated. 12. OOB - when more stable. 13. discharge planning to be initiated. 14. constipation- stool softeners to be added. Problems: Subjective 24 Hr Interval Summary Free Text/Dictation Patient was anxious yesterday, much better today. S/P dialysis today, family at bedside. Afebrile. constipated, walking with physical therapy. Constitutional: No febrile Eyes: No discharge, No redness ENT: congestion (mild) Respiratory: No shortness of breath Cardiovascular: No chest pain, No palpitations Gastrointestinal: constipation, No diarrhea Genitourinary: No discharge Skin: other (surgical scars) Neurologic: No focal-weakness Exam/Review of Systems Vital Signs Vitals Vital Signs Date Time Temp Pulse Resp B/P Pulse Ox O2 Delivery O2 Flow Rate FiO2 11/25/16 12:26 99 11/25/16 11:07 98.2 16 145/68 97 11/25/16 09:16 5.0 11/25/16 07:55 Simple Mask 11/22/16 04:26 27 Intake and Output 11/24/16 11/24/16 11/25/16 15:00 23:00 07:00 Intake Total 660 ml 460 ml Output Total 100 ml 250 ml Balance 560 ml 210 ml Exam Psych: No confusion Eyes: PERRL Neck: No bruits Respiratory: crackles/rales (mild) Cardiovascular: No irregular rhythm Gastrointestinal: No firm Genitourinary - Male: No CVA tenderness Musculoskeletal: No muscle weakness Extremities: No clubbing, No cyanosis, No edema Results Result Diagram: 11/25/16 0632 11/25/16 0632 Results 24 hrs Laboratory Tests Test 11/24/16 17:18 11/24/16 20:37 11/25/16 06:32 11/25/16 08:37 Bedside Glucose 127 164 251 H White Blood Count 6.6 Red Blood Count 2.88 L Hemoglobin 8.6 L Hematocrit 26.4 L Mean Corpuscular Volume 91.7 Mean Corpuscular Hemoglobin 29.9 Mean Corpuscular Hemoglobin Concent 32.6 Red Cell Distribution Width 13.2 Platelet Count 144 Mean Platelet Volume 11.6 H Neutrophils % 88.1 H Lymphocytes % 5.1 L Monocytes % 5.7 Eosinophils % 0.2 Basophils % 0.0 Nucleated Red Blood Cells % 0.0 Neutrophils # 5.8 Lymphocytes # 0.3 L Monocytes # 0.4 Eosinophils # 0.0 Basophils # 0.0 Nucleated Red Blood Cells # 0.0 Sodium Level 143 Potassium Level 5.3 H Chloride Level 93 L Carbon Dioxide Level 24 Anion Gap 31 H Blood Urea Nitrogen 75 H Creatinine 9.61 H Glucose Level 164 Calcium Level 8.6 Phosphorus Level 9.2 H Magnesium Level 2.5 Total Bilirubin 0.2 Direct Bilirubin 0.00 Indirect Bilirubin 0.2 Aspartate Amino Transf (AST/SGOT) 68 H Alanine Aminotransferase (ALT/SGPT) 61 Alkaline Phosphatase 183 H Total Protein 7.7 Albumin 4.2 Globulin 3.50 H Albumin/Globulin Ratio 1.20 Test 11/25/16 08:39 11/25/16 11:14 Bedside Glucose 156 173 Medications Medications Current Medications Hydromorphone HCl (Dilaudid) 0.2 mg Q1H PRN IV PAIN LEVEL 1-5 Last administered on 11/24/16 01:57; Admin Dose 0.2 MG; Start 11/20/16 at 21:30 Ondansetron HCl (Zofran Inj) 4 mg Q6H PRN IV NAUSEA AND/OR VOMITING Last administered on 11/21/16 15:53; Admin Dose 4 MG; Start 11/20/16 at 21:30 Acetaminophen (Tylenol Tab) 650 mg Q3H PRN PO ELEVATED TEMPERATURE Last administered on 11/24/16 17:19; Admin Dose 650 MG; Start 11/20/16 at 21:30 Aspirin (Aspirin) 162 mg DAILY PO Last administered on 11/25/16 08:51; Admin Dose 162 MG; Start 11/21/16 at 09:00 Atorvastatin Calcium (Lipitor) 80 mg HS PO Last administered on 11/24/16 20:35 ; Admin Dose 80 MG; Start 11/21/16 at 21:00 Diagnostic Test (Pha) (Accu-Chek) 1 ea 02 XX Last administered on 11/23/16 02: 32; Admin Dose 1 EA; Start 11/23/16 at 02:00 Miscellaneous Information 1 ea NOTE XX ; Start 11/22/16 at 12:30 Glucose (Glutose) 15 gm Q15M PRN PO DECREASED GLUCOSE; Start 11/22/16 at 12:30 Glucose (Glutose) 22.5 gm Q15M PRN PO DECREASED GLUCOSE; Start 11/22/16 at 12: 30 Dextrose (D50w Syringe) 25 ml Q15M PRN IV DECREASED GLUCOSE; Start 11/22/16 at 12:30 Dextrose (D50w Syringe) 50 ml Q15M PRN IV DECREASED GLUCOSE; Start 11/22/16 at 12:30 Glucagon (Glucagen) 1 mg Q15M PRN IM DECREASED GLUCOSE; Start 11/22/16 at 12:30 Glucose (Glutose) 15 gm Q15M PRN BUCCAL DECREASED GLUCOSE; Start 11/22/16 at 12 :30 Clopidogrel Bisulfate (plaVIX) 75 mg DAILY PO Last administered on 11/25/16 08 :51; Admin Dose 75 MG; Start 11/23/16 at 09:00 Zolpidem Tartrate (Ambien) 5 mg HS PRN PO INSOMNIA Last administered on 22:48; Admin Dose 5 MG; Start 11/22/16 at 21:00 Epoetin Saeid (Epogen (Esrd)) 10,000 units MoWeFr@17 SC ; Start 11/26/16 at 17:00 Hydralazine HCl (Apresoline) 10 mg Q4H PRN IV SBP >160 Last administered on 16:11; Admin Dose 10 MG; Start 11/24/16 at 16:00 Metoprolol Succinate (Toprol Xl) 25 mg DAILY PO Last administered on 11/25/16 08:52; Admin Dose 25 MG; Start 11/25/16 at 09:00 Diltiazem HCl (Cardizem) 30 mg Q6 PO Last administered on 11/25/16 11:20; Admin Dose 30 MG; Start 11/24/16 at 18:00 Lorazepam (Ativan) 1 mg Q4H PRN PO ANXIETY Last administered on 11/24/16 20:42 ; Admin Dose 1 MG; Start 11/24/16 at 19:00 Docusate Sodium (Colace) 250 mg BID PO ; Start 11/25/16 at 13:30; Status UNV Senna (Senokot) 1 tab DAILY PO ; Start 11/25/16 at 13:30; Status UNV Magnesium Hydroxide (Milk Of Mag) 30 ml BID PRN PO CONSTIPATION; Start at 13:30; Status UNV SUSANNA BURT MD Nov 25, 2016 13:19
[2016-11-25] MEDS ORDERED: MAGNESIUM HYDROXIDE 30ML CUP PO PRN (13:30)
[2016-11-25] MEDS: SENNA TAB PO SCH (13:43)
[2016-11-25] MEDS: DOCUSATE SODIUM 250 MG CAP PO SCH ×2 (13:43→20:51)
--- NOTE | 2016-11-25 15:54 | PN ---
Date/Time of Note Date/Time of Note DATE: 11/25/16 TIME: 15:51 Assessment/Plan VTE Prophylaxis VTE Prophylaxis Intervention: other Lines/Catheters IV Catheter Type (from Nrs): Saline Lock Urinary Cath still in place: No Reason Cath still needed: other (indicate) Assessment/Plan Chief Complaint/Hosp Course 1. CAD: S/P CAB. S/P multiple PCI in the past 3. DM: on insulin drip now 4. ESRD on HD 5. COPD: follow up with pulm 6. resp failure: extubated in ICU 7. DYSLIPIDEMIA: back on lipitor 80 8. anemia 9. post op short PAFIB. 10./ s/p AR REC: will cont ASA. cont plavix [address] Bernard will follow for pulm statues will cont low dose betablocker QD only due to wheezing and CONT cardizem po statin tele monitoring correct lytes prn HD as per renal. Thank you for this referral. I will continue to follow along with you Problems: Subjective 24 Hr Interval Summary Free Text/Dictation CARDIOLOGY FOLLOW UP NOTE: D/W STAFF and rhythm was reviewed. pt converted converted to NSR HE HAD HD done and his breathing is much better now. no palpitations OBJECTIVE: General: diaphoretic HEENT: NC/AT. pupils are equal. round. NECK: NO JVD. no stridor. CV: TACHYCARDIC. systolic murmur; no gallop or rubs. PULM: minimal wheezing GI: SOFT, NT, ND, no rebound or guarding Extremity: trace B/L LE edema. no clubbing. neuro: awake and alert. responds appropriately . Psych: calm and pleasant rectal: deferred : normal male chest: s/p sternotomy. Exam/Review of Systems Vital Signs Vitals Vital Signs Date Time Temp Pulse Resp B/P Pulse Ox O2 Delivery O2 Flow Rate FiO2 11/25/16 15:43 91 2.0 11/25/16 15:39 92 20 Nasal Cannula 11/25/16 15:29 98.5 135/71 11/22/16 04:26 27 Intake and Output 11/24/16 11/24/16 11/25/16 15:00 23:00 07:00 Intake Total 660 ml 460 ml Output Total 100 ml 250 ml Balance 560 ml 210 ml Results Result Diagram: 11/25/16 0632 11/25/16 0632 Results 24 hrs Laboratory Tests Test 11/24/16 17:18 11/24/16 20:37 11/25/16 06:32 11/25/16 08:37 Bedside Glucose 127 164 251 H White Blood Count 6.6 Red Blood Count 2.88 L Hemoglobin 8.6 L Hematocrit 26.4 L Mean Corpuscular Volume 91.7 Mean Corpuscular Hemoglobin 29.9 Mean Corpuscular Hemoglobin Concent 32.6 Red Cell Distribution Width 13.2 Platelet Count 144 Mean Platelet Volume 11.6 H Neutrophils % 88.1 H Lymphocytes % 5.1 L Monocytes % 5.7 Eosinophils % 0.2 Basophils % 0.0 Nucleated Red Blood Cells % 0.0 Neutrophils # 5.8 Lymphocytes # 0.3 L Monocytes # 0.4 Eosinophils # 0.0 Basophils # 0.0 Nucleated Red Blood Cells # 0.0 Sodium Level 143 Potassium Level 5.3 H Chloride Level 93 L Carbon Dioxide Level 24 Anion Gap 31 H Blood Urea Nitrogen 75 H Creatinine 9.61 H Glucose Level 164 Calcium Level 8.6 Phosphorus Level 9.2 H Magnesium Level 2.5 Total Bilirubin 0.2 Direct Bilirubin 0.00 Indirect Bilirubin 0.2 Aspartate Amino Transf (AST/SGOT) 68 H Alanine Aminotransferase (ALT/SGPT) 61 Alkaline Phosphatase 183 H Total Protein 7.7 Albumin 4.2 Globulin 3.50 H Albumin/Globulin Ratio 1.20 Test 11/25/16 08:39 11/25/16 11:14 Bedside Glucose 156 173 Medications Medications Current Medications Hydromorphone HCl (Dilaudid) 0.2 mg Q1H PRN IV PAIN LEVEL 1-5 Last administered on 11/24/16 01:57; Admin Dose 0.2 MG; Start 11/20/16 at 21:30 Ondansetron HCl (Zofran Inj) 4 mg Q6H PRN IV NAUSEA AND/OR VOMITING Last administered on 11/21/16 15:53; Admin Dose 4 MG; Start 11/20/16 at 21:30 Acetaminophen (Tylenol Tab) 650 mg Q3H PRN PO ELEVATED TEMPERATURE Last administered on 11/24/16 17:19; Admin Dose 650 MG; Start 11/20/16 at 21:30 Aspirin (Aspirin) 162 mg DAILY PO Last administered on 11/25/16 08:51; Admin Dose 162 MG; Start 11/21/16 at 09:00 Atorvastatin Calcium (Lipitor) 80 mg HS PO Last administered on 11/24/16 20:35 ; Admin Dose 80 MG; Start 11/21/16 at 21:00 Diagnostic Test (Pha) (Accu-Chek) 1 ea 02 XX Last administered on 11/23/16 02: 32; Admin Dose 1 EA; Start 11/23/16 at 02:00 Miscellaneous Information 1 ea NOTE XX ; Start 11/22/16 at 12:30 Glucose (Glutose) 15 gm Q15M PRN PO DECREASED GLUCOSE; Start 11/22/16 at 12:30 Glucose (Glutose) 22.5 gm Q15M PRN PO DECREASED GLUCOSE; Start 11/22/16 at 12: 30 Dextrose (D50w Syringe) 25 ml Q15M PRN IV DECREASED GLUCOSE; Start 11/22/16 at 12:30 Dextrose (D50w Syringe) 50 ml Q15M PRN IV DECREASED GLUCOSE; Start 11/22/16 at 12:30 Glucagon (Glucagen) 1 mg Q15M PRN IM DECREASED GLUCOSE; Start 11/22/16 at 12:30 Glucose (Glutose) 15 gm Q15M PRN BUCCAL DECREASED GLUCOSE; Start 11/22/16 at 12 :30 Clopidogrel Bisulfate (plaVIX) 75 mg DAILY PO Last administered on 11/25/16 08 :51; Admin Dose 75 MG; Start 11/23/16 at 09:00 Zolpidem Tartrate (Ambien) 5 mg HS PRN PO INSOMNIA Last administered on 22:48; Admin Dose 5 MG; Start 11/22/16 at 21:00 Epoetin Saeid (Epogen (Esrd)) 10,000 units MoWeFr@17 SC ; Start 11/26/16 at 17:00 Hydralazine HCl (Apresoline) 10 mg Q4H PRN IV SBP >160 Last administered on 16:11; Admin Dose 10 MG; Start 11/24/16 at 16:00 Metoprolol Succinate (Toprol Xl) 25 mg DAILY PO Last administered on 11/25/16 08:52; Admin Dose 25 MG; Start 11/25/16 at 09:00 Diltiazem HCl (Cardizem) 30 mg Q6 PO Last administered on 11/25/16 11:20; Admin Dose 30 MG; Start 11/24/16 at 18:00 Lorazepam (Ativan) 1 mg Q4H PRN PO ANXIETY Last administered on 11/24/16 20:42 ; Admin Dose 1 MG; Start 11/24/16 at 19:00 Docusate Sodium (Colace) 250 mg BID PO Last administered on 11/25/16 13:43; Admin Dose 250 MG; Start 11/25/16 at 13:30 Senna (Senokot) 1 tab DAILY PO Last administered on 11/25/16 13:43; Admin Dose 1 TAB; Start 11/25/16 at 13:30 Magnesium Hydroxide (Milk Of Mag) 30 ml BID PRN PO CONSTIPATION; Start at 13:30 Insulin Glargine (Lantus) 4 unit DAILY@08 SC ; Start 11/26/16 at 08:00 ADENIKE MAYERS MD Nov 25, 2016 15:54
--- NOTE | 2016-11-25 18:15 | PN ---
Date/Time of Note Date/Time of Note DATE: 11/25/16 TIME: 18:14 Assessment/Plan Lines/Catheters IV Catheter Type (from Nrsg): Saline Lock Flanagan in Place (from Nrsg): No Assessment/Plan Chief Complaint/Hosp Course Status post coronary artery bypass grafting Patient is extubated Still tachycardic and hypotensive Stable hemoglobin Underwent hemodialysis with stable condition today Awake and alert Chest tubes DC'd Pulmonary toilet ambulation DC planning Discussed with the patient and the family Discussed with the referring physicians Problems: Subjective 24 Hr Interval Summary Constitutional: improved Pain Control: mild Exam/Review of Systems Vital Signs Vitals Vital Signs Date Time Temp Pulse Resp B/P Pulse Ox O2 Delivery O2 Flow Rate FiO2 11/25/16 17:56 89 11/25/16 15:43 91 2.0 11/25/16 15:39 20 Nasal Cannula 11/25/16 15:29 98.5 135/71 11/22/16 04:26 27 Intake and Output 11/24/16 11/24/16 11/25/16 15:00 23:00 07:00 Intake Total 660 ml 460 ml Output Total 100 ml 250 ml Balance 560 ml 210 ml Exam Eyes: EOMI, nl conjunctiva, nl lids, nl sclera ENMT: mucosa pink and moist, nl external ears & nose, nl lips & teeth, nl nasal mucosa & septum Neck: non-tender, supple Respiratory: clear to auscultation, normal air movement Results Result Diagram: 11/25/16 0632 11/25/16 0632 JN ROMAN MD Nov 25, 2016 18:15
[2016-11-25] MEDS ORDERED: IPRATROPIUM (NEB) 0.5 MG/2.5 ML AMP HHN PRN (19:00)
[2016-11-25] MEDS ORDERED: LEVALBUTEROL (NEB) 1.25 MG/0.5 ML AMP INH PRN (19:00)
--- NOTE | 2016-11-25 20:00 | CONS ---
Date/Time of Note Date/Time of Note DATE: 11/25/16 TIME: 20:00 Assessment/Plan Assessment/Plan Problems: (1) ESRD (end stage renal disease) Comment: He is back on TTS HD schedule (2) DM2 (diabetes mellitus, type 2) Status: Chronic Comment: BS has been stable (3) S/P CABG (coronary artery bypass graft) Comment: Pt is doing well post-operatively Consultation Date/Type/Reason Admit Date/Time Nov 20, 2016 at 05:43 Initial Consult Date 11/21/16 Type of Consultation: RENAL Referring Provider: SUSANNA BURT MD 24 HR Interval Summary Free Text/Dictation Pt is much more comfortable and feels better after HD this AM Exam/Review of Systems Vital Signs Vitals Vital Signs Date Time Temp Pulse Resp B/P Pulse Ox O2 Delivery O2 Flow Rate FiO2 11/25/16 17:56 89 11/25/16 15:43 91 2.0 11/25/16 15:39 20 Nasal Cannula 11/25/16 15:29 98.5 135/71 11/22/16 04:26 27 Intake and Output 11/24/16 11/24/16 11/25/16 15:00 23:00 07:00 Intake Total 660 ml 460 ml Output Total 100 ml 250 ml Balance 560 ml 210 ml Exam Constitutional: alert, obese, oriented, well developed Psych: nl mood/affect, no complaints Head: atraumatic, normocephalic Eyes: EOMI, PERRL, nl conjunctiva, nl lids, nl sclera, other (pale conj) ENMT: nl external ears & nose, nl lips & teeth, nl nasal mucosa & septum Neck: non-tender, other (Permacath in place), supple Respiratory: clear to auscultation, normal air movement, other (Chest wall Sx wound, dressing in place) Cardiovascular: nl pulses, regular rate and rhythm Gastrointestinal: nl liver, spleen, non-tender, soft Musculoskeletal: nl extremities to inspection, nl gait and stance Extremities: normal pulses Neurological: GOL[employer]SE KEE[employer] II-XII intact, nl mental status, nl speech, nl strength Skin: nl turgor, other (pale), No rash or lesions Lymph: nl lymph nodes Results K 5.3 before HD, Hct stable ar 26% Result Diagram: 11/25/1632 11/25/16 0632 Results 24 hrs Laboratory Tests Test 11/24/16 20:37 11/25/16 06:32 11/25/16 08:37 11/25/16 08:39 Bedside Glucose 164 251 H 156 White Blood Count 6.6 Red Blood Count 2.88 L Hemoglobin 8.6 L Hematocrit 26.4 L Mean Corpuscular Volume 91.7 Mean Corpuscular Hemoglobin 29.9 Mean Corpuscular Hemoglobin Concent 32.6 Red Cell Distribution Width 13.2 Platelet Count 144 Mean Platelet Volume 11.6 H Neutrophils % 88.1 H Lymphocytes % 5.1 L Monocytes % 5.7 Eosinophils % 0.2 Basophils % 0.0 Nucleated Red Blood Cells % 0.0 Neutrophils # 5.8 Lymphocytes # 0.3 L Monocytes # 0.4 Eosinophils # 0.0 Basophils # 0.0 Nucleated Red Blood Cells # 0.0 Sodium Level 143 Potassium Level 5.3 H Chloride Level 93 L Carbon Dioxide Level 24 Anion Gap 31 H Blood Urea Nitrogen 75 H Creatinine 9.61 H Glucose Level 164 Calcium Level 8.6 Phosphorus Level 9.2 H Magnesium Level 2.5 Total Bilirubin 0.2 Direct Bilirubin 0.00 Indirect Bilirubin 0.2 Aspartate Amino Transf (AST/SGOT) 68 H Alanine Aminotransferase (ALT/SGPT) 61 Alkaline Phosphatase 183 H Total Protein 7.7 Albumin 4.2 Globulin 3.50 H Albumin/Globulin Ratio 1.20 Test 11/25/16 11:14 11/25/16 17:31 Bedside Glucose 173 146 Medications Medications Current Medications Hydromorphone HCl (Dilaudid) 0.2 mg Q1H PRN IV PAIN LEVEL 1-5 Last administered on 11/24/16 01:57; Admin Dose 0.2 MG; Start 11/20/16 at 21:30 Ondansetron HCl (Zofran Inj) 4 mg Q6H PRN IV NAUSEA AND/OR VOMITING Last administered on 11/21/16 15:53; Admin Dose 4 MG; Start 11/20/16 at 21:30 Acetaminophen (Tylenol Tab) 650 mg Q3H PRN PO ELEVATED TEMPERATURE Last administered on 11/24/16 17:19; Admin Dose 650 MG; Start 11/20/16 at 21:30 Aspirin (Aspirin) 162 mg DAILY PO Last administered on 11/25/16 08:51; Admin Dose 162 MG; Start 11/21/16 at 09:00 Atorvastatin Calcium (Lipitor) 80 mg HS PO Last administered on 11/24/16 20:35 ; Admin Dose 80 MG; Start 11/21/16 at 21:00 Diagnostic Test (Pha) (Accu-Chek) 1 ea 02 XX Last administered on 11/23/16 02: 32; Admin Dose 1 EA; Start 11/23/16 at 02:00 Miscellaneous Information 1 ea NOTE XX ; Start 11/22/16 at 12:30 Glucose (Glutose) 15 gm Q15M PRN PO DECREASED GLUCOSE; Start 11/22/16 at 12:30 Glucose (Glutose) 22.5 gm Q15M PRN PO DECREASED GLUCOSE; Start 11/22/16 at 12: 30 Dextrose (D50w Syringe) 25 ml Q15M PRN IV DECREASED GLUCOSE; Start 11/22/16 at 12:30 Dextrose (D50w Syringe) 50 ml Q15M PRN IV DECREASED GLUCOSE; Start 11/22/16 at 12:30 Glucagon (Glucagen) 1 mg Q15M PRN IM DECREASED GLUCOSE; Start 11/22/16 at 12:30 Glucose (Glutose) 15 gm Q15M PRN BUCCAL DECREASED GLUCOSE; Start 11/22/16 at 12 :30 Clopidogrel Bisulfate (plaVIX) 75 mg DAILY PO Last administered on 11/25/16 08 :51; Admin Dose 75 MG; Start 11/23/16 at 09:00 Zolpidem Tartrate (Ambien) 5 mg HS PRN PO INSOMNIA Last administered on 22:48; Admin Dose 5 MG; Start 11/22/16 at 21:00 Epoetin Saeid (Epogen (Esrd)) 10,000 units MoWeFr@17 SC ; Start 11/26/16 at 17:00 Hydralazine HCl (Apresoline) 10 mg Q4H PRN IV SBP >160 Last administered on 16:11; Admin Dose 10 MG; Start 11/24/16 at 16:00 Metoprolol Succinate (Toprol Xl) 25 mg DAILY PO Last administered on 11/25/16 08:52; Admin Dose 25 MG; Start 11/25/16 at 09:00 Diltiazem HCl (Cardizem) 30 mg Q6 PO Last administered on 7/23/17at 17:33; Admin Dose 30 MG; Start 11/24/16 at 18:00 Lorazepam (Ativan) 1 mg Q4H PRN PO ANXIETY Last administered on 11/24/16 20:42 ; Admin Dose 1 MG; Start 11/24/16 at 19:00 Docusate Sodium (Colace) 250 mg BID PO Last administered on 11/25/16 13:43; Admin Dose 250 MG; Start 11/25/16 at 13:30 Senna (Senokot) 1 tab DAILY PO Last administered on 11/25/16 13:43; Admin Dose 1 TAB; Start 11/25/16 at 13:30 Magnesium Hydroxide (Milk Of Mag) 30 ml BID PRN PO CONSTIPATION; Start at 13:30 Insulin Glargine (Lantus) 4 unit DAILY@08 SC ; Start 11/26/16 at 08:00 MARLON JO MD Nov 25, 2016 20:00
[2016-11-25] MEDS: ATORVASTATIN 80 MG TAB PO SCH (20:51)
[2016-11-25] MEDS: LORAZEPAM 1 MG TAB PO PRN (23:49)
[2016-11-26] VITALS (13 sets, daily range): BP systolic 140–174; BP diastolic 71–94; PULSE 89–93; RESP 16–20
[2016-11-26] MEDS: LEVALBUTEROL (NEB) 1.25 MG/0.5 ML AMP INH SCH ×4 (01:49→20:00)
[2016-11-26] MEDS: IPRATROPIUM (NEB) 0.5 MG/2.5 ML AMP HHN SCH ×4 (01:50→20:00)
[2016-11-26] MEDS: ACCU-CHEK XX SCH (02:00)
[2016-11-26] MEDS: DILTIAZEM 30 MG TAB PO SCH ×2 (06:07→11:32)
[2016-11-26] MEDS: INSULIN ASPART [NOVOLOG] 3 ML PEN SC SCH ×4 (07:55→21:00)
[2016-11-26 08:13] LABS: BASOPHILS % 0.1 % (0.0-2.0); EOSINOPHILS # 0.1 10^3/ul (0.0-0.5); EOSINOPHILS % 1.7 % (0.0-7.0); HEMATOCRIT 28.4 % (42.0-52.0); HEMOGLOBIN 9.3 g/dl (14.0-18.0); LYMPHOCYTES % 13.6 % (15.0-51.0); MEAN CORPUSCULAR HEMOGLOBIN 29.4 pg (29.0-33.0); MEAN CORPUSCULAR HGB CONC 32.7 g/dl (32.0-37.0); MEAN CORPUSCULAR VOLUME 89.9 fl (82.0-101.0); MEAN PLATELET VOLUME 11.4 fl (7.4-10.4); MONOCYTE # 0.9 10^3/ul (0.3-0.9); MONOCYTES % 12.4 % (0.0-11.0); NEUTROPHIL # 5.2 10^3/ul (1.6-7.5); PLATELET COUNT 164 10^3/UL (140-415); RED BLOOD COUNT 3.16 10^6/ul (4.70-6.10); RED CELL DISTRIBUTION WIDTH 13.3 % (11.5-14.5); WHITE BLOOD COUNT 7.3 10^3/ul (4.8-10.8)
[2016-11-26] MEDS: CLOPIDOGREL 75 MG TAB PO SCH (08:17)
[2016-11-26] MEDS: SENNA TAB PO SCH (08:17)
[2016-11-26] MEDS: ASPIRIN 81 MG TAB PO SCH (08:17)
[2016-11-26] MEDS: DOCUSATE SODIUM 250 MG CAP PO SCH ×2 (08:17→21:00)
[2016-11-26] MEDS: METOPROLOL (XL) 25 MG TAB PO SCH (08:18)
[2016-11-26 08:35] LABS: MAGNESIUM 2.5 mg/dl (1.7-2.5)
[2016-11-26 08:37] LABS: CALCIUM 8.4 mg/dl (8.4-10.2); CREATININE 9.58 mg/dl (0.61-1.24); POTASSIUM 4.5 mmol/L (3.5-5.1)
[2016-11-26] MEDS: INSULIN GLARGINE [LANtus] 3 ML PEN SC SCH (08:50)
--- NOTE | 2016-11-26 14:27 | PN ---
Date/Time of Note Date/Time of Note DATE: 11/26/16 TIME: 14:20 Assessment/Plan VTE Prophylaxis VTE Prophylaxis Intervention: SCD's Lines/Catheters IV [facility]ter Type (from [facility]): [facility] Urinary Cath still in place: No Assessment/Plan Chief Complaint/Hosp Course This is a 80-year-old Telugu male with history of coronary artery disease, prediabetes, chronic obstructive pulmonary disease, former smoker and history of myocardial infarction who is status post elective PCI.. Patient was found to have multiple vessel disease with previous restenosis. Now s/p CABG day #5. 1. Respiratory- extubated, hx of COPD, heavy former smoker. breathing treatments to be provided, routine and PRN. .CXR with left effusion/atx/? consolidation. continue incentive spirometer, afebrile, off antibiotics, CT removed. Repeat CXR. Titrate o2 down, may need home o2. 2. CV- S/P CABG- 4 vessel disease- chest tube removed. Monitor H/H, monitor for fluid overload state. HD T, TH, Sat. 3. ESRD- Nephrology following, HD done yesterday 3x week and PRN, monitor electrolytes, K. add PhosLo 4.GI- PPI for GI prophylaxis, H/H stable, transfuse PRBC or/and platelets as needed. 5.ID-febrile, follow up for any evidence of infection. Currently off antibiotics , WBC normal, afebrile. 6. Neuro- s/p surgery, no neuro deficits. 7. thrombocytopenia- plt transfusion if bleeding to keep plt >100, otherwise monitor. 8.family aware of patients condition, mild set back with brief afib with rvr and hypoxia. 9. Flanagan removed. 10.pre DM- glucose levels are good. continue current regimen. 11. diet- as tolerated. 12. OOB - with o2 at PT, or with assistance 13. discharge planning in process. 14. constipation- stool softeners to continue. Problems: Subjective 24 Hr Interval Summary Free Text/Dictation Patient stable, still requires high 6 liter NC, discussed with staff. Phosphorous levels are high. at bedside. Constitutional: No disoriented Eyes: No discharge ENT: No congestion Respiratory: No shortness of breath Cardiovascular: No lightheadedness Gastrointestinal: constipation, No diarrhea Musculoskeletal: No neck pain Skin: other (chest wall scar) Neurologic: No focal-weakness Lymphatic: No lymphadema, No tender nodes Psychological: No confusion Exam/Review of Systems Vital Signs Vitals Vital Signs Date Time Temp Pulse Resp B/P Pulse Ox O2 Delivery O2 Flow Rate FiO2 11/26/16 12:22 92 11/26/16 11:19 98.5 16 150/86 98 11/26/16 09:17 6.0 11/26/16 09:16 Nasal Cannula Intake and Output 11/25/16 11/25/16 11/26/16 15:00 23:00 07:00 Intake Total 300 ml 780 ml 400 ml Output Total 4300 ml 0 ml 200 ml Balance -4000 ml 780 ml 200 ml Exam Constitutional: No distress Psych: No anxiety Head: No lacerations ENMT: No intubated Neck: No jvd Respiratory: diminished breath sounds Cardiovascular: No irregular rhythm Genitourinary - Male: No CVA tenderness Extremities: No clubbing, No cyanosis, No edema Neurological: No confused Results Result Diagram: 11/26/16 0735 11/26/16 0735 Results 24 hrs Laboratory Tests Test 11/25/16 17:31 11/25/16 20:49 11/26/16 07:35 11/26/16 08:14 Bedside Glucose 146 142 126 White Blood Count 7.3 Red Blood Count 3.16 L Hemoglobin 9.3 L Hematocrit 28.4 L Mean Corpuscular Volume 89.9 Mean Corpuscular Hemoglobin 29.4 Mean Corpuscular Hemoglobin Concent 32.7 Red Cell Distribution Width 13.3 Platelet Count 164 Mean Platelet Volume 11.4 H Neutrophils % 71.0 Lymphocytes % 13.6 L Monocytes % 12.4 H Eosinophils % 1.7 Basophils % 0.1 Nucleated Red Blood Cells % 0.0 Neutrophils # 5.2 Lymphocytes # 1.0 Monocytes # 0.9 Eosinophils # 0.1 Basophils # 0.0 Nucleated Red Blood Cells # 0.0 Sodium Level 140 Potassium Level 4.5 Chloride Level 91 L Carbon Dioxide Level 24 Anion Gap 30 H Blood Urea Nitrogen 90 H Creatinine 9.58 H Glucose Level 119 # Calcium Level 8.4 Phosphorus Level 10.0 H Magnesium Level 2.5 Test 11/26/16 11:30 Bedside Glucose 160 Medications Medications Current Medications Hydromorphone HCl (Dilaudid) 0.2 mg Q1H PRN IV PAIN LEVEL 1-5 Last administered on 11/24/16 01:57; Admin Dose 0.2 MG; Start 11/20/16 at 21:30 Ondansetron HCl (Zofran Inj) 4 mg Q6H PRN IV NAUSEA AND/OR VOMITING Last administered on 11/21/16 15:53; Admin Dose 4 MG; Start 11/20/16 at 21:30 Acetaminophen (Tylenol Tab) 650 mg Q3H PRN PO ELEVATED TEMPERATURE Last administered on 11/24/16 17:19; Admin Dose 650 MG; Start 11/20/16 at 21:30 Aspirin (Aspirin) 162 mg DAILY PO Last administered on 11/26/16 08:17; Admin Dose 162 MG; Start 11/21/16 at 09:00 Atorvastatin Calcium (Lipitor) 80 mg HS PO Last administered on 11/25/16 20:51 ; Admin Dose 80 MG; Start 11/21/16 at 21:00 Diagnostic Test (Pha) (Accu-Chek) 1 ea 02 XX Last administered on 11/23/16 02: 32; Admin Dose 1 EA; Start 11/23/16 at 02:00 Miscellaneous Information 1 ea NOTE XX ; Start 11/22/16 at 12:30 Glucose (Glutose) 15 gm Q15M PRN PO DECREASED GLUCOSE; Start 11/22/16 at 12:30 Glucose (Glutose) 22.5 gm Q15M PRN PO DECREASED GLUCOSE; Start 11/22/16 at 12: 30 Dextrose (D50w Syringe) 25 ml Q15M PRN IV DECREASED GLUCOSE; Start 11/22/16 at 12:30 Dextrose (D50w Syringe) 50 ml Q15M PRN IV DECREASED GLUCOSE; Start 11/22/16 at 12:30 Glucagon (Glucagen) 1 mg Q15M PRN IM DECREASED GLUCOSE; Start 11/22/16 at 12:30 Glucose (Glutose) 15 gm Q15M PRN BUCCAL DECREASED GLUCOSE; Start 11/22/16 at 12 :30 Clopidogrel Bisulfate (plaVIX) 75 mg DAILY PO Last administered on 11/26/16 08 :17; Admin Dose 75 MG; Start 11/23/16 at 09:00 Zolpidem Tartrate (Ambien) 5 mg HS PRN PO INSOMNIA Last administered on 22:48; Admin Dose 5 MG; Start 11/22/16 at 21:00 Epoetin Saeid (Epogen (Esrd)) 10,000 units MoWeFr@17 SC ; Start 11/26/16 at 17:00 Hydralazine HCl (Apresoline) 10 mg Q4H PRN IV SBP >160 Last administered on 16:11; Admin Dose 10 MG; Start 11/24/16 at 16:00 Metoprolol Succinate (Toprol Xl) 25 mg DAILY PO Last administered on 11/26/16 08:18; Admin Dose 25 MG; Start 11/25/16 at 09:00 Diltiazem HCl (Cardizem) 30 mg Q6 PO Last administered on 11/26/16 11:32; Admin Dose 30 MG; Start 11/24/16 at 18:00 Lorazepam (Ativan) 1 mg Q4H PRN PO ANXIETY Last administered on 11/25/16 23:49 ; Admin Dose 1 MG; Start 11/24/16 at 19:00 Docusate Sodium (Colace) 250 mg BID PO Last administered on 11/26/16 08:17; Admin Dose 250 MG; Start 11/25/16 at 13:30 Senna (Senokot) 1 tab DAILY PO Last administered on 11/26/16 08:17; Admin Dose 1 TAB; Start 11/25/16 at 13:30 Magnesium Hydroxide (Milk Of Mag) 30 ml BID PRN PO CONSTIPATION; Start at 13:30 Insulin Glargine (Lantus) 4 unit DAILY@08 SC Last administered on 11/26/16 08: 50; Admin Dose 4 UNIT; Start 11/26/16 at 08:00 SUSANNA BURT MD Nov 26, 2016 14:27
--- NOTE | 2016-11-26 15:51 | CONS ---
Date/Time of Note Date/Time of Note DATE: 11/26/16 TIME: 15:50 Consult Date/Type/Reason Admit Date/Time Nov 20, 2016 at 05:43 Initial Consult Date 11/21/16 Type of Consultation: RENAL Ordering Provider: SUSANNA BURT MD Objective Vital Signs Date Time Temp Pulse Resp B/P Pulse Ox O2 Delivery O2 Flow Rate FiO2 11/26/16 15:19 98.2 88 16 154/85 99 11/26/16 14:49 5.0 11/26/16 14:47 Nasal Cannula Intake and Output 11/25/16 11/25/16 11/26/16 15:00 23:00 07:00 Intake Total 300 ml 780 ml 400 ml Output Total 4300 ml 0 ml 200 ml Balance -4000 ml 780 ml 200 ml Results/Medications Result Diagram: 11/26/1635 11/26/1635 Results 24 hrs Laboratory Tests Test 11/25/16 17:31 11/25/16 20:49 11/26/16 07:35 11/26/16 08:14 Bedside Glucose 146 142 126 White Blood Count 7.3 Red Blood Count 3.16 L Hemoglobin 9.3 L Hematocrit 28.4 L Mean Corpuscular Volume 89.9 Mean Corpuscular Hemoglobin 29.4 Mean Corpuscular Hemoglobin Concent 32.7 Red Cell Distribution Width 13.3 Platelet Count 164 Mean Platelet Volume 11.4 H Neutrophils % 71.0 Lymphocytes % 13.6 L Monocytes % 12.4 H Eosinophils % 1.7 Basophils % 0.1 Nucleated Red Blood Cells % 0.0 Neutrophils # 5.2 Lymphocytes # 1.0 Monocytes # 0.9 Eosinophils # 0.1 Basophils # 0.0 Nucleated Red Blood Cells # 0.0 Sodium Level 140 Potassium Level 4.5 Chloride Level 91 L Carbon Dioxide Level 24 Anion Gap 30 H Blood Urea Nitrogen 90 H Creatinine 9.58 H Glucose Level 119 # Calcium Level 8.4 Phosphorus Level 10.0 H Magnesium Level 2.5 Test 11/26/16 11:30 Bedside Glucose 160 Medications Current Medications Hydromorphone HCl (Dilaudid) 0.2 mg Q1H PRN IV PAIN LEVEL 1-5 Last administered on 11/24/16t 01:57; Admin Dose 0.2 MG; Start 11/20/16 at 21:30 Ondansetron HCl (Zofran Inj) 4 mg Q6H PRN IV NAUSEA AND/OR VOMITING Last administered on 11/21/16 15:53; Admin Dose 4 MG; Start 11/20/16 at 21:30 Acetaminophen (Tylenol Tab) 650 mg Q3H PRN PO ELEVATED TEMPERATURE Last administered on 11/24/16 17:19; Admin Dose 650 MG; Start 11/20/16 at 21:30 Aspirin (Aspirin) 162 mg DAILY PO Last administered on 11/26/16 08:17; Admin Dose 162 MG; Start 11/21/16 at 09:00 Atorvastatin Calcium (Lipitor) 80 mg HS PO Last administered on 11/25/16 20:51 ; Admin Dose 80 MG; Start 11/21/16 at 21:00 Diagnostic Test (Pha) (Accu-Chek) 1 ea 02 XX Last administered on 11/23/16 02: 32; Admin Dose 1 EA; Start 11/23/16 at 02:00 Miscellaneous Information 1 ea NOTE XX ; Start 11/22/16 at 12:30 Glucose (Glutose) 15 gm Q15M PRN PO DECREASED GLUCOSE; Start 11/22/16 at 12:30 Glucose (Glutose) 22.5 gm Q15M PRN PO DECREASED GLUCOSE; Start 11/22/16 at 12: 30 Dextrose (D50w Syringe) 25 ml Q15M PRN IV DECREASED GLUCOSE; Start 11/22/16 at 12:30 Dextrose (D50w Syringe) 50 ml Q15M PRN IV DECREASED GLUCOSE; Start 11/22/16 at 12:30 Glucagon (Glucagen) 1 mg Q15M PRN IM DECREASED GLUCOSE; Start 11/22/16 at 12:30 Glucose (Glutose) 15 gm Q15M PRN BUCCAL DECREASED GLUCOSE; Start 11/22/16 at 12 :30 Clopidogrel Bisulfate (plaVIX) 75 mg DAILY PO Last administered on 11/26/16 08 :17; Admin Dose 75 MG; Start 11/23/16 at 09:00 Zolpidem Tartrate (Ambien) 5 mg HS PRN PO INSOMNIA Last administered on 22:48; Admin Dose 5 MG; Start 11/22/16 at 21:00 Epoetin Saeid (Epogen (Esrd)) 10,000 units MoWeFr@17 SC ; Start 11/26/16 at 17:00 Hydralazine HCl (Apresoline) 10 mg Q4H PRN IV SBP >160 Last administered on 16:11; Admin Dose 10 MG; Start 11/24/16 at 16:00 Metoprolol Succinate (Toprol Xl) 25 mg DAILY PO Last administered on 11/26/16 08:18; Admin Dose 25 MG; Start 11/25/16 at 09:00 Diltiazem HCl (Cardizem) 30 mg Q6 PO Last administered on 11/26/16 11:32; Admin Dose 30 MG; Start 11/24/16 at 18:00 Lorazepam (Ativan) 1 mg Q4H PRN PO ANXIETY Last administered on 11/25/16 23:49 ; Admin Dose 1 MG; Start 11/24/16 at 19:00 Docusate Sodium (Colace) 250 mg BID PO Last administered on 11/26/16 08:17; Admin Dose 250 MG; Start 11/25/16 at 13:30 Senna (Senokot) 1 tab DAILY PO Last administered on 11/26/16 08:17; Admin Dose 1 TAB; Start 11/25/16 at 13:30 Magnesium Hydroxide (Milk Of Mag) 30 ml BID PRN PO CONSTIPATION; Start at 13:30 Insulin Glargine (Lantus) 4 unit DAILY@08 SC Last administered on 11/26/16 08: 50; Admin Dose 4 UNIT; Start 11/26/16 at 08:00 Assessment/Plan Chief Complaint/Hosp Course Sitting up in chair following physical therapy. Remains comfortable denies shortness of breath. Vital signs remain stable. On examination GENERAL: VITAL SIGNS: per chart NECK: Supple. No JVD or lymphadenopathy. CARDIAC EXAM: S1, S2. No added sounds or murmurs. CHEST: clear bilaterally, No added sounds, rales or wheezes ABDOMEN: Soft, nontender. No guarding or rebound. EXTREMITIES: No cyanosis, clubbing or edema. NEUROLOGIC: Generalized weakness. No focal deficits. Labs White count 7.3 hemoglobin 9.3 platelets 164 BUN 19 creatinine 1.58 Assessment 1. Status post four-vessel coronary artery bypass graft surgery for coronary artery disease 2. History of tobacco use probable underlying COPD 3. End-stage renal failure on hemodialysis. 4. History of essential hypertension 5. Morbid obesity Plan 1. Continue and encourage ambulation 2. Decrease FiO2 chest x-ray in a.m. 3. Continue bronchodilators as needed 4. Monitor thrombocytopenia 5. Hemodialysis with volume removal as tolerated Anticipate discharge next few days. Problems: BAILEY ALEXANDER MD, [facility] Nov 26, 2016 15:51
--- NOTE | 2016-11-26 16:30 | PN ---
Date/Time of Note Date/Time of Note DATE: 11/26/16 TIME: 16:29 Assessment/Plan VTE Prophylaxis VTE Prophylaxis Intervention: other Lines/Catheters IV [facility] Type (from [facility] Saline Lock Urinary Cath still in place: No Assessment/Plan Chief Complaint/Hosp Course 1. CAD: S/P CAB. S/P multiple PCI in the past 3. DM: on insulin drip now 4. ESRD on HD 5. COPD: and active wheezing. follow up with pulm 6. resp failure: extubated in ICU 7. DYSLIPIDEMIA: back on lipitor 80 8. anemia 9. post op short PAFIB. 10./ s/p ID REC: will cont ASA. cont plavix [address] Bernard will follow for pulm statues will dec betablocker due to wheezing and CONT cardizem po add lisinopril statin tele monitoring correct lytes prn HD as per renal. Thank you for this referral. I will continue to follow along with you Problems: Subjective 24 Hr Interval Summary Free Text/Dictation CARDIOLOGY FOLLOW UP NOTE: D/W STAFF and rhythm was reviewed. pt remains in NSR he still is wheezing and intermittently hypoxemic. no palpitations minimal chest wall pain OBJECTIVE: General: diaphoretic HEENT: NC/AT. pupils are equal. round. NECK: NO JVD. no stridor. CV: TACHYCARDIC. systolic murmur; no gallop or rubs. PULM: +wheezing GI: SOFT, NT, ND, no rebound or guarding Extremity: trace B/L LE edema. no clubbing. neuro: awake and alert. responds appropriately . Psych: calm and pleasant rectal: deferred : normal male chest: s/p sternotomy. Exam/Review of Systems Vital Signs Vitals Vital Signs Date Time Temp Pulse Resp B/P Pulse Ox O2 Delivery O2 Flow Rate FiO2 11/26/16 15:19 98.2 88 16 154/85 99 11/26/16 14:49 5.0 11/26/16 14:47 Nasal Cannula Intake and Output 11/25/16 11/25/16 11/26/16 15:00 23:00 07:00 Intake Total 300 ml 780 ml 400 ml Output Total 4300 ml 0 ml 200 ml Balance -4000 ml 780 ml 200 ml Results Result Diagram: 11/26/16 0735 11/26/16 0735 Results 24 hrs Laboratory Tests Test 11/25/16 17:31 11/25/16 20:49 11/26/16 07:35 11/26/16 08:14 Bedside Glucose 146 142 126 White Blood Count 7.3 Red Blood Count 3.16 L Hemoglobin 9.3 L Hematocrit 28.4 L Mean Corpuscular Volume 89.9 Mean Corpuscular Hemoglobin 29.4 Mean Corpuscular Hemoglobin Concent 32.7 Red Cell Distribution Width 13.3 Platelet Count 164 Mean Platelet Volume 11.4 H Neutrophils % 71.0 Lymphocytes % 13.6 L Monocytes % 12.4 H Eosinophils % 1.7 Basophils % 0.1 Nucleated Red Blood Cells % 0.0 Neutrophils # 5.2 Lymphocytes # 1.0 Monocytes # 0.9 Eosinophils # 0.1 Basophils # 0.0 Nucleated Red Blood Cells # 0.0 Sodium Level 140 Potassium Level 4.5 Chloride Level 91 L Carbon Dioxide Level 24 Anion Gap 30 H Blood Urea Nitrogen 90 H Creatinine 9.58 H Glucose Level 119 # Calcium Level 8.4 Phosphorus Level 10.0 H Magnesium Level 2.5 Test 11/26/16 11:30 Bedside Glucose 160 Medications Medications Current Medications Hydromorphone HCl (Dilaudid) 0.2 mg Q1H PRN IV PAIN LEVEL 1-5 Last administered on 11/24/16 01:57; Admin Dose 0.2 MG; Start 11/20/16 at 21:30 Ondansetron HCl (Zofran Inj) 4 mg Q6H PRN IV NAUSEA AND/OR VOMITING Last administered on 11/21/16 15:53; Admin Dose 4 MG; Start 11/20/16 at 21:30 Acetaminophen (Tylenol Tab) 650 mg Q3H PRN PO ELEVATED TEMPERATURE Last administered on 11/24/16 17:19; Admin Dose 650 MG; Start 11/20/16 at 21:30 Aspirin (Aspirin) 162 mg DAILY PO Last administered on 11/26/16 08:17; Admin Dose 162 MG; Start 11/21/16 at 09:00 Atorvastatin Calcium (Lipitor) 80 mg HS PO Last administered on 11/25/16 20:51 ; Admin Dose 80 MG; Start 11/21/16 at 21:00 Diagnostic Test (Pha) (Accu-Chek) 1 ea 02 XX Last administered on 11/23/16 02: 32; Admin Dose 1 EA; Start 11/23/16 at 02:00 Miscellaneous Information 1 ea NOTE XX ; Start 11/22/16 at 12:30 Glucose (Glutose) 15 gm Q15M PRN PO DECREASED GLUCOSE; Start 11/22/16 at 12:30 Glucose (Glutose) 22.5 gm Q15M PRN PO DECREASED GLUCOSE; Start 11/22/16 at 12: 30 Dextrose (D50w Syringe) 25 ml Q15M PRN IV DECREASED GLUCOSE; Start 11/22/16 at 12:30 Dextrose (D50w Syringe) 50 ml Q15M PRN IV DECREASED GLUCOSE; Start 11/22/16 at 12:30 Glucagon (Glucagen) 1 mg Q15M PRN IM DECREASED GLUCOSE; Start 11/22/16 at 12:30 Glucose (Glutose) 15 gm Q15M PRN BUCCAL DECREASED GLUCOSE; Start 11/22/16 at 12 :30 Clopidogrel Bisulfate (plaVIX) 75 mg DAILY PO Last administered on 11/26/16 08 :17; Admin Dose 75 MG; Start 11/23/16 at 09:00 Zolpidem Tartrate (Ambien) 5 mg HS PRN PO INSOMNIA Last administered on 22:48; Admin Dose 5 MG; Start 11/22/16 at 21:00 Epoetin Saeid (Epogen (Esrd)) 10,000 units MoWeFr@17 SC ; Start 11/26/16 at 17:00 Hydralazine HCl (Apresoline) 10 mg Q4H PRN IV SBP >160 Last administered on 16:11; Admin Dose 10 MG; Start 11/24/16 at 16:00 Metoprolol Succinate (Toprol Xl) 25 mg DAILY PO Last administered on 11/26/16 08:18; Admin Dose 25 MG; Start 11/25/16 at 09:00 Diltiazem HCl (Cardizem) 30 mg Q6 PO Last administered on 11/26/16 11:32; Admin Dose 30 MG; Start 11/24/16 at 18:00 Lorazepam (Ativan) 1 mg Q4H PRN PO ANXIETY Last administered on 11/25/16 23:49 ; Admin Dose 1 MG; Start 11/24/16 at 19:00 Docusate Sodium (Colace) 250 mg BID PO Last administered on 11/26/16 08:17; Admin Dose 250 MG; Start 11/25/16 at 13:30 Senna (Senokot) 1 tab DAILY PO Last administered on 11/26/16 08:17; Admin Dose 1 TAB; Start 11/25/16 at 13:30 Magnesium Hydroxide (Milk Of Mag) 30 ml BID PRN PO CONSTIPATION; Start at 13:30 Insulin Glargine (Lantus) 4 unit DAILY@08 SC Last administered on 11/26/16 08: 50; Admin Dose 4 UNIT; Start 11/26/16 at 08:00 ADENIKE MAYERS MD Nov 26, 2016 16:30
[2016-11-26] MEDS ORDERED: EPOETIN 10000 UNITS/1 ML INJ (ESRD) SC SCH (17:00)
[2016-11-26] MEDS: CALCIUM ACETATE 667 MG CAP PO SCH (17:28)
[2016-11-26] MEDS: DILTIAZEM (CD) 120 MG CAP PO SCH (21:00)
[2016-11-26] MEDS: ATORVASTATIN 80 MG TAB PO SCH (21:00)
[2016-11-27] VITALS (22 sets, daily range): BP systolic 118–180; BP diastolic 54–89; PULSE 92–108; RESP 19–20
[2016-11-27] MEDS: hydrALAzine 20 MG INJ IV PRN (01:30)
[2016-11-27] MEDS: LEVALBUTEROL (NEB) 1.25 MG/0.5 ML AMP INH SCH ×4 (02:00→20:48)
[2016-11-27] MEDS: ACCU-CHEK XX SCH (02:00)
[2016-11-27] MEDS: IPRATROPIUM (NEB) 0.5 MG/2.5 ML AMP HHN SCH ×4 (02:00→20:47)
[2016-11-27 06:43] LABS: BASOPHILS % 0.3 % (0.0-2.0); EOSINOPHILS # 0.2 10^3/ul (0.0-0.5); EOSINOPHILS % 2.1 % (0.0-7.0); HEMATOCRIT 26.8 % (42.0-52.0); HEMOGLOBIN 9.1 g/dl (14.0-18.0); LYMPHOCYTES % 10.7 % (15.0-51.0); MEAN CORPUSCULAR HEMOGLOBIN 29.9 pg (29.0-33.0); MEAN CORPUSCULAR VOLUME 88.2 fl (82.0-101.0); MEAN PLATELET VOLUME 11.2 fl (7.4-10.4); MONOCYTE # 0.8 10^3/ul (0.3-0.9); MONOCYTES % 8.6 % (0.0-11.0); NEUTROPHIL # 7.4 10^3/ul (1.6-7.5); NEUTROPHILS % 76.8 % (39.0-77.0); PLATELET COUNT 183 10^3/UL (140-415); RED BLOOD COUNT 3.04 10^6/ul (4.70-6.10); RED CELL DISTRIBUTION WIDTH 13.2 % (11.5-14.5); WHITE BLOOD COUNT 9.6 10^3/ul (4.8-10.8)
[2016-11-27 07:39] LABS: CALCIUM 7.9 mg/dl (8.4-10.2); CREATININE 10.77 mg/dl (0.61-1.24); POTASSIUM 4.5 mmol/L (3.5-5.1)
[2016-11-27 07:40] LABS: MAGNESIUM 2.3 mg/dl (1.7-2.5); PHOSPHORUS 9.1 mg/dl (2.5-4.9)
[2016-11-27] MEDS: INSULIN ASPART [NOVOLOG] 3 ML PEN SC SCH ×4 (07:55→20:18)
[2016-11-27] MEDS: ASPIRIN 81 MG TAB PO SCH (08:56)
[2016-11-27] MEDS: CALCIUM ACETATE 667 MG CAP PO SCH ×3 (08:56→17:26)
[2016-11-27] MEDS: DILTIAZEM (CD) 120 MG CAP PO SCH ×2 (08:57→20:14)
[2016-11-27] MEDS: CLOPIDOGREL 75 MG TAB PO SCH (08:57)
[2016-11-27] MEDS: DOCUSATE SODIUM 250 MG CAP PO SCH ×2 (08:57→20:14)
[2016-11-27] MEDS: SENNA TAB PO SCH (08:58)
[2016-11-27] MEDS: METOPROLOL (XL) 25 MG TAB PO SCH (08:58)
[2016-11-27] MEDS: LISINOPRIL 5 MG TAB PO SCH (08:59)
[2016-11-27] MEDS: INSULIN GLARGINE [LANtus] 3 ML PEN SC SCH (09:05)
[2016-11-27 11:05] LABS: AADO2 Arterial 44.2 mmHg (7.0-24.0); Allen Test ACCEPTAB; Arterial Base Excess -2.9 mmol/L (-3.0-3); Arterial COHb 0.3 % (0.0-3.0); Arterial Fraction of Oxyhgb 93.4 % (93.0-99.0); Arterial HCO3 19.7 mmol/L (22.0-26.0); Arterial MetHb 0.4 % (0.0-1.5); Arterial Total Hemglobin 11.8 g/dl (12.0-18.0); MODE ROOM AIR
--- NOTE | 2016-11-27 11:35 | CONS ---
Date/Time of Note Date/Time of Note DATE: 11/27/16 TIME: 11:34 Consult Date/Type/Reason Admit Date/Time Nov 20, 2016 at 05:43 Initial Consult Date 11/21/16 Type of Consultation: RENAL Ordering Provider: SUSANNA BURT MD Objective Vital Signs Date Time Temp Pulse Resp B/P Pulse Ox O2 Delivery O2 Flow Rate FiO2 11/27/16 11:25 98.4 108 20 144/80 98 11/27/16 07:49 Nasal Cannula 6.0 Intake and Output 11/26/16 11/26/16 11/27/16 14:59 22:59 06:59 Intake Total 800 ml 360 ml Output Total 0 ml 200 ml Balance 800 ml 160 ml Results/Medications Result Diagram: 11/27/1662111/27/16621 Results 24 hrs Laboratory Tests Test 11/26/16 17:26 11/26/16 20:44 11/27/16 06:22 11/27/16 07:47 Bedside Glucose 114 128 115 White Blood Count 9.6 # Red Blood Count 3.04 L Hemoglobin 9.1 L Hematocrit 26.8 L Mean Corpuscular Volume 88.2 Mean Corpuscular Hemoglobin 29.9 Mean Corpuscular Hemoglobin Concent 34.0 Red Cell Distribution Width 13.2 Platelet Count 183 Mean Platelet Volume 11.2 H Neutrophils % 76.8 Lymphocytes % 10.7 L Monocytes % 8.6 Eosinophils % 2.1 Basophils % 0.3 Nucleated Red Blood Cells % 0.0 Neutrophils # 7.4 Lymphocytes # 1.0 Monocytes # 0.8 Eosinophils # 0.2 Basophils # 0.0 Nucleated Red Blood Cells # 0.0 Sodium Level 137 Potassium Level 4.5 Chloride Level 91 L Carbon Dioxide Level 19 L Anion Gap 32 H Blood Urea Nitrogen 114 H Creatinine 10.77 H Glucose Level 113 Calcium Level 7.9 L Phosphorus Level 9.1 H Magnesium Level 2.3 Test 11/27/16 09:00 Blood Gas Specimen Source Blood arterial Arterial Blood Date Drawn 11/27/2016 10:50:12 AM Arterial Blood pH (Temp corrected) 7.467 H Arterial Blood pCO2 (Temp correct) 27.9 L Arterial Blood pO2 (Temp corrected) 72.1 L Arterial Blood HCO3 19.7 L Arterial Blood Base Excess -2.9 Arterial Blood Oxygen Saturation 94.1 L Car Test ACCEPTAB Arterial Blood Gas Puncture Site Right Radial Arterial Blood Carboxyhemoglobin 0.3 Arterial Blood Methemoglobin 0.4 Blood Gas A-a O2 Differential 44.2 H Oxyhemoglobin Percent 93.4 Total Hemoglobin 11.8 L Blood Gas Temperature 37.0 Blood Gas Modality ROOM AIR FiO2 21.0 Blood Gas Notified Whom JLD Blood Gas Notified Time 11/27/2016 11:05:42 AM Medications Current Medications Hydromorphone HCl (Dilaudid) 0.2 mg Q1H PRN IV PAIN LEVEL 1-5 Last administered on 11/24/16 01:57; Admin Dose 0.2 MG; Start 11/20/16 at 21:30 Ondansetron HCl (Zofran Inj) 4 mg Q6H PRN IV NAUSEA AND/OR VOMITING Last administered on 11/21/16 15:53; Admin Dose 4 MG; Start 11/20/16 at 21:30 Acetaminophen (Tylenol Tab) 650 mg Q3H PRN PO ELEVATED TEMPERATURE Last administered on 11/24/16 17:19; Admin Dose 650 MG; Start 11/20/16 at 21:30 Aspirin (Aspirin) 162 mg DAILY PO Last administered on 11/27/16 08:56; Admin Dose 162 MG; Start 11/21/16 at 09:00 Atorvastatin Calcium (Lipitor) 80 mg HS PO Last administered on 11/26/16 21:00 ; Admin Dose 80 MG; Start 11/21/16 at 21:00 Diagnostic Test (Pha) (Accu-Chek) 1 ea 02 XX Last administered on 11/23/16 02: 32; Admin Dose 1 EA; Start 11/23/16 at 02:00 Miscellaneous Information 1 ea NOTE XX ; Start 11/22/16 at 12:30 Glucose (Glutose) 15 gm Q15M PRN PO DECREASED GLUCOSE; Start 11/22/16 at 12:30 Glucose (Glutose) 22.5 gm Q15M PRN PO DECREASED GLUCOSE; Start 11/22/16 at 12: 30 Dextrose (D50w Syringe) 25 ml Q15M PRN IV DECREASED GLUCOSE; Start 11/22/16 at 12:30 Dextrose (D50w Syringe) 50 ml Q15M PRN IV DECREASED GLUCOSE; Start 11/22/16 at 12:30 Glucagon (Glucagen) 1 mg Q15M PRN IM DECREASED GLUCOSE; Start 11/22/16 at 12:30 Glucose (Glutose) 15 gm Q15M PRN BUCCAL DECREASED GLUCOSE; Start 11/22/16 at 12 :30 Clopidogrel Bisulfate (plaVIX) 75 mg DAILY PO Last administered on 11/27/16 08 :57; Admin Dose 75 MG; Start 11/23/16 at 09:00 Zolpidem Tartrate (Ambien) 5 mg HS PRN PO INSOMNIA Last administered on 22:48; Admin Dose 5 MG; Start 11/22/16 at 21:00 Epoetin Saeid (Epogen (Esrd)) 10,000 units MoWeFr@17 SC Last administered on 17:29; Admin Dose 10,000 UNITS; Start 11/26/16 at 17:00 Hydralazine HCl (Apresoline) 10 mg Q4H PRN IV SBP >160 Last administered on 01:30; Admin Dose 10 MG; Start 11/24/16 at 16:00 Lorazepam (Ativan) 1 mg Q4H PRN PO ANXIETY Last administered on 11/25/16 23:49 ; Admin Dose 1 MG; Start 11/24/16 at 19:00 Docusate Sodium (Colace) 250 mg BID PO Last administered on 11/27/16 08:57; Admin Dose 250 MG; Start 11/25/16 at 13:30 Senna (Senokot) 1 tab DAILY PO Last administered on 11/27/16 08:58; Admin Dose 1 TAB; Start 11/25/16 at 13:30 Magnesium Hydroxide (Milk Of Mag) 30 ml BID PRN PO CONSTIPATION; Start at 13:30 Insulin Glargine (Lantus) 4 unit DAILY@08 SC Last administered on 11/27/16 09: 05; Admin Dose 4 UNIT; Start 11/26/16 at 08:00 Metoprolol Succinate (Toprol Xl) 12.5 mg DAILY PO Last administered on 08:58; Admin Dose 12.5 MG; Start 11/27/16 at 09:00 Lisinopril (Zestril) 5 mg DAILY PO Last administered on 11/27/16 08:59; Admin Dose 5 MG; Start 11/27/16 at 09:00 Diltiazem HCl (Cardizem Cd) 120 mg BID PO Last administered on 11/27/16t 08:57 ; Admin Dose 120 MG; Start 11/26/16 at 21:00 Assessment/Plan Chief Complaint/Hosp Course Comfortable this morning having hemodialysis Vital signs remain stable. On examination GENERAL: VITAL SIGNS: per chart NECK: Supple. No JVD or lymphadenopathy. CARDIAC EXAM: S1, S2. No added sounds or murmurs. CHEST: Diminished air entry both lung bases. ABDOMEN: Soft, nontender. No guarding or rebound. Obese EXTREMITIES: No cyanosis, clubbing or edema. NEUROLOGIC: Generalized weakness. No focal deficits. Labs White count 9. 6, hemoglobin 9.1. Assessment 1. Status post four-vessel coronary artery bypass graft surgery for coronary artery disease 2. History of tobacco use probable underlying COPD 3. End-stage renal failure on hemodialysis. 4. History of essential hypertension 5. Morbid obesity 6. Probable underlying obstructive sleep apnea Plan 1. Continue and encourage ambulation 2. Decrease FiO2 chest x-ray in a.m. 3. Continue bronchodilators as needed 4. Monitor thrombocytopenia 5. Hemodialysis with volume removal as tolerated 6. Outpatient pulmonary function testing and sleep study. 7. Advice on smoking cessation. Anticipate discharge next few days. Problems: BAILEY ALEXANDER MD, [facility] Nov 27, 2016 11:35
--- NOTE | 2016-11-27 12:19 | CONS ---
Date/Time of Note Date/Time of Note DATE: 11/27/16 TIME: 12:18 Assessment/Plan Assessment/Plan Additional Assessment/Plan (1) ESRD (end stage renal disease) Comment: He is back on TTS HD schedule (2) DM2 (diabetes mellitus, type 2) Status: Chronic Comment: BS has been stable (3) S/P CABG (coronary artery bypass graft) Comment: Pt is doing well post-operatively S/p HD Cont current treatment and plan Consultation Date/Type/Reason Admit Date/Time Nov 20, 2016 at 05:43 Initial Consult Date 11/21/16 Type of Consultation: RENAL Referring Provider: SUSANNA BURT MD 24 HR Interval Summary Free Text/Dictation S/p HD, No complications, no new complaints Constitutional: requiring O2 Exam/Review of Systems Vital Signs Vitals Vital Signs Date Time Temp Pulse Resp B/P Pulse Ox O2 Delivery O2 Flow Rate FiO2 11/27/16 11:25 98.4 108 20 144/80 98 11/27/16 07:49 Nasal Cannula 6.0 Intake and Output 11/26/16 11/26/16 11/27/16 15:00 23:00 07:00 Intake Total 800 ml 360 ml Output Total 0 ml 200 ml Balance 800 ml 160 ml Exam Constitutional: alert, No distress Eyes: EOMI Neck: No jvd Respiratory: crackles/rales, No diminished breath sounds, No labored breathing Cardiovascular: regular rate and rhythm, No edema Gastrointestinal: non-tender, soft Extremities: No edema Neurological: BLACKENER II-XII intact, nl mental status Skin: No diaphoresis Results Result Diagram: 11/27/1662111/27/16 0622 Results 24 hrs Laboratory Tests Test 11/26/16 17:26 11/26/16 20:44 11/27/16 06:22 11/27/16 07:47 Bedside Glucose 114 128 115 White Blood Count 9.6 # Red Blood Count 3.04 L Hemoglobin 9.1 L Hematocrit 26.8 L Mean Corpuscular Volume 88.2 Mean Corpuscular Hemoglobin 29.9 Mean Corpuscular Hemoglobin Concent 34.0 Red Cell Distribution Width 13.2 Platelet Count 183 Mean Platelet Volume 11.2 H Neutrophils % 76.8 Lymphocytes % 10.7 L Monocytes % 8.6 Eosinophils % 2.1 Basophils % 0.3 Nucleated Red Blood Cells % 0.0 Neutrophils # 7.4 Lymphocytes # 1.0 Monocytes # 0.8 Eosinophils # 0.2 Basophils # 0.0 Nucleated Red Blood Cells # 0.0 Sodium Level 137 Potassium Level 4.5 Chloride Level 91 L Carbon Dioxide Level 19 L Anion Gap 32 H Blood Urea Nitrogen 114 H Creatinine 10.77 H Glucose Level 113 Calcium Level 7.9 L Phosphorus Level 9.1 H Magnesium Level 2.3 Test 11/27/16 09:00 11/27/16 11:41 Blood Gas Specimen Source Blood arterial Arterial Blood Date Drawn 11/27/2016 10:50:12 AM Arterial Blood pH (Temp corrected) 7.467 H Arterial Blood pCO2 (Temp correct) 27.9 L Arterial Blood pO2 (Temp corrected) 72.1 L Arterial Blood HCO3 19.7 L Arterial Blood Base Excess -2.9 Arterial Blood Oxygen Saturation 94.1 L Car Test ACCEPTAB Arterial Blood Gas Puncture Site Right Radial Arterial Blood Carboxyhemoglobin 0.3 Arterial Blood Methemoglobin 0.4 Blood Gas A-a O2 Differential 44.2 H Oxyhemoglobin Percent 93.4 Total Hemoglobin 11.8 L Blood Gas Temperature 37.0 Blood Gas Modality ROOM AIR FiO2 21.0 Blood Gas Notified Whom JLD Blood Gas Notified Time 11/27/2016 11:05:42 AM Bedside Glucose 123 Medications Medications Current Medications Hydromorphone HCl (Dilaudid) 0.2 mg Q1H PRN IV PAIN LEVEL 1-5 Last administered on 11/24/16 01:57; Admin Dose 0.2 MG; Start 11/20/16 at 21:30 Ondansetron HCl (Zofran Inj) 4 mg Q6H PRN IV NAUSEA AND/OR VOMITING Last administered on 11/21/16 15:53; Admin Dose 4 MG; Start 11/20/16 at 21:30 Acetaminophen (Tylenol Tab) 650 mg Q3H PRN PO ELEVATED TEMPERATURE Last administered on 11/24/16 17:19; Admin Dose 650 MG; Start 11/20/16 at 21:30 Aspirin (Aspirin) 162 mg DAILY PO Last administered on 11/27/16 08:56; Admin Dose 162 MG; Start 11/21/16 at 09:00 Atorvastatin Calcium (Lipitor) 80 mg HS PO Last administered on 11/26/16 21:00 ; Admin Dose 80 MG; Start 11/21/16 at 21:00 Diagnostic Test (Pha) (Accu-Chek) 1 ea 02 XX Last administered on 11/23/16 02: 32; Admin Dose 1 EA; Start 11/23/16 at 02:00 Miscellaneous Information 1 ea NOTE XX ; Start 11/22/16 at 12:30 Glucose (Glutose) 15 gm Q15M PRN PO DECREASED GLUCOSE; Start 11/22/16 at 12:30 Glucose (Glutose) 22.5 gm Q15M PRN PO DECREASED GLUCOSE; Start 11/22/16 at 12: 30 Dextrose (D50w Syringe) 25 ml Q15M PRN IV DECREASED GLUCOSE; Start 11/22/16 at 12:30 Dextrose (D50w Syringe) 50 ml Q15M PRN IV DECREASED GLUCOSE; Start 11/22/16 at 12:30 Glucagon (Glucagen) 1 mg Q15M PRN IM DECREASED GLUCOSE; Start 11/22/16 at 12:30 Glucose (Glutose) 15 gm Q15M PRN BUCCAL DECREASED GLUCOSE; Start 11/22/16 at 12 :30 Clopidogrel Bisulfate (plaVIX) 75 mg DAILY PO Last administered on 11/27/16 08 :57; Admin Dose 75 MG; Start 11/23/16 at 09:00 Zolpidem Tartrate (Ambien) 5 mg HS PRN PO INSOMNIA Last administered on 22:48; Admin Dose 5 MG; Start 11/22/16 at 21:00 Epoetin Saeid (Epogen (Esrd)) 10,000 units MoWeFr@17 SC Last administered on 17:29; Admin Dose 10,000 UNITS; Start 11/26/16 at 17:00 Hydralazine HCl (Apresoline) 10 mg Q4H PRN IV SBP >160 Last administered on 01:30; Admin Dose 10 MG; Start 11/24/16 at 16:00 Lorazepam (Ativan) 1 mg Q4H PRN PO ANXIETY Last administered on 11/25/16 23:49 ; Admin Dose 1 MG; Start 11/24/16 at 19:00 Docusate Sodium (Colace) 250 mg BID PO Last administered on 11/27/16 08:57; Admin Dose 250 MG; Start 11/25/16 at 13:30 Senna (Senokot) 1 tab DAILY PO Last administered on 11/27/16 08:58; Admin Dose 1 TAB; Start 11/25/16 at 13:30 Magnesium Hydroxide (Milk Of Mag) 30 ml BID PRN PO CONSTIPATION; Start at 13:30 Insulin Glargine (Lantus) 4 unit DAILY@08 SC Last administered on 11/27/16 09: 05; Admin Dose 4 UNIT; Start 11/26/16 at 08:00 Metoprolol Succinate (Toprol Xl) 12.5 mg DAILY PO Last administered on 08:58; Admin Dose 12.5 MG; Start 11/27/16 at 09:00 Lisinopril (Zestril) 5 mg DAILY PO Last administered on 11/27/16 08:59; Admin Dose 5 MG; Start 11/27/16 at 09:00 Diltiazem HCl (Cardizem Cd) 120 mg BID PO Last administered on 11/27/16 08:57 ; Admin Dose 120 MG; Start 11/26/16 at 21:00 ZEHRA MILLARD MD Nov 27, 2016 12:19
--- NOTE | 2016-11-27 14:23 | RADRPT ---
PROCEDURE: Chest Radiograph. CLINICAL INDICATION: Hypoxia TECHNIQUE: Single frontal chest radiograph. COMPARISON: Chest radiograph 11/24/2016 FINDINGS: The patient is rotated. The patient is status post sternotomy. The heart is enlarged. There is a small left pleural effusion with adjacent atelectasis/infiltrate which is stable to slightly improve d when compared to prior study. There is a trace right pleural effusion with adjacent atelectasis. The bones are intact. IMPRESSION: 1. Improving left basilar pleural / parenchymal disease. 2. Trace right pleural effusion with adjacent atelectasis. 3. Cardiomegaly. RPTAT: KK .Donnie Devine MD, MD Date Time Electronically viewed and signed by .Donnie Devine MD, on 11/27/2016 14:23 .B/
--- NOTE | 2016-11-27 15:15 | PN ---
Date/Time of Note Date/Time of Note DATE: 11/27/16 TIME: 15:13 Assessment/Plan VTE Prophylaxis VTE Prophylaxis Intervention: other Lines/Catheters IV Catheter Type (from [facility]): Saline Lock Urinary Cath still in place: No Assessment/Plan Chief Complaint/Hosp Course 1. CAD: S/P CAB. S/P multiple PCI in the past 3. DM: on insulin 4. ESRD on HD 5. COPD: 6. resp failure: resolved and extubated 7. DYSLIPIDEMIA: back on lipitor 80 8. anemia 9. post op short PAFIB. 10./ s/p NM REC: will cont ASA. cont plavix [address] Bernard is following for pulm statues only very low dose betablocker due to wheezing and CONT cardizem po lisinopril statin tele monitoring correct lytes prn HD as per renal. dc planning when pulm statues improve Thank you for this referral. I will continue to follow along with you Problems: Subjective 24 Hr Interval Summary Free Text/Dictation CARDIOLOGY FOLLOW UP NOTE: D/W STAFF and rhythm was reviewed. pt remains in NSR D/ W DR BURT and family he still is intermittently hypoxemic. no palpitations minimal chest wall pain OBJECTIVE: General: diaphoretic HEENT: NC/AT. pupils are equal. round. NECK: NO JVD. no stridor. CV: TACHYCARDIC. systolic murmur; no gallop or rubs. PULM: no wheezing GI: SOFT, NT, ND, no rebound or guarding Extremity: trace B/L LE edema. no clubbing. neuro: awake and alert. responds appropriately . Psych: calm and pleasant rectal: deferred : normal male chest: s/p sternotomy. Exam/Review of Systems Vital Signs Vitals Vital Signs Date Time Temp Pulse Resp B/P Pulse Ox O2 Delivery O2 Flow Rate FiO2 11/27/16 13:53 99 2.0 11/27/16 13:51 102 20 Nasal Cannula 11/27/16 11:25 98.4 144/80 Intake and Output 11/26/16 11/26/16 11/27/16 14:59 22:59 06:59 Intake Total 800 ml 360 ml Output Total 0 ml 200 ml Balance 800 ml 160 ml Results Result Diagram: 11/27/1662111/27/16621 Results 24 hrs Laboratory Tests Test 11/26/16 17:26 11/26/16 20:44 11/27/16 06:22 11/27/16 07:47 Bedside Glucose 114 128 115 White Blood Count 9.6 # Red Blood Count 3.04 L Hemoglobin 9.1 L Hematocrit 26.8 L Mean Corpuscular Volume 88.2 Mean Corpuscular Hemoglobin 29.9 Mean Corpuscular Hemoglobin Concent 34.0 Red Cell Distribution Width 13.2 Platelet Count 183 Mean Platelet Volume 11.2 H Neutrophils % 76.8 Lymphocytes % 10.7 L Monocytes % 8.6 Eosinophils % 2.1 Basophils % 0.3 Nucleated Red Blood Cells % 0.0 Neutrophils # 7.4 Lymphocytes # 1.0 Monocytes # 0.8 Eosinophils # 0.2 Basophils # 0.0 Nucleated Red Blood Cells # 0.0 Sodium Level 137 Potassium Level 4.5 Chloride Level 91 L Carbon Dioxide Level 19 L Anion Gap 32 H Blood Urea Nitrogen 114 H Creatinine 10.77 H Glucose Level 113 Calcium Level 7.9 L Phosphorus Level 9.1 H Magnesium Level 2.3 Test 11/27/16 09:00 11/27/16 11:41 Blood Gas Specimen Source Blood arterial Arterial Blood Date Drawn 11/27/2016 10:50:12 AM Arterial Blood pH (Temp corrected) 7.467 H Arterial Blood pCO2 (Temp correct) 27.9 L Arterial Blood pO2 (Temp corrected) 72.1 L Arterial Blood HCO3 19.7 L Arterial Blood Base Excess -2.9 Arterial Blood Oxygen Saturation 94.1 L Car Test ACCEPTAB Arterial Blood Gas Puncture Site Right Radial Arterial Blood Carboxyhemoglobin 0.3 Arterial Blood Methemoglobin 0.4 Blood Gas A-a O2 Differential 44.2 H Oxyhemoglobin Percent 93.4 Total Hemoglobin 11.8 L Blood Gas Temperature 37.0 Blood Gas Modality ROOM AIR FiO2 21.0 Blood Gas Notified Whom JLD Blood Gas Notified Time 11/27/2016 11:05:42 AM Bedside Glucose 123 Medications Medications Current Medications Hydromorphone HCl (Dilaudid) 0.2 mg Q1H PRN IV PAIN LEVEL 1-5 Last administered on 11/24/16t 01:57; Admin Dose 0.2 MG; Start 11/20/16 at 21:30 Ondansetron HCl (Zofran Inj) 4 mg Q6H PRN IV NAUSEA AND/OR VOMITING Last administered on 11/21/16 15:53; Admin Dose 4 MG; Start 11/20/16 at 21:30 Acetaminophen (Tylenol Tab) 650 mg Q3H PRN PO ELEVATED TEMPERATURE Last administered on 11/24/16 17:19; Admin Dose 650 MG; Start 11/20/16 at 21:30 Aspirin (Aspirin) 162 mg DAILY PO Last administered on 11/27/16 08:56; Admin Dose 162 MG; Start 11/21/16 at 09:00 Atorvastatin Calcium (Lipitor) 80 mg HS PO Last administered on 11/26/16 21:00 ; Admin Dose 80 MG; Start 11/21/16 at 21:00 Diagnostic Test (Pha) (Accu-Chek) 1 ea 02 XX Last administered on 11/23/16 02: 32; Admin Dose 1 EA; Start 11/23/16 at 02:00 Miscellaneous Information 1 ea NOTE XX ; Start 11/22/16 at 12:30 Glucose (Glutose) 15 gm Q15M PRN PO DECREASED GLUCOSE; Start 11/22/16 at 12:30 Glucose (Glutose) 22.5 gm Q15M PRN PO DECREASED GLUCOSE; Start 11/22/16 at 12: 30 Dextrose (D50w Syringe) 25 ml Q15M PRN IV DECREASED GLUCOSE; Start 11/22/16 at 12:30 Dextrose (D50w Syringe) 50 ml Q15M PRN IV DECREASED GLUCOSE; Start 11/22/16 at 12:30 Glucagon (Glucagen) 1 mg Q15M PRN IM DECREASED GLUCOSE; Start 11/22/16 at 12:30 Glucose (Glutose) 15 gm Q15M PRN BUCCAL DECREASED GLUCOSE; Start 11/22/16 at 12 :30 Clopidogrel Bisulfate (plaVIX) 75 mg DAILY PO Last administered on 11/27/16 08 :57; Admin Dose 75 MG; Start 11/23/16 at 09:00 Zolpidem Tartrate (Ambien) 5 mg HS PRN PO INSOMNIA Last administered on 22:48; Admin Dose 5 MG; Start 11/22/16 at 21:00 Epoetin Saeid (Epogen (Esrd)) 10,000 units MoWeFr@17 SC Last administered on 17:29; Admin Dose 10,000 UNITS; Start 11/26/16 at 17:00 Hydralazine HCl (Apresoline) 10 mg Q4H PRN IV SBP >160 Last administered on 01:30; Admin Dose 10 MG; Start 11/24/16 at 16:00 Lorazepam (Ativan) 1 mg Q4H PRN PO ANXIETY Last administered on 11/25/16 23:49 ; Admin Dose 1 MG; Start 11/24/16 at 19:00 Docusate Sodium (Colace) 250 mg BID PO Last administered on 11/27/16 08:57; Admin Dose 250 MG; Start 11/25/16 at 13:30 Senna (Senokot) 1 tab DAILY PO Last administered on 11/27/16 08:58; Admin Dose 1 TAB; Start 11/25/16 at 13:30 Magnesium Hydroxide (Milk Of Mag) 30 ml BID PRN PO CONSTIPATION; Start at 13:30 Insulin Glargine (Lantus) 4 unit DAILY@08 SC Last administered on 11/27/16 09: 05; Admin Dose 4 UNIT; Start 11/26/16 at 08:00 Metoprolol Succinate (Toprol Xl) 12.5 mg DAILY PO Last administered on 08:58; Admin Dose 12.5 MG; Start 11/27/16 at 09:00 Lisinopril (Zestril) 5 mg DAILY PO Last administered on 11/27/16 08:59; Admin Dose 5 MG; Start 11/27/16 at 09:00 Diltiazem HCl (Cardizem Cd) 120 mg BID PO Last administered on 11/27/16 08:57 ; Admin Dose 120 MG; Start 11/26/16 at 21:00 ADENIKE MAYERS MD Nov 27, 2016 15:15
--- NOTE | 2016-11-27 15:35 | PN ---
Date/Time of Note Date/Time of Note DATE: 11/27/16 TIME: 15:29 Assessment/Plan VTE Prophylaxis VTE Prophylaxis Intervention: SCD's Lines/Catheters [facility] Sal[facility] Urinary Cath still in place: No Assessment/Plan Chief Complaint/Hosp Course This is a 80-year-old Nep[place] male with history of coronary artery disease, prediabetes, chronic obstructive pulmonary disease, former smoker and history of myocardial infarction who is status post elective PCI.. Patient was found to have multiple vessel disease with previous restenosis. Now s/p CABG day #6. 1. Respiratory- extubated, hx of COPD, heavy former smoker. breathing treatments to be provided, routine and PRN. .CXR today shows Improving left basilar pleural / parenchymal disease.. continue incentive spirometer, afebrile, off antibiotics, CT removed. Titrate o2 down, may need home o2. 2. CV- S/P CABG- 4 vessel disease- chest tube removed. Monitor H/H, monitor for fluid overload state. HD T, , Sat. 3. ESRD- Nephrology following, HD done today, monitor lytes. 4.GI- PPI for GI prophylaxis, H/H stable, transfuse PRBC or/and platelets as needed. 5.ID-febrile, follow up for any evidence of infection. Currently off antibiotics , WBC normal, afebrile. 6. Neuro- s/p surgery, no neuro deficits. 7. thrombocytopenia-resolved 8 .pre DM- glucose levels are good. continue current regimen. 9.. diet- as tolerated. 10. OOB - as tolerated 11. discharge planning in process, with home health possibly tomorrow 12. constipation- stool softeners to continue. Problems: Subjective 24 Hr Interval Summary Free Text/Dictation Patient doing better, requiring less oxygen. S/P dialysis today. noted pulmonary recs, d/w dr. Pizano. Subjective hx not possible: pt critical status Constitutional: No disoriented Eyes: No discharge, No redness ENT: No congestion Respiratory: wheezing (mild) Cardiovascular: No chest pain, No edema, No lightheadedness, No orthopenea Gastrointestinal: passing stool, No diarrhea, No nausea, No vomiting Genitourinary: No discharge Musculoskeletal: No neck pain Neurologic: No focal-weakness, No headache, No syncope Exam/Review of Systems Vital Signs Vitals Vital Signs Date Time Temp Pulse Resp B/P Pulse Ox O2 Delivery O2 Flow Rate FiO2 11/27/16 13:53 99 2.0 11/27/16 13:51 102 20 Nasal Cannula 11/27/16 11:25 98.4 144/80 Intake and Output 11/26/16 11/26/16 11/27/16 15:00 23:00 07:00 Intake Total 800 ml 360 ml Output Total 0 ml 200 ml Balance 800 ml 160 ml Exam obese, on 2 liter NC, comfortable Constitutional: No distress, No non-verbal Psych: No confusion Head: No lacerations Eyes: PERRL Respiratory: wheezing (mild bilat) Gastrointestinal: distended (obese) Extremities: No clubbing, No cyanosis, No edema Neurological: No confused, No focal weakness Results Result Diagram: 11/27/1662111/27/16621 Results 24 hrs Laboratory Tests Test 11/26/16 17:26 11/26/16 20:44 11/27/16 06:22 11/27/16 07:47 Bedside Glucose 114 128 115 White Blood Count 9.6 # Red Blood Count 3.04 L Hemoglobin 9.1 L Hematocrit 26.8 L Mean Corpuscular Volume 88.2 Mean Corpuscular Hemoglobin 29.9 Mean Corpuscular Hemoglobin Concent 34.0 Red Cell Distribution Width 13.2 Platelet Count 183 Mean Platelet Volume 11.2 H Neutrophils % 76.8 Lymphocytes % 10.7 L Monocytes % 8.6 Eosinophils % 2.1 Basophils % 0.3 Nucleated Red Blood Cells % 0.0 Neutrophils # 7.4 Lymphocytes # 1.0 Monocytes # 0.8 Eosinophils # 0.2 Basophils # 0.0 Nucleated Red Blood Cells # 0.0 Sodium Level 137 Potassium Level 4.5 Chloride Level 91 L Carbon Dioxide Level 19 L Anion Gap 32 H Blood Urea Nitrogen 114 H Creatinine 10.77 H Glucose Level 113 Calcium Level 7.9 L Phosphorus Level 9.1 H Magnesium Level 2.3 Test 11/27/16 09:00 11/27/16 11:41 Blood Gas Specimen Source Blood arterial Arterial Blood Date Drawn 11/27/2016 10:50:12 AM Arterial Blood pH (Temp corrected) 7.467 H Arterial Blood pCO2 (Temp correct) 27.9 L Arterial Blood pO2 (Temp corrected) 72.1 L Arterial Blood HCO3 19.7 L Arterial Blood Base Excess -2.9 Arterial Blood Oxygen Saturation 94.1 L Car Test ACCEPTAB Arterial Blood Gas Puncture Site Right Radial Arterial Blood Carboxyhemoglobin 0.3 Arterial Blood Methemoglobin 0.4 Blood Gas A-a O2 Differential 44.2 H Oxyhemoglobin Percent 93.4 Total Hemoglobin 11.8 L Blood Gas Temperature 37.0 Blood Gas Modality ROOM AIR FiO2 21.0 Blood Gas Notified Whom JLD Blood Gas Notified Time 11/27/2016 11:05:42 AM Bedside Glucose 123 Medications Medications Current Medications Hydromorphone HCl (Dilaudid) 0.2 mg Q1H PRN IV PAIN LEVEL 1-5 Last administered on 11/24/16 01:57; Admin Dose 0.2 MG; Start 11/20/16 at 21:30 Ondansetron HCl (Zofran Inj) 4 mg Q6H PRN IV NAUSEA AND/OR VOMITING Last administered on 11/21/16 15:53; Admin Dose 4 MG; Start 11/20/16 at 21:30 Acetaminophen (Tylenol Tab) 650 mg Q3H PRN PO ELEVATED TEMPERATURE Last administered on 11/24/16 17:19; Admin Dose 650 MG; Start 11/20/16 at 21:30 Aspirin (Aspirin) 162 mg DAILY PO Last administered on 11/27/16 08:56; Admin Dose 162 MG; Start 11/21/16 at 09:00 Atorvastatin Calcium (Lipitor) 80 mg HS PO Last administered on 11/26/16 21:00 ; Admin Dose 80 MG; Start 11/21/16 at 21:00 Diagnostic Test (Pha) (Accu-Chek) 1 ea 02 XX Last administered on 11/23/16 02: 32; Admin Dose 1 EA; Start 11/23/16 at 02:00 Miscellaneous Information 1 ea NOTE XX ; Start 11/22/16 at 12:30 Glucose (Glutose) 15 gm Q15M PRN PO DECREASED GLUCOSE; Start 11/22/16 at 12:30 Glucose (Glutose) 22.5 gm Q15M PRN PO DECREASED GLUCOSE; Start 11/22/16 at 12: 30 Dextrose (D50w Syringe) 25 ml Q15M PRN IV DECREASED GLUCOSE; Start 11/22/16 at 12:30 Dextrose (D50w Syringe) 50 ml Q15M PRN IV DECREASED GLUCOSE; Start 11/22/16 at 12:30 Glucagon (Glucagen) 1 mg Q15M PRN IM DECREASED GLUCOSE; Start 11/22/16 at 12:30 Glucose (Glutose) 15 gm Q15M PRN BUCCAL DECREASED GLUCOSE; Start 11/22/16 at 12 :30 Clopidogrel Bisulfate (plaVIX) 75 mg DAILY PO Last administered on 11/27/16 08 :57; Admin Dose 75 MG; Start 11/23/16 at 09:00 Zolpidem Tartrate (Ambien) 5 mg HS PRN PO INSOMNIA Last administered on 22:48; Admin Dose 5 MG; Start 11/22/16 at 21:00 Epoetin Saeid (Epogen (Esrd)) 10,000 units MoWeFr@17 SC Last administered on 17:29; Admin Dose 10,000 UNITS; Start 11/26/16 at 17:00 Hydralazine HCl (Apresoline) 10 mg Q4H PRN IV SBP >160 Last administered on 01:30; Admin Dose 10 MG; Start 11/24/16 at 16:00 Lorazepam (Ativan) 1 mg Q4H PRN PO ANXIETY Last administered on 11/25/16 23:49 ; Admin Dose 1 MG; Start 11/24/16 at 19:00 Docusate Sodium (Colace) 250 mg BID PO Last administered on 11/27/16 08:57; Admin Dose 250 MG; Start 11/25/16 at 13:30 Senna (Senokot) 1 tab DAILY PO Last administered on 11/27/16 08:58; Admin Dose 1 TAB; Start 11/25/16 at 13:30 Magnesium Hydroxide (Milk Of Mag) 30 ml BID PRN PO CONSTIPATION; Start at 13:30 Insulin Glargine (Lantus) 4 unit DAILY@08 SC Last administered on 11/27/16 09: 05; Admin Dose 4 UNIT; Start 11/26/16 at 08:00 Metoprolol Succinate (Toprol Xl) 12.5 mg DAILY PO Last administered on 08:58; Admin Dose 12.5 MG; Start 11/27/16 at 09:00 Lisinopril (Zestril) 5 mg DAILY PO Last administered on 11/27/16 08:59; Admin Dose 5 MG; Start 11/27/16 at 09:00 Diltiazem HCl (Cardizem Cd) 120 mg BID PO Last administered on 11/27/16 08:57 ; Admin Dose 120 MG; Start 11/26/16 at 21:00 SUSANNA BURT MD Nov 27, 2016 15:35
[2016-11-27] MEDS: ATORVASTATIN 80 MG TAB PO SCH (20:14)
[2016-11-27] MEDS: LORAZEPAM 1 MG TAB PO PRN (22:32)
[2016-11-28] VITALS (10 sets, daily range): BP systolic 123–161; BP diastolic 63–84; PULSE 94–107; RESP 18–19
[2016-11-28] MEDS: ACCU-CHEK XX SCH (02:00)
[2016-11-28] MEDS: IPRATROPIUM (NEB) 0.5 MG/2.5 ML AMP HHN SCH ×3 (02:02→13:59)
[2016-11-28] MEDS: LEVALBUTEROL (NEB) 1.25 MG/0.5 ML AMP INH SCH ×3 (02:02→13:59)
[2016-11-28] MEDS: INSULIN ASPART [NOVOLOG] 3 ML PEN SC SCH ×2 (07:55→12:11)
[2016-11-28] MEDS: INSULIN GLARGINE [LANtus] 3 ML PEN SC SCH (07:58)
[2016-11-28] MEDS: CALCIUM ACETATE 667 MG CAP PO SCH ×2 (08:04→12:15)
[2016-11-28] MEDS: ASPIRIN 81 MG TAB PO SCH (08:05)
[2016-11-28] MEDS: SENNA TAB PO SCH (08:05)
[2016-11-28] MEDS: DILTIAZEM (CD) 120 MG CAP PO SCH (08:06)
[2016-11-28] MEDS: CLOPIDOGREL 75 MG TAB PO SCH (08:06)
[2016-11-28] MEDS: LISINOPRIL 5 MG TAB PO SCH (08:06)
[2016-11-28] MEDS: DOCUSATE SODIUM 250 MG CAP PO SCH (08:06)
[2016-11-28] MEDS: METOPROLOL (XL) 25 MG TAB PO SCH (08:06)
--- NOTE | 2016-11-28 08:40 | PN ---
Date/Time of Note Date/Time of Note DATE: 11/28/16 TIME: 08:38 Assessment/Plan VTE Prophylaxis VTE Prophylaxis Intervention: other Lines/Catheters IV [facility]ter Type [facility]from [facility] [place] Lock Urinary Cath still in place: No Assessment/Plan Chief Complaint/Hosp Course 1. CAD: S/P CAB. S/P multiple PCI in the past 3. DM: on insulin 4. ESRD on HD 5. COPD: 6. resp failure: resolved and extubated 7. DYSLIPIDEMIA: back on lipitor 80 8. anemia 9. post op short PAFIB. 10./ s/p [place] REC: will cont ASA. cont plavix [address] Bernard is following for pulm statues only very low dose betablocker due to wheezing CONT cardizem po lisinopril statin correct lytes prn HD as per renal. dc planning when OK with pulm Thank you for this referral. I will continue to follow along with you ADENIKE MAYERS MD [facility] Problems: Subjective 24 Hr Interval Summary Free Text/Dictation CARDIOLOGY FOLLOW UP NOTE: D/W STAFF and rhythm was reviewed. pt remains in NSR he is less hypoxemic. no palpitations minimal chest wall pain he states he feels well and wants to go home OBJECTIVE: General: no acute distress . HEENT: NC/AT. pupils are equal. round. NECK: NO JVD. no stridor. CV: RRR. systolic murmur; no gallop or rubs. PULM: no wheezing NOW. GI: SOFT, NT, ND, no rebound or guarding Extremity: trace B/L LE edema. no clubbing. neuro: awake and alert. OX3. Psych: calm and pleasant rectal: deferred : normal male chest: s/p sternotomy. Exam/Review of Systems Vital Signs Vitals Vital Signs Date Time Temp Pulse Resp B/P Pulse Ox O2 Delivery O2 Flow Rate FiO2 11/28/16 08:19 94 11/28/16 08:16 95 1.0 24 11/28/16 08:16 20 Nasal Cannula 11/28/16 06:56 97.8 140/83 Intake and Output 11/27/16 11/27/16 11/28/16 15:00 23:00 07:00 Intake Total 500 ml 950 ml 500 ml Output Total 500 ml 150 ml Balance 0 ml 950 ml 350 ml Results Result Diagram: 11/27/16 0622 11/27/16 0622 Results 24 hrs Laboratory Tests Test 11/27/16 09:00 11/27/16 11:41 11/27/16 17:25 11/27/16 20:17 Blood Gas Specimen Source Blood arterial Arterial Blood Date Drawn 11/27/2016 10:50:12 AM Arterial Blood pH (Temp corrected) 7.467 H Arterial Blood pCO2 (Temp correct) 27.9 L Arterial Blood pO2 (Temp corrected) 72.1 L Arterial Blood HCO3 19.7 L Arterial Blood Base Excess -2.9 Arterial Blood Oxygen Saturation 94.1 L Car Test ACCEPTAB Arterial Blood Gas Puncture Site Right Radial Arterial Blood Carboxyhemoglobin 0.3 Arterial Blood Methemoglobin 0.4 Blood Gas A-a O2 Differential 44.2 H Oxyhemoglobin Percent 93.4 Total Hemoglobin 11.8 L Blood Gas Temperature 37.0 Blood Gas Modality ROOM AIR FiO2 21.0 Blood Gas Notified Whom JLD Blood Gas Notified Time 11/27/2016 11:05:42 AM Bedside Glucose 123 108 132 Test 11/28/16 07:54 Bedside Glucose 140 Medications Medications Current Medications Hydromorphone HCl (Dilaudid) 0.2 mg Q1H PRN IV PAIN LEVEL 1-5 Last administered on 11/24/16 01:57; Admin Dose 0.2 MG; Start 11/20/16 at 21:30 Ondansetron HCl (Zofran Inj) 4 mg Q6H PRN IV NAUSEA AND/OR VOMITING Last administered on 11/21/16 15:53; Admin Dose 4 MG; Start 11/20/16 at 21:30 Acetaminophen (Tylenol Tab) 650 mg Q3H PRN PO ELEVATED TEMPERATURE Last administered on 11/24/16 17:19; Admin Dose 650 MG; Start 11/20/16 at 21:30 Aspirin (Aspirin) 162 mg DAILY PO Last administered on 11/28/16 08:05; Admin Dose 162 MG; Start 11/21/16 at 09:00 Atorvastatin Calcium (Lipitor) 80 mg HS PO Last administered on 11/27/16 20:14 ; Admin Dose 80 MG; Start 11/21/16 at 21:00 Diagnostic Test (Pha) (Accu-Chek) 1 ea 02 XX Last administered on 11/23/16 02: 32; Admin Dose 1 EA; Start 11/23/16 at 02:00 Miscellaneous Information 1 ea NOTE XX ; Start 11/22/16 at 12:30 Glucose (Glutose) 15 gm Q15M PRN PO DECREASED GLUCOSE; Start 11/22/16 at 12:30 Glucose (Glutose) 22.5 gm Q15M PRN PO DECREASED GLUCOSE; Start 11/22/16 at 12: 30 Dextrose (D50w Syringe) 25 ml Q15M PRN IV DECREASED GLUCOSE; Start 11/22/16 at 12:30 Dextrose (D50w Syringe) 50 ml Q15M PRN IV DECREASED GLUCOSE; Start 11/22/16 at 12:30 Glucagon (Glucagen) 1 mg Q15M PRN IM DECREASED GLUCOSE; Start 11/22/16 at 12:30 Glucose (Glutose) 15 gm Q15M PRN BUCCAL DECREASED GLUCOSE; Start 11/22/16 at 12 :30 Clopidogrel Bisulfate (plaVIX) 75 mg DAILY PO Last administered on 11/28/16 08 :06; Admin Dose 75 MG; Start 11/23/16 at 09:00 Zolpidem Tartrate (Ambien) 5 mg HS PRN PO INSOMNIA Last administered on 22:48; Admin Dose 5 MG; Start 11/22/16 at 21:00 Epoetin Saeid (Epogen (Esrd)) 10,000 units MoWeFr@17 SC Last administered on 17:29; Admin Dose 10,000 UNITS; Start 11/26/16 at 17:00 Hydralazine HCl (Apresoline) 10 mg Q4H PRN IV SBP >160 Last administered on 01:30; Admin Dose 10 MG; Start 11/24/16 at 16:00 Lorazepam (Ativan) 1 mg Q4H PRN PO ANXIETY Last administered on 11/27/16 22:32 ; Admin Dose 1 MG; Start 11/24/16 at 19:00 Docusate Sodium (Colace) 250 mg BID PO Last administered on 11/28/16 08:06; Admin Dose 250 MG; Start 11/25/16 at 13:30 Senna (Senokot) 1 tab DAILY PO Last administered on 11/28/16 08:05; Admin Dose 1 TAB; Start 11/25/16 at 13:30 Magnesium Hydroxide (Milk Of Mag) 30 ml BID PRN PO CONSTIPATION; Start at 13:30 Insulin Glargine (Lantus) 4 unit DAILY@08 SC Last administered on 11/28/16 07: 58; Admin Dose 4 UNIT; Start 11/26/16 at 08:00 Metoprolol Succinate (Toprol Xl) 12.5 mg DAILY PO Last administered on 08:06; Admin Dose 12.5 MG; Start 11/27/16 at 09:00 Lisinopril (Zestril) 5 mg DAILY PO Last administered on 11/28/16 08:06; Admin Dose 5 MG; Start 11/27/16 at 09:00 Diltiazem HCl (Cardizem Cd) 120 mg BID PO Last administered on 11/28/16 08:06 ; Admin Dose 120 MG; Start 11/26/16 at 21:00 ADENIKE MAYERS MD Nov 28, 2016 08:40
--- NOTE | 2016-11-28 15:06 | PDOCDIS ---
Discharge Instructions CONDITION Patient Condition: Stable HOME CARE INSTRUCTIONS: Diet Instructions: 2gm NaSpecial Diet: 1800 CHARITY, RENAL, CARDIAC ACTIVITY: Activity Restrictions: Slowly Increase Activity FOLLOW UP/APPOINTMENTS Follow-up Plan dc with home health, see attached prescriptions, follow up PMD, cardiology, cardio thoracic surgeon in 1-2 weeks SUSANNA BURT MD Nov 28, 2016 15:06
[2016-11-28] MEDS ORDERED: CLOP75TA28 PO (15:10)
[2016-11-28] MEDS ORDERED: CALC667C PO (15:10)
[2016-11-28] MEDS ORDERED: LISI-313 PO (15:10)
[2016-11-28] MEDS ORDERED: HYDR-906 PO (15:13)
--- NOTE | 2016-11-28 15:20 | DS ---
Date/Time of Note Date/Time of Note DATE: 11/28/16 TIME: 15:13 Discharge Summary Admission/Discharge Info Admit Date/Time Nov 20, 2016 at 05:43 Discharge Date/Time Discharge Diagnosis Coronary Artery Disease- multi vessel S/P CABG 4v COPD obese state pre DM ESRD on HD TThSa hypertension nicotine dependency Anemia left lung ATX/effusion with hypoxia now resolving, o2 ok Patient Condition: Stable Consults multiple, CV, PULM, CTS, Nephrology Procedures CABG see surgical report Hx of Present Illness The patient is a 80 year old Iranian male with a history of SC, coronary artery disease, end- stage renal disease, who gets dialysis 3 times a week every , , , last dialysis yesterday. He has prediabetes, hypertension, dyslipidemia, COPD, and history of heavy smoking most of his life, but he stopped smoking approximately 2 months ago. The patient is status post-PCI back in 05/2016, of the left anterior descending artery and first diagonal. Angioplasty of the mid LAD, see exact report. The patient presented last week to [facility] for elective cardiac catheterization. Unfortunately he was found to have multi-vessel coronary artery disease, including in-stent restenosis. Dr. Pizano, recommended CT surgery evaluation for coronary artery bypass graft. The patient had significant disease, including 100 percent stenosis of the mid LAD, 99 percent in-stent stenosis of the proximal left circumflex artery, 60 to 70 percent stenosis of the proximal RCA, just proximal to the previous stent. His ejection fraction was preserved. 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 Dinh Ramirez, and Dr. Mitch Hazel. His primary medical doctor does not come to this hospital, as discussed with the patient and the patient's son. Patient underwent CABG 4 v disease. Remained in the ICU recovering from surgery, Chest tubes removed and O2 support was titrated down slowly. CXR showed left lung ATX, effusion which improved. All lines removed and patient is pain free, O2 room air is 94 percent. to be discharged with attached prescriptions. Hospital Course 1. CAD: S/P CAB. S/P multiple PCI in the past 3. DM: on insulin 4. ESRD on HD 5. COPD: 6. resp failure: resolved and extubated 7. DYSLIPIDEMIA: back on lipitor 80 8. anemia 9. post op short PAFIB. 10./ s/p [place] REC: will cont ASA. cont plavix [address] Bernard is following for pulm statues only very low dose betablocker due to wheezing CONT cardizem po lisinopril statin correct lytes prn HD as per renal. dc planning when OK with pulm Thank you for this referral. I will continue to follow along with you ADENIKE PIZANO MD [facility] Home Meds Active Scripts Hydrocodone/Acetaminophen ([place] 5-325 Tablet) 1 Each Tablet, 1 EACH PO Q6 Y for PAIN LEVEL 6-10, #30 TAB Prov:SUSANNA BURT MD 11/28/16 Lisinopril* (Lisinopril*) 5 Mg Tablet, 5 MG PO DAILY for 30 Days, TAB Prov:SUSANNA BURT MD 11/28/16 Calcium Acetate* (Calcium Acetate*) 667 Mg Capsule, 1334 MG PO WITH MEALS for 30 Days, CAP Prov:SUSANNA BURT MD 11/28/16 Clopidogrel Bisulfate (Clopidogrel) 75 Mg Tablet, 75 MG PO DAILY for 30 Days, TAB Prov:SUSANNA BURT MD 11/28/16 Metoprolol Succinate* (Toprol XL*) 50 Mg Tab.er.24h, 50 MG PO DAILY for 30 Days , #30 Prov:SUSANNA BURT MD 11/15/16 Atorvastatin* (Atorvastatin*) 80 Mg Tablet, 80 MG PO HS for 30 Days, TAB Prov:SUSANNA BURT MD 11/15/16 Pantoprazole* (Pantoprazole*) 40 Mg Tablet., 40 MG PO DAILY@06, #30 Prov:FRANCISCO CONWAY MD 05/24/16 Diltiazem Hcl (Cardozem Cd) 240 Mg Capsr, 240 MG PO DAILY, #30 CAP Prov:FRANCISCO CONWAY MD 10/30/15 Reported Medications Albuterol Sulfate* (Albuterol Sulfate* Neb) 0.083%-3 Ml Neb, 2.5 MG NEB Q4H, # 30 VIAL 11/20/16 Aspirin (Low Dose Aspirin) 81 Mg Tablet., 81 MG PO DAILY, #30 TAB 11/13/16 Icosapent Ethyl (VASCEPA) 1 Gm Capsule, 2 GM PO BID, CAP 11/13/16 Calcium Acetate* (Calcium Acetate*) 667 Mg Capsule, 667 MG PO WITH MEALS, #30 CAP 05/21/16 Sevelamer Carbonate* (Renvela*) 800 Mg Tablet, 0.8 GM PO WITH MEALS, TAB 05/21/16 Discontinued Reported Medications Clopidogrel Bisulfate* (Plavix*) 300 Mg Tab, 5 MG PO ONCE, TAB 11/20/16 Discontinued Scripts Isosorbide Mononitrate* (Isosorbide Mononitrate*) 30 Mg Tab.er.24h, 30 MG PO DAILY for 30 Days Prov:SUSANNA BURT MD 11/15/16 Follow-up Plan follow up with PMD, Dr. Pizano, and Dr. Reyna, any change in condition call 911 or go to the ER. Primary Care Provider Fady Malone Time spent on discharge: > 30 minutes Pending Labs Laboratory Tests Test 11/27/16 17:25 11/27/16 20:17 11/28/16 07:54 11/28/16 12:06 Bedside Glucose 108mg/dL (70-220) 132mg/dL (70-220) 140mg/dL (70-220) 165mg/dL (70-220) SUSANNA BURT MD Nov 28, 2016 15:20
--- NOTE | 2016-11-28 15:25 | CONS ---
Date/Time of Note Date/Time of Note DATE: 11/28/16 TIME: 15:25 Consult Date/Type/Reason Admit Date/Time Nov 20, 2016 at 05:43 Initial Consult Date 11/21/16 Type of Consultation: RENAL Ordering Provider: SUSANNA BURT MD Objective Vital Signs Date Time Temp Pulse Resp B/P Pulse Ox O2 Delivery O2 Flow Rate FiO2 11/28/16 14:59 98.3 96 18 140/77 99 11/28/16 13:59 21 11/28/16 08:16 1.0 11/28/16 08:16 Nasal Cannula Intake and Output 11/27/16 11/27/16 11/28/16 14:59 22:59 06:59 Intake Total 500 ml 950 ml 500 ml Output Total 500 ml 150 ml Balance 0 ml 950 ml 350 ml Results/Medications Result Diagram: 11/27/1662111/27/16621 Results 24 hrs Laboratory Tests Test 11/27/16 17:25 11/27/16 20:17 11/28/16 07:54 11/28/16 12:06 Bedside Glucose 108 132 140 165 Medications Current Medications Hydromorphone HCl (Dilaudid) 0.2 mg Q1H PRN IV PAIN LEVEL 1-5 Last administered on 11/24/16 01:57; Admin Dose 0.2 MG; Start 11/20/16 at 21:30 Ondansetron HCl (Zofran Inj) 4 mg Q6H PRN IV NAUSEA AND/OR VOMITING Last administered on 11/21/16 15:53; Admin Dose 4 MG; Start 11/20/16 at 21:30 Acetaminophen (Tylenol Tab) 650 mg Q3H PRN PO ELEVATED TEMPERATURE Last administered on 11/24/16 17:19; Admin Dose 650 MG; Start 11/20/16 at 21:30 Aspirin (Aspirin) 162 mg DAILY PO Last administered on 11/28/16 08:05; Admin Dose 162 MG; Start 11/21/16 at 09:00 Atorvastatin Calcium (Lipitor) 80 mg HS PO Last administered on 11/27/16 20:14 ; Admin Dose 80 MG; Start 11/21/16 at 21:00 Diagnostic Test (Pha) (Accu-Chek) 1 ea 02 XX Last administered on 11/23/16 02: 32; Admin Dose 1 EA; Start 11/23/16 at 02:00 Miscellaneous Information 1 ea NOTE XX ; Start 11/22/16 at 12:30 Glucose (Glutose) 15 gm Q15M PRN PO DECREASED GLUCOSE; Start 11/22/16 at 12:30 Glucose (Glutose) 22.5 gm Q15M PRN PO DECREASED GLUCOSE; Start 11/22/16 at 12: 30 Dextrose (D50w Syringe) 25 ml Q15M PRN IV DECREASED GLUCOSE; Start 11/22/16 at 12:30 Dextrose (D50w Syringe) 50 ml Q15M PRN IV DECREASED GLUCOSE; Start 11/22/16 at 12:30 Glucagon (Glucagen) 1 mg Q15M PRN IM DECREASED GLUCOSE; Start 11/22/16 at 12:30 Glucose (Glutose) 15 gm Q15M PRN BUCCAL DECREASED GLUCOSE; Start 11/22/16 at 12 :30 Clopidogrel Bisulfate (plaVIX) 75 mg DAILY PO Last administered on 11/28/16 08 :06; Admin Dose 75 MG; Start 11/23/16 at 09:00 Zolpidem Tartrate (Ambien) 5 mg HS PRN PO INSOMNIA Last administered on 22:48; Admin Dose 5 MG; Start 11/22/16 at 21:00 Epoetin Saeid (Epogen (Esrd)) 10,000 units MoWeFr@17 SC Last administered on 17:29; Admin Dose 10,000 UNITS; Start 11/26/16 at 17:00 Hydralazine HCl (Apresoline) 10 mg Q4H PRN IV SBP >160 Last administered on 01:30; Admin Dose 10 MG; Start 11/24/16 at 16:00 Lorazepam (Ativan) 1 mg Q4H PRN PO ANXIETY Last administered on 11/27/16 22:32 ; Admin Dose 1 MG; Start 11/24/16 at 19:00 Docusate Sodium (Colace) 250 mg BID PO Last administered on 11/28/16 08:06; Admin Dose 250 MG; Start 11/25/16 at 13:30 Senna (Senokot) 1 tab DAILY PO Last administered on 11/28/16 08:05; Admin Dose 1 TAB; Start 11/25/16 at 13:30 Magnesium Hydroxide (Milk Of Mag) 30 ml BID PRN PO CONSTIPATION; Start at 13:30 Insulin Glargine (Lantus) 4 unit DAILY@08 SC Last administered on 11/28/16 07: 58; Admin Dose 4 UNIT; Start 11/26/16 at 08:00 Metoprolol Succinate (Toprol Xl) 12.5 mg DAILY PO Last administered on 08:06; Admin Dose 12.5 MG; Start 11/27/16 at 09:00 Lisinopril (Zestril) 5 mg DAILY PO Last administered on 11/28/16 08:06; Admin Dose 5 MG; Start 11/27/16 at 09:00 Diltiazem HCl (Cardizem Cd) 120 mg BID PO Last administered on 11/28/16 08:06 ; Admin Dose 120 MG; Start 11/26/16 at 21:00 Assessment/Plan Chief Complaint/Hosp Course Doing well this morning. Vital signs remain stable. On examination GENERAL: VITAL SIGNS: per chart NECK: Supple. No JVD or lymphadenopathy. CARDIAC EXAM: S1, S2. No added sounds or murmurs. CHEST: Diminished air entry both lung bases. ABDOMEN: Soft, nontender. No guarding or rebound. Obese EXTREMITIES: No cyanosis, clubbing or edema. NEUROLOGIC: Generalized weakness. No focal deficits. Labs White count 9. 6, hemoglobin 9.1. Assessment 1. Status post four-vessel coronary artery bypass graft surgery for coronary artery disease 2. History of tobacco use probable underlying COPD 3. End-stage renal failure on hemodialysis. 4. History of essential hypertension 5. Morbid obesity 6. Probable underlying obstructive sleep apnea Plan 1. Continue and encourage ambulation 2. Ambulate in room air 3. Continue bronchodilators as needed 4. Monitor thrombocytopenia 5. Hemodialysis with volume removal as tolerated 6. Outpatient pulmonary function testing and sleep study. 7. Advice on smoking cessation. Discharge okay from pulmonary standpoint Problems: BAILEY ALEXANDER MD, [facility] Nov 28, 2016 15:25
--- NOTE | 2016-11-28 23:34 | CONS ---
Date/Time of Note Date/Time of Note DATE: 11/28/16 TIME: 23:34 Consultation Date/Type/Reason Admit Date/Time Nov 20, 2016 at 05:43 Initial Consult Date 11/21/16 Type of Consultation: RENAL Referring Provider: SUSANNA BURT MD Exam/Review of Systems Vital Signs Vitals Vital Signs Date Time Temp Pulse Resp B/P Pulse Ox O2 Delivery O2 Flow Rate FiO2 11/28/16 16:00 21 11/28/16 14:59 98.3 96 18 140/77 99 11/28/16 08:16 1.0 11/28/16 08:16 Nasal Cannula Intake and Output 11/27/16 11/27/16 11/28/16 15:00 23:00 07:00 Intake Total 500 ml 950 ml 500 ml Output Total 500 ml 150 ml Balance 0 ml 950 ml 350 ml Results Result Diagram: 11/27/1622 11/27/16 0622 Results 24 hrs Laboratory Tests Test 11/28/16 07:54 11/28/16 12:06 Bedside Glucose 140 165 MARLON JO MD Nov 28, 2016 23:34
--- NOTE | 2016-11-30 13:58 | PN ---
DATE OF SERVICE: ASSESSMENT: The patient is a 73-year-old Frisian male who has been admitted with a chief complaint of chest pain, diagnosed with acute IN. The patient has undergone coronary angiography and coronary artery bypass. The patient did well postoperatively. He has been scheduled for dialysis on Saturday and basis this week. He is maintained on the medications for diabetes and blood pressure, and his blood pressure has been stable. He will need counseling with regard to the diet and fluid management to prevent fluid overload. The patient is tolerating a regular diet and will be dialyzed once again tomorrow, and further plans per the primary care physician. Dictated By: Dinh Ramirez MD /chang/jose l /Document#: [id number]
--- NOTE | 2016-12-04 07:40 | CONS ---
DATE OF ADMISSION: 11/20/2016 DATE OF CONSULTATION: 11/20/2016 SUBJECTIVE: This is a 80-year-old [place]ian male with a history of diabetes and hypertension who has been known to me over the years with a diagnosis of end-stage kidney disease, for which he has hemodialysis. He has recently been stable, except has had a current episode of CHF, for which he has been admitted here multiple times. Advised to contact old records for further details. The patient has been followed by Dr. Pizano who has had coronary angiography performed on him that shows diffuse coronary artery disease. The patient has since been elected to have coronary artery surgery for which he was admitted this morning. The bypass has been done successfully. The patient is now on the ventilator and not able to give any further information. The workup at present shows the patient had a white count of 7.5, hematocrit 35, dropped to 24.8%, necessitating a unit of blood. The patient also received platelets and fresh frozen plasma. His platelet count has been low, 86,000 to 70,000. His chemistry is stable with blood sugars hovering around 120 to 130, and his BUN and creatinine is stable because the patient was dilated yesterday. Potassium is 4.8. Imaging studies show a chest x-ray with a Arcadia-Murali catheter in place and chest tubes are draining blood. The rest of the past personal, family history in the hospital are unavailable at this time. PHYSICAL EXAMINATION: GENERAL: Revealed the patient to be an obese man who is sedated on the ventilator. VITALS: Blood pressure 130/60, heart rate 68, temperature 98, respirations 19, ventilator 15. HEENT: Unremarkable. Eyes: Pupils are equal. Throat: Tracheal tube is in place. NECK: Supple. The patient has an IJ catheter in place. CHEST: Midline surgical scar is draining blood through the tube. HEART: Regular rhythm. ABDOMEN: Obese. EXTREMITIES: Lower extremities are without edema. GENITALIA: Flanagan catheter placed. ACCESS: Left arm AV fistula. SKIN: Pale. IMPRESSION: 1. History of diabetes, hypertension, end-stage kidney disease on dialysis. Left arm AV fistula is functioning. 2. Status post coronary artery bypass graft with coronary artery disease. 3. Anemia with blood loss. 4. Thrombocytopenia. PLAN: This patient has a tendency to low platelet count. Therefore, I would be very careful using Heparin on this patient. He is on dialysis Saturday, Saturday, and Saturday. Because of this surgery and fluid requirement, the patient will be better off getting dialysis tomorrow, as opposed to his usual schedule tomorrow. The patient's blood sugar, blood pressure, chemistry, and hematocrit will be followed closely. I have discussed the case with [____]. As soon as he is stable, he can be transferred from the ICU. Dictated By: Dinh Ramirez MD /chang/jose l /Document#: [id number]
== END 2016-11-28 16:40 | disposition home health service (06) | DRG 235 ==
LOC: REC 05:43 → ICU 14:20 → TEL 11-23 18:53
PROVIDERS: ADMIT Thoracic Surgery (Cardiothoracic Vascular Surgery); ATTEND Internal Medicine
PROC: 021209W Bypass Coronary Artery, Three Arteries from Aorta with Autologous Venous Tissue, Open Approach (ICD-10-PCS; 2016-11-20)
PROC: 06BQ0ZZ Excision of Left Saphenous Vein, Open Approach (ICD-10-PCS; 2016-11-20)
PROC: 5A1221Z Performance of Cardiac Output, Continuous (ICD-10-PCS; 2016-11-20)
PROC: 02100Z9 Bypass Coronary Artery, One Artery from Left Internal Mammary, Open Approach (ICD-10-PCS; principal; 2016-11-20 07:30)
PROC: 5A1D60Z (ICD-10-PCS; 2016-11-21)
DX: I25.10 Atherosclerotic heart disease of native coronary artery without angina pectoris (principal); N18.6 End stage renal disease; J96.91 Respiratory failure, unspecified with hypoxia; I12.0 Hypertensive chronic kidney disease with stage 5 chronic kidney disease or end stage renal disease; D69.6 Thrombocytopenia, unspecified; J90 Pleural effusion, not elsewhere classified; I97.89 Other postprocedural complications and disorders of the circulatory system, not elsewhere classified; T82.855A Stenosis of coronary artery stent, initial encounter; J98.11 Atelectasis; E11.22 Type 2 diabetes mellitus with diabetic chronic kidney disease; I25.82 Chronic total occlusion of coronary artery; I25.84 Coronary atherosclerosis due to calcified coronary lesion; I48.0 Paroxysmal atrial fibrillation; I95.81 Postprocedural hypotension; D63.1 Anemia in chronic kidney disease; J44.9 Chronic obstructive pulmonary disease, unspecified; E87.5 Hyperkalemia; E66.9 Obesity, unspecified; Z68.30 Body mass index [BMI] 30.0-30.9, adult; I25.2 Old myocardial infarction; E78.5 Hyperlipidemia, unspecified; F17.200 Nicotine dependence, unspecified, uncomplicated; Z99.2 Dependence on renal dialysis
CPT/HCPCS: 36430; 36592; 36600; 71010; 80048; 80053; 81001; 82803; 82962; 83735; 84100; 85014; 85025; 85610; 85730; 86703; 86704; 86709; 86803; 86850; 86900; 86901; 86920; 87040; 87081; 87086; 87340; 90935; 93005; 94002; 94003; 94640; 94664; 94760; 94770; 97116; 97162; 97530; J0171; J0282; J0360; J0610; J0690; J1170; J1250; J1265; J1644; J1815; J2001; J2150; J2250; J2270; J2370; J2405; J2440; J2710; J2720; J2930; J3010; J3370; J3475; J3480; J7040; J7060; J7070; J7999; P9016; P9035; P9047; P9059; Q4081

== ENCOUNTER 2017-05-20 12:42 | Inpatient (IN) | END 2017-05-24 17:49 | disposition home or self-care (01) | DRG 602 ==

== ENCOUNTER 2017-12-02 20:53 | Inpatient (IN) | END 2017-12-06 17:25 | disposition home or self-care (01) | DRG 166 ==

== ENCOUNTER 2017-12-17 03:42 | Inpatient (IN) | END 2017-12-21 17:45 | disposition home or self-care (01) | DRG 193 ==